=== PATIENT | male | born 1955 | race Caucasian/White ===

== ENCOUNTER 2023-04-24 09:11 | Outpatient (OUT) | payer MEDICARE, OTHER, SELFPAY ==
--- NOTE | 2023-04-24 | XR_ITS ---
[address] [address] Patient Name: HERMINIO HAMEED MRN: [id number] date: 1955 Sex: M Assigned Patient Location: [facility] Current Patient Location: [facility] Accession/Order Number: [id number] Exam Date: 04/24/2023 09:20 Report Date: 04/24/2023 10:08 At the request of: LAKISHA DURAN Procedure: XR ankle RT min 3V PROCEDURE: XR ankle RT min 3V COMPARISON: 05/02/2022 HISTORY: RIGHT ANKLE PAIN FINDINGS: BONES:Stable tibiotalar arthroplasty in anatomic alignment. No acute fracture, dislocation or mechanical failure. Anterior calcaneal osteotomy with wedged spacer placement. Moderate degenerative changes with joint space narrowing and marginal osteophyte formation. SOFT TISSUES:Negative. No visible soft tissue swelling. EFFUSION:Tibiotalar joint effusion OTHER: Vascular calcification XR/XR ankle RT min 3V IMPRESSION: Stable tibiotalar arthroplasty Electronically authenticated by: CAROL ALVAREZ Date: 04/24/2023 10:08
== END 2023-04-24 09:12 | disposition home or self-care (01) ==
LOC: RAD 09:26
PROVIDERS: Visit Provider Podiatrist Foot & Ankle Surgery
DX: M25.572 Pain in left ankle and joints of left foot (principal)
CPT/HCPCS: 73610

== ENCOUNTER 2024-04-22 08:54 | Outpatient (OUT) | payer MEDICARE, OTHER, SELFPAY ==
--- NOTE | 2024-04-22 | XR_ITS ---
[address] [address] Patient Name: HERMINIO HAMEED MRN: [id number] date: 1955 Sex: M Assigned Patient Location: Current Patient Location: Accession/Order Number: [id number] Exam Date: 04/22/2024 09:05 Report Date: 04/22/2024 19:00 At the request of: LAKISHA DURAN Procedure: XR ankle RT min 3V EXAM: XR ankle RT min 3V HISTORY: RIGHT ANKLE PAIN COMPARISON: None. FINDINGS/IMPRESSION: 1. Ankle arthroplasty hardware. No apparent hardware complication. 2. No acute fracture. 3. Calcaneal Achilles and plantar enthesophytes. 4. Moderate degeneration of the mid foot. 5. Subcutaneous soft tissue edema about the ankle. Electronically authenticated by: ZACHARIAH ZAYAS Date: 04/22/2024 19:00
== END 2024-04-22 08:55 | disposition home or self-care (01) ==
LOC: EC 08:54
PROVIDERS: Visit Provider Podiatrist Foot & Ankle Surgery
DX: M25.571 Pain in right ankle and joints of right foot (principal); Z96.661 Presence of right artificial ankle joint; R60.9 Edema, unspecified
CPT/HCPCS: 73610

== ENCOUNTER 2025-04-29 07:15 | Outpatient (OUT) | payer MEDICARE, OTHER, SELFPAY ==
--- OUTSIDE RECORDS SUMMARY | 2024-04-22 05:00 | XMS_ITS ---
Author Organization The [facility] in [place] Address [address] [place] [address] Care Team Providers Care Medical Record Coder Name Role Phone Clive Raymond MD Primary Care Provider Rohit Amin [phone] Allergies No Known Allergies REASON FOR VISIT -1 Year Follow Up- Medications Medication SIG (Take, Route, Frequency, Duration) Notes Start Date End Date Status Multivitamin - 1 tablet Orally Once a day Active Naproxen Sodium 220 MG 1 tablet with ronda d or milk as needed Orally every 12 hrs Active Pravastatin Sodium 80 MG 1 tablet Orally Once a day Active Super B Complex Acti ve Vitamin B6 100 MG 1 tablet Orally Once a day Active amLODIPine Besylate 5 MG 1 tablet Orally Once a day Active Biotin 5000 Active Lisinopril 10 MG 1 tablet Orally Once a day Active Losartan Potassium-HCTZ 100-25 MG 1 tablet Orally Once a day Active Social History Tobacco Use: Social History Observation Description Date Details (start date - stop date) Never Smoker NA - NA Tobacco Use/Smoking Question Answer Notes Patient is a nonsmoker Vital Signs Temperature 97.8 degrees Fahrenheit 04/22/20 24 Heart Rate 70 /min 04/22/2024 Height 63 in 04/22/2024 Weight 198 lbs 04/22/2024 BMI 35.07 kg/m2 04/22/2024 Oximetry 99 % 04/22/2024 Encounters Encounter Location Date Provider Diagnosis [facility] (PODIATRY) [address] [place] [address] [place] [address] 04/22/2024 Rohit Acosta Primary osteoarthritis, right ankle and foot M19.071 ; Presence of right artificial ankle joint Z96.661 and Right ankle pain M25.571 Assessments Encounter Date Diagnosis (ICD Code) Assessment Notes Treatment Notes Treatment Clinical Notes Section Notes 04/22/2024 Primary osteoarthritis, right ankle and foot (ICD-10 - M19.071) Patient is 5 years status post total ankle replacement and is doing very well. His x-rays were reviewed with him and those compared to 2021. No impact exercise and may continue activity as tolerated. Follow-up in 1 year for surveillance x-rays. 04/22/2024 Presence of right artificial ankle joint (ICD-10 - Z96.661) 04/22/2024 Right ankle pain (ICD-10 - M25.571) Plan Of Treatment Treatment Notes Assessment Notes Primary osteoarthritis, righ t ankle and foot Patient is 5 years status post total ank le replacement and is doing very well. His x-rays were reviewed with him and those compared to 2021. No impact exercise and may continue activity as tolerated. Follow-up in 1 year for surveillance x-rays. Pending Test Test Name Order Date XR Ankle RT (3 views) * (161) 04/22/2024 Progress Notes * Marck ALVAREZDOB: 5 (69 yo M)Acc No.[id number]:04/22/2024 Follow Up Patient: Marck NUNO Provider: Rosario Acosta DPM, MS :1955 A ge:69 Y S ex:Male Date:04/22/2024 Address:[address] [place], [place] [id number] Pcp:Clive Raymond MD Check In:08:50 AM ESTCheck O ut:09:28 AM EST Subjective: * Chief Complaints: * - 1 Year Follow Up- * HPI: G eneral: Patient in office today for 1 year follow up S/P right total ankle replacement, hazel calcaneal osteotomy, gastroc recession. DOS: 02.03.2019. Patient denies any complications or complaints. Denies pain at this time to his right ankle. Recently underwent left knee revision with hinged joint. Doing well. * ROS: G eneral/Constitutional: Chills d enies. F ever d enies. W eight gain?denies. W eight loss d enies. S kin: Skin Ulcers d enies. S kin lesion(s) d enies. ? C ardiovascular: Difficulty breathing on exertion d enies. L eg cramps?denies. E brian d enies. C hest pain d enies. R espiratory: Difficulty breathing d enies. D yspnea d enies.?Cough d enies. G astrointestinal: Diarrhea d enies. N ausea d enies. V omiting?denies. M usculoskeletal: Bone/Joint Symptoms d enies. C lambert Pain d enies.?Leg cramps d enies. N eurologic: Numbness d enies. T ingling d enies . G ait abnormality d enies. ? H ematology: Anemia D enies. E asy bruising d enies. ? A ll Other Systems: Review of Systems (ROS) S ee HPI for details,All others negative except those mentioned in HPI. * Active Problem List M25.572 Left ankle pain Modified On:04/24/2023W/U Status:confirmed Z96.661 Presence of right ar tificial ankle joint Modified On:04/24/2023/U Status:confirmed M19.071 Primary osteoarthrit is, right ankle and foot Modified On:04/24/2023/U Status:confirmed M25.571 Right ankle pain Modified On:04/22/2024W/U Status:confirmed * Medical History: * Surgical History: a ppendectomy 1980bicep tendon repair 1996right total knee replacement 2015multiple knee surgeries [id number] right total ankle replacement, finch calcaneal osteotomy, gastrocnemius recession 02/03/2019right hip replacement left knee revision with hinged implant * Hospitalization/Major Diagno stic Procedure: * Family History: N o Family History documented.. * Social History: T obacco Use: T obacco Use/Smoking P atient is a n onsmoker * Medications: T akingamLODIPine Besylate 5 MG Tablet 1 tablet Orally Once a day Biotin 5000 Lisinopril 10 MG Tablet 1 tablet Orally Once a day Losartan Potassium-HCTZ 100- 25 MG Tablet 1 tablet Orally Once a day Multivitamin(Multiple Vitamin) - Tablet 1 tablet Orally Once a day Naproxen Sodium 220 MG Tablet 1 tablet with food or milk as needed Orally every 12 hrs Pravastatin Sodium 80 MG Tablet 1 tablet Orally Once a day Super B Complex Vitamin B6 100 MG Tablet 1 tablet Orally Once a day Medication List reviewed and reconciled with the patientTaking amLODIPine Besylate 5 MG Tablet 1 tablet Orally Once a day Taking Biotin 5000 Taking Lisinopril 10 MG Tablet 1 tablet Orally Once a day Taking Losartan Potassium-HCTZ 100-25 MG Tablet 1 tablet Orally Once a day Taking Multivitamin(Multiple Vitamin) - Tablet 1 tablet Orally Once a day Taking Naproxen Sodium 220 MG Tablet 1 tablet with food or milk as needed Orally every 12 hrs Taking Pravastatin Sodium 80 MG Tablet 1 tablet Orally Once a day Taking Super B Complex Taking Vitamin B6 100 MG Tablet 1 tablet Orally Once a day Medication List reviewed and reconciled with the patient * Allergies: N .K.D.A.no[Allergies Verified] Objective: * Vitals: W t:198lbs, Ht: 63 in, Temp:97.8F, HR:70/min, BMI:35.07Index, Pain scale:01-10, Oxygen sat %:99%, Ht-cm: 160.02 cm, Wt-k.81 kg. * Examination: P odiatry Examination: SKIN: s kin intact, n o sign of infection. MUSCULOSKELETAL: N o pain to palpation, N o gross deformity, S trength equal & symmetric. NEUROLOGICAL: l ight touch sensation intact, n egative tinel's sign. VASCULAR: P edal pulses palpable, C apillary refill is brisk to toe, no swelling. X -rays: x-rays were obtained & reviewed in my office. X-rays were obtained today were compared to those obtained in 2021 and show no change in poly height. No evidence of tibial or talar loosening. Stable Finch wedge in the anterior calcaneus. Assessment: * Assessment: 1. P rimary osteoarthritis, right ankle and foot - M19.071 (Primary) 2 . P resence of right artificial ankle joint - Z96.661 3 . R ight ankle pain - M25.571 Plan: * Treatment: 2. R ight ankle pain I maging: XR Ankle RT (3 views) * (161) * Procedure Codes: * Preventive Medicine: Screenings/Counseling: B WA ACTION PLAN Above Normal BMI Follow-up D ietary management education, guidance, and counseling F ALL RISK SCREENING Fall Risk Assessment: N o falls in the past year * * Sign off status: Completed Visit Status: C HK (Check Out) true * Provider: Rosario Acosta DPM, MS Date: 04/22/2024 Generated for [facility] lubna/Royal/Mosheransmitting on: 04/29/2025 07:21 AM EDT History and Physical Notes * HPI (History of Present Illness) Category Sub-Category Detail Notes Category Not es General Patient in offi ce today for 1 year follow up S/P right total ankle replacement, hazel calcaneal osteotomy, gastroc recession. DOS: 02.03.2019. Patient denies any complications or complaints. Denies pain at this time to his right ankle. Recently underwent left knee revision with hinged joint. Doing well. Examination Category Sub-Category Detail Notes Category Not es Podiatry Examination SKIN: skin intact, no sign of infection X-rays: x-rays were obtained & reviewed in my office. X-rays were obtained today were compared to those obtained in 2021 and show no change in poly height. No evidence of tibial or talar loosening. Stable Finch wedge in the anterior calcaneus MUSCULOSKELETAL: No pain to palpation , No gross deformity, Strength equal & symmetric NEUROLOGICAL: light touch sensatio n intact, negative tinel's sign VASCULAR: Pedal pulses palpabl e, Capillary refill is brisk to toe, no swelling
--- OUTSIDE RECORDS SUMMARY | 2025-04-21 05:15 | XMS_ITS ---
Author Organization [facility] in [place] Address [address] [place] [address] Care Team Providers Care Transmission Repairer Name Role Phone Segundo DEWITT, Clive Primary Care Provider Rohit Amin [phone] REASON FOR VISIT -1 Year Follow Up- Encounters Encounter Location Date Provider Diagnosis [facility] (PODIATRY) [address] [place] [address] [place] [address] 04/21/2025 Rohit Acosta Plan Of Treatment No Information Progress Notes * Marck ALVAREZDOB: [birth year] (70 yo M)Acc No.[id number]:04/21/2025 UNLOCKED PROGRESS NOTE Follow Up Patient: Marck NUNO Provider: Rosario Acosta DPM, MS :1955 A ge:70 Y S ex:Male Date:04/21/2025 Address:[address] [place], [place] [id number] Pcp:Clive Raymond MD Subjective: * Chief Complaints: * 1 . -1 Year Follow Up-. * Medical History: Objective: * Vitals: Assessment: Plan: * Treatment: * * Electronic signature of Michael Acosta DPM on 04/29/2025 at 07:21 AM EDT Sign off status: Pending Visit Status: C ANC (Cancelled) * Provider: Rosairo Acosta DPM MS Date: 04/21/2025 Generated for Printi ng/Faxing/eTransmitting on: 0 04/29/2025 07:21 AM EDT
--- OUTSIDE RECORDS SUMMARY | 2025-04-29 07:21 | XMS_ITS | Clinical Summary ---
Author Organization [facility] Address [address] [place] [address] Care Team Providers Care Environmental Education Specialist Name Role Phone LewisDutch gustafson A Unavailable Clive Raymond DO Primary Care Provider [phone] Allergies No known active allergies Medications amLODIPine (NORVASC) 5 mg tablet Take 5 mg by mouth. 07/10/2021 Active hydroCHLOROthia zide 25 mg tablet Take 25 mg by mouth. Active lisinopril (ZESTRIL) 10 mg tablet Take 10 mg by mouth. 07/10/2021 Active meloxicam (MOBIC) 7.5 mg tablet Take by mouth. 03/06/2022 Active pravastatin (PRAVACHOL) 80 mg tablet Take 80 mg by mouth. 08/25/2021 Active pyridoxine, vitamin B6, (VITAMIN B6) 100 mg tablet Take 100 mg by mouth. Active cephALEXin (KEFLEX) 500 mg capsule TAKE ALL 4 CAPSULES ONE HOUR BEFORE THE PROCEDURE. 06/26/2023 Active aspirin, enteric coated (ADULT LOW DOSE ASPIRIN) 81 mg EC tablet Take 1 tablet by mouth two times a day. 60 tablet 10/16/2023 Active ergocalciferol 50,000 unit capsule (VITAMIN D2, DRISDOL) Take 1 capsule by mouth two times a week. 24 capsule 10/16/2023 Active Active Problems Problem Noted Date Diagnosed Date Failed orthopedic implant, initial encounter Suspected sleep apnea 10/10/2023 Assessment & Plan (10/10/2023 11:58 AM EST): Assessment: STOP Bang 6. BMP ordered. Pt reports loud snoring. Alcohol use 10/10/2023 Assessment & Plan (10/10/2023 12:05 PM EST): Assessment: Reports drinking 2-3 beers/day. Advised to decrease intake. Labs ordered. Denies withdrawal or DTs. Abnormal gait 09/20/2023 09/20/2023 Acquired buried penis 09/20/2023 09/20/2023 Acute serous otitis media 09/20/20232023 Anemia 09/20/2023 09/20/2023 Anemia of chronic disease 09/20/20232023 Carpal tunnel syndrome 09/20/2023 Postoperative pain 09/20/2023 09/20/2023 Disorder of male genital organ 09/20/2023 0 09/20/2023 Elevated hemoglobin A1c 09/20/2023 09/20/19 Encounter for orthopedic follow-up care 09/20/19 24 09/20/2023 Familial hypercholesteremia 09/20/2023 02/0 09/2023 H/O hydrocele 09/20/2023 09/20/2023 History of testicular disorder 09/20/2023 0 09/20/2023 History of carpal tunnel release 09/20/2023 09/20/2023 History of bilateral knee replacement 09/20/2023 09/20/2023 Hyperlipidemia 09/20/2023 09/20/2023 Assessment & Plan (10/10/2023 11:53 AM EST): Assessment: Complaint on statin therapy. Encouraged lifestyle modifications. Body mass index is 35.78 kg/m . Hypertension 09/20/2023 09/20/2023 Low vitamin D level 09/20/2023 09/20/2023 Obesity, Class II, BMI 35-39.9, isolated (see ac tual BMI) 09/20/2023 09/20/2023 Assessment & Plan (10/10/2023 11:56 AM EST): Assessment: Body mass index is 35.78 kg/m . 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 Follows with PCP. Denies lightheaded or dizziness. Last 3 Encounter BP Readings: Date: BP: 10/10/2023 90/55 Pain of right hip joint 03/06/2022 09/20/19 24 Resolved Problems Problem Noted Date Diagnosed Date Resolved Date Morbid obesity 03/09/2022 09/20/2023 10/10/2023 Overview (09/20/2023): Comment on above: added per 04/12/2023 query response. Class 2 obesity 03/06/2022 09/20/2023 10/10/2023 Social History Tobacco Use Types Packs/Day Years Used Date Smoking Tobacco: Never Smokeless Tobacco: Never Tobacco Cessation:Counseling Given: Not Answered Alcohol Use Standard Drinks/Week Comments Yes 21 (1 standard drink = 0.6 oz pu re alcohol) 2-3 beers daily. [facility] Utilities Answer Date Recorded In the past 12 months has [employer], gas, oil, or water [employer] threatened to shut off services in your home? No 10/03/2023 Social Connection and Isolation Panel Answer Date Recorded In a typical week, how many times do you talk on the phone with family, friends, or neighbors? More than three times a week 10/03/2023 How often do you get togethe r with friends or relatives? More than three times a week 10/03/2023 How often do you attend chur or pentecostal services? 1 to 4 times per year 10/03/2023 Do you belong to any clubs o r organizations such as holiness groups, unions, fraternal or athletic groups, or school groups? Yes 10/03/2023 How often do you attend meet ings of the clubs or organizations you belong to? More than 4 times per year 10/03/2023 Are you , , di vorced, , never , or living with a partner? 10/03/2023 AUDIT-C Answer Date Recorded Q1: How often do you have a drink containing alcohol? 4 or more times a week 10/03/2023 Q2: How many drinks containi ng alcohol do you have on a typical day when you are drinking? 1 or 2 Q3: How often do you have si x or more drinks on one occasion? Never 10/03/2023 Overall Financial Resource Strain (CARDIA) Answe r Date Recorded How hard is it for you to pa y for the very basics like food, housing, medical care, and heating? Not very hard 10/03/2023 PHQ-2 Answer Date Recorded PHQ-2 score 0 10/03/2023 [facility] - Occupational Stress Questionnaire Answer Date Recorded Do you feel stress - tense, restless, nervous, or anxious, or unable to sleep at night because your mind is troubled all the time - these days? Not at all 10/03/2023 Exercise Vital Sign Answer Date Recorde d On average, how many days pe r week do you engage in moderate to strenuous exercise (like a brisk walk)? 0 days 10/03/2023 On average, how many minutes do you engage in exercise at this level? 0 min 10/03/2023 Hunger Vital Sign Answer Date Recorded Within the past 12 months, y ou worried that your food would run out before you got the money to buy more. Never true 10/03/19 24 Within the past 12 months, t he food you bought just didn't last and you didn't have money to get more. Never true 10/03/2023 PRAPARE - Transportation Answer Date Re corded In the past 12 months, has l ack of transportation kept you from medical appointments or from getting medications? No 09/19 In the past 12 months, has l ack of transportation kept you from meetings, work, or from getting things needed for daily living? No 10/03/2023 Housing Stability Vital Sign Answer Chevy e Recorded In the last 12 months, was t here a time when you were not able to pay the mortgage or rent on time? No 10/03/2023 In the last 12 months, how many places have you lived? 1 10/03/2023 In the last 12 months, was t here a time when you did not have a steady place to sleep or slept in a long term (including now)? No 10/03/2023 Area Deprivation Index Answer Date Barron rded National Score (1-100), lower number is lower ri sk 65 09/20/2023 State Score (1-10), lower number is lower risk 4 09/20/2023 Data from: https://www.neighborhoodatlas.medicine.[facility].edu/. Last address used for calculation [address] 09/20/2023 Sex and Gender Information Value Date Recorded Sex Assigned at Not on file Legal Sex Male 8:16 AM EST Gender Identity Not on file Sexual Orientation Not on file Last Filed Vital Signs Vital Sign Reading Time Taken Comments Blood Pressure 112/66 10/16/2023 11:25 AM EST Pulse 80 10/16/2023 11:25 AM EST Temperature 36.7 C (98 F) 10/16/2023 11:25 AM EST Respiratory Rate 18 10/16/2023 11:25 AM EST Oxygen Saturation 98% 10/16/2023 11:25 AM EST Inhaled Oxygen Concentration - - Weight 91 kg (200 lb 9.9 oz) 10/14/2023 10:02 PM EST Height 160 cm (5' 2.99 ) 10/14/2023 10:02 PM EST Body Mass Index 35.55 10/14/2023 10:02 PM EST Plan of Treatment Health Maintenance Due Date Last Done Comments Annual PCP Team Chronic Disease Visit 1973 Anxiety Screening 1973 Depression Screening 1973 Hepatitis C Screening [address] Colonography 2000 Cologuard (FIT-DNA) 2000 Colonoscopy 2000 Colorectal Cancer Screening 2000 Fecal Occult Blood 2000 Sigmoidoscopy 2000 Pneumococcal Vaccine: 50+ (1 of 1 - PCV) 2005 Shingrix Vaccine (1 of 2) 2005 Medicare Annual Wellness Visit 02/17/2020 DTaP,Tdap,Td Vaccine (2 - Td or Tdap) 08/09/2020 Advance Directive Discussion 08/19/2024 Influenza Vaccine (#1) 2025 06/26/2022 Diabetes Screening 10/15/2026 10/15/2023, 10/10/2023 RSV Vaccine (1 - 1-dose 75+ series) 2030 Medical Devices Implanted Type Area Field Service Representative Device Identifier Shelf Expiration Date Model / Serial / Lot Cement Simplex P Speedset Bone Radiopaque Sterile - [id number] Implanted:Qty: 1 on 10/14/2023 at [facility] Cement / Putty Left: Bone - Knee [employer] 08/18/2024 [id number] / / [id number] Cement Simplex P Bone Radiopaque Full Dose Sterile - [id number] Implanted:Qty: 1 on 10/14/2023 at [facility] Cement / Putty Left: Bone - Knee [employer] 11/16/2025 [id number] / / [id number] Cement Simplex P Bone Radiopaque Full Dose Sterile - [id number] Implanted:Qty: 1 on 10/14/2023 at [facility] Cement / Putty Left: Bone - Knee [employer] 11/16/2025 [id number] / / [id number] Cement Simplex P Bone Radiopaque Full Dose Sterile - [id number] Implanted:Qty: 1 on 10/14/2023 at [facility] Cement / Putty Left: Bone - Knee [employer] 11/16/2025 [id number] / / [id number] Cement Simplex P Bone Radiopaque Full Dose Sterile - [id number] Implanted:Qty: 1 on 10/14/2023 at [facility] Cement / Putty Left: Bone - Knee [employer] [employer] [employer] 11/16/2025 [id number] / / [id number] Oss Imp Knee Rev Fem Rsf [id number] Lt Implanted:Qty: 1 on 10/14/2023 at [facility] Implant Left: Bone - Knee [employer] 08/24/2031 [id number] / / [id number] [place]oke Oss Tibial Reinforcement Knee - [id number] Implanted:Qty: 1 on 10/14/2023 at [facility] Implant Left: Bone - Knee [employer] 06/14/2033 [id number] / / [id number] Cable Dall-Miles 2mm 2 Vitallium Orthopedic Homogenous Hip - [id number] Implanted:Qty: 1 on 10/14/2023 at [facility] Joint - Hip Left: Bone - Knee [employer] [employer] 03/06/2028 [id number] / / [id number] Stem Oss 13mm 150mm Femoral Cemented Hip Intramedullary - [id number] Implanted:Qty: 1 on 10/14/2023 at [facility] Joint - Knee Left: Bone - Knee [employer] 01/02/2033 [id number] / / [id number] Augment Triathlon C Cone Tritanium Tibial Symmetric Sterile Latex Free - [id number] Implanted:Qty: 1 on 10/14/2023 at [facility] Joint - Knee Left: Bone - Knee [employer] 02/12/2028 [id number] / / [id number] Bushing Oss Polyethylene Tibial Low Friction Interface Knee - [id number] Implanted:Qty: 1 on 10/14/2023 at [facility] Joint - Knee Left: Bone - Knee [employer] 06/17/2028 [id number] / / [id number] Axle Oss Tibial Low Friction Interface Knee - [id number] Implanted:Qty: 1 on 10/14/2023 at [facility] Joint - Knee Left: Bone - Knee [employer] 06/25/2033 [id number] / / [id number] Bushing Oss Polyethylene Femoral Auxiliary Knee - [id number] Implanted:Qty: 1 on 10/14/2023 at [facility] Joint - Knee Left: Bone - Knee [employer] 08/16/2028 [id number] / / [id number] Bearing Oss Uhmwpe 12mm Tibial Insert Knee - [id number] Implanted:Qty: 1 on 10/14/2023 at [facility] Joint - Knee Left: Bone - Knee [employer] 10/26/2027 [id number] / / [id number] Baseplate Oss 67mm Tibial Modular Knee - [id number] Implanted:Qty: 1 on 10/14/2023 at [facility] Joint - Knee Left: Bone - Knee [employer] 06/03/2028 [id number] / / [id number] Block Oss 63/67mm Spring 10mm Augmentation Tibia - [id number] Implanted:Qty: 1 on 10/14/2023 at [facility] Joint - Knee Left: Bone - Knee [employer] 10/11/2032 [id number] / / [id number] Restrictor Spring Cement Disposable Housing Grant Analyst - [id number] Implanted:Qty: 1 on 10/14/2023 at [facility] Joint Left: Bone - Knee [employer] 01/17/2028 [id number] / / [id number] Restrictor Spring Cement Disposable Housing Grant Analyst - [id number] Implanted:Qty: 1 on 10/14/2023 at [facility] Joint Left: Bone - Knee [employer] 04/06/2028 [id number] / [id number] 2 / [id number] Oss Polyethylene Fixation Locking Compression Molded Knee - [id number] Implanted:Qty: 1 on 10/14/2023 at [facility] Pin Left: Bone - Knee [employer] 01/10/2028 [id number] / / [id number] Procedures Procedure Name Priority Date/Time Associated Diagnosis Comments BASIC METABOLIC PANEL Routine 10/15/2023 5:22 AM EST from Last 3 Months or Most Recently Relevant to Health Maintenance Results * (ABNORMAL) BASIC METABOLIC PNL (10/15/2023 5:22 AM EST) [facility] Glucose 121(H) 74 - 99 mg/dL 10/15/2023 7:23 AM EST [facility] Comment: The [place] Diabetes Association (ADA) provides guidance for cutoff values for fasting glucose and random glucose. The ADA defines fasting as no caloric intake for at least 8 hours. Fasting plasma glucose results between 100 to 125 mg/dL indicate increased risk for diabetes (prediabetes). Fasting plasma glucose results greater than or equal to 126 mg/dL meet the criteria for diagnosis of diabetes. In the absence of unequivocal hyperglycemia, results should be confirmed by repeat testing. In a patient with classic symptoms of hyperglycemia or hyperglycemic crisis, random plasma glucose results greater than or equal to 200 mg/dL meet the criteria for diagnosis of diabetes. Reference: Standards of Medical Care in Diabetes 2016, [place] Diabetes Association. Diabetes Care. 2016.39(Suppl 1). BUN 22 9 - 24 mg/dL 10/15/2023 7:23 AM [facility] Creatinine 0.74 0.73 - 1.22 mg/dL 10/15/2023 7:23 AM [facility] Sodium 132(L) 136 - 144 mmol/L 10/15/2023 7:23 AM [facility] Potassium 4.4 3.7 - 5.1 mmol/L 10/15/2023 7:23 AM [facility] Chloride 98 97 - 105 mmol/L 10/15/2023 7:23 AM [facility] CO2 23 22 - 30 mmol/L 10/15/2023 7:23 AM [facility] Anion Gap 11 9 - 18 mmol/L 10/15/2023 7:23 AM [facility] Calcium, Total 8.8 8.5 - 10.2 mg/dL 10/15/2023 7:23 AM [facility] Estimated Glomerular Filtration Rate 99 >=60 mL/min/1.7 3m 10/15/2023 7:23 AM [facility] Comment:Estimated Glomerular Filtration Rate (eGFR) is calculated using the 2020 CKD-EPI creatinine equation. This equation utilizes serum creatinine, sex, and age as parameters. The creatinine assay has traceable calibration to isotope dilution- mass spectrometry. Refer to KDIGO guidelines for clinical interpretation. In patients with unstable renal function, e.g. those with acute kidney injury, the eGFR may not accurately reflect actual GFR. Blood BLOOD SPECIMEN / Unknown Venipuncture / Unknown 10/15/2023 5:22 AM EST 10/15/2023 6:28 AM EST us Colin Presley MD LABORATORY Final R esult [facility] [address] [facility] [address] [place] [address], [place] from Last 3 Months or Most Recently Relevant to Health Maintenance Insurance MEDICARE Care Teams Environmental Education Specialist Relationship Specialty Start Date End Date Clive Raymond DO [address] [place] [address] PCP - General Family Medicine 10/07/23 Dutch Deluna [address] [place] [id number] Referring Orthopedics 07/18/23
--- OUTSIDE RECORDS SUMMARY | 2025-04-29 07:22 | XMS_ITS | Clinical Summary ---
Author Organization [facility] Address [address] [place] [address] Care Team Providers Care Anesthesiology Resident Name Role Phone Clive Raymond MD Primary Care Provider [phone] Allergies No known active allergies Medications pravastatin (Pravachol) 80 MG tablet Take 80 mg by mouth in the morning. Active losartan-hydroCH LOROthiazide (Hyzaar) 100-25 MG tablet Take 1 tablet by mouth in the morning. Active hydroCHLOROthiaz tesha (HYDRODiuril) 25 MG tablet Take 25 mg by mouth in the morning. Active amLODIPine (Norvasc) 5 MG tablet Take 5 mg by mouth in the morning. Active lisinopril 10 MG tablet Take 10 mg by mouth in the morning. Active pyridoxine (Vitamin B-6) 100 MG tablet Take 100 mg by mouth in the morning. Active ascorbic acid (Vitamin C) 500 MG tablet Take 500 mg by mouth in the morning. Active Multiple Vitamin (Multi Vitamin) tablet 1 (one) time each day at the same time. Active naproxen sodium (Aleve) 220 MG tablet every 12 (twelve) hours. Active biotin (Biotin 5000) 5 MG capsule Biotin 5000 Active cephalexin (Keflex) 500 MG capsuleIndicatio ns:History of left knee replacement Take all 4 capsules one hour before the procedure. 4 capsule 5 Active cephalexin (Keflex) 500 MG capsuleIndicatio ns:History of left knee replacement,Pres ence of right artificial hip joint Take all 4 capsules one hour before the procedure. 4 capsule 5 Active Active Problems No known active problems Encounters Date Type Department Care Team Description 02/25/2025 Telephone [facility] [address] [place] [address] Tamiko Maguire RN from Last 3 Months Family History Medical History Relation Name Comments Diabetes Father Heart disease Father No Known Problems Maternal Grandmother Cancer Mother Diabetes Mother Heart disease Mother Cancer Sister Relation Name Status Comments Brother Alive Father Maternal Grandmother Mother Other Spouse Sister Social History Tobacco Use Types Packs/Day Years Used Date Smoking Tobacco: Never Smokeless Tobacco: Never Tobacco Cessation:Counseling Given: Not Answered Alcohol Use Standard Drinks/Week Comments Yes 0 (1 standard drink = 0.6 oz pur e alcohol) coffee 3-4 cups daily Sex and Gender Information Value Date Recorded Sex Assigned at Not on file Legal Sex Male 6:38 PM EDT Gender Identity Not on file Sexual Orientation Not on file Last Filed Vital Signs Vital Sign Reading Time Taken Comments Blood Pressure 137/82 01/14/2019 12:00 PM EDT Pulse - - Temperature 36.1 C (97 F) 07/08/2023 8:23 AM EST Respiratory Rate - - Oxygen Saturation - - Inhaled Oxygen Concentration - - Weight 91.2 kg (201 lb) 07/08/2023 8:23 AM EST Height 157.5 cm (5' 2 ) 07/08/2023 8:23 AM EST Body Mass Index 36.76 07/08/2023 8:23 AM EST Plan of Treatment Upcoming Encounters Date Type Department Care Team (Late st Contact Info) Description 07/07/2025 9:00 AM EST Office Visit [facility] [address] [place] [address] Dutch Deluna, DO [address] [place] [address] 07/08/2025 9:10 AM EST Office Visit [facility] [address] [place] [phone] Ioana Grace APRN-INTERNATIONAL MARKETING SPECIALIST [address] [place] [address] Health Maintenance Due Date Last Done Comments CT Colonography 1955 FIT-DNA 1955 FIT 1955 FOBT 1955 Sigmoidoscopy 1955 Pneumococcal Vaccine: 65+ Years (1 of 1 - PCV) 005 Influenza Vaccine (#1) 2025 06/26/2022 Colonoscopy 01/01/2027 01/01/2017 Colorectal Cancer Screening 01/01/2027 Insurance MEDICARE [facility] [place] [address] Care Teams Anesthesiology Resident Relationship Specialty Start Date End Date Clive Raymond MD [address] [place] [address] PCP - General Family Medicine 01/06/23
--- OUTSIDE RECORDS SUMMARY | 2025-04-29 07:22 | XMS_ITS | Patient Health Record ---
Author Organization [facility] [place] Address [address] [place] [address] Care Team Providers Care Health Careers Instructor Name Role Phone Clive Raymond MD Primary Care Provider Rohit Amin [phone] Allergies No Known Allergies Reason For Referral No Information Medications Medication SIG (Take, Route, Frequency, Duration) [...] Question Answer Notes Patient is a nonsmoker Problems Problem Type SNOMED Code ICD Code Onset Dates Problem Status W/U Status Risk Notes Problem 055049689 Primary osteoarthritis , right ankle and foot (M19.071) Active confirmed Problem 5698165826629431 Presence of right artificial ankle joint (Z96.661) Active confirmed Problem Arthralgia of the ankle and/or foot (278930545) Right ankle pain (M25.571) Active confirmed Problem Arthralgia of the ankle and/or foot (971366695) Left ankle pain (M25.572) Active confirmed Plan Of Treatment Pending Test Test Name Order Date XR Ankle RT (3 views) * (161) 04/22/2024 XR ankle RT min 3V 04/22/2024 Insurance Providers Payer Name Payer Address Payer Phone Subscriber Number Group Number Insured Name Patient Relationship to Insured Coverage Start Date Coverage End Date [place] [address] [place] [address] [id number] Marck Alvarez Self - patient is the insured 0 [employer] [id number] MEDICARE SUPP [place] DEPT [place] [address] [id number] Marck Alvarez Self - patient is the insured 0 Medical (General) History Medical History History ICD Code Arthritis M19.90 Benign essential hypertension I10 High cholesterol E78.00 History of artificial joint Z96.60 Ankle instability, right M25.371 Contracture, right ankle M24.571 Posterior tibial tendon dysfunction, rig ht M76.821 Arthritis of ankle, right M19.071 Surgical History Surgery Date(Month/Year) multiple knee surgeries [id number] right total ankle replacejoan ovalle calcaneal osteotomy, gastrocnemius recession 02/03/2019 right hip replacement left knee revision with hinged implant appendectomy 1980 bicep tendon repair 1996 right total knee replacement 2015
--- OUTSIDE RECORDS SUMMARY | 2025-04-29 07:22 | XMS_ITS | Encounter Summary ---
Author Organization [facility] Address [address] [place] [address] Care Team Providers Care Landscape Architect Name Role Phone Clive Raymond MD Primary Care Provider [phone] Encounter Details Date Type Department Care Team (Late st Contact Info) Description 06/26/2023 Clinisync Result Encounter [facility] External Department Unsolicited Dutch Deluna DO [address] [place] [address] Social History Tobacco Use Types Packs/Day Years Used Date Smoking Tobacco: Never Smokeless Tobacco: Never Alcohol Use Standard Drinks/Week Comments Yes 0 (1 standard drink = 0.6 oz pur e alcohol) coffee 3-4 cups daily Sex and Gender Information Value Date Recorded Sex Assigned at Not on file Legal Sex Male 6:38 PM EDT Gender Identity Not on file Sexual Orientation Not on file documented as of this encounter Plan of Treatment Upcoming Encounters Date Type Department Care Team (Late st Contact Info) Description 07/07/2025 9:00 AM EST [facility] [address] [place] [phone] Dutch Deluna DO [address] [place] [address] 07/08/2025 9:10 AM EST Office Visit [facility] [address] [place] [phone] Ioana Grace, SMOKING PIPE DRILLER AND THREADER-CLERK [address] [place] [address] documented as of this encounter Procedures Procedure Name Priority Date/Time Associated Diagnosis Comments CT LOWER EXTREMITY W/O CONTRAST LEFT 06/26/2023 11:47 AM EST documented in this encounter Results * CT LOWER EXTREMITY W/O CONTRAST LEFT (06/26/2023 11:47 AM EST) Anatomical Region Laterality Modality Other 06/26/2023 11:4 7 AM EST Narrative 06/27/2023 12:28 PM EST Exam Date/Time: 06/26/2023 12:15 EST Reason for Exam: M25.562 , Z96.652 Report IMPRESSION: NO ACUTE FRACTURE. MODERATE SUPRAPATELLAR JOINT EFFUSION IS THICK WALLED SUGGESTING POSSIBLE NONSPECIFIC SYNOVITIS. 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 EXAMINATION: CT Lower Extremity w/o Contrast Left HISTORY: Medial knee pain TECHNIQUE: Multiple contiguous axial images were obtained of the left knee without contrast . Multiplanar reformats were obtained. COMPARISON: Radiographs 06/03/2023 FINDINGS: Postsurgical changes of left knee arthroplasty. No periprosthetic abnormality/fracture identified. There is a large thick rimmed structure in the popliteal region measuring approximately 5 cm in AP dimension by 5.5 cm in transverse dimension by 9 cm in craniocaudal dimension. There is atrophy and fatty infiltration of semimembranosus muscle. Moderate suprapatellar joint effusion is also a thick-walled. All CT scans at this facility use dose modulation, iterative reconstruction, and/or weight based dosing when appropriate to reduce radiation dose to as low as reasonably achievable. Ordering Provider: Dutch Deluna FINAL REPORT Dictated: 06/27/2023 12:25 pm Blu Jennings DO Signed (Electronic Signature): 06/27/2023 12:25 pm Signed by: Blu Jennings DO Transcribed by: RADHA Technologist: JAILENE Procedure Note Radiology, Radiologist, - 06/27/2023 Exam Date/Time: 06/26/2023 12:15 EST Reason for Exam: M25.562 , Z96.652 Report IMPRESSION: NO ACUTE FRACTURE. MODERATE SUPRAPATELLAR JOINT EFFUSION IS THICK WALLED SUGGESTING POSSIBLENONSPECIFIC SYNOVITIS. 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 EXAMINATION: CT Lower Extremity w/o Contrast Left HISTORY: Medial knee pain TECHNIQUE: Multiple contiguous axial images were obtained of the left kneewithout contrast . Multiplanar reformats were obtained. COMPARISON: Radiographs 06/03/2023 FINDINGS: Postsurgical changes of left knee arthroplasty. No periprosthetic abnormality/fracture identified. There is a large thick rimmed structurein the popliteal region measuring approximately 5 cm in AP dimension by 5.5 cm intransverse dimension by 9 cm in craniocaudal dimension. There is atrophy and fattyinfiltration of semimembranosus muscle. Moderate suprapatellar joint effusion is alsoa thick-walled. All CT scans at this facility use dose modulation, iterativereconstruction, and/or weight based dosing when appropriate to reduce radiation dose to as low asreasonably achievable. Ordering Provider: Dutch Deluna FINAL REPORT Dictated: 06/27/2023 12:25 pm Blu Jennings DO Signed (Electronic Signature): 06/27/2023 12:25 pm Signed by: Blu Jennings DO Transcribed by: RADHA Technologist: Dutch Deluna DO [facility] Final Result documented in this encounter Visit Diagnoses Not on filedocumented in this encounter Care Teams Landscape Architect Relationship Specialty Start Date End Date Clive Raymond MD [address] [facility] [address] PCP - General Family Medicine 01/06/23 documented as of this encounter
--- OUTSIDE RECORDS SUMMARY | 2025-04-29 07:22 | XMS_ITS | Encounter Summary ---
Author Organization [facility] Address [address] [place] [address] Care Team Providers Care Operation Manager Name Role Phone Lewisjanay Mark Unavailable Clive Raymond DO Primary Care Provider [phone] Source Comments In the event this information is protected by the Federal Confidentiality of Alcohol and Drug AbusePatient Records regulations: The Federal rules restrict any use of the information to criminally investigate or prosecute any alcohol or drug abuse patient.[facility] Encounter Details Date Type Department Care Team (Late st Contact Info) Description 09/30/2023 Patient Msg [facility] [address] [place], [place] [id number] Provider, [facility] Important Reminder for Preparing Your Skin for Surgery Social History Tobacco Use Types Packs/Day Years Used Date Smoking Tobacco: Never Assessed [facility] Utilities Answer Date Recorded In the past 12 months has [employer] electric, gas, oil, or water company threatened to shut off services in your [...] 10/03/2023 How often do you attend chur ch or jain services? 1 to 4 times per year 10/03/2023 Do you belong to any clubs o r organizations such as yazidi groups, unions, fraternal or athletic groups, or [...] Answer Date Recorded PHQ-2 score 0 10/03/2023 [facility] - Occupational Stress [...] place to sleep or slept in a penitentiary (including now)? No 10/03/2023 Area Deprivation Index Answer Date Barron rded National Score (1-100), lower number is lower ri sk 65 09/20/2023 State Score (1-10), lower number is lower risk 4 09/20/2023 Data from: https://www.neighborhoodatlas.medicine.[facility].edu/. Last address used for calculation [address] 09/20/2023 Sex and Gender Information Value Date Recorded Sex Assigned at Not on file Legal Sex Male 8:16 AM EST Gender Identity Not on file Sexual Orientation Not on file documented as of this encounter Functional Status * AUDIT-C Score Answer Date of Assessment Author 4 10/03/2023 10:23 AM Lamont Wasserman LSW * Question Answer Date of Assessment Author Q1: How often do you have a drink containing alcohol? 4 or more times a week 10/03/2023 10:23 AM Nhi Wasserman LSW Q2: How many drinks containing alcohol do you have on a typical day when you are drinking? 1 or 2 10/03/2023 10:23 AM Nhi Wasserman LSW Q3: How often do you have six or more drinks on one occasion? Never 10/03/2023 10:23 AM Nhi Wasserman LSW documented as of this encounter Plan of Treatment Not on file documented as of this encounter Visit Diagnoses Not on filedocumented in this encounter Care Teams Operation Manager Relationship Specialty Start Date End Date Clive Raymond DO [address] [place] [address] PCP - General Family Medicine 10/07/23 Dutch Deluna [address] [place] [place] [phone] Referring Orthopedics 07/18/23 documented as of this encounter
--- OUTSIDE RECORDS SUMMARY | 2025-04-29 07:22 | XMS_ITS | Clinical Summary ---
Author Organization [facility] Address [address] [place] [address] Phone Care Team Providers Care Wireless Architect Name Role Phone Unavailable Primary Care Provider Unavailabl e Social History Tobacco Use Types Packs/Day Years Used Date Smoking Tobacco: Never Assessed Sex and Gender Information Value Date Recorded Sex Assigned at Not on file Legal Sex Male 3:43 PM EST Gender Identity Not on file Sexual Orientation Not on file Plan of Treatment Health Maintenance Due Date Last Done Comments CT Colonography 1955 Colonoscopy 1955 Colorectal Cancer Screening 1955 FIT-DNA (Cologuard) 1955 FIT 1955 Lipid Panel 1955 Sigmoidoscopy 1955 Yearly Adult Physical 1955 MMR Vaccines (1 of 1 - Stand ananda series) 1956 Hepatitis C Screening 1973 DTaP/Tdap/Td Vaccines (1 - Tdap) 1977 Pneumococcal Vaccine (1 of 1 - PCV) 2005 Zoster Vaccines (1 of 2) 2005 COVID-19 Vaccine (1 - 2023-2 5 season) 2025 Influenza Vaccine (#1) 2025 RSV High Risk: (Elderly (60+ ) or Population) (1 - 1-dose 75+ series) 2030 HIB Vaccines Aged Out No longer eligi ble based on patient's age to complete this topic HPV Vaccines Aged Out No longer eligi ble based on patient's age to complete this topic Hepatitis A Vaccines Aged Out No long er eligible based on patient's age to complete this topic Hepatitis B Vaccines Aged Out No long er eligible based on patient's age to complete this topic IPV Vaccines Aged Out No longer eligi ble based on patient's age to complete this topic Meningococcal Vaccine Aged Out No kian carmina eligible based on patient's age to complete this topic Rotavirus Vaccines Aged Out No longer eligible based on patient's age to complete this topic
--- OUTSIDE RECORDS SUMMARY | 2025-04-29 07:22 | XMS_ITS | Encounter Summary ---
Author Organization [facility] Address [address] [place] [address] Care Team Providers Care Financial Consultant Name Role Phone Clive Raymond MD Primary Care Provider Encounter Details Date Type Department Care Team (Late st Contact Info) Description 06/26/2023 Clinisync Result Encounter [facility] External Department Unsolicited Dutch Deluna DO [address] [place] [address] Social History Tobacco Use Types Packs/Day Years [...] [facility] [address] [place] [phone] Dutch Deluna DO [address] [place] [address] 07/08/2025 9:10 AM EST Office Visit [facility] [address] [place] [phone] Ioana Grace, WELLNESS COACH-ROULETTE DEALER [address] [place] [address] documented as of this encounter Procedures Procedure Name Priority Date/Time Associated Diagnosis Comments NM 3PH 06/26/2023 7:52 AM EST documented in this encounter Results * NM bone 3 phase (06/26/2023 7:52 AM EST) Anatomical Region Laterality Modality Nuclear Medicine 06/26/2023 7:52 AM EST Narrative 06/27/2023 3:17 PM EST Exam Date/Time: 06/26/2023 12:28 EST Reason for Exam: M25.562 , Z96.652 Report IMPRESSION: BILATERAL KNEE JOINT PROSTHESES. HYPEREMIA ADJACENT TO THE FEMORAL COMPONENT OF THE LEFT KNEE JOINT PROSTHESIS. ON DELAYED PHASE IMAGES, INCREASED BONY UPTAKE OF ACTIVITY ADJACENT TO THE METALLIC LEFT KNEE JOINT PROSTHESIS, MORE PROMINENT ADJACENT TO THE FEMORAL COMPONENT THAN THE TIBIAL COMPONENT. THIS SUGGESTS LOOSENING OF THE LEFT KNEE JOINT PROSTHESIS. BONY UPTAKE OF ACTIVITY IS NONSPECIFIC, AND ALTHOUGH CONSIDERED LESS LIKELY, COULD BE RELATED TO INFECTION. CORRELATE CLINICALLY. CLINICAL HISTORY: M25.562 , Z96.652. Pain left knee. Bilateral knee replacements. Revision right knee replacement 2015. COMPARISON: Bone scan on 01/17/2016, radiographs on 06/03/2023, and CT on 06/26/2023. COMMENT: Three-phase bone scan of both knees was obtained following the intravenous injection of 29.5 mCi of 99m Technetium MDP. There are photon deficient areas of both knees, due to the metallic prostheses. On the dynamic phase and blood pool phase images, there is hyperemia adjacent to the femoral component of the left knee joint prosthesis. The delayed phase images were obtained 4 hours post radionuclide injection. There is prominent increased activity involving the distal left femur adjacent to the prosthesis, and there is also increased uptake of activity adjacent to the tibial component of the prosthesis (although not as prominent as adjacent to the femoral component, and more so laterally than medially). Bony activity adjacent to the right knee joint prosthesis is consistent with reactive change. Ordering Provider: Dutch Deluna FINAL REPORT Dictated: 06/27/2023 3:14 pm Jefe Brower M.D. Signed (Electronic Signature): 06/27/2023 3:14 pm Signed by: Jefe Brower M.D. Transcribed by: RADHA Technologist: BRUCE Technical Comments Dose: (mCi Tc99m MDP) 29.5 Imaging Post Administration (hrs): 4 Procedure Note Radiology, Radiologist, - 06/27/2023 Exam Date/Time: 06/26/2023 12:28 EST Reason for Exam: M25.562 , Z96.652 Report IMPRESSION: BILATERAL KNEE JOINT PROSTHESES. HYPEREMIA ADJACENT TO THE FEMORAL COMPONENT OF THE LEFT KNEE JOINTPROSTHESIS. ON DELAYED PHASE IMAGES, INCREASED BONY UPTAKE OF ACTIVITY ADJACENT TO THEMETALLIC LEFT KNEE JOINT PROSTHESIS, MORE PROMINENT ADJACENT TO THE FEMORAL COMPONENTTHAN THE TIBIAL COMPONENT. THIS SUGGESTS LOOSENING OF THE LEFT KNEE JOINTPROSTHESIS. BONY UPTAKE OF ACTIVITY IS NONSPECIFIC, AND ALTHOUGH CONSIDERED LESS LIKELY,COULD BE RELATED TO INFECTION. CORRELATE CLINICALLY. CLINICAL HISTORY: M25.562 , Z96.652. Pain left knee. Bilateral kneereplacements. Revision right knee replacement 2015. COMPARISON: Bone scan on 01/17/2016, radiographs on 06/03/2023, and CT on06/26/2023. COMMENT: Three-phase bone scan of both knees was obtained following theintravenous injection of 29.5 mCi of 99m Technetium MDP. There are photon deficient areas of both knees, due to the metallicprostheses. On the dynamic phase and blood pool phase images, there is hyperemia adjacentto the femoral component of the left knee joint prosthesis. The delayed phaseimages were obtained 4 hours post radionuclide injection. There is prominent increasedactivity involving the distal left femur adjacent to the prosthesis, and there isalso increased uptake of activity adjacent to the tibial component of theprosthesis (although not as prominent as adjacent to the femoral component, and moreso laterally than medially). Bony activity adjacent to the right knee jointprosthesis is consistent with reactive change. Ordering Provider: Dtuch Deluna FINAL REPORT Dictated: 06/27/2023 3:14 pm Jefe Brower M.D. Signed (Electronic Signature): 06/27/2023 3:14 pm Signed by: Jefe Brower M.D. Transcribed by: RADHA Technologist: BRUCE Technical Comments Dose: (mCi Tc99m MDP) 29.5 Imaging Post Administration (hrs): 4 us Dutch Deluna DO IMG NM PROCEDURES Final Result documented in this encounter Visit Diagnoses Not on filedocumented in this encounter Care Teams Financial Consultant Relationship Specialty Start Date End Date Clive Raymond MD [address] [place] [address] PCP - General Family Medicine 01/06/23 documented as of this encounter
--- OUTSIDE RECORDS SUMMARY | 2025-04-29 07:23 | XMS_ITS | CCD ---
Author Organization [facility] Care Team Providers Care [employer] Name Role Phone Clive RAYMOND Primary Care Physician [phone] LAKISHA DURAN Attending Unavailable MISC, DR BURGOS Primary Care Unavailable CLEBURNE, DR CAROL Valenzuela Consulting Unavailable LAKISHA DURAN Admitting Unavailable LAKISHA DURAN Consulting Unavailable Carol Deluna Unavailable Clive Raymond DO Primary Care Provider [phone] KATINA MERCHANT Referring Unavailable CLIVE RAYMOND Primary Care Unavailable Clive Raymond DO Primary Care Provider KATINA MERCHANT Attending Unavailable MERCHANTKATINA ORTIZ Admitting Unavailable MERCHANTKATINA GARCIA Attending Unavailable SELF Referring Unavailable SELF Referring Unavailable CLIVE RAYMOND Primary Care Unavailable CLIVE RAYMOND Primary Care Unavailable KATINA MERCHANT Attending Unavailable CLIVE RAYMOND Primary Care Unavailable BANDSUH, CEHLY Attending Unavailable CLIVE RAYMOND Primary Care Unavailable KATINA MERCHANT P Referring Unavailable KAPCLIVE ZAMBRANO Primary Care Unavailable KATINA MERCHANT P Referring Unavailable CLIVE RAYMOND Primary Care Unavailable POCOSCAROL Referring Unavailable POCOSCAROL Referring Unavailable POCOSCAROL Attending Unavailable LORRAINE GRACE Attending Unavailable Clive Raymond MD Primary Care Provider [phone] Clive RAYMOND Admitting Unavailable KAPClive ZAMBRANO Attending Unavailable KAPClive ZAMBRANO Admitting Unavailable KAPClive ZAMBRANO Attending Unavailable KAPKENYA, Clive Amezquita Attending Unavailable KAPClive ZAMBRANO Attending Unavailable KAPClive ZAMBRANO Attending Unavailable KAPClive ZAMBRANO Attending Unavailable KAPClive ZAMBRANO Attending Unavailable BANDSUH, CHELY HUIZAR Referring Unavaila ble BANDSUH, CHELY HUIZAR Attending Unavaila ble BANDSUH, CHELY HUIZAR Admitting Unavaila ble KAPClive ZAMBRANO Attending Unavailable Clive RAYMOND Attending Unavailable Clive RAYMOND Attending Unavailable Clive RAYMOND Admitting Unavailable Clive RAYMOND Attending Unavailable Clive RAYMOND Attending Unavailable Clive RAYMOND Attending Unavailable Medications Current Medications Medication Drug Class(es) Dates Sig (Normalized) Sig (Original) acetaminophen 500 mg oral tablet (1 source) Start: 10-16-2023 End: 10-31-2023 take 2 tablets by mouth every eight hours as needed acetaminophen (TYLENOL EXTRA STRENGTH) 500 mg tablet Take 2 tablets by mouth every 8 hours as needed for pain for up to 15 days. 45 tablet 0 10/16/2023 10/31/2023 Active Comment on above: Take 2 tablets by mo [facility] every 8 hours as needed for pain for up to 15 days. amLODIPine 5 mg oral tablet (20 sources) Dihydropyridine Calcium Channel Je Start: 03-19-2025 take 1 tablet by mouth once daily amLODIPine 5 mg Tab 5 mg = 1 tab(s), Oral, Daily, # 90 tab(s), Refills(s) 4, Pharmacy: [facility]/pharmacy #[id number], 159, cm, 03/19/25 7:40:00 EDT, Height/Length Dosing, 91.4, kg, 03/19/25 7:40:00 EDT, Weight Dosing Start Date: 03/19/25 Status: Ordered Quantity: 90.0 Unit: tab(s) Repeat number: 5 Start: 07-10-2021 take 1 tablet by kevin once daily amLODIPine 5 mg Tab 5 mg = 1 tab(s), Oral, Daily, # 90 tab(s), Refills(s) 3, Pharmacy: [facility]/pharmacy #[id number], 159, cm, 03/24/24 7:58:00 EDT, Height/Length Dosing, 98, kg, 03/24/24 7:58:00 EDT, Weight Dosing Start Date: 03/24/24 Status: Ordered Comment on above: Take 5 mg by mouth. ascorbic acid 500 mg chewable tablet (7 sources) Vitamin C take 1 tablet by mouth in the morning ascorbic acid (Vitamin C) 500 MG tablet Take 500 mg by mouth in the morning. Active aspirin 81 mg delayed release oral tablet (11 sources) Platelet Aggregation Inhibitor, Nonsteroidal Anti-inflammatory Drug Start: 10-16-2023 End: 11-15-2023 take 1 tablet by mouth twice daily aspirin, enteric coated (ADULT LOW DOSE ASPIRIN) 81 mg EC tablet Take 1 tablet by mouth two times a day. 60 tablet 0 10/16/2023 Active Start: 07-10-2022 End: 10-16-2023 aspirin, enteric coated (ASP IRIN, ENTERIC COATED) 325 mg EC tablet Take 325 mg by mouth. 07/10/2022 10/16/2023 Discontinued Comment on above: Take 325 mg by mouth . Take 1 tablet by kevin th two times a day. biotin 2.5 mg oral tablet (20 sources) Start: 06-20-2022 take 1 tablet by mouth once daily biotin 2.5 mg oral tablet 2.5 mg = 1 tab(s), Oral, Daily, Prophylaxis Start Date: 06/20/22 Status: Ordered Repeat number: 1 biotin (Biotin 5 000) 5 MG capsule Biotin 5000 Active cefadroxil 500 mg oral capsule (1 source) Cephalosporin Antibacterial Start: 07-10-2022 End: 07-12-2022 take 1 capsule by mouth every twelve hours cefadroxil 500 mg Cap 500 mg = 1 cap(s), Oral, q12hr, X 2 day(s), # 4 cap(s), Refills(s) 0, Pharmacy: [facility]/pharmacy #[id number], 159, cm, 06/26/22 9:20:00 EST, Height/Length Dosing, 93.7, kg, 06/26/22 9:20:00 EST, Weight Dosing Start Date: 07/10/22 Stop Date: 07/12/22 Status: Ordered cephalexin 500 mg oral capsule (16 sources) Cephalosporin Antibacterial Start: 09-04-2024 cephalexin (Keflex) 500 MG capsule Indications: History of left knee replacement Take all 4 capsules one hour before the procedure. 4 capsule 09/04/2024 Active Start: 07-20-2024 cephalexin (Ke flex) 500 MG capsule Indications: History of left knee replacement Take all 4 capsules one hour before the procedure. 4 capsule 07/20/2024 Active Start: 06-26-2023 cephalexin (Ke flex) 500 MG capsule Indications: History of left knee replacement Take all 4 capsules one hour before the procedure. 4 capsule 01/06/2024 Active Comment on above: TAKE ALL 4 CAPSULES ONE HOUR BEFORE THE PROCEDURE. docusate sodium 100 mg oral capsule (4 sources) Start: 10-16-2023 End: 10-31-2023 take 1 capsule by mouth twice daily docusate sodium (COLACE) 100 mg capsule Take 1 capsule by mouth two times a day for 15 days. 30 capsule 0 10/16/2023 10/31/2023 Active Start: 07-10-2022 take 1 capsule by mo [facility] twice daily as needed for constipation Colace 100 mg Cap 100 mg = 1 cap(s), Oral, BID, PRN for constipation, # 40 cap(s), Refills(s) 0, Pharmacy: [facility]/pharmacy #[id number], 159, cm, 06/26/22 9:20:00 EST, Height/Length Dosing, 93.7, kg, 06/26/22 9:20:00 EST, Weight Dosing Start Date: 07/10/22 Status: Ordered Comment on above: Take 1 capsule by [facility] two times a day for 15 days. doxycycline hyclate 100 mg oral tablet (6 sources) Tetracycline-clas s Drug Start: 2023 End: 2023 take 1 tablet by mouth twice daily doxycycline (VIBRA-TABS) 100 mg tablet Take 1 tablet by mouth two times a day. 168 tablet 0 10/16/2023 01/08/2024 Active Comment on above: Take 1 tablet by [facility] two times a day. ergocalciferol 1.25 mg oral capsule (7 sources) Provitamin D2 Compound Start: 2023 End: 2023 take 1 capsule by mouth two times weekly ergocalciferol 50,000 unit capsule (VITAMIN D2, DRISDOL) Take 1 capsule by mouth two times a week. 24 capsule 10/16/2023 Active Comment on above: Take 1 capsule by [facility] two times a week. hydroCHLOROthiazide 25 mg oral tablet (16 sources) Thiazide Diuretic take 1 tablet by mouth in the morning hydroCHLOROthiazide (HYDRODiuril) 25 MG tablet Take 25 mg by mouth in the morning. Active Comment on above: Take 25 mg by mouth. hydroCHLOROthiazide 25 mg / losartan potassium 100 mg oral tablet (20 sources) Thiazide Diuretic, Angiotensin 2 Receptor Je Start: 2024 hydrochlorothiazide-losa rtan 25 mg-100 mg Tab 1 tab(s), Oral, Daily, 90 tab(s), Refill(s) 4, [facility]/pharmacy #[id number], 159, cm, 03/19/25 7:40:00 EDT, Height/Length Dosing, 91.4, kg, 03/19/25 7:40:00 EDT, Weight Dosing Start Date: 03/19/25 Status: Ordered Quantity: 90.0 Unit: tab(s) Repeat number: 5 Start: 03-24-2024 hydrochlorothi azide-losartan 25 mg-100 mg Tab 1 tab(s), Oral, Daily, 90 tab(s), Refill(s) 3, [id number], 159, cm, 03/24/24 7:58:00 EDT, Height/Length Dosing, 98, kg, 03/24/24 7:58:00 EDT, Weight Dosing Start Date: 03/24/24 Status: Ordered Start: 07-10-2021 End: 10-10-2023 hydrochlorothiazide-losartan 25 mg-100 mg Tab 1 tab(s), Oral, Daily, 90 tab(s), Refill(s) 3, [id number], 159, cm, 04/15/23 11:35:00 EDT, Height/Length Dosing, 91.7, kg, 04/15/23 11:35:00 EDT, Weight Dosing Start Date: 04/15/23 Status: Ordered take 1 tablet by kevin th in the morning losartan-hydroCHLOROthiazide (Hyzaar) 10 0-25 MG tablet Take 1 tablet by mouth in the morning. Active Comment on above: Take 1 tablet by kevin th every morning. lisinopril 10 mg oral tablet (20 sources) Angiotensin Converting Enzyme Inhibitor Start: 03-19-2025 take 1 tablet by mouth once daily lisinopril 10 mg Tab 10 mg = 1 tab(s), Oral, Daily, # 90 tab(s), Refills(s) 4, Pharmacy: [facility]/pharmacy #[id number], 159, cm, 03/19/25 7:40:00 EDT, Height/Length Dosing, 91.4, kg, 03/19/25 7:40:00 EDT, Weight Dosing Start Date: 03/19/25 Status: Ordered Quantity: 90.0 Unit: tab(s) Repeat number: 5 Start: 07-10-2021 take 1 tablet by kevin th once daily lisinopril 10 mg Tab 10 mg = 1 tab(s), Oral, Daily, # 90 tab(s), Refills(s) 3, [id number], 03/24/24 7:58:00 EDT, Height/Length Dosing, 98, kg, 03/24/24 7:58:00 EDT, Weight Dosing Start Date: 03/24/24 Status: Ordered Comment on above: Take 10 mg by mouth. meloxicam 7.5 mg oral tablet (15 sources) Nonsteroidal Anti-inflammatory Drug Start: 03-06-2022 meloxicam (MOBIC) 7.5 mg tablet Take by mouth. 03/06/2022 Active Start: 03-06-2022 take 1 tablet by kevin th once daily meloxicam 7.5 mg oral tablet 7.5 mg = 1 tab(s), Oral, Daily, # 30 tab(s), Refills(s) 5, [id number], cm, 03/06/22 13:23:00 EDT, Height/Length Dosing, 95.6, kg, 03/06/22 13:23:00 EDT, Weight Dosing Start Date: 03/06/22 Status: Ordered Comment on above: Take by mouth. Multiple Vitamin (Multi Vitamin) tablet (7 sources) Multiple Vitamin (Multi Vitamin) tablet 1 (one) time each day at the same time. Active Multivitamin preparation (9 sources) Start: 03-09-2022 take 1 capsule by mouth once daily multivitamin 1 cap, Oral, Daily, Refill(s) 0, Prophylaxis Start Date: 03/09/22 Status: Ordered Start: 03-09-2022 multivitamin D aily, Refill(s) 0 Start Date: 03/09/22 Status: Ordered mupirocin 0.02 mg/mg topical ointment (1 source) RNA Synthetase Inhibitor Antibacterial Start: 10-10-2023 End: 10-15-2023 mupirocin (BACTROBAN) 2 % ointment two times a day for 5 days. Apply 0.5 inch with cotton swab (Q-tip) to each nostril in the morning and evening for 5 days prior to and including day of surgery. 22 g 0 10/10/2023 10/15/2023 Active Comment on above: two times a day for 5 days. Apply 0.5 inch with cotton swab (Q-tip) to each nostril in the morning and evening for 5 days prior to and including day of surgery. naproxen 250 mg oral tablet (12 sources) Nonsteroidal Anti-inflammatory Drug Start: 06-20-2022 take 1 tablet by mouth twice daily naproxen 250 mg oral tablet 250 mg = 1 tab(s), Oral, BID, Prophylaxis Start Date: 06/20/22 Status: Ordered naproxen sodium (Aleve) 220 MG tablet every 12 (twelve) hours. Active oxyCODONE hydrochloride 5 mg oral tablet (4 sources) Opioid Agonist Start: 10-16-2023 End: 10-23-2023 take 1 tablet by mouth every six hours as needed oxyCODONE IR (ROXICODONE) 5 mg immediate release tablet Indications: S/P revision of total knee, left Take 1-2 tablets by mouth every 6 hours as needed for pain for up to 7 days. for pain. 42 tablet 0 10/16/2023 10/23/2023 Active Start: 07-10-2022 oxyCODONE 5 mg Tab 5 mg = 1 tab(s), Oral, As Directed, 1-2 po q4-6 hrs prn pain Dx: M16.11, Z96.641 Duration: 7days, # 40 tab(s), Refills(s) 0, Pharmacy: [facility]/pharmacy #[id number], 159, cm, 06/26/22 9:20:00 EST, Height/Length Dosing, 93.7, kg, 06/26/22 9:20:00 EST, Weight... Start Date: 07/10/22 Status: Ordered Comment on above: Take 1-2 tablets by mouth every 6 hours as needed for pain for up to 7 days. for pain. pravastatin sodium 80 mg oral tablet (20 sources) HMG-CoA Reductase Inhibitor Start: take 1 tablet by mouth once daily Pravachol 80 mg Tab 80 mg = 1 tab(s), Oral, Daily, # 90 tab(s), Refills(s) 4, Pharmacy: [facility]/pharmacy #[id number], 159, cm, 08/01/25 7:40:00 EDT, Height/Length Dosing, 91.4, kg, 03/19/25 7:40:00 EDT, Weight Dosing Start Date: 03/19/25 Status: Ordered Quantity: 90.0 Unit: tab(s) Repeat number: 5 Indications: Atherosclerosis of aorta; Familial hypercholesterolemia; Start: 08-25-2021 take 1 tablet by kevin th once daily Pravachol 80 mg Tab 80 mg = 1 tab(s), Oral, Daily, # 90 tab(s), Refills(s) 3, Pharmacy: [facility]/pharmacy #[id number], 159, cm, 03/24/24 7:58:00 EDT, Height/Length Dosing, 98, kg, 03/24/24 7:58:00 EDT, Weight Dosing Start Date: 03/24/24 Status: Ordered Comment on above: Take 80 mg by mouth. sennosides, prison 8.6 mg oral tablet (1 source) Start: 10-16-2023 End: 10-31-2023 take 2 tablets by mouth once daily at bedtime senna (SENOKOT) 8.6 mg tab Take 2 tablets by mouth daily at bedtime for 15 days. 30 tablet 0 10/16/2023 10/31/2023 Active Comment on above: Take 2 tablets by mo ut daily at bedtime for 15 days. Super B Complex oral tablet (15 sources) Start: 06-20-2022 take 1 tablet by mouth once daily Super B Complex oral tablet 1 tab(s), Oral, Daily, Prophylaxis Start Date: 06/20/22 Status: Ordered Repeat number: 1 Start: 06-20-2022 take 1 tablet by kevin th once daily Super B Complex oral tablet 1 tab(s), Oral, Daily, Prophylaxis Start Date: 06/20/22 Status: Ordered vitamin b6 100 mg oral tablet (16 sources) take 1 tablet by mouth in the morning pyridoxine (Vitamin B-6) 100 MG tablet Take 100 mg by mouth in the morning. Active Comment on above: Take 100 mg by mouth . Vitamin B6 100 mg Tab (20 sources) Start: 03-25-2020 take 1 tablet by mouth once daily Vitamin B6 100 mg Tab 100 mg = 1 tab(s), Oral, Daily, Refills(s) 0, Pain Start Date: 03/25/20 Status: Ordered Repeat number: 1 Start: 03-25-2020 take 1 tablet by kevin th once daily Vitamin B6 100 mg Tab 100 mg = 1 tab(s), Oral, Daily, Refills(s) 0, Pain Start Date: 03/25/20 Status: Ordered Vitamin B6 50 mg Tab (2 sources) Start: 06-20-2022 End: 06-27-2022 take 1 tablet by mouth once daily Vitamin B6 50 mg Tab 50 mg = 1 tab(s), Oral, Daily, X 7 day(s), # 7 tab(s), Refills(s) 0 Start Date: 06/20/22 Stop Date: 06/27/22 Status: Ordered Completed/Discontinued Medications Medication Drug Class(es) Dates Sig (Normalized) Sig (Original) Vitamin D 50,000 intl units (1.25 mg) oral capsule (15 sources) Start: 06-15-2019 take 1 capsule by mouth once Vitamin D 50,000 intl units (1.25 mg) oral capsule 50,000 International_Unit = 1 cap(s), Oral, Saturday, Refills(s) 0, Other (see comment) Start Date: 06/15/19 Status: Ordered Problems Active Problems Problem Classification Problem Date Documented Date Episodic/Chronic Administrative/social admission (1 source) Counseling procedure with explicit context; Translations: [Other specified counseling] Onset: 03-09-2022 Episodic Complication of device; implant or graft (14 sources) Prosthetic joint mechanical failure; Translations: [Broken internal joint prosthesis, other site, initial encounter] Onset: 10-10-2023 09-20-2023 Episodic Deficiency and other anemia (20 sources) Anemia of chronic disease; Translations: [Anemia in other chronic diseases classified elsewhere] Onset: 09-20-2023 03-18-2020 Chronic Deficiency and other anemia (1 source) Anemia, unspecified; Translations: [Anemia, unspecified type] Onset: 09-20-2023 Episodic Diabetes mellitus without complication (6 sources) Type 2 diabetes mellitus without complications; Translations: [Type 2 diabetes mellitus] Onset: 03-19-2025 Chronic Diabetes mellitus without complication (20 sources) Hyperglycemia; Translations: [Prediabetes] Onset: 03-26-2022 09-16-2020 Episodic Disorders of lipid metabolism (20 sources) Hyperlipidemia; Translations: [Hyperlipidemia, unspecified] Onset: 03-06-2022 Resolved: 01-15-2019 Chronic Essential hypertension (20 sources) Essential hypertension; Translations: [Essential (primary) hypertension] Onset: 03-06-2022 Chronic Immunizations and screening for infectious disease (1 source) Viral screening status; Translations: [Encounter for screening for other viral diseases] Onset: 03-09-2022 Episodic Nutritional deficiencies (20 sources) Decreased vitamin D; Translations: [Vitamin D deficiency] Onset: 10-10-2023 05-19-2019 Chronic Osteoarthritis (20 sources) Osteoarthritis of hip; Translations: [Unilateral primary osteoarthritis, right hip] Onset: 03-26-2022 Chronic Other aftercare (1 source) Follow-up orthopedic assessment; Translations: [Aftercare following joint replacement surgery] Chronic Other aftercare (16 sources) Long-term current use of drug therapy; Translations: [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] Onset: 03-09-2022 Episodic Other and unspecified benign neoplasm (2 sources) Melanocytic nevus of trunk; Translations: [Melanocytic nevi of trunk] 01-04-2025 Episodic Other connective tissue disease (4 sources) Artificial knee joint present; Translations: [Presence of artificial knee joint, bilateral] Onset: 03-06-2022 Chronic Other connective tissue disease (14 sources) Hip joint prosthesis present; Translations: [Presence of right artificial hip joint] Onset: 09-20-2023 Chronic Other connective tissue disease (2 sources) Presence of unspecified artificial knee joint; Translations: [Failure of total knee replacement, initial encounter ([facility]) ([facility])] Onset: 10-10-2023 Chronic Other connective tissue disease (1 source) History of revision of left total knee arthroplasty; Translations: [Presence of left artificial knee joint] 11-07-2023 Chronic Other connective tissue disease (1 source) Presence of left artificial knee joint; Translations: [S/P revision of total knee, left] Onset: 10-14-2023 Chronic Other connective tissue disease (1 source) Other symptoms and signs involving the nervous system; Translations: [Suspected sleep apnea] Onset: 10-10-2023 Episodic Other male genital disorders (20 sources) Acquired buried penis; 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] Onset: 09-20-2023 06-10-2019 Chronic Other male genital disorders (20 sources) Disorder of male genital organ; Translations: [Disorder of male genital organs, unspecified] Onset: 09-20-2023 03-30-2021 Episodic Other male genital disorders (20 sources) History of testicular disorder; Translations: [Personal history of other diseases of male genital organs] Onset: 09-20-2023 03-30-2021 Episodic Other male genital disorders (20 sources) Spermatocele; Translations: [Spermatocele of epididymis, unspecified] Onset: 09-20-2023 07-01-2019 Episodic Other nervous system disorders (20 sources) Carpal tunnel syndrome; Translations: [Carpal tunnel syndrome, unspecified upper limb] Onset: 09-20-2023 03-30-2021 Chronic Other nervous system disorders (5 sources) Chronic postoperative pain; Translations: [Other chronic postprocedural pain] Onset: 09-20-2023 Chronic Other nervous system disorders (20 sources) Posttreatment pain 03-30-2021 Episodic Other non-traumatic joint disorders (4 sources) Pain in left knee; Translations: [Pain in joint, lower leg] Onset: 09-20-2023 08-28-2023 Episodic Other nutritional; endocrine; and metabolic disorders (18 sources) Obese class II; Translations: [Body mass index (BMI) 37.0-37.9, adult] Onset: 03-06-2022 Resolved: 10-10-2023 Chronic Other nutritional; endocrine; and metabolic disorders (20 sources) Body mass index 30+ - obesity; Translations: [Obesity, unspecified] Onset: 09-20-2023 03-30-2021 Chronic Other nutritional; endocrine; and metabolic disorders (20 sources) Simple obesity ; Translations: [Obesity, unspecified] Onset: 09-20-2023 01-15-2019 Chronic Other nutritional; endocrine; and metabolic disorders (4 sources) Obesity; Translations: [Other obesity due to excess calories] Onset: 03-09-2022 Chronic Other nutritional; endocrine; and metabolic disorders (20 sources) Morbid obesity; Translations: [Morbid (severe) obesity due to excess calories] Onset: 03-09-2022 Resolved: 10-10-2023 Chronic Comment on above: added per 04/12/2023 query response. Other nutritional; endocrine; and metabolic disorders (1 source) Obesity, unspecified; Translations: [Obesity, Class II, BMI 35-39.9, isolated (see actual BMI)] Onset: 10-10-2023 Chronic Other skin disorders (4 sources) Actinic keratosis; Translations: [Actinic keratosis] 07-06-2024 Episodic Other skin disorders (4 sources) Lentiginosis; Translations: [Other melanin hyperpigmentation] 07-06-2024 Episodic Other skin disorders (2 sources) Inflamed seborrheic keratosis; Translations: [Inflamed seborrheic keratosis] 07-06-2024 Episodic Other skin disorders (4 sources) Seborrheic keratosis; Translations: [Other seborrheic keratosis] 07-06-2024 Episodic Peripheral and visceral atherosclerosis (20 sources) Atherosclerosis of aorta; Translations: [Atherosclerosis of aorta] Onset: 03-09-2022 08-24-2021 Chronic Residual codes; unclassified (1 source) Past history of procedure; Translations: [Other specified postprocedural states] Onset: 03-06-2022 Episodic Residual codes; unclassified (1 source) Patient encounter status; Translations: [Other specified health status] Onset: 06-26-2022 Episodic Residual codes; unclassified (4 sources) Preoperative state 06-26-2022 Episodic Residual codes; unclassified (2 sources) Pain; Translations: [Pain, unspecified] 07-23-2023 Episodic Residual codes; unclassified (1 source) Other specified health status; Translations: [Alcohol use] Onset: 10-10-2023 Episodic Unclassified (11 sources) Otalgia of right ear 09-25-2021 Unclassified (20 sources) Patient encounter status 01-16-2019 Unclassified (13 sources) Preoperative state; Translations: [Preoperative state] Onset: 09-20-2023 09-20-2023 Viral infection (6 sources) Verruca vulgaris; Translations: [Viral wart, unspecified] Onset: 03-24-2024 Episodic Past or Other Problems Problem Classification Problem Date Documented Date Episodic/Chronic Abdominal hernia (20 sources) Inguinal hernia Resolved: 01-15-2019 01-16-2019 Episodic Deficiency and other anemia (20 sources) Anemia; Translations: [Anemia, unspecified] Onset: 09-20-2023 03-18-2020 Episodic Fracture of lower limb (20 sources) Fracture of tibia Resolved: 01-27-2016 01-16-2019 Episodic Joint disorders and dislocations; trauma-related (20 sources) Derangement of right knee Resolved: 01-15-2019 05-19-2019 Chronic Other aftercare (13 sources) Follow-up orthopedic assessment; Translations: [Encounter for other orthopedic aftercare] Onset: 09-20-2023 09-20-2023 Episodic Other connective tissue disease (10 sources) Disease suspected; Translations: [Other symptoms and signs involving the nervous system] Onset: 10-10-2023 10-10-2023 Episodic Other ear and sense organ disorders (13 sources) Otalgia, right ear; Translations: [Otalgia, unspecified] Onset: 09-20-2023 09-20-2023 Episodic Other nervous system disorders (14 sources) Abnormal gait; Translations: [Unspecified abnormalities of gait and mobility] Onset: 09-20-2023 Episodic Other nervous system disorders (9 sources) Postoperative pain ; Translations: [Other acute postprocedural pain] Onset: 09-20-2023 10-15-2023 Episodic Other non-traumatic joint disorders (15 sources) Pain in right hip joint; Translations: [Pain in right hip] Onset: 03-06-2022 Episodic Other non-traumatic joint disorders (20 sources) Hip pain; Translations: [Pain in unspecified hip] Onset: 09-20-2023 03-06-2022 Episodic Other screening for suspected conditions (not mental disorders or infectious disease) (17 sources) Diabetic monitoring status; Translations: [Encounter for screening for diabetes mellitus] Onset: 03-06-2022 Episodic Otitis media and related conditions (20 sources) Acute non-suppurative otitis media - serous; Translations: [Dysfunction of eustachian tube] Onset: 09-20-2023 08-25-2021 Episodic Residual codes; unclassified (20 sources) Swelling - edema - symptom Resolved: 01-15-2019 01-16-2019 Episodic Residual codes; unclassified (10 sources) Current drinker; Translations: [Other specified health status] Onset: 10-10-2023 10-10-2023 Episodic Residual codes; unclassified (1 source) Pain, unspecified; Translations: [Pain] Onset: 09-20-2023 Episodic Results Test Name Value Interpretation Reference Range Facility Ambulatory Visit Summaryon 0 03-19-2025 Ambulatory Visit Summary Ambulatory Visit Summary MARCK HAMEED :1955 Visit Date:03/19/2025 Ambulatory Visit Instructions Your Diagnosis Medicare annual wellness visit, subsequent Pneumococcal vaccine refused Elevated hemoglobin A1c New onset type 2 diabetes mellitus On statin therapy Hypertension Your Care Team Attending Physician - Clive RAYMOND DO, FAAFP Primary Care Physician - Clive RAYMOND DO, FAAFP This Is Your Medications List amlodipine (amLODIPine 5 mg Tab) biotin (biotin 2.5 mg oral tablet) hydrochlorothiazide-losart an (hydrochlorothiazide-losar tilley 25 mg-100 mg Tab) lisinopril (lisinopril 10 mg Tab) multivitamin (Super B Complex oral tablet) pravastatin (Pravachol 80 mg Tab) pyridoxine (Vitamin B6 100 mg Tab) Procedures Performed Arthroplasty of the hip (07/10/2022), Carpal tunnel release (03/30/2020), Spermatocelectomy (06/29/2019), Colonoscopy (01/01/2017), Right Total Knee Revision (02/07/2016), appendectomy, Arthroscopic knee procedure, Arthroscopy of shoulder, bilat TKR, right total ankle replacement. Discharge Vitals Heart Rate (Peripheral) 84 Blood Pressure 138/86 Height 159 cm Height 63 in Weight 91.4 kg Weight 201.502 lb BMI 36.15 What to do next Scheduled Follow-Up Appointments Saturday 11:20 AM EST With: Clive RAYMOND DO, FAAFP Where: [facility] [address], [place] [address]- Saturday2025 8:00 AM EDT With: Where: [facility] [address] [employer], [place] [address]- You Need to Complete the Following Urine Microalbumin/Creatinine Ratio, Urine, Routine collect, 03/19/25, Order for future visit, Nurse collect, New onset type 2 diabetes mellitus, Not Required, Print Label By Order Location Medications What How Much When Why Instructions Unchanged amlodipine (amLODIPine 5 mg Tab) 1 Tablets By Mouth Every day Unchanged biotin (biotin 2.5 mg oral tablet) 1 Tablets By Mouth Every day Unchanged hydrochlorothiazide-losart an (hydrochlorothiazide-losar tilley 25 mg-100 mg Tab) 1 Tablets By Mouth Every day Unchanged lisinopril (lisinopril 10 mg Tab) 1 Tablets By Mouth Every day Unchanged multivitamin (Super B Complex oral tablet) 1 Tablets By Mouth Every day Unchanged pravastatin (Pravachol 80 mg Tab) 1 Tablets By Mouth Every day Familial hypercholesterolemia Atherosclerosis of aorta Unchanged pyridoxine (Vitamin B6 100 mg Tab) 1 Tablets By Mouth Every day Allergies No Known Allergies Problems Ongoing - Any problem that you are currently receiving treatment for. Acquired buried penis Atherosclerosis of aorta Elevated hemoglobin A1c Familial hypercholesteremia Fasting hyperglycemia H/O hydrocele History of bilateral knee replacement History of carpal tunnel release Hypertension Low serum vitamin D Morbid obesity New onset type 2 diabetes mellitus Osteoarthritis of right hip Prediabetes Spermatocele Wart of hand Well adult health check Historical - Any problem that you are no longer receiving treatment for. Anemia in other chronic diseases classified elsewhere BMI 36.0-36.9,adult BMI 37.0-37.9, adult BMI 39.0-39.9,adult Dyslipidemia Edema Elevated hemoglobin A1c Fasting hyperglycemia Inguinal hernia Internal derangement of right knee Knee pain Left carpal tunnel syndrome Other obesity due to excess calories Right hydrocele Type 2 diabetes mellitus Patient Survey You may receive a survey via text or e-mail asking about your office visit. Please share your experience with us by completing your survey. We appreciate your feedback and thank you for choosing us for your care. Education Materials High Triglycerides Eating Plan Triglycerides are a type of fat in the blood. High levels of triglycerides can increase your risk of heart disease and stroke. If your triglyceride levels are high, choosing the right foods can help lower your triglycerides and keep your heart healthy. Work with your health care provider or a dietitian to develop an eating plan that is right for you. What are tips for following this plan? General guidelines ??? Lose weight, if you are overweight. For most people, losing 5???10 lb (2???5 kg) helps lower triglyceride levels. A weight-loss plan may include: ? 30 minutes of exercise at least 5 days a week. ? Reducing the amount of calories, sugar, and fat you eat. ??? Eat a wide variety of fresh fruits, vegetables, and whole grains. These foods are high in fiber. ??? Eat foods that contain healthy fats, such as fatty fish, nuts, seeds, and olive oil. ??? Avoid foods that are high in added sugar, added salt (sodium), and saturated fat. ??? Avoid low-fiber, refined carbohydrates such as white bread, crackers, noodles, and white rice. ??? Avoid foods with trans fats or partially hydrogenated oils, (more content not included)... Normal [facility] Ambulatory Visit Summary Ambulatory Visit Summary MARCK HAMEDE :1955 Visit Date:03/19/2025 Ambulatory Visit Instructions Your Diagnosis Hypertension Prediabetes Morbid obesity BMI 36.0-36.9,adult Familial hypercholesteremia, Familial hypercholesterolemia History of bilateral knee replacement New onset type 2 diabetes mellitus Atherosclerosis of aorta Your Care Team Attending Physician - Clive RAYMOND DO, FAAFP Primary Care Physician - Clive RAYMOND DO, FAAFP This Is Your Medications List amlodipine (amLODIPine 5 mg Tab) biotin (biotin 2.5 mg oral tablet) hydrochlorothiazide-losart an (hydrochlorothiazide-losar tilley 25 mg-100 mg Tab) lisinopril (lisinopril 10 mg Tab) multivitamin (Super B Complex oral tablet) pravastatin (Pravachol 80 mg Tab) pyridoxine (Vitamin B6 100 mg Tab) Procedures Performed Arthroplasty of the hip (07/10/2022), Carpal tunnel release (03/30/2020), Spermatocelectomy (06/29/2019), Colonoscopy (01/01/2017), Right Total Knee Revision (02/07/2016), appendectomy, Arthroscopic knee procedure, Arthroscopy of shoulder, bilat TKR, right total ankle replacement. Discharge Vitals Heart Rate (Peripheral) 84 Blood Pressure 138/86 Height 159 cm Height 63 in Weight 91.4 kg Weight 201.502 lb BMI 36.15 What to do next Scheduled Follow-Up Appointments Saturday 10:40 AM EST With: Clive RAYMOND DO, FAAFP Where: [facility] [address] [place] [address], [place] [address]- You Need to Schedule the Following Appointments Follow Up with Clive RAYMOND DO, FAAFP, BIPIN, PED When: In 3 months Where: [address], [place] [address]- Follow Up with Clive RAYMOND DO, FAAFP, FAM, PED When: In 6 months Where: [address], [place] [address]- You Need to Complete the Following HgbA1c, Blood, Routine collect, 03/19/25, Order for future visit, Lab Collect, New onset type 2 diabetes mellitus, Required & Missing, Print Label By Order Location Medications What How Much When Why Instructions Unchanged amlodipine (amLODIPine 5 mg Tab) 1 Tablets By Mouth Every day Pickup at [facility]/pharmacy #[id number] Unchanged biotin (biotin 2.5 mg oral tablet) 1 Tablets By Mouth Every day Unchanged hydrochlorothiazide-losart an (hydrochlorothiazide-losar tilley 25 mg-100 mg Tab) 1 Tablets By Mouth Every day Pickup at [facility]/pharmacy #[id number] Unchanged lisinopril (lisinopril 10 mg Tab) 1 Tablets By Mouth Every day Pickup at [facility]/pharmacy #[id number] Unchanged multivitamin (Super B Complex oral tablet) 1 Tablets By Mouth Every day Unchanged pravastatin (Pravachol 80 mg Tab) 1 Tablets By Mouth Every day Familial hypercholesterolemia Atherosclerosis of aorta Pickup at [facility]/pharmacy #[id number] Unchanged pyridoxine (Vitamin B6 100 mg Tab) 1 Tablets By Mouth Every day Pharmacy Information [facility]/pharmacy #[id number]: [address] [place], [place] [id number] [phone] Allergies No Known Allergies Problems Ongoing - Any problem that you are currently receiving treatment for. Acquired buried penis Atherosclerosis of aorta Elevated hemoglobin A1c Familial hypercholesteremia Fasting hyperglycemia H/O hydrocele History of bilateral knee replacement History of carpal tunnel release Hypertension Low serum vitamin D Morbid obesity New onset type 2 diabetes mellitus Osteoarthritis of right hip Prediabetes Spermatocele Wart of hand Well adult health check Historical - Any problem that you are no longer receiving treatment for. Anemia in other chronic diseases classified elsewhere BMI 36.0-36.9,adult BMI 37.0-37.9, adult BMI 39.0-39.9,adult Dyslipidemia Edema Elevated hemoglobin A1c Fasting hyperglycemia Inguinal hernia Internal derangement of right knee Knee pain Left carpal tunnel syndrome Other obesity due to excess calories Right hydrocele Type 2 diabetes mellitus Patient Survey You may receive a survey via text or e-mail asking about your office visit. Please share your experience with us by completing your survey. We appreciate your feedback and thank you for choosing us for your care. Education Materials Diabetes Mellitus and Exercise Regular exercise is important for your health, especially if you have diabetes mellitus. Exercise is not just about losing weight. It can also help you increase muscle strength and bone density and reduce body fat and stress. This can help your level of endurance and make you more fit and flexible. Why should I exercise if I have diabetes? Exercise has many benefits for people with diabetes. It can: ??? Help lower and control your blood sugar (glucose). ??? Help your body respond better and become more sensitive to the hormone insulin. ??? Reduce how much insulin your body needs. ??? Lower your risk for heart disease by: ? Lowering how much bad cholesterol and triglycerides you have in your b (more content not included)... Normal [facility] Family Medicine Office/Clini c Noteon 03-19-2025 Family Medicine Office/Clinic Note Family Medicine Office/Clinic Note Chief Complaint Subsequent Medicare Wellness Visit Review of Systems PHQ Score Initial Depression Screen Score: 0 SCORE Physical Exam Vitals & Measurements HR: 84(Peripheral) BP: 138/86 SpO2: 97% HT: 159 cm HT: 63 in WT: 91.4 kg WT: 201.502 lb BMI: 36.15 Assessment/Plan 1. Medicare annual wellness visit, subsequent (Z00.00: Encounter for general adult medical examination without abnormal findings) A personalized print out of all the current AHRQ USPSTF???s recommendations for preventative services and all current CDC recommended immunizations, relevant risk recommendations provided upon request. Reviewed Medicare Prevention Services . CDC-Falls Prevention and home safety screening. Patient denies any falls in last 12 months, voices no worry about falling. Exhibits no problems with sitting, standing or ambulation. Patient aware with keeping walk way area free of clutter to prevent tripping and/or falling. [place] Advance Directives reviewed. Documents remain at home, encouraged to complete and bring in for scanning to chart. Patient denies any problems with ADL???s and Instrumental ADL???s. Cognitive screening completed with memory and clock face drawing. No deficits noted. Immunization record reviewed, discussed Shingrix vaccines and availability. COVID vaccines have been received, no Boosters thus far. Allergies and medications reviewed and up to date. No concerns with taking medication as prescribed. Reviewed OTC medications, medication list up to date. Blood tests were reviewed: Labs up to date, will continue to follow up with labs per PCP. Colonoscopy last completed 01/01/2017 with a 10 year repeat, will follow up as needed. Reviewed pain symptoms : generalized arthritic pain, no routine pain medications taken. Reviewed all outside providers that patient follows. Last visit summary notes available in chart and/or have been requested. Patient denies any signs or symptoms of depression at this time. 8 minutes spent with screening and documentation. PHQ2 screening score 0. Patient drinks alcohol daily, 1-2 beers. 8 minutes spent with screening and documentation. Audit score 4. Follow up scheduled with PCP, 06/21/2025. AWV has been scheduled, 03/21/2026. 2. Pneumococcal vaccine refused (Z28.21: Immunization not carried out because of patient refusal) Pneumococcal vaccines declined with today's visit. Advised all appropriate vaccines available in office if ever he may chose. 3. Elevated hemoglobin A1c (R73.09: Other abnormal glucose) A1C-7.4 with reading today. Screened for type 2 diabetes. Risk score: 8. Family history with Diabetes noted. Patient states will be exercising and trying to get some weight off, does not want to be on medication/insulins. BS review, reminded to follow ADA dietary recommendations. Monitor portion control with carbs/fats/sat. fats and the importance of alcohol intake. Will continue to follow up with labs as directed. 4. New onset type 2 diabetes mellitus (E11.9: Type 2 diabetes mellitus without complications) see #3 5. On statin therapy (Z79.899: Other intermediate (current) drug therapy) Taking Pravastatin, encouraged to eat a diet that is low in saturated fats. Stressed importance of loosing weight as being overweight does produce more lipids. Monitor alcohol intake and avoid smoking. Risks may also increase with a family history of hyperlipidemia. Encouraged with healthy dietary choices to reduce risk factors associated with CVA. Will continue to follow up with PCP/labs as directed. 6. Hypertension (I10: Essential (primary) hypertension) Taking medications daily as directed, BP is not monitored at home. Denies any episodes of chest pain/pressure or SOB. HTN review with importance of keeping BP <140/90 to prevent increased cardiovascular risks. DASH diet review with importance to lower salt intake, eat more chicken, fish and lean white meats. Will continue to follow up with PCP as needed. Follow-up No qualifying data available Patient Education High Triglycerides Eating Plan BMI for Adults Diabetes Mellitus and Nutrition, Adult DASH Eating Plan Problem List/Past Medical History Ongoing Acquired buried penis Atherosclerosis of aorta Elevated hemoglobin A1c Familial hypercholesteremia Fasting hyperglycemia H/O hydrocele History of bilateral knee replacement History of carpal tunnel release Hypertension Low serum vitamin D Morbid obesity New onset type 2 diabetes mellitus Osteoarthritis of right hip Prediabetes Spermatocele Wart of hand Well adult health check Historical Anemia in other chronic diseases classified elsewhere BMI 36.0-36.9,adult BMI 37.0-37.9, adult BMI 39.0-39.9,adult Dyslipidemia Edema Elevated hemoglobin A1c Fasting hyperglycemia Inguinal hernia Internal derangement of right knee Knee pain Left carpal tunnel syndrome Other obesity due to excess calories Right hydrocele Type 2 diabetes m (more content not included)... Normal [facility] Comment on above: Result Comment: Elec tronically Signed By: Clive RAYMOND DO, FAAFP\.br\Date and Time Signed: 03/19/25 12:09 EDT\.br\Electronically Co-Signed By: Judith Barlow LPN\.br\Date and Time Co-Signed: 03/19/25 11:56 EDT Family Medicine Office/Clinic Note Family Medicine Office/Clinic Note Chief Complaint F/U: HTN, Chol, Atherosclerosis, Pre-DM. [facility] Staff Medicare wellness: UTD Last routine labs: Aug 2024-A1C smoker status: Non History of Present Illness Here for follow up Have you had any ER visits or any hospitalizations since last visit? no Are you compliant with your medications and no difficulty affording your medications? yes Do you have side effects from the medication? no Are you compliant with your diet? yes Do you exercise? yes Do you have any of the following symptoms? Chest pain? no Palpitations? no FUNES/SOB? no Orthopnea? no PND? no Edema? no Have you had any recent cardiopulmonary testing? no Review of Systems PHQ Score Initial Depression Screen Score: 0 SCORE ROS - Provider Constitutional: no fever, no chills, no sweats, no weakness. Skin: no Jaundice, no rash, no lesions, no petechiae. ENMT: no ear pain, no sore throat, no congestion, no hoarseness. Respiratory: no shortness of breath, no cough, no orthopnea, no wheezing. Cardiovascular: no chest pain, no palpitations, no edema. Gastrointestinal: no nausea, no vomiting, no diarrhea, no GI bleeding.no constipationnoheartburn Genitourinary: no dysuria, no hematuria, no discharge, no pain.nofreq/urgency Musculoskeletal: no back pain, no trauma.nojoint pain Neurologic: no headache, no dizziness, no numbness, no weakness. Psychiatric: no sleeping problems, no irritability, no mood swings/depression. Heme/Lymph: no bleeding tendency, no bruising tendency, no petechiae, no swollen lymph nodes no Allergy/Imunology no seasonal allergies, no food allergies, no recurrent infections, no impaired immunity. Additional ROS info: Except as noted in the above Review of Systems and in the History of Present Illness all other systems have been reviewed and are negative or noncontributory. Physical Exam Vitals & Measurements HR: 84(Peripheral) BP: 138/86 SpO2: 97% HT: 159 cm HT: 63 in WT: 91.4 kg WT: 201.502 lb BMI: 36.15 General: Well developed, well nourished, in no acute distress Mouth: Mucous membranes moist. Normal oropharynx, and posterior pharynx without lesions or exudates. Tongue normal Neck: Neck supple. No masses or palpable cervical nodes. Trachea midline. Thyroid without nodules, masses, tenderness, or enlargement Lungs: Normal respiratory effort and clear to auscultation Cardio: Regular rate and rhythm, normal S1 and S2, no murmur, no rub Abdomen: Soft, non-distended, non-tender. no G/R/S/Masses Musculoskeletal: No deformity or scoliosis noted. Normal range of motion. Joints normal. No erythema, edema, effusion, or ecchymosis Extremity: No clubbing, cyanosis, edema, or deformity, with normal ROM in both upper and lower bilateral extremities Neurologic: Grossly normal Skin: No rashes, ulcerations, or suspicious lesions Mental Status: Alert and oriented x3. Normal mood and affect Assessment/Plan 1. Hypertension (I10: Essential (primary) hypertension) Good control with diet exercise, amlodipine 5 mg a day, hydrochlorothiazide-losart an 25 mg - 100 mg p.o. daily, lisinopril 10 mg p.o. daily Ordered: 1126F Pain severity quantified; no pain present A1c POC 83090 Capillary Blood Draw 97330 Complex E&M Add on G2211 Current tobacco non-user 1036F Functional status assessed 1170F HBA1C 7.0 to <8.0 Most Recent Level 3051F Medication list documented in medical record 1159F Most recent diastolic blood pressure 80-89 mm Hg 3079F Systolic BP 130-139 mm Hg (Most Recent) 3075F 2. Prediabetes (R73.03: Prediabetes) Diet and exercise with surveillance A1c's with BMI goal of 25, today has turned into diabetes Ordered: 1126F Pain severity quantified; no pain present A1c POC 95838 Capillary Blood Draw 55853 Complex E&M Add on G2211 Current tobacco non-user 1036F Functional status assessed 1170F HBA1C 7.0 to <8.0 Most Recent Level 3051F Medication list documented in medical record 1159F Most recent diastolic blood pressure 80-89 mm Hg 3079F Systolic BP 130-139 mm Hg (Most Recent) 3075F 3. Morbid obesity (E66.01: Morbid (severe) obesity due to excess calories) Diet and exercise BMI goal of 25 Ordered: 1126F Pain severity quantified; no pain present A1c POC 57285 Capillary Blood Draw 04273 Current tobacco non-user 1036F Functional status assessed 1170F HBA1C 7.0 to <8.0 Most Recent Level 3051F Medication list documented in medical record 1159F Most recent diastolic blood pressure 80-89 mm Hg 3079F Systolic BP 130-139 mm Hg (Most Recent) 3075F 4. BMI 36.0-36.9,adult (Z68.36: Body mass index [BMI] 36.0-36.9, adult) The standard range for ages 18 and older is >=18.5 and < 25 kg/m2. Your BMI today was above this range, this falls in the overweight to obese category and there are medical benefits to weight loss. We can offer counselling, referral, and/or medical support in addressing this problem. Your BMI and weight management will be (more content not included)... Normal [facility] Comment on above: Result Comment: Elec tronically Signed By: Clive RAYMOND DO, FAAFP\.br\Date and Time Signed: 03/19/25 08:08 EDT No Panel Informationon 01-04 [facility] Ambulatory Visit Summaryon 0 09-25-2024 Ambulatory Visit Summary Ambulatory Visit Summary MARCK HAMEED :1955 Visit Date:09/25/2024 Ambulatory Visit Instructions Your Diagnosis Hypertension Familial hypercholesteremia Fasting hyperglycemia Elevated hemoglobin A1c Atherosclerosis of aorta BMI 38.0-38.9,adult Morbid obesity, Morbid obesity Prediabetes Your Care Team Attending Physician - Clive RAYMOND DO, FAAFP Primary Care Physician - Clive RAYMOND DO, FAAFP This Is Your Medications List Contact prescribing physician if questions or concerns amlodipine (amLODIPine 5 mg Tab) biotin (biotin 2.5 mg oral tablet) hydrochlorothiazide-losart an (hydrochlorothiazide-losar tilley 25 mg-100 mg Tab) lisinopril (lisinopril 10 mg Tab) multivitamin (Super B Complex oral tablet) pravastatin (Pravachol 80 mg Tab) pyridoxine (Vitamin B6 100 mg Tab) Procedures Performed Arthroplasty of the hip (07/10/2022), Carpal tunnel release (03/30/2020), Spermatocelectomy (06/29/2019), Colonoscopy (01/01/2017), Right Total Knee Revision (02/07/2016), appendectomy, Arthroscopic knee procedure, Arthroscopy of shoulder, bilat TKR, right total ankle replacement. Discharge Vitals Heart Rate (Peripheral) 76 Blood Pressure 132/80 Height 159 cm Height 63 in Weight 96.4 kg Weight 212.525 lb BMI 38.13 What to do next Scheduled Follow-Up Appointments Saturday 7:40 AM EDT With: Clive RAYMOND DO, FAAFP Where: [facility] [address], [place] [address]- Saturday 9:00 AM EDT With: Where: [facility] [address], [place] [address]- You Need to Schedule the Following Appointments Follow Up with CHEMO PERES FAAFP, Clive Amezquita, FAM, PED When: In 6 months Where: [address] [place] [address]- You Need to Complete the Following HgbA1c, Blood, Routine collect, 09/25/24, Order for future visit, Lab Collect, Prediabetes Morbid obesity Elevated hemoglobin A1c, Required & Missing, Print Label By Order Location Medications What How Much When Why Instructions Unchanged amlodipine (amLODIPine 5 mg Tab) 1 Tablets By Mouth Every day Contact prescribing physician if questions or concerns Unchanged biotin (biotin 2.5 mg oral tablet) 1 Tablets By Mouth Every day Contact prescribing physician if questions or concerns Unchanged hydrochlorothiazide-losart an (hydrochlorothiazide-losar tilley 25 mg-100 mg Tab) 1 Tablets By Mouth Every day Contact prescribing physician if questions or concerns Unchanged lisinopril (lisinopril 10 mg Tab) 1 Tablets By Mouth Every day Contact prescribing physician if questions or concerns Unchanged multivitamin (Super B Complex oral tablet) 1 Tablets By Mouth Every day Contact prescribing physician if questions or concerns Unchanged pravastatin (Pravachol 80 mg Tab) 1 Tablets By Mouth Every day Familial hypercholesterolemia Atherosclerosis of aorta Contact prescribing physician if questions or concerns Unchanged pyridoxine (Vitamin B6 100 mg Tab) 1 Tablets By Mouth Every day Contact prescribing physician if questions or concerns Allergies No Known Allergies Problems Ongoing - Any problem that you are currently receiving treatment for. Acquired buried penis Atherosclerosis of aorta Elevated hemoglobin A1c Familial hypercholesteremia Fasting hyperglycemia H/O hydrocele History of bilateral knee replacement History of carpal tunnel release Hypertension Low serum vitamin D Morbid obesity Osteoarthritis of right hip Prediabetes Spermatocele Wart of hand Well adult health check Historical - Any problem that you are no longer receiving treatment for. Anemia in other chronic diseases classified elsewhere BMI 36.0-36.9,adult BMI 37.0-37.9, adult BMI 39.0-39.9,adult Dyslipidemia Edema Inguinal hernia Internal derangement of right knee Knee pain Left carpal tunnel syndrome Other obesity due to excess calories Right hydrocele Patient Survey You may receive a survey via text or e-mail asking about your office visit. Please share your experience with us by completing your survey. We appreciate your feedback and thank you for choosing us for your care. Education Materials Atherosclerosis Atherosclerosis is when plaque builds up in the arteries. This causes narrowing and hardening of the arteries. Arteries are blood vessels that carry blood from the heart to all parts of the body. This blood contains oxygen. Plaque occurs due to inflammation or from a buildup of fat, cholesterol, calcium, waste products of cells, and a clotting material in the blood (fibrin). Plaque decreases the amount of blood that can flow through the artery. Atherosclerosis can affect any artery in your body, including: ??? Heart arteries. Damage to these arteries may lead to coronary artery disease, which can cause a heart at (more content not included)... Normal [facility] Family Medicine Office/Clini c Noteon 09-25-2024 Family Medicine Office/Clinic Note Family Medicine Office/Clinic Note Chief Complaint Last routine labs: Aug 2024 A1C 6.1 smoker status: non-smoker colonoscopy/cologuard (45-75yo): 2016 PSA (45-70yo): Aug 2024- 0.5 flu vaccine status: refused 6 month f/u on htn, chol. Concerns: review bloodwork. HPI Staff Last routine labs: Aug 2024 A1C 6.1 smoker status: non-smoker colonoscopy/cologuard (45-75yo): 2016 PSA (45-70yo): Aug 2024 0. flu vaccine status: refused 6 month f/u on htn, chol. Concerns: review bloodwork. History of Present Illness Here for follow up Have you had any ER visits or any hospitalizations since last visit? no Are you compliant with your medications and no difficulty affording your medications? yes Do you have side effects from the medication? no Are you compliant with your diet? yes Do you exercise? yes Do you have any of the following symptoms? Chest pain? no Palpitations? no FUNES/SOB? no Orthopnea? no PND? no Edema? no Have you had any recent cardiopulmonary testing? no Knee pain better patient has 2 new granddaughter since I have seen in the last time. Had his knees done 15 years ago and another 1 on the left knee last year getting around pretty good, does not exercise much in the winter but I get walking a lot with no weather turns Review of Systems PHQ Score Initial Depression Screen Score: 0 SCORE ROS - Provider Constitutional: no fever, no chills, no sweats, no weakness. Skin: no Jaundice, no rash, no lesions, no petechiae. ENMT: no ear pain, no sore throat, no congestion, no hoarseness. Respiratory: no shortness of breath, no cough, no orthopnea, no wheezing. Cardiovascular: no chest pain, no palpitations, no edema. Gastrointestinal: no nausea, no vomiting, no diarrhea, no GI bleeding.no constipationnoheartburn Genitourinary: no dysuria, no hematuria, no discharge, no pain.nofreq/urgency Musculoskeletal: no back pain, no trauma.yesjoint pain Neurologic: no headache, no dizziness, no numbness, no weakness. Psychiatric: no sleeping problems, no irritability, no mood swings/depression. Heme/Lymph: no bleeding tendency, no bruising tendency, no petechiae, no swollen lymph nodes no Allergy/Imunology no seasonal allergies, no food allergies, no recurrent infections, no impaired immunity. Additional ROS info: Except as noted in the above Review of Systems and in the History of Present Illness all other systems have been reviewed and are negative or noncontributory. Physical Exam Vitals & Measurements HR: 76(Peripheral) BP: 132/80 SpO2: 98% HT: 63 in HT: 159 cm WT: 96.4 kg WT: 212.525 lb BMI: 38.13 General: Well developed, well nourished, in no acute distress Mouth: Mucous membranes moist. Normal oropharynx, and posterior pharynx without lesions or exudates. Tongue normal Neck: Neck supple. No masses or palpable cervical nodes. Trachea midline. Thyroid without nodules, masses, tenderness, or enlargement Lungs: Normal respiratory effort and clear to auscultation Cardio: Regular rate and rhythm, normal S1 and S2, no murmur, no rub Abdomen: Soft, non-distended, non-tender. no G/R/S/Masses Musculoskeletal: No deformity or scoliosis noted. Normal range of motion. Joints normal. No erythema, edema, effusion, or ecchymosis Extremity: No clubbing, cyanosis, edema, or deformity, with normal ROM in both upper and lower bilateral extremities Neurologic: Grossly normal Skin: No rashes, ulcerations, or suspicious lesions Mental Status: Alert and oriented x3. Normal mood and affect Assessment/Plan 1. Hypertension (I10: Essential (primary) hypertension) Good control with diet exercise, amlodipine 5 mg p.o. daily, hydrochlorothiazide losartan 25-100 mg p.o. daily lisinopril 10 mg p.o. daily Ordered: Complex E&M Add on G2211 2. 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 nightly 3. Fasting hyperglycemia (R73.01: Impaired fasting glucose) Now a prediabetic, diet and exercise and weight loss 4. Elevated hemoglobin A1c (R73.09: Other abnormal glucose) Please see #3 above Ordered: HgbA1c 5. Atherosclerosis of aorta (I70.0: Atherosclerosis of aorta) Pravachol 80mg po q hs 6. BMI 38.0-38.9,adult (Z68.38: Body mass index [BMI] 38.0-38.9, adult) The standard range for ages 18 and older is >=18.5 and < 25 kg/m2. Your BMI today was above this range, this falls in the overweight to obese category and there are medical benefits to weight loss. We can offer counselling, referral, and/or medical support in addressing this problem. Your BMI and weight management will be followed at subsequent visits. 7. Morbid obesity, (E66.01: Morbid (severe) obesity due to excess calories)Morbid obesity Diet and exercise a BMI goal of 25 Ordered: HgbA1c 8. Prediabetes (R73.03: Prediabetes) Diet and exercise a BMI goal of 25 A1c in 6 months Ordered: HgbA1c Total time spent preparing the chart, conducting (more content not included)... Normal [facility] Comment on above: Result Comment: Elec tronically Signed By: Clive RAYMOND DO, FAAFP\.br\Date and Time Signed: 09/25/24 08:05 EST Pre-Visit Planningon 025 Pre-Visit Planning Pre-Visit Planning From: Estelita Salinas To: Clive RAYMOND DO, FAAFP; Sent: 09/24/2024 07:37:52 EST Subject: Pre-Visit Planning Due Date/Time: 09/24/2024 07:37:00 EST Caller Name: MARCK HAMEED; Caller Number: , Ananth Raymond. During a pre-visit planning chart review, I noted the following documentation in the medical record indicates that this patient had BMI of 38.76 on 03/24/2024 and a diagnosis of Atherosclerosis of aorta, Elevated hemoglobin A1C, Familial hypercholesterolemia, Fasting hyperglycemia, and HTN noted on Current Problem List. If BMI during this current visit is greater than 35: Based on your medical judgment, can you further clarify the following? I can update the Chronic Problem List with your response if you would like. -Morbid obesity (please also include additional diagnosis to reflect current BMI) -Severe obesity with serious comorbidity in adult (please also include additional diagnosis to reflect current BMI) -Other (please specify): In responding to this request, please exercise your independent professional judgment. The fact that a question is asked does not imply that any particular answer is desired or expected. If you have any questions, please feel free to contact me per TEAMS or . Thank you! Estelita Salinas LPN Clinical Documentation Improvement Specialist[address] [address] TEAMS or [email or web address] From: Clive RAYMOND DO, FAAFP To: Estelita Salinas; Sent: 09/24/2024 11:30:26 EST Subject: RE: Pre-Visit Planning Caller Name: MARCK HAMEED; Caller Number: , Morbid obesity Normal [facility] BMPon 09-16-2024 Anion gap [Moles/Vol] 10 mmol/L Normal 6-16 [facility] Comment on above: Performed By: #### 2 [id number] #### [facility] [address] [place] [address] Calcium [Mass/Vol] 9.6 mg/dL Normal 8.9-11.1 [facility] Comment on above: Performed By: #### 2 [id number] #### [facility] [address] [place] [address] Chloride [Moles/Vol] 101 mmol/L Normal 101-111 [facility] Comment on above: Performed By: #### 2 [id number] #### [facility] [address] [place] [address] CO2 [Moles/Vol] 28 mmol/L Normal 21-31 [facility] Comment on above: Performed By: #### 2 [id number] #### [facility] [address] [place] [address] Creatinine [Mass/Vol] 0.7 mg/dL Normal 0.5-1.3 [facility] Comment on above: Performed By: #### 2 [id number] #### [facility] [address] [place] [address] Glucose [Mass/Vol] 106 mg/dL Normal 55-199 [facility] Comment on above: Performed By: #### 2 [id number] #### [facility] [address] [place] [address] Potassium [Moles/Vol] 4.2 mmol/L Normal 3.5-5.3 [facility] Comment on above: Performed By: #### 2 [id number] #### [facility] [address] [place] [address] Sodium [Moles/Vol] 135 mmol/L Normal 135-145 [facility] Comment on above: Performed By: #### 2 [id number] #### [facility] [address] [place] [address] Urea nitrogen [Mass/Vol] 27 mg/dL High 5-21 [facility] Comment on above: Performed By: #### 2 [id number] #### [facility] [address] [place] [address] Urea nitrogen/Creatinine [Mass ratio] 39 No Units High 10-20 [facility] Comment on above: Performed By: #### 2 [id number] #### [facility] [address] [place] [address] CBC w/ Auto Diffon 5 Basophils/100 WBC (Bld) 0.8 % Normal 0.0-2.0 [facility] Comment on above: Performed By: #### 2 [id number] #### [facility] [address] [place] [address] Basophils/Leukocytes Auto (Bld) [Pure # fraction] 0.1 E9/L Normal 0.0-0.2 [facility] Comment on above: Performed By: #### 2 [id number] #### [facility] [address] [place] [address] Eosinophils (Bld) [#/Vol] 0.3 E9/L Normal 0.0-0.5 [facility] Comment on above: Performed By: #### 2 [id number] #### [facility] [address] [place] [address] Eosinophils/100 WBC (Bld) 4.5 % Normal 0.0-8.0 [facility] Comment on above: Performed By: #### 2 [id number] #### [facility] [address] [place] [address] Erythrocyte distribution width (RBC) [Ratio] 14.0 % Normal 10.9-14.2 [facility] Comment on above: Performed By: #### 2 [id number] #### [facility] [address] [place] [address] Hematocrit (Bld) [Volume fraction] 41.5 % Normal 37.7-49.0 [facility] Comment on above: Performed By: #### 2 [id number] #### [facility] [address] [place] [address] Hemoglobin (Bld) [Mass/Vol] 14.2 g/dL Normal 13.5-17.5 [facility] Comment on above: Performed By: #### 2 [id number] #### [facility] [address] [place] [address] Lymphocytes (Bld) [#/Vol] 1.8 E9/L Normal 1.0-4.0 [facility] Comment on above: Performed By: #### 2 [id number] #### [facility] [address] [place] [address] Lymphocytes/100 WBC (Bld) 27.7 % Normal 14.0-50.0 [facility] Comment on above: Performed By: #### 2 [id number] #### [facility] [address] [place] [address] MCH (RBC) [Entitic mass] 29.9 pg Normal 27.0-34.0 [facility] Comment on above: Performed By: #### 2 [id number] #### [facility] [address] [place] [address] MCHC (RBC) [Mass/Vol] 34.1 g/dL Normal 31.4-36.0 [facility] Comment on above: Performed By: #### 2 [id number] #### [facility] [address] [place] [address] MCV (RBC) [Entitic vol] 87.6 fL Normal 80.0-100.0 [facility] Comment on above: Performed By: #### 2 [id number] #### [facility] [address] [place] [address] Monocytes (Bld) [#/Vol] 0.6 E9/L Normal 0.2-1.0 [facility] Comment on above: Performed By: #### 2 [id number] #### [facility] [address] [place] [address] Neutrophils (Bld) [#/Vol] 3.8 E9/L Normal 2.0-7.5 [facility] Comment on above: Performed By: #### 2 [id number] #### [facility] [address] [place] [address] Neutrophils/100 WBC (Bld) 58.4 % Normal 36.0-75.0 [facility] Comment on above: Performed By: #### 2 [id number] #### [facility] [address] [place] [address] Platelet mean volume (Bld) [Entitic vol] 6.7 fL Normal 6.4-10.8 [facility] Comment on above: Performed By: #### 2 [id number] #### [facility] [address] [place] [address] Platelets (Bld) [#/Vol] 357.0 E9/L Normal 150.0-500.0 [facility] Comment on above: Performed By: #### 2 [id number] #### [facility] [address] [place] [address] RBC (Bld) [#/Vol] 4.7 E12/L Normal 4.3-5.9 [facility] Comment on above: Performed By: #### 2 [id number] #### [facility] [address] [place] [address] WBC corrected for nucl RBC Auto (Bld) [#/Vol] 6.6 E9/L Normal 4.0-11.0 [facility] Comment on above: Performed By: #### 2 [id number] #### [facility] [address] [place] [address] CHEMISTRYOrdered By: SYSTEM SYSTEM on 09-16-2024 Albumin [Mass/Vol] 4.3 g/dL Normal 3.3 - 5.0 gm/dL [facility] Albumin/Globulin [Mass ratio] 1.3 {ratio} Normal 1.1 - 2.2 [facility] ALP [Catalytic activity/Vol] 67 [iU]/d Normal 21 - 98 Int._Unit/L [facility] ALT No additional P-5'-P [Catalytic activity/Vol] 21 [iU]/d Normal 6 - 46 Int._Unit/L [facility] Anion gap [Moles/Vol] 10 mmol/L Normal 6 - 16 mEq/L [facility] AST [Catalytic activity/Vol] 21 [iU]/d Normal 5 - 43 Int._Unit/L [facility] Bilirubin [Mass/Vol] 0.7 mg/dL Normal 0.0 - 1 .1 mg/dL [facility] Bilirubin.direct [Mass/Vol] 0.1 mg/dL Normal 0.0 - 0.4 mg/dL [facility] Bilirubin.indirect [Mass or moles/Vol] 0.6 mg/dL Normal 0.1 - 0.9 mg/dL [facility] Calcium [Mass/Vol] 9.6 mg/dL Normal 8.9 - 11. 1 mg/dL [facility] Chloride [Moles/Vol] 101 mmol/L Normal 101 - 1 11 mmol/L [facility] Cholesterol [Mass/Vol] 149 mg/dL Normal 120 - 200 mg/dL [facility] Cholesterol in HDL [Mass/Vol] 51 mg/dL Invalid Interpretation Code [facility] Comment on above: Result Comment: '>= 60 LOW RISK' '<= 40 HIGH RISK' Cholesterol in LDL [Mass/Vol] 79 mg/dL Normal <=129mg/dL [facility] Cholesterol in VLDL [Mass/Vol] 34 mg/dL Normal 7 - 40 mg/dL [facility] CO2 [Moles/Vol] 28 mmol/L Normal 21 - 31 mmol/L [facility] Creatinine [Mass/Vol] 0.7 mg/dL Normal 0.5 - 1.3 mg/dL [facility] eGFR 99 mL/min/1.73 m2 Normal >=59mL/min / 1.73 m2 [facility] Globulin (S) [Mass/Vol] 3.2 g/dL Normal 1.4 - 4.0 gm/dL [facility] Glucose [Mass/Vol] 106 mg/dL Normal 55 - 199 mg/dL [facility] Potassium [Moles/Vol] 4.2 mmol/L Normal 3.5 - 5.3 mmol/L [facility] Prostate specific Ag [Mass/Vol] 0.5 ng/mL Normal 0.1 - 3.5 ng/mL [facility] Comment on above: Interpretive Data: T he concentration of PSA determined by different manufacturers can vary due to differences in assay methods and reagent specificity. Values obtained from different assay methods cannot be used interchangeably. The methodology used for this result was chemiluminescence using [employer]'s Access Hybritech PSA reagent. Protein [Mass/Vol] 7.5 g/dL Normal 6.0 - 7.8 gm/dL [facility] Sodium [Moles/Vol] 135 mmol/L Normal 135 - 145 mmol/L [facility] Triglyceride [Mass/Vol] 172 mg/dL High <=149mg/dL [facility] Urea nitrogen [Mass/Vol] 27 mg/dL High 5 - 21 mg/dL [facility] Urea nitrogen/Creatinine [Mass ratio] 39 mg/mg High 10 - 20 [facility] CHEMISTRYOrdered By: Louise Donald on 09-16-2024 HbA1c (Bld) [Mass fraction] 6.1 % High <=5.9% [facility] [employer] HEMATOLOGYOrdered By: SYSTEM SYSTEM on 09-16-2024 Basophils/100 WBC (Bld) 0.8 % Normal 0.0 - 2.0 % [facility] Basophils/Leukocytes Auto (Bld) [Pure # fraction] 0.1 E9/L Normal 0.0 - 0.2 E9/L [facility] Eosinophils (Bld) [#/Vol] 0.3 E9/L Normal 0.0 - 0.5 E9/L [facility] Eosinophils/100 WBC (Bld) 4.5 % Normal 0.0 - 8.0 % [facility] Erythrocyte distribution width (RBC) [Ratio] 14.0 % Normal 10.9 - 14.2 % [facility] Hematocrit (Bld) [Volume fraction] 41.5 % Normal 37.7 - 49.0 % [facility] Hemoglobin (Bld) [Mass/Vol] 14.2 g/dL Normal 13.5 - 17.5 gm/dL [facility] Lymphocytes (Bld) [#/Vol] 1.8 E9/L Normal 1.0 - 4.0 E9/L [facility] Lymphocytes/100 WBC (Bld) 27.7 % Normal 14.0 - 50.0 % [facility] MCH (RBC) [Entitic mass] 29.9 pg Normal 27.0 - 34.0 pg [facility] MCHC (RBC) [Mass/Vol] 34.1 g/dL Normal 31.4 - 36.0 gm/dL [facility] MCV (RBC) [Entitic vol] 87.6 fL Normal 80.0 - 100.0 fL [facility] Monocytes (Bld) [#/Vol] 0.6 E9/L Normal 0.2 - 1.0 E9/L [facility] Monocytes/100 WBC (Bld) 8.6 % Normal 4.0 - 14.0 % [facility] Neutrophils (Bld) [#/Vol] 3.8 E9/L Normal 2.0 - 7.5 E9/L [facility] Neutrophils/100 WBC (Bld) 58.4 % Normal 36.0 - 75.0 % [facility] Platelet mean volume (Bld) [Entitic vol] 6.7 fL Normal 6.4 - 10.8 fL [facility] Platelets (Bld) [#/Vol] 357.0 E9/L Normal 150.0 - 500.0 E9/L [facility] RBC (Bld) [#/Vol] 4.7 E12/L Normal 4.3 - 5.9 E12/L [facility] WBC corrected for nucl RBC Auto (Bld) [#/Vol] 6.6 E9/L Normal 4.0 - 11.0 E9/L [facility] Hep Func Panelon 09-16-2024 Albumin [Mass/Vol] 4.3 g/dL Normal 3.3-5.0 [facility] Comment on above: Performed By: #### 2 [id number] #### [facility] [address] [place] [address] Albumin/Globulin (S) [Mass conc ratio] 1.3 Normal 1.1-2.2 [facility] Comment on above: Performed By: #### 2 [id number] #### [facility] [address] [place] [address] ALP [Catalytic activity/Vol] 67 Int._Unit/L Normal 21-98 [facility] Comment on above: Performed By: #### 2 [id number] #### [facility] [address] [place] [address] ALT No additional P-5'-P [Catalytic activity/Vol] 21 Int._Unit/L Normal 6-46 [facility] Comment on above: Performed By: #### 2 [id number] #### [facility] [address] [place] [address] AST [Catalytic activity/Vol] 21 Int._Unit/L Normal 5-43 [facility] Comment on above: Performed By: #### 2 [id number] #### [facility] [address] [place] [address] Bilirubin [Mass/Vol] 0.7 mg/dL Normal 0.0-1.1 [facility] Comment on above: Performed By: #### 2 [id number] #### [facility] [address] [place] [address] Bilirubin.direct [Mass/Vol] 0.1 mg/dL Normal 0.0-0.4 [facility] Comment on above: Performed By: #### 2 [id number] #### [facility] [address] [place] [address] Bilirubin.indirect [Mass or moles/Vol] 0.6 mg/dL Normal 0.1-0.9 [facility] Comment on above: Performed By: #### 2 [id number] #### [facility] [address] [place] [address] Globulin (S) [Mass/Vol] 3.2 g/dL Normal 1.4-4.0 [facility] Comment on above: Performed By: #### 2 [id number] #### [facility] [address] [place] [address] Protein [Mass/Vol] 7.5 g/dL Normal 6.0-7.8 [facility] Comment on above: Performed By: #### 2 [id number] #### [facility] [address] [place] [address] [id number] 09-16-2024 HbA1c (Bld) [Mass fraction] 6.1 % High <=5.9 [facility] Comment on above: Performed By: #### 7 [id number] #### [facility] [address] [place] [address] Lipid Panelon 09-16-2024 Cholesterol [Mass/Vol] 149 mg/dL Normal 120-200 [facility] Comment on above: Performed By: #### 2 [id number] #### [facility] [address] [place] [address] Cholesterol in HDL [Mass/Vol] 51 mg/dL Invalid Interpretation Code [facility] Comment on above: Result Comment: '>= 60 LOW RISK' '<= 40 HIGH RISK' Performed By: #### 2 [id number] #### [facility] [address] [place] [address] Cholesterol in LDL [Mass/Vol] 79 mg/dL Normal <=129 [facility] Comment on above: Performed By: #### 2 [id number] #### [facility] [address] [place] [address] Cholesterol in VLDL [Mass/Vol] 34 mg/dL Normal 7-40 [facility] Comment on above: Performed By: #### 2 [id number] #### [facility] [address] [place] [address] Triglyceride [Mass/Vol] 172 mg/dL High <=149 [facility] Comment on above: Performed By: #### 2 [id number] #### [facility] [address] [place] [address] PSA Screen, Totalon 09-16-19 25 Prostate specific Ag [Mass/Vol] 0.5 ng/mL Normal 0.1-3.5 [facility] Comment on above: Result Comment: The concentration of PSA determined by different manufacturers can vary due to differences in assay methods and reagent specificity. Values obtained from different assay methods cannot be used interchangeably. The methodology used for this result was chemiluminescence using [email or web address]'s Access Hybritech PSA reagent. Performed By: #### 1 [id number] #### [facility] [address] [place] [address] eGFRon 09-16-2024 eGFR 99 mL/min/1.73 m2 Normal >=59 [facility] Comment on above: Performed By: #### 1 [id number] #### [facility] [address] [place] [address] No Panel Informationon 07-06 [facility] Healthcare [facility] Healthcare Ambulatory Visit Summaryon 0 03-24-2024 Ambulatory Visit Summary Ambulatory Visit Summary YOSEPH MARCK W :1955 Visit Date:03/24/2024 Ambulatory Visit Instructions Your Diagnosis Hypertension Familial hypercholesteremia BMI 38.0-38.9,adult Class 2 severe obesity due to excess calories with serious comorbidity and body mass index (BMI) of 38.0 to 38.9 in adult Elevated hemoglobin A1c Well adult health check Screening PSA (prostate specific antigen) Wart of hand Your Care Team Attending Physician - Clive RAYMOND DO, FAAFP Primary Care Physician - Clive RAYMOND DO, FAAFP This Is Your Medications List amlodipine (amLODIPine 5 mg Tab) hydrochlorothiazide-losart an (hydrochlorothiazide-losar tilley 25 mg-100 mg Tab) lisinopril (lisinopril 10 mg Tab) pravastatin (Pravachol 80 mg Tab) Contact prescribing physician if questions or concerns biotin (biotin 2.5 mg oral tablet) multivitamin (Super B Complex oral tablet) pyridoxine (Vitamin B6 100 mg Tab) Procedures Performed Arthroplasty of the hip (07/10/2022), Carpal tunnel release (03/30/2020), Spermatocelectomy (06/29/2019), Colonoscopy (01/01/2017), Right Total Knee Revision (02/07/2016), appendectomy, Arthroscopic knee procedure, Arthroscopy of shoulder, bilat TKR, right total ankle replacement. Discharge Vitals Temperature (Oral) 36.6 ?C Heart Rate (Peripheral) 75 Respiratory Rate 18 Blood Pressure 120/68 Height 159 cm Height 63 in Weight 98.0 kg Weight 215.6 lb BMI 38.76 What to do next Scheduled Follow-Up Appointments Saturday 7:40 AM EST With: Clive RAYMOND DO, FAAFP Where: [facility] [address], [place] [address]- Saturday 8:00 AM EDT With: Where: [facility] [address], [place] [address]- You Need to Schedule the Following Appointments Follow Up with Clive RAYMOND DO, FAAFP, FAM, PED When: In 6 months Where: [address], [place] [address]- You Need to Complete the Following Basic Metabolic Panel, Blood, Routine collect, 03/24/24, Order for future visit, Lab Collect, Well adult health check Hypertension, Not Required, Print Label By Order Location CBC w/ Auto Diff, Blood, Routine collect, 03/24/24, Order for future visit, Lab Collect, Well adult health check Hypertension, Not Required, Print Label By Order Location Hepatic Function Panel, Blood, Routine collect, 03/24/24, Order for future visit, Lab Collect, Well adult health check Familial hypercholesteremia, Not Required, Print Label By Order Location HgbA1c, Blood, Routine collect, 03/24/24, Order for future visit, Lab Collect, Well adult health check Elevated hemoglobin A1c Familial hypercholesteremia, Required & Missing, Print Label By Order Location Lipid Panel, Blood, Routine collect, 03/24/24, Order for future visit, Lab Collect, Well adult health check Familial hypercholesteremia, Not Required, Print Label By Order Location PSA Screen, Total, Blood, Routine collect, 03/24/24, Order for future visit, Lab Collect, Screening PSA (prostate specific antigen) Well adult health check, Required & Missing, Print Label By Order Location Medications What How Much When Why Instructions Unchanged amlodipine (amLODIPine 5 mg Tab) 1 Tablets By Mouth Every day Pickup at [facility]/pharmacy #[id number] Unchanged hydrochlorothiazide-losart an (hydrochlorothiazide-losar tilley 25 mg-100 mg Tab) 1 Tablets By Mouth Every day Pickup at [facility]/pharmacy #[id number] Unchanged lisinopril (lisinopril 10 mg Tab) 1 Tablets By Mouth [id number] Unchanged pravastatin (Pravachol 80 mg Tab) 1 Tablets By Mouth Every day Familial hypercholesterolemia Atherosclerosis of aorta Pickup at [facility]/pharmacy #[id number] Unchanged biotin (biotin 2.5 mg oral tablet) 1 Tablets By Mouth Every day Contact prescribing physician if questions or concerns Unchanged multivitamin (Super B Complex oral tablet) 1 Tablets By Mouth Every day Contact prescribing physician if questions or concerns Unchanged pyridoxine (Vitamin B6 100 mg Tab) 1 Tablets By Mouth Every day Contact prescribing physician if questions or concerns [id number] [address] [place], [place] [phone] Allergies No Known Allergies Problems Ongoing - Any problem that you are currently receiving treatment for. Acquired buried penis Atherosclerosis of aorta Elevated hemoglobin A1c Familial hypercholesteremia Fasting hyperglycemia H/O hydrocele History of bilateral knee replacement History of carpal tunnel release Hypertension Low serum vitamin D Osteoarthritis of right hip Spermatocele Wart of hand Well adult health check Historical - Any problem that you are no longer receiving treatment for. Anemia in other chronic diseases classified elsewhere BMI 36.0-36.9,adult BMI 37.0-37.9, adult BMI 39.0-39.9,a (more content not included)... Normal [facility] Family Medicine Office/Clini c Noteon 03-24-2024 Family Medicine Office/Clinic Note Family Medicine Office/Clinic Note Chief Complaint Patient here for 6 month f/u on htn, chol History of Present Illness Here for follow up Have you had any ER visits or any hospitalizations since last visit? no Are you compliant with your medications and no difficulty affording your medications? yes Do you have side effects from the medication? no Are you compliant with your diet? yes Do you exercise? yes Do you have any of the following symptoms? Chest pain? no Palpitations? no FUNES/SOB? no Orthopnea? no PND? no Edema? no Have you had any recent cardiopulmonary testing? no Review of Systems PHQ Score Initial Depression Screen Score: 0 SCORE ROS - Provider Constitutional: no fever, no chills, no sweats, no weakness. Skin: no Jaundice, no rash, no lesions, no petechiae. ENMT: no ear pain, no sore throat, no congestion, no hoarseness. Respiratory: no shortness of breath, no cough, no orthopnea, no wheezing. Cardiovascular: no chest pain, no palpitations, no edema. Gastrointestinal: no nausea, no vomiting, no diarrhea, no GI bleeding.no constipationnoheartburn Genitourinary: no dysuria, no hematuria, no discharge, no pain.nofreq/urgency Musculoskeletal: no back pain, no trauma.nojoint pain Neurologic: no headache, no dizziness, no numbness, no weakness. Psychiatric: no sleeping problems, no irritability, no mood swings/depression. Heme/Lymph: no bleeding tendency, no bruising tendency, no petechiae, no swollen lymph nodes no Allergy/Imunology no seasonal allergies, no food allergies, no recurrent infections, no impaired immunity. Additional ROS info: Except as noted in the above Review of Systems and in the History of Present Illness all other systems have been reviewed and are negative or noncontributory. Physical Exam Vitals & Measurements T: 36.6 ?C(Oral) HR: 75(Peripheral) RR: 18 BP: 120/68 SpO2: 99% HT: 63 in HT: 159 cm WT: 98.0 kg WT: 215.6 lb BMI: 38.76 General: Well developed, well nourished, in no acute distress Mouth: Mucous membranes moist. Normal oropharynx, and posterior pharynx without lesions or exudates. Tongue normal Neck: Neck supple. No masses or palpable cervical nodes. Trachea midline. Thyroid without nodules, masses, tenderness, or enlargement Lungs: Normal respiratory effort and clear to auscultation Cardio: Regular rate and rhythm, normal S1 and S2, no murmur, no rub Abdomen: Soft, non-distended, non-tender. no G/R/S/Masses Musculoskeletal: No deformity or scoliosis noted. Normal range of motion. Joints normal. No erythema, edema, effusion, or ecchymosis Extremity: No clubbing, cyanosis, edema, or deformity, with normal ROM in both upper and lower bilateral extremities Neurologic: Grossly normal Skin: No rashes, ulcerations, or suspicious lesions Mental Status: Alert and oriented x3. Normal mood and affect Assessment/Plan 1. Hypertension (I10: Essential (primary) hypertension) Excellent control with diet exercise, amlodipine 5 mg a day, hydrochlorothiazide- [id number] 100 mg p.o. daily along with lisinopril 10 mg p.o. daily Ordered: Basic Metabolic Panel CBC w/ Auto Diff Complex E&M Add on G2211 2. Familial hypercholesteremia (E78.01: Familial hypercholesterolemia) Good control with diet exercise and Pravachol 80 mg p.o. nightly along with multivitamin p.o. daily Ordered: pravastatin, 80 mg = 1 tab(s), Oral, Daily, # 90 tab(s), Refills(s) 3, Pharmacy: [facility]/pharmacy #[id number], 159, cm, 03/24/24 7:58:00 EDT, Height/Length Dosing, 98, kg, 03/24/24 7:58:00 EDT, Weight Dosing Hepatic Function Panel HgbA1c Lipid Panel 3. BMI 38.0-38.9,adult (Z68.38: Body mass index [BMI] 38.0-38.9, adult) The standard range for ages 18 and older is >=18.5 and < 25 kg/m2. Your BMI today was above this range, this falls in the overweight to obese category and there are medical benefits to weight loss. We can offer counselling, referral, and/or medical support in addressing this problem. Your BMI and weight management will be followed at subsequent visits. 4. Class 2 severe obesity due to excess calories with serious comorbidity and body mass index (BMI) of 38.0 to 38.9 in adult (E66.01: Morbid (severe) obesity due to excess calories) Diet and exercise at BMI goal of 25 5. Elevated hemoglobin A1c (R73.09: Other abnormal glucose) Ordered: HgbA1c 6. Well adult health check (Z00.00: Encounter for general adult medical examination without abnormal findings) cruz blood work Ordered: Basic Metabolic Panel CBC w/ Auto Diff Hepatic Function Panel HgbA1c Lipid Panel PSA Screen, Total 7. Screening PSA (prostate specific antigen) (Z12.5: Encounter for screening for malignant neoplasm of prostate) Ordered: PSA Screen, Total 8. Wart of hand (B07.9: Viral wart, unspecified) Pros and cons of procedure discussed & acceptance of risks to include <1% chance of squamous cell cancer. Sterile technique used with 3 alcohol wipes w/ currettage of wart(s) w/ 1 (more content not included)... Normal [facility] Comment on above: Result Comment: Elec tronically Signed By: Clive RAYMOND DO, FAAFP\.br\Date and Time Signed: 03/24/24 08:36 EDT Ambulatory Visit Summaryon 0 03-19-2024 Ambulatory Visit Summary Ambulatory Visit Summary YOSEPHMARCK :1955 Visit Date:03/18/2024 Ambulatory Visit Instructions Your Diagnosis Encounter for annual wellness exam in Medicare patient Atherosclerosis of aorta Hypertension Fasting hyperglycemia Familial hypercholesteremia History of bilateral knee replacement Obesity due to excess calories Your Care Team Attending Physician - Clive RAYMOND DO, FAAFP Primary Care Physician - Clive RAYMOND DO, FAAFP This Is Your Medications List amlodipine (amLODIPine 5 mg Tab) biotin (biotin 2.5 mg oral tablet) hydrochlorothiazide-losart an (hydrochlorothiazide-losar tilley 25 mg-100 mg Tab) lisinopril (lisinopril 10 mg Tab) multivitamin (Super B Complex oral tablet) pravastatin (Pravachol 80 mg Tab) pyridoxine (Vitamin B6 100 mg Tab) Procedures Performed Arthroplasty of the hip (07/10/2022), Carpal tunnel release (03/30/2020), Spermatocelectomy (06/29/2019), Colonoscopy (01/01/2017), Right Total Knee Revision (02/07/2016), appendectomy, Arthroscopic knee procedure, Arthroscopy of shoulder, bilat TKR, right total ankle replacement. Discharge Vitals Height 159.0 cm Height 63 in Weight 99.1 kg Weight 218.02 lb BMI 39.2 What to do next Scheduled Follow-Up Appointments Saturday 8:00 AM EDT With: Clive RAYMOND DO, FAAFP Where: [facility] [address] [place] [address]- Saturday 8:00 AM EDT With: Where: [facility] [address] [place] [address]- Medications What How Much When Why Instructions Unchanged amlodipine (amLODIPine 5 mg Tab) 1 Tablets By Mouth Every day Unchanged biotin (biotin 2.5 mg oral tablet) 1 Tablets By Mouth Every day Unchanged hydrochlorothiazide-losart an (hydrochlorothiazide-losar tilley 25 mg-100 mg Tab) 1 Tablets By Mouth Every day Unchanged lisinopril (lisinopril 10 mg Tab) 1 Tablets By Mouth Every day Unchanged multivitamin (Super B Complex oral tablet) 1 Tablets By Mouth Every day Unchanged pravastatin (Pravachol 80 mg Tab) 1 Tablets By Mouth Every day Familial hypercholesterolemia Atherosclerosis of aorta Unchanged pyridoxine (Vitamin B6 100 mg Tab) 1 Tablets By Mouth Every day Allergies No Known Allergies Problems Ongoing - Any problem that you are currently receiving treatment for. Acquired buried penis Atherosclerosis of aorta BMI 39.0-39.9,adult Elevated hemoglobin A1c Familial hypercholesteremia Fasting hyperglycemia H/O hydrocele History of bilateral knee replacement History of carpal tunnel release Hypertension Low serum vitamin D Osteoarthritis of right hip Spermatocele Historical - Any problem that you are no longer receiving treatment for. Anemia in other chronic diseases classified elsewhere BMI 36.0-36.9,adult BMI 37.0-37.9, adult Dyslipidemia Edema Inguinal hernia Internal derangement of right knee Knee pain Left carpal tunnel syndrome Morbid obesity Other obesity due to excess calories Right hydrocele Patient Survey You may receive a survey via text or e-mail asking about your office visit. Please share your experience with us by completing your survey. We appreciate your feedback and thank you for choosing us for your care. Education Materials Obesity, Adult Obesity is having too much body fat. Being obese means that your weight is more than what is healthy for you. BMI (body mass index) is a number that explains how much body fat you have. If you have a BMI of 30 or more, you are obese. Obesity can cause serious health problems, such as: ? Stroke. ? Coronary artery disease (CAD). ? Type 2 diabetes. ? Some types of cancer. ? High blood pressure (hypertension). ? High cholesterol. ? Gallbladder stones. Obesity can also contribute to: ? Osteoarthritis. ? Sleep apnea. ? Infertility problems. What are the causes? ? Eating meals each day that are high in calories, sugar, and fat. ? Drinking a lot of drinks that have sugar in them. ? Being born with genes that may make you more likely to become obese. ? Having a medical condition that causes obesity. ? Taking certain medicines. ? Sitting a lot (having a sedentary lifestyle). ? Not getting enough sleep. What increases the risk? ? Having a family history of obesity. ? Living in an area with limited access to: ? [place], recreation centers, or sidewalks. ? Healthy food choices, such as grocery stores and pickrset markets. What are the signs or symptoms? The main sign is having too much body fat. How is this treated? Treatment for this condition often includes changing your lifestyle. Treatment may include: ? Changing your diet. This may include making a healthy meal plan. ? Exercise. This may include activity that causes your heart to beat faster (aerobic exerc (more content not included)... Normal [facility] Family Medicine Office/Clini c Noteon 03-19-2024 Family Medicine Office/Clinic Note Family Medicine Office/Clinic Note Chief Complaint Subsequent Medicare Wellness Nurse Review of Systems PHQ Score Initial Depression Screen Score: 0 SCORE Physical Exam Vitals & Measurements HT: 159.0 cm HT: 63 in WT: 99.1 kg WT: 218.02 lb BMI: 39.2 Assessment/Plan 1. Encounter for annual wellness exam in Medicare patient (Z00.00: Encounter for general adult medical examination without abnormal findings) The patient was given a customized and personalized print out of all the current AHRQ USPSTF?s recommendations for preventative services and all current CDC recommended immunizations, relevant risk recommendations and the following patient brochures were given. Reviewed Medicare Prevention Services checklist. CDC-Falls Prevention and home safety screening reviewed. Patient admits to one fall in last 12 months, voices no worry about falling. Exhibits no problems with sitting, standing or ambulation. Patient aware with keeping walk way area free of clutter to prevent tripping and/or falling. [place] Advance Directives reviewed. Documents remain at home. Patient will fill them out and bring in to be scanned into chart. Patient denies any problems with ADL?s and Instrumental ADL?s. Cognitive screening completed with memory and clock face drawing. No deficits noted. 3/3 words recited correctly. Immunization record reviewed, discussed Shingrix vaccine with educational handout and availability. 2 COVID vaccines have been administered, with 0 Booster received. Allergies and medications reviewed and up to date. No concerns with taking medication as prescribed. Reviewed OTC medications, medication list up to date. Blood tests were reviewed and are UTD. Patient will have labs updated upon PCP recommendations. No concerns with bowel/ bladder. Colonoscopy last completed 01/01/[address] Flynn. Reviewed pain symptoms : Right shoulder pain, rates pain as a 1 out of 10, no pain medications taken. Reviewed all outside providers that patient follows. Last visit summary notes available in chart and/or have been requested. Patient declines any signs or symptoms of depression at this time. 8 minutes spent with screening and documentation. PHQ2 screening score 0. Patient drinks alcohol 1-2 times weekly 1-2 drinks, denies concerns. 8 minutes spent with screening and documentation. Audit score 3. Follow up scheduled with PCP, 03/24/2024 Patient qualifies for Chronic Care Management. Explained CCM to patient and agrees to a referral. 2. Atherosclerosis of aorta (I70.0: Atherosclerosis of aorta) Patient denies and voices no concerns with dizziness, lightheadedness, N & V, episodes of fainting, heart racing, SOB, or pain in back, stomach or extremities. Patient is compliant with taking Atorvastatin daily and prescribed and follows with PCP as directed. 3. Hypertension (I10: Essential (primary) hypertension) Patient is taking amlodipine, lisinopril, hctz/losartan daily as directed. Does monitor BP pressure at home. HTN stoplight reviewed with BP goal to be <140/90. Reviewed different factors that can alter blood pressure readings. Education handout provided with s/s to monitor for and report to provider. Patient is encouraged to increase portions of fruit, vegetables, fiber and increase exercise as much as tolerable. Reviewed importance with monitoring foods high in salt content and encouraged to limit intake, if unsure encouraged to discuss with their PCP. Encouraged to eat more chicken, fish and lean white meats and limits red meats in diet. Discussed importance with keeping BP under good control to reduce CVA risk factors. Will continue to f/u with PCP during office visits and as needed. Patient to continue to follow up with pcp as directed and prn. 4. Fasting hyperglycemia (R73.01: Impaired fasting glucose) Patient does not monitor BS at home: DM stoplight handout reviewed with s/s to monitor for and report to PCP. Discussed ADA dietary recommendations with low carbs and reduce sugar intake. Patient encouraged to increase daily physical activity, adequate water intake and maintain a healthy weight. Pt follows up with PCP for lab work as directed and prn. 5. Familial hypercholesteremia (E78.01: Familial hypercholesterolemia) Reviewed healthy lifestyle with low fat diet and exercise regimen. When you are overweight our body produces more lipids. Risk also increases with family history of hyperlipidemia and with monitoring alcohol use and avoid smoking. Pt voices understanding with importance of monitoring dietary intake to reduce risk factors associated with CVA. Taking statin medications daily as directed. Will continue to follow up with pcp office visits with updated labs as directed. 6. History of bilateral knee replacement (Z96.653: Presence of artificial knee joint, bilateral) Patient follows Dr. Deluna as directed and prn. Patient denies any pain in knees. 7. Obesity due to excess calories (E66.09: Other obesity due to excess calories) The standard rang (more content not included)... Normal [facility] Comment on above: Result Comment: Elec tronically Signed By: Nhi Ahuja\.br\Date and Time Signed: 03/19/24 06:55 EDT\.br\Electronically Co-Signed By: Elisabeth Kelly\.br\Date and Time Co-Signed: 03/18/24 09:32 EDT PT - Assessmentson 4 PT - Assessments [id number] Normal [facility] Nonvisit Note - PTon 024 Nonvisit Note - PT pt cancelled ahead o f time due to conflict. AMK Normal [facility] CNOVon 12-27-2023 CNOV Office Visit (ORTHCO ) -- MARCK HAMEED ([id number]) 1955 M Date Time Provider Department 12/27/23 2:20 PM KATINA MERCHANT ORTHTAWNY During your visit today, we recorded the following information about you: Katina Merchant DO 12/27/2023 3:51 PM Signed Ortho Knee Follow Up Note Narrative Referring Provider: No referring provider defined for this encounter. PCP: Clive Raymond DO, DO Lan is improving following his L total knee revision surgery. He has been compliant with his antibiotic therapy. Compliant with his WB restrictions - currently at 110 of flexion in his HKB and 75% WB with walker. Progress to 100% WB today. ROMAT. OK to drive today while not taking any pain medications. Continue Doxycycline until prescription is finished. Follow up as needed == IMPRESSION/PLAN: == 68 year old s/p revision Left Total Knee Replacement completed on 10/14/2023. Recent Surgeries this specialty 10/14/2023 (10w, 4d) REVISION JOINT TOTAL KNEE FEMORAL AND ENTIRE TIBIAL COMPONENT; RADICAL RESECTION DISTAL FEMUR (Left; Left) Katina Merchant DO; Sam Presley MD; Pako Gonsalez DO - Posted PAIN EVALUATION No data found in the last 1 encounters. IMPRESSION: Excellent early outcome PLAN: No new treatment indicated: Routine follow-up and Continue physical therapy. Continue current conservative treatment. Patient Reassurance: Normal post-operative course discussed with patient. Progress appears to be with the normal speed of recovery. Follow up as needed Marck Hameed presents today for a an intermediate post-op visit ACTIVE PROBLEM LIST Abnormal Gait Acquired Buried Penis Acute Serous Otitis Media Anemia Anemia of Chronic Disease Atherosclerosis of Aorta (Hcc) Carpal Tunnel Syndrome Postoperative Pain Disorder of Male Genital Organ Elevated Hemoglobin A1c Encounter for Orthopedic Follow-Up Care Familial Hypercholesteremia H/O Hydrocele History of Testicular Disorder History of Carpal Tunnel Release History of Bilateral Knee Replacement Hyperglycemia Hyperlipidemia Hypertension Essential (Primary) Hypertension Correction Current Use of Therapeutic Drug Low Vitamin D Level Obesity, Class II, Bmi 35-39.9, Isolated (See Actual Bmi) Simple Obesity Osteoarthritis of Hip Osteoarthritis of Right Hip Otalgia of Right Ear Preoperative State Presence of Hip Joint Prosthesis Hip Pain Pain of Right Hip Joint Presence of Right Artificial Ankle Joint Primary Osteoarthritis, Right Ankle and Foot Spermatocele Suspected Sleep Apnea Alcohol Use Failed Orthopedic Implant, Initial Encounter ([facility]) Status post op: BMI: There is no height or weight on file to calculate BMI. Post-operative recovery was complicated by uneventful/none. Readmission(s) since surgery (90 days post)? No ED Visits AND Hospitalizations - Last 180 days 10/14/23 Katina Merchant DO, [id number] S/P revision of total knee, left ..., Admission (Discharged) Patient rates their condition as improving. Does the patient still experience pain? No Post Op discharge patient location: in home. Functional Assessment is as follows: has already started outpatient PT as of this visit. Functional difficulties: None. Pain Medication: None Currently Ambulating with: a walker ======= EXAM: POST OP KNEE ======= Left Post-Operative Knee Ambulates with a: normal gait. In his hinged knee brace with his walker at 75% WB SKIN: Appropriate postop appearance, No evidence of erythema, warmth, discharge or drainage, and No evidence of warmth or erythema. Range of motion is 0 degrees in extension and 100 degrees of flexion. Extension La degrees Pain with ROM:No There is Mild effusion. Mal-alignment: No Tender to the palpation of None Neurovascular Status: Sensation Intact, Moves foot and ankle up AND down, and 2+ posterial tibial Stability:Anterior/Posteri or- Yes, stable and Varus/Valgus- Yes, stable Quad strength: normal Imagin. Implants are well aligned. Implants are well fixed. There is no evidence of loosening. Provider: Katina Merchant DO Completed by: Brock Guerrero DO Allergies As of Date: 12/27/2023 (No Known Allergies) Date Reviewed: 12/27/2023 Reviewed by: Je Ennis RN - Fully Assessed Reason for Visit: Post Op [174] Primary Visit Diagnosis:Chronic pain of left knee [M25.562, G89.29] [M25.562, G89.29] Prescriptions as of 12/27/2023 - aspirin, enteric coated (ADULT LOW DOSE ASPIRIN) 81 mg EC tablet Take 1 tablet by mouth two times a day. - doxycycline (VIBRA-TABS) 100 mg tablet Take 1 tablet by mouth two times a day. - ergocalciferol 50,000 unit capsule (VITAMIN D2, DRISDOL) Take 1 capsule by mouth two times a week. - amLODIPi (more content not included)... Normal [facility] XR KNEE 3V AP/LAT/MERCHANT L Ton 12-27-2023 XR KNEE 3V AP/LAT/MERCHANT LT * * *Final Report* * * DATE OF EXAM: Dec 27 2023 2:07PM CRX 5208 - XR KNEE 3V AP/LAT/MERCHANT LT / PROCEDURE REASON: multiple diagnoses * * * * Physician Interpretation * * * * HISTORY (as given from clinical provider): Failure of total knee replacement, initial encounter (HCC) ([facility]) Failure of total knee replacement, initial encounter ([facility]) ([facility]) . Additional history provided by the performing technologist (if any): LEFT KNEE SURGERY FOLLOW UP TECHNIQUE: XR KNEE 3V AP/LAT/MERCHANT LT COMPARISON: 11/07/2023 RESULT: Status post total knee arthroplasty. Expected postsurgical appearance. Constrained components. No other significant abnormality. Application Packager: [facility] Transcribe Date/Time: Dec 27 2023 2:53P Dictated by : ROSALINDA BARRY MD This examination was interpreted and the report reviewed and electronically signed by: ROSALINDA BARRY MD on Dec 27 2023 2:53PM EST [id number] [facility] XR Knee AP and Lateral and M erchantson 12-27-2023 * * *Final Report* * * DATE OF EXAM: Dec 27 2023 2:07PM CRX 5208 - XR KNEE 3V AP/LAT/MERCHANT LT / PROCEDURE REASON: multiple diagnoses * * * * Physician Interpretation * * * * HISTORY (as given from clinical provider): Failure of total knee replacement, initial encounter (HCC) (HCC) Failure of total knee replacement, initial encounter (HCC) (HCC) . Additional history provided by the performing technologist (if any): LEFT KNEE SURGERY FOLLOW UP TECHNIQUE: XR KNEE 3V AP/LAT/MERCHANT LT COMPARISON: 11/07/2023 RESULT: Status post total knee arthroplasty. Expected postsurgical appearance. Constrained components. No other significant abnormality. Application Packager: [facility] Transcribe Date/Time: Dec 27 2023 2:53P Dictated by : ROSALINDA BARRY MD This examination was interpreted and the report reviewed and electronically signed by: ROSALINDA BARRY MD on Dec 27 2023 2:53PM EST DIVISION OF RADIOLOGY Provider, [facility] - 12/27/2023 * * *Final Report* * * DATE OF EXAM: Dec 27 2023 2:07PM CRX 5208 - XR KNEE 3V AP/LAT/MERCHANT LT / PROCEDURE REASON: multiple diagnoses * * * * Physician Interpretation * * * * HISTORY (as given from clinical provider): Failure of total knee replacement, initial encounter (HCC) (HCC) Failure of total knee replacement, initial encounter (HCC) (HCC) . Additional history provided by the performing technologist (if any): LEFT KNEE SURGERY FOLLOW UP TECHNIQUE: XR KNEE 3V AP/LAT/MERCHANT LT COMPARISON: 11/07/2023 RESULT: Status post total knee arthroplasty. Expected postsurgical appearance. Constrained components. No other significant abnormality. Application Packager: [facility] Transcribe Date/Time: Dec 27 2023 2:53P Dictated by : ROSALINDA BARRY MD This examination was interpreted and the report reviewed and electronically signed by: ROSALINDA BARRY MD on Dec 27 2023 2:53PM EST [facility] Radiology Study observation (narrative) [facility] XR Knee AP and Lateral and M erchantsOrdered By: Ccf Provider on 12-27-2023 [facility] PT - Assessmentson PT - Assessments [id number]#1.00TIFF [facility] PT - Orderson 12-18-2023 PT - Orders [id number]#1.00TIFF [facility] PT - Home Exercise Programon 12-09-2023 PT - Home Exercise Program [id number]#1.00TIFF Normal [facility] Consent for Treatmenton Consent for Treatment [id number]#1.00TIFF [facility] PT - Assessmentson PT - Assessments [id number]#1.00TIFF [facility] PT - Consentson 11-19-2023 PT - Consents [id number]#1.00TIFF [facility] PT - Home Exercise Programon 11-19-2023 PT - Home Exercise Program [id number]#1.00TIFF [facility] PT - Ord[place] 11-11-2023 PT - Orders [id number]#1.00TIFF Normal [facility] CNPNon 11-08-2023 CNPN Telephone (ORTHTW) -- MARCK HAMEED ([id number]) 1955 M Date Time Provider Department 11/08/23 KATINA MERCHANT ORTHCHRISTAL During your visit today, we recorded the following information about you: Estelita Tompkins 11/08/2023 12:15 PM Signed Romana is calling Katina Merchant DO today with concern regarding Orders. Romana is calling She needs his PT orders fax to [facility]. [phone] Patient has been identified by name and birthdate. Duration of symptoms: N/A Person calling: self Call patient at: at home [phone] (home) [phone] (cell) Was an appointment scheduled: No eJ Ordaz, RN 11/08/2023 12:31 PM Signed Office will fax over PT order and notes from yesterday office visit. Allergies As of Date: 11/08/2023 (No Known Allergies) Date Reviewed: 11/07/2023 Reviewed by: Sienna Baugh MA - Fully Assessed Reason for Visit: Orders [541] Prescriptions as of 11/08/2023 - aspirin, enteric coated (ADULT LOW DOSE ASPIRIN) 81 mg EC tablet Take 1 tablet by mouth two times a day. - doxycycline (VIBRA-TABS) 100 mg tablet Take 1 tablet by mouth two times a day. - ergocalciferol 50,000 unit capsule (VITAMIN D2, DRISDOL) Take 1 capsule by mouth two times a week. - amLODIPine (NORVASC) 5 mg tablet Take 5 mg by mouth. - hydroCHLOROthiazide 25 mg tablet Take 25 mg by mouth. - lisinopril (ZESTRIL) 10 mg tablet Take 10 mg by mouth. - meloxicam (MOBIC) 7.5 mg tablet Take by mouth. - pravastatin (PRAVACHOL) 80 mg tablet Take 80 mg by mouth. - pyridoxine, vitamin B6, (VITAMIN B6) 100 mg tablet Take 100 mg by mouth. - cephALEXin (KEFLEX) 500 mg capsule TAKE ALL 4 CAPSULES ONE HOUR BEFORE THE PROCEDURE. 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] 09/20/2023 Acute serous otitis media [H65.00] 09/20/2023 Anemia [D64.9] 09/20/2023 Anemia of chronic disease [D63.8] 09/20/2023 Atherosclerosis of aorta (HCC) [I70.0] 03/09/2022 Carpal tunnel syndrome [G56.00] 09/20/2023 Postoperative pain [G89.18] 09/20/2023 Disorder of male genital organ [N50.9] 09/20/2023 Elevated hemoglobin A1c [R73.09] 09/20/2023 Encounter for orthopedic follow-up care [Z47.89]09/20/2023 Familial hypercholesteremia [E78.01] 09/20/2023 H/O hydrocele [Z87.438] 09/20/2023 History of testicular disorder [Z87.438] 09/20/2023 History of carpal tunnel release [Z98.890] 09/20/2023 History of bilateral knee replacement [Z96.653] 09/20/2023 Hyperglycemia [R73.9] 03/26/2022 Hyperlipidemia [E78.5] 09/20/2023 Hypertension [I10] 09/20/2023 Essential (primary) hypertension [I10] 03/06/2022 long-term current use of therapeutic drug [Z79.*03/09/2022 Low vitamin D level [R79.89] 09/20/2023 Obesity, Class II, BMI 35-39.9, isolated (see a*09/20/2023 Morbid obesity (HCC) [E66.01] 03/09/2022 10/10/2023 Class 2 obesity [E66.9] 03/06/2022 10/10/2023 Simple obesity [E66.9] 09/20/2023 Osteoarthritis of hip [M16.9] 03/26/2022 Osteoarthritis of right hip [M16.11] 09/20/2023 Otalgia of right ear [H92.01] 09/20/2023 Preoperative state [FRF0342] 09/20/2023 Presence of hip joint prosthesis [Z96.649] 09/20/2023 Hip pain [M25.559] 09/20/2023 Pain of right hip joint [M25.551] 03/06/2022 Presence of right artificial ankle joint [Z96.6*09/20/2023 Primary osteoarthritis, right ankle and foot [M*09/20/2023 Spermatocele [N43.40] 09/20/2023 Suspected sleep apnea [R29.818] 10/10/2023 Alcohol use [Z78.9] 10/10/2023 Failed orthopedic implant, initial encounter (H*10/14/2023 Encounter Status:Closed by JE ENNIS on 11/08/23 [facility] CNOVon 11-07-2023 CNOV Office Visit (ORTHTW ) -- MARCK HAMEED ([id number]) 1955 M Date Time Provider Department 11/07/23 2:30 PM CHELY YOUNG During your visit today, we recorded the following information about you: Chely Young PA-C 11/07/2023 3:21 PM Signed Ortho Knee Follow Up Note Narrative Referring Provider: No referring provider defined for this encounter. PCP: Clive Raymond DO, DO == IMPRESSION/PLAN: == 68 year old s/p revision Left Total Knee Replacement completed on 10/14/2023. Recent Surgeries this specialty 10/14/2023 (3w, 3d) REVISION JOINT TOTAL KNEE FEMORAL AND ENTIRE TIBIAL COMPONENT; RADICAL RESECTION DISTAL FEMUR (Left; Left) Katina Merchant DO; Sam Presley MD; Pako Gonsalez DO - Posted PAIN EVALUATION No data found in the last 1 encounters. IMPRESSION: At normal post-operative stage of recovery. PLAN: Continue current conservative treatment. Rest, Ice, Compression, Elevation PRN. Touch toe weightbearing for a total of 6 weeks, then proceed to 25% for 2 weeks, 50% for 2 weeks, 75% for 2 weeks, then full weightbearing as tolerated Will place patient in IROM brace to protect extensor mechanism. Can start actively flexing the left knee to only 40 degrees for 2 weeks. Progress flexion by 20 degrees every 2 weeks No application of creams, ointments, or lotions directly onto surgical incision first 3 months after surgery. No soaking in pools, hot tubs, or baths first 3 months after surgery. Aggressive elevation of the left lower extremity on multiple pillows Patient Reassurance: Normal post-operative course discussed with patient. Progress appears to be with the normal speed of recovery. Patient reassured and supported. All questions answered. Follow up 3 months X-Rays Needed Marck Zackery EllisonYoseph presents today for a a routine 1st post-op visit ACTIVE PROBLEM LIST Abnormal Gait Acquired Buried Penis Acute Serous Otitis Media Anemia Anemia of Chronic Disease Atherosclerosis of Aorta (Hcc) Carpal Tunnel Syndrome Postoperative Pain Disorder of Male Genital Organ Elevated Hemoglobin A1c Encounter for Orthopedic Follow-Up Care Familial Hypercholesteremia H/O Hydrocele History of Testicular Disorder History of Carpal Tunnel Release History of Bilateral Knee Replacement Hyperglycemia Hyperlipidemia Hypertension Essential (Primary) Hypertension Correction Current Use of Therapeutic Drug Low Vitamin D Level Obesity, Class II, Bmi 35-39.9, Isolated (See Actual Bmi) Simple Obesity Osteoarthritis of Hip Osteoarthritis of Right Hip Otalgia of Right Ear Preoperative State Presence of Hip Joint Prosthesis Hip Pain Pain of Right Hip Joint Presence of Right Artificial Ankle Joint Primary Osteoarthritis, Right Ankle and Foot Spermatocele Suspected Sleep Apnea Alcohol Use Failed Orthopedic Implant, Initial Encounter ([facility]) Status post op: BMI: There is no height or weight on file to calculate BMI. Post-operative recovery was complicated by uneventful/none. Readmission(s) since surgery (90 days post)? No ED Visits AND Hospitalizations - Last 180 days 10/14/23 Katina Merchant, , [id number] S/P revision of total knee, left ..., Admission (Discharged) Patient rates their condition as improving. Does the patient still experience pain? see MIDAS Form Post Op discharge patient location: in home. Functional Assessment is as follows: is ready to begin outpatient PT. Functional difficulties: Stair climbing and Walking. Pain Medication: Non-narcotic Currently Ambulating with: a walker and a wheelchair ======= EXAM: POST OP KNEE ======= Left Post-Operative Knee Ambulates with a: requiring assistive device: Wheelchair and walker. SKIN: Appropriate postop appearance, No evidence of erythema, warmth, discharge or drainage, and Incision clean/dry/intact. Range of motion is 0 degrees in extension and no flexion at this time Extension La degrees Pain with ROM:No There is Mild effusion. Mal-alignment: No Tender to the palpation of Patellar tendon Neurovascular Status: Sensation Intact, Moves foot and ankle up AND down, Moves toes up and down, 2+ dorsalis pedis, and 2+ posterial tibial Stability:Anterior/Posteri or- Yes, stable and Varus/Valgus- Yes, stable Quad strength: Extensor mechanism intact, able to perform straight leg raise Imagin. Implants are well aligned. Implants are well fixed. Patella is well positioned. Provider: Chely Young PA-C Completed by: GELY Lyons Andrew, PA-C 11/07/2023 3:01 PM Addendum Touch toe weightbearing for a total of 6 weeks, then proceed to 25% for 2 weeks, 50% for 2 weeks, 75% for 2 weeks, then full weightbearing as tolerated Will place you in an range of (more content not included)... [facility] FUNGAL CULTUREon 11-07-2023 Fungus identified Cx Nom (Unsp spec) No Fungus isolated after 28 days [facility] Fungus identified Cx Nom (Un sp spec)on 11-07-2023 [facility] XR KNEE 2V AP/LAT LTon 11-06 XR KNEE 2V AP/LAT LT * * *Final Report* * * DATE OF EXAM: Nov 07 2023 2:19PM TWX 5206 - XR KNEE 2V AP/LAT LT / PROCEDURE REASON: multiple diagnoses * * * * Physician Interpretation * * * * HISTORY: Failure of total knee replacement, initial encounter ([facility]) ([facility]) Failure of total knee replacement, initial encounter ([facility]) ([facility]) . TECHNIQUE: XR KNEE 2V AP/LAT LT Laterality: LEFT Number of different views (projections): 2 COMPARISON: Radiographs dated 10/14/2023. RESULT: Left total knee arthroplasty revision with intact hardware. There is no acute fracture or dislocation. There has been resolution of the soft tissue gas and improvement in the soft tissue swelling. No other significant abnormality. IMPRESSION: Revised left total knee arthroplasty with intact hardware. Application Packager: [facility] Transcribe Date/Time: Nov 07 2023 3:11P Dictated by : COLTON GOODRICH MD This examination was interpreted and the report reviewed and electronically signed by: COLTON GOODRICH MD on Nov 07 2023 3:12PM EST [id number] [facility] XR Knee - left AP and Latera kian 11-07-2023 [facility] Bacteria identified Anaer cx Nom (Unsp spec)Ordered By: Vivian Rodriguez on 10-24-2023 Interpretation and review of laboratory results Normal [facility] Microorganism identified Cx Nom (Unsp spec) Negative for anaerobes. No Cutibacterium acnes isolated. [facility] CNPNon 10-18-2023 ISAIN Telephone (PODCCP) -- MARCK HAMEED ([id number]) 1955 M Date Time Provider Department 10/18/23 CLIVE RAYMOND PODCCP During your visit today, we recorded the following information about you: Aria Maradiaga 10/18/2023 9:08 AM Signed PATIENT INFORMATION Record ID: [id number] Patient Name: [facility]ck [facility]: [facility] [place]: Orthopaedic AND Rheumatologic [place] Attending: Katina Merchant Center: Orthopaedic Surgery INSTRUCTIONS SN to remind patient of next upcoming appointment date, time, location All Clear All Clear All Clear All Clear SURVEY INFORMATION Medical/Nurse [employer] Operator: Aria Mena 1. Your discharge instructions are important in guiding you through the recovery process. Is there anything I could help you clarify on your discharge instructions? (Standard Question) No 2. Do you have a follow up appointment related to your hospital stay scheduled within the next 30 days? (Standard Question) Yes MA/ Notes: October F/U Appt 3. Is your pain controlled with your current medication? (Red Flag Question) I have no pain or minimal pain 3b. If patient says No to pain not being managed: Are you taking your pain medication as directed by your physician? N/A, pain is managed 4. If you are able to see your incision, is there any increased drainage, redness or swelling since discharge? (Red Flag Question) No 5. Many patients have concerns about their medications once they are home. Do you have any questions about getting or taking your medications? (Standard Question) No 6. Do you have any new or worsening symptoms? (Standard Question) No Allergies As of Date: 10/18/2023 (No Known Allergies) Date Reviewed: 10/16/2023 Reviewed by: Leonardo Freedman RN - Fully Assessed Reason for Visit: Follow Up Phone Call [[phone]] Cmt: All Clear Prescriptions as of 10/18/2023 - aspirin, enteric coated (ADULT LOW DOSE ASPIRIN) 81 mg EC tablet Take 1 tablet by mouth two times a day. - oxyCODONE IR (ROXICODONE) 5 mg immediate release tablet Take 1-2 tablets by mouth every 6 hours as needed for pain for up to 7 days. for pain. - acetaminophen (TYLENOL EXTRA STRENGTH) 500 mg tablet Take 2 tablets by mouth every 8 hours as needed for pain for up to 15 days. - doxycycline (VIBRA-TABS) 100 mg tablet Take 1 tablet by mouth two times a day. - ergocalciferol 50,000 unit capsule (VITAMIN D2, DRISDOL) Take 1 capsule by mouth two times a week. - docusate sodium (COLACE) 100 mg capsule Take 1 capsule by mouth two times a day for 15 days. - senna (SENOKOT) 8.6 mg tab Take 2 tablets by mouth daily at bedtime for 15 days. - amLODIPine (NORVASC) 5 mg tablet Take 5 mg by mouth. - hydroCHLOROthiazide 25 mg tablet Take 25 mg by mouth. - lisinopril (ZESTRIL) 10 mg tablet Take 10 mg by mouth. - meloxicam (MOBIC) 7.5 mg tablet Take by mouth. - pravastatin (PRAVACHOL) 80 mg tablet Take 80 mg by mouth. - pyridoxine, vitamin B6, (VITAMIN B6) 100 mg tablet Take 100 mg by mouth. - cephALEXin (KEFLEX) 500 mg capsule TAKE ALL 4 CAPSULES ONE HOUR BEFORE THE PROCEDURE. 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] 09/20/2023 Acute serous otitis media [H65.00] 09/20/2023 Anemia [D64.9] 09/20/2023 Anemia of chronic disease [D63.8] 09/20/2023 Atherosclerosis of aorta (HCC) [I70.0] 03/09/2022 Carpal tunnel syndrome [G56.00] 09/20/2023 Postoperative pain [G89.18] 09/20/2023 Disorder of male genital organ [N50.9] 09/20/2023 Elevated hemoglobin A1c [R73.09] 09/20/2023 Encounter for orthopedic follow-up care [Z47.89]09/20/2023 Familial hypercholesteremia [E78.01] 09/20/2023 H/O hydrocele [Z87.438] 09/20/2023 History of testicular disorder [Z87.438] 09/20/2023 History of carpal tunnel release [Z98.890] 09/20/2023 History of bilateral knee replacement [Z96.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] 09/20/2023 Hyperglycemia [R73.9] 03/26/2022 Hyperlipidemia [E78.5] 09/20/2023 Hypertension [I10] 09/20/2023 Essential (primary) hypertension [I10] 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 [Z79.*03/09/2022 Low vitamin D level [R79.89] 09/20/2023 Obesity, Class II, BMI 35-39.9, isolated (see a*09/20/2023 Morbid obesity (HCC) [E66.01] 03/09/2022 10/10/2023 Class 2 obesity [E66.9] 03/06/2022 10/10/2023 Simple obesity [E66.9] 09/20/2023 Osteoarthritis of hip [M16.9] 03/26/2022 Osteoarthritis of right hip [M16.11] 09/20/2023 Otalgia of right ear [H92.01] 09/20/2023 Preoperative state [GLT7901] 09/20/2023 Presence of hip joint prosthesis [Z96.649] 09/20/2023 Hip pain [M25.559] 09/20/2023 Pain of right hip joint [M25.551] 03/06/2022 Presence of right artificial ankle joint [Z96.6*09/20/2023 Primary osteoarthritis, right ankle and foot [M*09/20/2023 Spermatocele [N43.40] 09/20/2023 Suspected sleep apne (more content not included)... [facility] CASE MANAGEMon 10-16-2023 CASE MANAGEM HNO ID: [id number] Author: NANCI WAGGONER LSW Service: ? Author Type: University Registrar Type: Care Mgt Progress Note Filed: 10/16/2023 13:30 Note Text: CARE MANAGEMENT DISCHARGE NOTE SERVICE DATE: October 16, 2023 SERVICE TIME: 1:29 PM Admission Date: 10/14/2023 LOS: 2 days Discharge Arrangement Discharge Arrangement: Home with Home Health Services Arranged Medical Services: Skilled Home Health Care Type: Physical Therapy Provider Name: Marcos Peralta [facility] Caregiver Assessment Caregiver is ready, willing and able to meet the patient's needs as recommended by the inter-professional team: Yes Name of Caregiver: Derrick PLEITEZ Transportation Arrangements Transportation Arrangements: Car Date of Trip: 10/16/23 Destination: home Handoff Communication: Handoff to: Primary Care Physician Primary Care Physician Name/Phone: Clive Raymond DO [phone] Additional Information: N/A Discharge Information Row Name Admission (Current) from 10/14/2023 in [facility] Marcos Peralta [facility] Start of Care -- 24-48 hours post discharge Patient discharge to home with HC services ( PT). Discharge orders sent to HC. SIGNATURE: TATE Rebolledo PATIENT NAME: Marck Hameed DATE: October 16, 2023 TIME: 1:29 PM CONTACT #: [phone] [facility] THERAPY NTon 10-16-2023 THERAPY NT HNO ID: [id number] Author: CRYS PEREZ OTR/Ney Service: Occupational Therapy Author Type: Occupational Therapist Type: Therapy (PT/OT/Speech/Resp) Filed: 10/16/2023 13:30 Note Text: OCCUPATIONAL THERAPY MISSED VISIT SERVICE DATE: 10/16/2023 SERVICE TIME: 1329 ROOM: [place] [id number] Patient not seen due to Clinical Appropriateness. No skilled needs. SIGNATURE: LUCIA Grewal/Ney PATIENT NAME: Marck Hameed DATE: October 16, 2023 TIME: 1:30 PM [facility] THERAPY NT HNO ID: [id number] Author: SHANTE ESCOBAR, PT Service: ? Author Type: Physical Therapist Type: Therapy (PT/OT/Speech/Resp) Filed: 10/16/2023 10:07 Note Text: Physical Therapy Treatment Summary SERVICE DATE: 10/16/2023 SERVICE TIME: 0853 to 1002 ROOM: [place] [address] PT 6 Clicks Score: 18 DISCHARGE RECOMMENDATIONS Home PT Recommended Discharge Equipment: No equipment needs anticipated ASSESSMENT Response to Therapy Interventions: Good Participation in Activities, Improved Tolerance for Activity, On-Track to Achieve Discharge Goals Pt assisted to don KI immobilizer prior to mobility, and education provided on adjusting as needed. Patient has met PT goals for d/c home. Daughters present during session. PRECAUTIONS Weight Bearing Restrictions, Total Knee Replacement Left Lower Extremity Weight Bearing Status: (FFWB in KI) CURRENT HOSPITAL COURSE s/p L knee revision on 10/14 Relevant Past Medical History: HTN, artherosclerosis, sleep apnea, anemia, carpal tunnel, bilateral TKR, bilateral [facility] HOME LIVING Patient Lives With: Family, Other: See Comment Comments: Daughter Assistance Available: Part-Time, Other: See Comment Comments: Daughter works; reports other daughter is available to assist during day Entry To Home: Stairs, Without Rail Number Of Stairs Into Home: 1 (small threshold through door) Number Of Stairs To Bed/Bath: 2 (Can stay on 1 fl with bed/bath; has 2 stairs to other area of house (kitchen, other bedrooms)) Tub/Shower Type: WIS Equipment Owned: Cane, Walker- Wheeled, Crutch(es), Commode- Bedside, Shower Chair PRIOR FUNCTIONAL LEVEL Within Functional Limits, History of Falls Patient I [employer] WORK[employer]. Reports he has been ambulating with cane for past month d/t progressive worsening of pain. 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 SUBJECTIVE Pt agreeable to PT THERAPY DIAGNOSIS Reduced mobility-other, Abnormalities of gait and mobility-other TREATMENT INTERVENTIONS Therapeutic Activity (84855), Gait Training (83379) Timed Code Treatment (minutes): 69 Skilled Treatment Time (minutes): 69 TRAINING AND EDUCATION PROVIDED Anatomy and Impact on Deficits, Assistive Device Use, Bed Mobility, Benefits of In-Hospital Mobility, Disease Specific Education, Exercise Program, Expected Functional Level, Falls Prevention, Gait Pattern, Reduction of Deviations, Handout Issued, Home Safety, Patient Exercise/Therapy Program Support Needs, Precautions/Restrictions, Pre-gait Activities, Role of Physical Therapy, Sitting Balance, Standing Balance, Transfers THERAPEUTIC SKILLS USED Activity Dosing, Assessment of Tolerance Including Vitals Response to Activity, Cues for Sequencing/Proper Technique for Activity, Cuing Verbal, Cuing Tactile, Cuing Visual, Management of Critical Lines, Tubes and/or Drains, Movement Facilitation, Physical Assist, Teach-Back for Education FUNCTIONAL STATUS Bed Mobility Supine To Sit: Contact Guard Assistance support at LLE Scooting: Contact Guard Assistance, Additional Information support at LLE in long sit; SBA to scoot in chair Transfers Sit To Stand: Contact Guard Assistance Stand To Sit: Contact Guard Assistance Bed to Chair Contact Guard Assistance Bed To Chair Transfer Type: Stepping Bed To Chair Transfer Equipment: Wheeled Walker Gait Contact Guard Assistance, Additional Information Improved hopping Gait Device: Wheeled Walker Gait Distance (feet): 15 x2, 5x2 Stairs Curb Step: Minimal Assistance Device: Wheeled Walker GOALS Patient will demonstrate progress with functional mobility to allow safe discharge to home with available support and/or physical assistance. Rehab Potential: Excellent Progress Toward Goals: Progressing as expected PLAN PT Frequency: Once Daily Treatment Interventions: Education, Self Care / Home Management, Strengthening, Functional Mobility Training, Energy Conservation Training, Balance Training, Pain Management Plan for Next Visit: Curb Step Training, Gait Training, Car Transfer Training SIGNATURE: Shante Escobar PT PATIENT NAME: Marck Hameed DATE: October 16, 2023 TIME: 10:07 AM Normal [facility] BODY FLUID CULTURE AND GRAM STAINOrdered By: Melvin Cornejo on 10-15-2023 Bacteria identified Cx Nom (Body fld) No growth [facility] Bacteria identified Cx Nom ( Body fld)Ordered By: Melvin Cornejo on 10-15-2023 Microscopic observation Smear Nom (Unsp spec) No organisms seen [facility] Microscopic observation Smear Nom (Unsp spec) No Polymorphonuclear Leukocytes [facility] Microscopic observation Smear Nom (Unsp spec) Gram stain from primary specimen [facility] Basic metabolic 2000 panelon 10-15-2023 Anion gap [Moles/Vol] 11 mmol/L Normal 9-18 [facility] Comment on above: Order Comment: Speci men Type: BLOOD SPECIMENOrdering Facility: [facility] Address: [address] [place] [address] Performed By: #### 2 4321-2 ####[facility] LABCLIA [id number] [place] [address] [place] Calcium [Mass/Vol] 8.8 mg/dL Normal 8.5-10.2 [facility] Comment on above: Order Comment: Speci men Type: BLOOD SPECIMENOrdering Facility: [facility] Address: [address] [place] [address] Performed By: #### 2 4321-2 ####[facility] LABCLIA [id number] [address] [address] [place] Chloride [Moles/Vol] 98 mmol/L Normal 97-105 [facility] Comment on above: Order Comment: Speci men Type: BLOOD SPECIMENOrdering Facility: [facility] Address: [address] [place] [address] Performed By: #### 2 4321-2 ####[facility] LABCLIA [id number] [place] [address] [place] CO2 [Moles/Vol] 23 mmol/L Normal 22-30 [facility] Comment on above: Order Comment: Speci men Type: BLOOD SPECIMENOrdering Facility: [facility] Address: [address] [place] [address] Performed By: #### 2 4321-2 ####[facility] LABCLIA [id number] [place] [address] [place] Creatinine [Mass/Vol] 0.74 mg/dL Normal 0.73-1.22 [facility] Comment on above: Order Comment: Speci men Type: BLOOD SPECIMENOrdering Facility: [facility] Address: [address] [place] [address] Performed By: #### 2 4321-2 ####[facility] LABCLIA [id number] [place] [address] [place] Creatinine and Glomerular filtration rate.predicted panel (S/P/Bld) 99 mL/min/1.73m??? Normal >=60 [facility] Comment on above: Order Comment: Speci men Type: BLOOD SPECIMENOrdering Facility: [facility] Address: [address] [place] [address] Result Comment: Sharlene mated Glomerular Filtration Rate (eGFR) is calculated using the 2020 CKD-EPI creatinine equation. This equation utilizes serum creatinine, sex, and age as parameters. The creatinine assay has traceable calibration to isotope dilution-mass spectrometry. Refer to KDIGO guidelines for clinical interpretation. In patients with unstable renal function, e.g. those with acute kidney injury, the eGFR may not accurately reflect actual GFR. Performed By: #### 2 4321-2 ####[facility] LABCLIA [id number] [place] [address] [place] Glucose [Mass/Vol] 121 mg/dL High 74-99 [facility] Comment on above: Order Comment: Sophia leong Type: BLOOD SPECIMENOrdering Facility: [facility] Address: [address] [place] [address] Result Comment: The [place] Diabetes Association (ADA) provides guidance for cutoff [...] Standards of Medical Care in Diabetes 2016, [place] Diabetes Association. Diabetes Care. 2016.39(Suppl 1). Performed By: #### 2 4321-2 ####[facility] LABCLIA [id number] [place] [id number] [place] Potassium [Moles/Vol] 4.4 mmol/L Normal 3.7-5.1 [facility] Comment on above: Order Comment: Sophia leong Type: BLOOD SPECIMENOrdering Facility: [facility] Address: [address] [place] [address] Performed By: #### 2 4321-2 ####[facility] LABCLIA [id number] [place] [id number] [place] Sodium [Moles/Vol] 132 mmol/L Low 136-144 [facility] Comment on above: Order Comment: Speci men Type: BLOOD SPECIMENOrdering Facility: [facility] Address: [address] [place] [address] Performed By: #### 2 4321-2 ####[facility] LABCLIA [id number] [address] [place] Urea nitrogen [Mass/Vol] 22 mg/dL Normal 9-24 [facility] Comment on above: Order Comment: Speci men Type: BLOOD SPECIMENOrdering Facility: [facility] Address: [address] [place] [address] Performed By: #### 2 4321-2 ####[facility] LABCLIA [id number] [address] [place] CASE MGT INIT ASSESon 2023 CASE MGT INIT ASSES HNO ID: [id number] Author: ADRIAN ORTA RN Service: ? Author Type: Registered Nurse Type: Care Mgt Initial Assessment Filed: 10/15/2023 08:46 Note Text: CARE MANAGEMENT: ASSESSMENT AND DISCHARGE PLAN SERVICE DATE: October 15, 2023 SERVICE TIME: 8:46 AM INITIAL ASSESSMENT COMPLETE BY: ORTHOPAEDIC COORDINATION OF CARE Pre-Op Assessment Discharge Disposition (Planned): Home with Home Health Discharge Transportation: Car PRIMARY CARE PHYSICIAN: No primary care provider on file. 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 Have you had joint replacement surgery before?: Yes: Bilateral knees and Right hip Date: Patient reported knees done in August of 2004 and Right hip done in 2021 Social: Pre-Hospital Baseline Mental Status: Alert AND Oriented Informant: Self Living Arrangement: Home Who able to assist you at home once you discharge? Daughters Are they available for at least 2 weeks? Yes Stairs: One story home 1 stairs to enter home Bedroom Location: First Bathroom Location: First Do you have problems that affect your ability to perform normal activities of daily living such as bathing, dressing, or toileting yourself? No = 0 What is your current functional status?: Perform ADLs independently Are you able to afford your medications/Food? Yes Social Determinants of Health Tobacco Use: Low Risk (10/03/2023) Patient History Smoking Tobacco Use: Never Smokeless Tobacco Use: Never Passive Exposure: Not on file Alcohol Use: Not At Risk (10/03/2023) AUDIT-C Frequency of Alcohol Consumption: 4 or more times a week Average Number of Drinks: 1 or 2 Frequency of Binge Drinking: Never Financial Resource Strain: Low Risk (10/03/2023) Overall Financial Resource Strain (CARDIA) Difficulty of Paying Living Expenses: Not very hard Food Insecurity: No Food Insecurity (10/03/2023) Hunger Vital Sign Worried About Running Out of Food in the Last Year: Never true Ran Out of Food in the Last Year: Never true Transportation Needs: No Transportation Needs (10/03/2023) PRAPARE - Transportation Lack of Transportation (Medical): No Lack of Transportation (Non-Medical): No Physical Activity: Inactive (10/03/2023) Exercise Vital Sign Days of Exercise per Week: 0 days Minutes of Exercise per Session: 0 min Stress: No Stress Concern Present (10/03/2023) [place] [employer] - Occupational Stress Questionnaire Feeling of Stress : Not at all Social Connections: Moderately Integrated (10/03/2023) Social Connection and Isolation Panel [NHANES] Frequency of Communication with Friends and Family: More than three times a week Frequency of Social Gatherings with Friends and Family: More than three times a week Attends Yarsani Services: 1 to 4 times per year Active Member of Clubs or Organizations: Yes Attends Club or Organization Meetings: More than 4 times per year Marital Status: Intimate Partner Violence: Not At Risk (10/03/2023) Humiliation, Afraid, Rape, and Kick questionnaire Fear of Current or Ex-Partner: No Emotionally Abused: No Physically Abused: No Sexually Abused: No Depression: Not at risk (10/03/2023) PHQ-2 PHQ-2 Score: 0 Housing Stability: Low Risk (10/03/2023) Housing Stability Vital Sign Unable to Pay for Housing in the Last Year: No Number of Places Lived in the Last Year: 1 Unstable Housing in the Last Year: No Utilities: Not At Risk (10/03/2023) [place] Utilities Threatened with loss of utilities: No Area Deprivation Index: Medium Risk (09/20/2023) Area Deprivation Index National Score (1-100), lower number is lower risk: 65 State Score (1-10), lower number is lower risk: 4 Data from: https://www.neighborhoodat las.medicine.[facility]/. Last address used for calculation: [address] Equipment: Do you currently use any equipment at home for your medical condition or to help you get around? Cane - Straight Patient also has walkers, crutches and elevated toilet seats at home for after surgery Active Services/Needs: None Transportation: Do you have reliable transportation to and from surgery/appointments?: Yes Who will provide discharge transportation: Daughters Contact information for patient's ride: Will your ride be available for 1200 discharge time? Yes Office Visit Follow Up Did you receive the antiseptic wipes from your surgeon?s office? Yes Did you receive a prescription for an assistive device (walker or crutches) from your surgeon?s office and fill it or do you already have one at home? Yes Did you attend a joint education class/Watched video? No Did you read the education book provided to you? Yes Have you let your PCP know you are having (more content not included)... Normal [facility] CBC panel Auto (Bld)on 10-15 Erythrocyte distribution width (RBC) [Ratio] 13.5 % Normal 11.5-15.0 [facility] Comment on above: Order Comment: Speci men Type: BLOOD SPECIMENOrdering Facility: [facility] Address: [address] [place] [address] Performed By: #### 5 8410-2 ####[facility] LABCLIA [id number] [place] [address] [place] Hematocrit (Bld) [Volume fraction] 29.5 % Low 39.0-51.0 [facility] Comment on above: Order Comment: Speci men Type: BLOOD SPECIMENOrdering Facility: [facility] Address: [address] [place] [address] Performed By: #### 5 8410-2 ####[facility] LABIA [id number] [place] [address] [place] Hemoglobin (Bld) [Mass/Vol] 10.1 g/dL Low 13.0-17.0 [facility] Comment on above: Order Comment: Speci men Type: BLOOD SPECIMENOrdering Facility: [facility] Address: [address] [place] [address] Performed By: #### 5 8410-2 ####[facility] LABIA [id number] [place] [address] [place] MCH (RBC) [Entitic mass] 29.4 pg Normal 26.0-34.0 [facility] Comment on above: Order Comment: Speci men Type: BLOOD SPECIMENOrdering Facility: [facility] Address: [address] [place] [address] Performed By: #### 5 8410-2 ####[facility] LABIA [id number] [place] [address] [place] MCHC (RBC) [Mass/Vol] 34.2 g/dL Normal 30.5-36.0 [facility] Comment on above: Order Comment: Speci men Type: BLOOD SPECIMENOrdering Facility: [facility] Address: [address] [place] [address] Performed By: #### 5 8410-2 ####[facility] [id number] [place] [address] [place] MCV (RBC) [Entitic vol] 86.0 fL Normal 80.0-100.0 [facility] Comment on above: Order Comment: Speci men Type: BLOOD SPECIMENOrdering Facility: [facility] Address: [address] [place] [address] Performed By: #### 5 8410-2 ####[facility] LABCLIA [id number] [place] [address] [place] Nucleated RBC (Bld) [#/Vol] 10*3/uL Normal <0.01 [facility] Comment on above: Order Comment: Speci men Type: BLOOD SPECIMENOrdering Facility: [facility] Address: [address] [place] [address] Performed By: #### 5 8410-2 ####[facility] LABIA [id number] [place] [address] [place] Platelet mean volume (Bld) [Entitic vol] 8.9 fL Low 9.0-12.7 [facility] Comment on above: Order Comment: Speci men Type: BLOOD SPECIMENOrdering Facility: [facility] Address: [address] [place] [address] Performed By: #### 5 8410-2 ####[facility] LABIA [id number] [place] [address] [place] Platelets (Bld) [#/Vol] 273 10*3/uL Normal 150-400 [facility] Comment on above: Order Comment: Speci men Type: BLOOD SPECIMENOrdering Facility: [facility] Address: [address] [place] [address] Performed By: #### 5 8410-2 ####[facility] LABIA [id number] [place] [address] [place] RBC (Bld) [#/Vol] 3.43 10*6/uL Low 4.20-6.00 [facility] Comment on above: Order Comment: Speci men Type: BLOOD SPECIMENOrdering Facility: [facility] Address: [address] [place] [address] Performed By: #### 5 8410-2 ####[facility] LABIA [id number] [place] [address] [place] WBC (Bld) [#/Vol] 11.74 10*3/uL High 3.70-11.00 [facility] Comment on above: Order Comment: Speci men Type: BLOOD SPECIMENOrdering Facility: [facility] Address: [address] [place] [address] Performed By: #### 5 8410-2 ####[facility] LABCLIA [id number] [facility] [place] [address] [place] CONSULT PROGon 10-15-2023 CONSULT PROG HNO ID: [id number] Author: LORRAINE DUBON APRN.WATCH ENGINEER Service: Pain Management Author Type: Nurse Practitioner Type: Consult Progress Note Filed: 10/15/2023 08:19 Note Text: APS POST-OPERATIVE PROGRESS NOTE Peripheral Nerve Catheter SERVICE DATE: 10/15/2023 : 1955 SERVICE TIME: 07:09 AM SURGERY DATE: 10/14/2023 PRIMARY SERVICE: Orthopedics Subjective CHIEF COMPLAINT: Post-operative pain INTERVAL HPI: Marck Hameed is a 68 year old male who is POD #1, S/P Procedure(s) (LRB): REVISION JOINT TOTAL KNEE FEMORAL AND ENTIRE TIBIAL COMPONENT (Left) with Peripheral Nerve Catheter placed on day of surgery for post-operative pain control infusing ropivacaine 0.1% at 8/0/0/0. Past medical history includes HTN, HLD, obesity, suspected sleep apnea, and ETOH use (2-3 beers a day). Pre-Operative (Baseline) Pain Score: Not documented History of Chronic Pain: No Current Pain Level: 3/10 at rest NA with ambulation on a scale of 0-10 Physical Therapy Sessions: Pending Pain at Surgical Site: Yes, mild Character: dull Duration: consistent Radiation: No Relieved: Yes - PO Pain medications and PNC Patient Satisfied with Pain Control: Yes Overnight Events: None Overnight Pain Interventions: no POST-OPERATIVE BLOCK: Block Type: Adductor Nerve Catheter, Left Analgesic Regimen: IV dilaudid 0.4 mg q4h PRN oxyCODONE 5-10 mg q3h PRN Tylenol 1g TID ROS ORACLE APPLICATIONS DEVELOPER: Numbness within distribution of block ENT: Negative for hoarseness, negative for dysphagia, negative for tinnitus. CARDIOVASCULAR: Negative for chest pain, negative for leg swelling, negative for palpitations. RESPIRATORY: Negative for cough, negative for wheezing, negative for shortness of breath. GI: Negative for nausea, negative for vomiting, negative for constipation. ALLERGIES No Known Allergies Current Facility-Administered Medications Medication Dose Route Frequency pravastatin 80 mg tab(s) (PRAVACHOL) 80 mg ORAL DAILY lisinopril 10 mg tab(s) (ZESTRIL) 10 mg ORAL DAILY amLODIPine 5 mg tab(s) (NORVASC) 5 mg ORAL DAILY hydroCHLOROthiazide 25 mg tab(s) 25 mg ORAL DAILY pyridoxine (vitamin B6) 100 mg tab(s) (VITAMIN B6) 100 mg ORAL DAILY oxyCODONE IR 5-10 mg tab(s) (ROXICODONE) 5-10 mg ORAL q 3 H PRN acetaminophen 1,000 mg tab(s) (TYLENOL) 1,000 mg ORAL q 8 H ondansetron 4 mg tab(s) (ZOFRAN) 4 mg ORAL q 6 H PRN Or ondansetron (PF) 4 mg injection (ZOFRAN) 4 mg INTRAVENOUS q 6 H PRN magnesium hydroxide 400 mg/5 mL 30 mL (MOM) 30 mL ORAL DAILY PRN [START ON 10/16/2023] bisacodyl EC 10 mg tab(s) (DULCOLAX) 10 mg ORAL DAILY aluminum-magnesium hydroxide-simethicone 200-200-20 mg/5 mL 30 mL 30 mL ORAL q 2 H PRN ascorbic acid (vitamin C) 500 mg tab(s) (VITAMIN C) 500 mg ORAL BID w MEALS docusate sodium 100 mg cap(s) (COLACE) 100 mg ORAL BID senna 17.2 mg tab(s) (SENOKOT) 17.2 mg ORAL AT BEDTIME aspirin, enteric coated 81 mg tab(s) 81 mg ORAL BID NaCl 0.9% iv flush bag 20 mL INTRAVENOUS PRN ceFAZolin iv piggyback 1 g in D5W (iso-osmotic) 50 mL (ANCEF) 1 g INTRAVENOUS q 8 HR HYDROmorphone 0.4 mg injection (DILAUDID) 0.4 mg INTRAVENOUS q 4 H PRN ergocalciferol (vitamin D2) 50,000 Units cap(s) (DRISDOL) 50,000 Units ORAL 2/WK ropivacaine nerve block 0.1% (1 mg/mL) in NaCl 0.9% 300 mL PERIPHERAL NERVE CATHETER CONTINUOUS doxycycline hyclate 100 mg cap(s) (VIBRAMYCIN) 100 mg ORAL q 12 H 6a/6p ceFAZolin iv piggyback 2 g in D5W (iso-osmotic) 100 mL (ANCEF) 2 g INTRAVENOUS q 8 HR Objective PHYSICAL EXAM: Patient Vitals for the past 4 hrs: BP Temp Temp src Pulse Resp SpO2 10/15/23 0725 122/72 37 ?C (98.6 ?F) Oral 83 20 94 % 10/15/23 0630 -- -- -- -- 16 -- 10/15/23 0445 130/60 36.8 ?C (98.2 ?F) Oral 84 17 95 % AFFECT: Alert, Awake, and Oriented GENERAL APPEARANCE: Appears comfortable and Appears in good spirits IV/CATHETER SITE: Catheter site with no signs of local infection, no erythema, and no discharge noted no swelling NEURO: Diminished sensation with distribution MOTOR: Left Lower Extremity: Diminished at distribution of block RESPIRATORY: Breathing appears normal DATA: Diagnostic tests reviewed for today's visit: Most recent labs LAB RESULTS: Hemoglobin 10.1 10/15/2023 Hematocrit 29.5 10/15/2023 Platelet Count 273 10/15/2023 Medication and Non-Pharmacologic VTE Prophylaxis/Anticoagulants Anticoagulant AND Antiplatelet Medications (From admission, onward) Start Dose Route Frequency Last Action Ordered Stop 10/15/23 0900 aspirin, enteric coated 81 mg tab(s) (Surgical Risk Categories) 81 mg ORAL 2 TIMES DAILY Ordered 10/14/231918 -- 10/14/23 193 graduated compression stockings ([place], [place]) Assessment/Plan Marck Hameed is a 68 year old male who is POD #1, S/P Procedure(s) (LRB): REVISION JOINT TOTAL KNEE FEMORAL AND ENTIRE TIBIAL COMPONENT (Left) with Peripheral Nerve Catheter placed on day of surgery for post-operative pain control infusing ropivacaine 0.1% at 8/0/0/0. (more content not included)... Normal [facility] THERAPY NTon 10-15-2023 THERAPY NT HNO ID: [id number] Author: SHANTE ESCOBAR, PT Service: ? Author Type: Physical Therapist Type: Therapy (PT/OT/Speech/Resp) Filed: 10/15/2023 10:36 Note Text: Physical Therapy Evaluation Summary SERVICE DATE: 10/15/2023 SERVICE TIME: 856 to 951 ROOM: [place] [address] PT 6 Clicks Score: 17 DISCHARGE RECOMMENDATIONS Home PT Recommended Discharge Equipment: No equipment needs anticipated ASSESSMENT Response to Therapy Interventions: Good Participation in Activities, Low Activity Tolerance, On-Track to Achieve Discharge Goals Patient performs multiple transfers bed <> tom <> BSC. Maintains primarily NWB on LLE during mobility. Difficulty hopping fwds/retro, but demonstrates good balance with side shuffling. Fatigues in BUE. PRECAUTIONS Weight Bearing Restrictions, Total Knee Replacement Left Lower Extremity Weight Bearing Status: (FFWB) CURRENT HOSPITAL COURSE s/p L knee revision on 10/14 Relevant Past Medical History: HTN, artherosclerosis, sleep apnea, anemia, carpal tunnel, bilateral TKR, bilateral [facility] Patient Lives With: Family, Other: See Comment Comments: Daughter Assistance Available: Part-Time, Other: See Comment Comments: Daughter works; reports other daughter is available to assist during day Entry To Home: Stairs, Without Rail Number Of Stairs Into Home: 1 (small threshold through door) Number Of Stairs To Bed/Bath: 2 (Can stay on 1 fl with bed/bath; has 2 stairs to other area of house (kitchen, other bedrooms)) Tub/Shower Type: WIS Equipment Owned: Cane, Walker- Wheeled, Crutch(es), Commode- Bedside, Shower Chair PRIOR FUNCTIONAL LEVEL Within Functional Limits, History of Falls Patient I [employer]AG [employer] WORK[employer]. Reports he has been ambulating with cane for past month d/t progressive worsening of pain. 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 SUBJECTIVE I'm not sure how it will go with this weight bearing. Hopping is hard and I have arthritis in both my shoulders too THERAPY DIAGNOSIS Reduced mobility-other, Abnormalities of gait and mobility-other TREATMENT INTERVENTIONS Evaluation, Therapeutic Activity (87070), Gait Training (73233), Therapeutic Exercise (45955) Timed Code Treatment (minutes): 40 Skilled Treatment Time (minutes): 55 TRAINING AND EDUCATION PROVIDED Anatomy and Impact on Deficits, Assistive Device Use, Bed Mobility, Benefits of In-Hospital Mobility, Disease Specific Education, Exercise Program, Expected Functional Level, Falls Prevention, Gait Pattern, Reduction of Deviations, Handout Issued, Home Safety, Patient Exercise/Therapy Program Support Needs, Precautions/Restrictions, Pre-gait Activities, Role of Physical Therapy, Sitting Balance, Standing Balance, Transfers THERAPEUTIC SKILLS USED Activity Dosing, Assessment of Tolerance Including Vitals Response to Activity, Cues for Sequencing/Proper Technique for Activity, Cuing Verbal, Cuing Tactile, Cuing Visual, Management of Critical Lines, Tubes and/or Drains, Movement Facilitation, Physical Assist, Teach-Back for Education FUNCTIONAL STATUS Bed Mobility Supine To Sit: Minimal Assistance, Additional Information support at LLE Scooting: Contact Guard Assistance Transfers Sit To Stand: Contact Guard Assistance Stand To Sit: Contact Guard Assistance Bed to Chair Minimal Assistance, Additional Information Bed To Chair Transfer Type: Stepping Bed To Chair Transfer Equipment: Wheeled Walker [place] initially, progressing to CGA with practice Gait Contact Guard Assistance, Additional Information Side shuffling 4 ft bed <> chair x4 trials; Able to perform 5 ft fwds/retro but with difficulty hopping d/t BUE fatigue (pt reports hx of bilateral shoulder arthritis) Gait Device: Wheeled Walker General Deviations/Observations: Shuffling Gait, Step length decreased, UE weight bearing on assistive device excessive Gait Deviations Left Lower Extremity: Weight bearing decreased Stairs GOALS Patient will demonstrate progress with functional mobility to allow safe discharge to home with available support and/or physical assistance. Rehab Potential: Excellent PLAN PT Frequency: Once Daily Treatment Interventions: Education, Self Care / Home Management, Strengthening, Functional Mobility Training, Energy Conservation Training, Balance Training, Pain Management Plan for Next Visit: Curb Step Training, Gait Training, Car Transfer Training SIGNATURE: Shante Escobar PT PATIENT NAME: Marck Hameed DATE: October 15, 2023 TIME: 10:36 AM [facility] ANES POSTPROC EVALon 024 ANES POSTPROC EVAL HNO ID: [id number] Author: Catherine BLUNT MD Service: ? Author Type: Anesthesiologist Type: Anesthesia Postprocedure Evaluation Filed: 10/14/2023 16:54 Note Text: POST ANESTHESIA EVALUATION NOTE : 1955 Procedure Summary Date: 10/14/23 Room / Location: [address] [facility] Anesthesia Start: 1120 Anesthesia Stop: Procedure: REVISION JOINT TOTAL KNEE FEMORAL AND ENTIRE TIBIAL COMPONENT (Left: Knee) Diagnosis: Failure of total knee replacement, initial encounter ([facility]) ([facility]) (Failure of total knee replacement, initial encounter ([facility]) ([facility]) [T84.018A, Z96.659]) Surgeons: Katina Merchant DO Responsible Provider: Catherine Blunt MD Anesthesia Type: general ASA Status: 3 Anesthesia Type: general Airway Type: ETT Last Vitals Vitals Value Taken Time BP 120/77 10/14/23 1649 Temp 10/14/23 1653 Pulse 92 10/14/23 1651 Resp 22 10/14/23 1651 SpO2 96 % 10/14/23 1651 Vitals shown include unfiled device data. Post Anesthesia Patient Status Patient Evaluation: PACU. PACU/ICU Patient Condition: stable. Anticipated Disposition: inpatient floor planned admission. Neurological Status: aware and responsive. Pulmonary Status: breathing comfortably on supplemental oxygen Airway Control: returned to baseline unsupported. Cardiovascular Status: stable (receiving dilaudid iv.). Pain Management: clinically adequate Postoperative Hydration: acceptable. Intraoperative Events: no significant anesthesia events Post Operative Nausea/Vomiting Status: no significant post operative nausea or vomiting Recommendation: continue current plan of care. Anesthesia Observations No Documentation SIGNATURE: Bhupendra Blunt MD PATIENT NAME: Marck Hameed DATE: October 14, 2023 TIME: 4:53 PM CSN: [id number] [facility] ANES PRE-OPon 10-14-2023 ANES PRE-OP HNO ID: [id number] Author: Catherine BLUNT MD Service: ? Author Type: Anesthesiologist Type: Anesthesia Preprocedure Evaluation Filed: 10/14/2023 11:20 Note Text: ANESTHESIOLOGY DAY OF SURGERY NOTE : 1955 Procedure Information Date/Time: 10/14/23 1036 Procedure: REVISION JOINT TOTAL KNEE FEMORAL AND ENTIRE TIBIAL COMPONENT (Left: Knee) Location: [facility]IN [facility] Surgeons: Katina Merchant DO Estimated body mass index is 35.78 kg/m? as calculated from the following: Height as of 10/10/23: 160 cm (5' 3 ). Weight as of 10/10/23: 91.6 kg (202 lb). Most recent hematocrit and potassium results: Hematocrit 42.0 10/10/2023 Potassium 5.1 10/10/2023 Relevant Problems CARDIO (+) Atherosclerosis of aorta (HCC) (+) Essential (primary) hypertension (+) Hypertension NEURO-PSYCH (+) H/O hydrocele (+) History of testicular disorder I - PHYSICAL EVALUATION AIRWAY Patient intubated: No. Tracheostomy tube not present Mallampati: II. TM distance: >3 FB. Neck ROM: full ROM without neurological symptoms. Mouth opening: adequate. Short neck: no. Thick neck: no Padilla present: yes Microretrognathia/Micronag thia/Recessed Chin: No DENTAL Dental findings: teeth intact. Additional exam findings: yes. CARDIOVASCULAR Rhythm: regular Rate: normal Murmur not present. Peripheral edema not present. PULMONARY Breath sounds clear to auscultation. II - ANESTHESIA PLAN ASA Score: 3 Anesthetic Plan: general Airway type: ETT The patient is not a current smoker. NPO Status: adequate Anesthetic plan additional comments: Daughters present. Took amlodipine, HCTZ today. Lisinopril last dose 10/07.. Beta Je Monitoring Plan Monitoring plan: standard ASA. Post Procedure Analgesic Plan Postoperative analgesic plan: parenteral or oral opioids, per surgical service and peripheral nerve block. Informed Consent Anesthetic risks, benefits, alternatives, personnel and consent discussed: yes. Patient / Responsible Green Party agrees to proceed: yes Patient / Surrogate agrees to blood products: Yes Significant changes in the patient condition since the History and Physical, not otherwise documented in primary service progress note: no. Potential Anesthesia issues that may suggest increased risk of complications or contraindication to planned procedure: none. Vitals Value Taken Time BP 142/86 10/14/23911 Pulse Resp 18 10/14/23911 Temp 36.6 ?C (97.9 ?F) 10/14/23 09 SpO2 98 % 10/14/23 09 No current facility-administered medications on file as of 10/14/2023. Outpatient Medications as of 10/14/2023 Medication Sig - amLODIPine (NORVASC) 5 mg tablet Take 5 mg by mouth. - aspirin, enteric coated (ASPIRIN, ENTERIC COATED) 325 mg EC tablet Take 325 mg by mouth. - lisinopril (ZESTRIL) 10 mg tablet Take 10 mg by mouth. - meloxicam (MOBIC) 7.5 mg tablet Take by mouth. - pravastatin (PRAVACHOL) 80 mg tablet Take 80 mg by mouth. - cephALEXin (KEFLEX) 500 mg capsule TAKE ALL 4 CAPSULES ONE HOUR BEFORE THE PROCEDURE. (Patient not taking: Reported on 10/10/2023) I have interviewed and examined the patient. I have reviewed the medical record and/or the pre-anesthesia evaluation, pertinent labs, and test results. This contains updated information obtained within 48 hours of Surgery/Procedure. SIGNATURE: Bhupendra Blunt MD PATIENT NAME: Marck Hameed DATE: October 14, 2023 TIME: 10:12 AM CSN: [id number] [facility] BRIEF OP NOTon 10-14-2023 BRIEF OP NOT HNO ID: [id number] Author: SAM PRESLEY MD Service: Orthopaedic Surgery Author Type: Physician Type: Brief Op Note Filed: 10/14/2023 16:07 Note Text: BRIEF OPERATIVE / PROCEDURE NOTE LOG ID: [id number] SURGERY/PROCEDURE DATE: 10/14/2023 INCISION/PROCEDURE START TIME: 12:02 PM INCISION CLOSE/PROCEDURE END TIME: SURGEON(S)/PROCEDURALIST(S ) AND CHOCOLATE REFINING ROLLER(S): Surgeon(s) and Role: * Katina Merchant DO - Primary * Pako Gonsalez DO - Resident - Assisting * Sam Presley MD - Fellow Physician Alum Plant Operator: Chely Young PA-C Developmental Writing Instructor: Adrián See SA SURGERY/PROCEDURE(S): left revision knee arthroplasty ANESTHESIA: General FINDINGS: consistent with above diagnosis ESTIMATED BLOOD LOSS: 500 mls SPECIMENS: None COMPLICATIONS: None Prevena CLOSURE TECHNIQUE: Primary PRE-OP/PRE-PROCEDURE DIAGNOSIS: left failed total knee arthroplasty POST-OP/POST-PROCEDURE DIAGNOSIS: Same as Preop SIGNATURE: Sam Presley MD PATIENT NAME: Marck Hameed DATE: October 14, 2023 TIME: 4:06 PM [facility] Bacteria Fld Culton 10-14-19 24 Bacteria identified Cx Nom (Body fld) CULTURE, BODY FLD: No growth GRAM STAIN: No organisms seen Rare Polymorphonuclear leukocytes Gram stain from primary specimen [facility] Comment on above: Performed By: #### 6 11-4, 635-3 ####[facility] LABCLIA [id number] [address] [address] [place] Bacteria Spec Anaerobe Culto n 10-14-2023 Bacteria identified Anaer cx Nom (Unsp spec) CULTURE, ANAEROBE: Negative for anaerobes. No Cutibacterium acnes isolated. [facility] Comment on above: Performed By: #### 6 35-3, 17561-3 ####[facility]CLIA [id number] [address] [address] [place] Bacteria identified Anaer cx Nom (Unsp spec) CULTURE, ANAEROBE: Negative for anaerobes. No Cutibacterium acnes isolated. [facility] Comment on above: Performed By: #### 6 35-3, 07231-7 ####[facility] LABCLIA [id number] [address] [address] [place] Bacteria identified Anaer cx Nom (Unsp spec) CULTURE, ANAEROBE: Negative for anaerobes. No Cutibacterium acnes isolated. [facility] Comment on above: Performed By: #### 4 3408-4, 635-3 ####[facility] LABCLIA [id number] [address] [address] [facility] [place] Bacteria identified Anaer cx Nom (Unsp spec) CULTURE, ANAEROBE: Negative for anaerobes. No Cutibacterium acnes isolated. [facility] Comment on above: Performed By: #### 4 3408-4, 635-3 ####[facility] LABCLIA [id number] [address] [address] [place] Bacteria identified Anaer cx Nom (Unsp spec) CULTURE, ANAEROBE: Negative for anaerobes. No Cutibacterium acnes isolated. [facility] Comment on above: Performed By: #### 4 3408-4, 635-3 ####[facility]CLIA [id number] [facility] [address] [address] [place] Bacteria identified Anaer cx Nom (Unsp spec) CULTURE, ANAEROBE: Negative for anaerobes. No Cutibacterium acnes isolated. [facility] Comment on above: Performed By: #### 6 11-4, 635-3 ####[facility] LABCLIA [id number] [address] [address] [place] Bacteria Tiss Culton 024 Bacteria identified Cx Nom (Tiss) CULTURE, TISSUE: No growth GRAM STAIN: No organisms seen No Polymorphonuclear Leukocytes [facility] Comment on above: Performed By: #### 6 35-3, 62359-1 ####[facility]CLIA [id number] [address] [address] [place] Bacteria identified Cx Nom (Tiss) CULTURE, TISSUE: No growth GRAM STAIN: No organisms seen No Polymorphonuclear Leukocytes [facility] Comment on above: Performed By: #### 6 35-3, 01872-2 ####[facility] LABCLIA [id number] [address] [address] [place] Bacteria identified Cx Nom (Tiss) CULTURE, TISSUE: No growth GRAM STAIN: No organisms seen No Polymorphonuclear Leukocytes [facility] Comment on above: Performed By: #### 4 3408-4, 635-3 ####[facility] LABCLIA [id number] [address] [address] [place] Bacteria identified Cx Nom (Tiss) CULTURE, TISSUE: No growth GRAM STAIN: No organisms seen No Polymorphonuclear Leukocytes [facility] Comment on above: Performed By: #### 4 3408-4, 635-3 ####[facility]CLIA [id number] [address] [address] [place] Bacteria identified Cx Nom (Tiss) CULTURE, TISSUE: No growth GRAM STAIN: No organisms seen No Polymorphonuclear Leukocytes [facility] Comment on above: Performed By: #### 4 3408-4, 635-3 ####[facility] LABCLIA [id number] [place] [id number] [place] CNDSon 10-14-2023 CNDS HNO ID: [id number] Author: SAM PRESLEY MD Service: Orthopaedic Surgery Author Type: Physician Type: Discharge Summary Filed: 10/17/2023 13:08 Note Text: DISCHARGE SUMMARY PATIENT NAME: Marck Hameed ADMISSION DATE: 10/14/2023 DISCHARGE DATE: 10/16/2023 Attending Physician: Katina Merchant DO Code Status: Not on file Highest Readmission Risk Score: 7 The 30 day readmissions risk score is derived from an internally validated risk model which evaluates patient level characteristics, utilization history, medication orders and lab results up until the day of discharge. Patients with a score of 40 or above are considered highest risk for readmission. Specific patient level drivers will be listed at the bottom of the summary. Reason for Hospitalization: Principal Problem: Failed orthopedic implant, initial encounter (HCC) (POA: Yes) Active Problems: Postoperative pain (POA: Yes) Resolved Problems: * No resolved hospital problems. * Admitting Diagnosis: Knee Failed Arthroplasty Discharge Diagnosis: Same as admitting Operations During Hospitalization: None Procedures During Hospitalization: Knee Revisional Arthroplasty Consultations: Physical Therapy Case Management Treatment Team: Attending Provider: Katina Merchant DO Hospital Course: The patient is a 68 year old male who has been followed by Dr. Katina Merchant DO in clinic for left failed total knee. It was determined he would benefit from surgery. The procedure, its risks, benefits, and potential complications were discussed in detail with the patient prior to surgery. Understanding of all topics was conveyed by the patient, and consent was given for surgery. The patient was electively admitted on 10/14/2023. Surgery was scheduled and on 10/14/2023 he underwent a Procedure(s) (LRB): REVISION JOINT TOTAL KNEE FEMORAL AND ENTIRE TIBIAL COMPONENT (Left) with General. The procedure was tolerated well and he was sent to the post operative recovery room in stable condition, where he also did well. Post operative x-rays in the recovery room showed good position of implants with no obvious complication. He was subsequently sent to his hospital room for postoperative management. Once on the floor his postoperative course was unremarkable and he did well. His diet was advanced which he tolerated. His pain was well controlled on oral medications; this was eventually transitioned to oral medication alone prior to discharge. He worked with Physical and Occupational Therapy starting on POD#1 who recommended he be discharged home. He remained afebrile with stable vital signs throughout his stay. He was stable for discharge to Home with Home Health on POD#2. Complete and comprehensive discharge instructions were provided to the patient as well as necessary prescriptions. The patient had no further questions and was advised to call with any questions, concerns, or problems. Transitions of Care Critical Issues: Patient was hemodynamically stable postoperatively. Discharge Antibiotics: Prior to surgery the patient was treated with antibiotics and continued with antibiotics 24 hours postoperatively, oral doxycycline was then initiated Transfers: PACU and then to the hospital surgical floor when PACU criteria was met. DVT Prophylaxis: Aspirin 81mg BID x 28 days total Pain Control: Oral narcotics Complications: Continued throughout the hospital course without complications. LABS AND PROCEDURES PENDING AT DISCHARGE: No pending results. Relevant labs included: CBC, Coags, BMP, Mg, Phos Recent Labs 10/15/ 0522 WBC 11.74* HB 10.1* HCT 29.5* PLT 273 NA 132* K 4.4 CHLOR 98 CO2 23 BUN 22 CREAT 0.74 GLUC 121* CA 8.8 Patient Condition @ Discharge: Stable Discharge Disposition: Home with Home Health PHYSICAL EXAM (CHOOSE FIRST BLANK IF NOT LAST DAY PROGRESS NOTE): Discharge Physical Exam: VITAL SIGNS: BP 112/66 Pulse 80 Temp 36.7 ?C (98 ?F) (Oral) Resp 18 Ht 160 cm (5' 2.99 ) Wt 91 kg (200 lb 9.9 oz) SpO2 98% BMI 35.55 kg/m? GENERAL: Alert, no distress, cooperative Information Provided to Patient: Activity: Toe Touch Diet: Resume pre-hospital diet Wound/Surgical Site Care: None Prevena to remain in place until follow-up ALLERGIES No Known Allergies Discharge Medications: Medication List START taking these medications acetaminophen 500 mg tablet Commonly known as: TYLENOL EXTRA STRENGTH Take 2 tablets by mouth every 8 hours as needed for pain for up to 15 days. docusate sodium 100 mg capsule Commonly known as: COLACE Take 1 capsule by mouth two times a day for 15 days. doxycycline 100 mg tablet Commonly known as: vibra-tabs Take 1 tablet by mouth two times a day. ergocalciferol (vitamin D2) 50,000 unit capsule Commonly known as: VITAMIN D2 Take 1 capsule by mouth two times a week. oxyCODONE IR 5 mg immediate release tablet (more content not included)... [facility] OPERATIVE NOon 10-14-2023 OPERATIVE NO HNO ID: [id number] Author: KATINA MERCHANT DO Service: Orthopaedic Surgery Author Type: Physician Type: Operative Report Filed: 10/16/2023 09:58 Note Text: OPERATIVE NOTE PATIENT NAME: Marck Hameed LOG ID: [id number] Surgery Date: 10/14/2023 Surgeon(s) and Alum Plant Operator(s): Surgeon(s) and Role: * Katina Merchant DO - Primary * Pako Gonsalez DO - Resident - Assisting * Sam Presley MD - Fellow Chely Young PA- Assist Procedure(s): Procedure(s) (LRB): REVISION JOINT TOTAL KNEE FEMORAL AND ENTIRE TIBIAL COMPONENT (Left) The radical resection portion of this operation was performed in a similar manner to that which would be performed for section of bone cancer, radically removing the entire compartment of the femur,5 cm. with an unsalvageable distal femoral bone secondary to bone loss and comminuted fractures in the setting of a loose femoral component. The only option is to remove a large segment of bone and a radical and aggressive fashion. There is no CPT code that adequately describes the type/technique of surgery that is performed other than CPT 40485 BMI: Estimated body mass index is 35.55 kg/m? as calculated from the following: Height as of this encounter: 160 cm (5' 2.99 ). Weight as of this encounter: 91 kg (200 lb 9.9 oz). Anesthesia: General Operative Time: Total operative time from wheels in to wheels out, including anesthesia time was 5 Hr 21 Min 56 Sec Incision Start: 12:02 PM Incision Stop: 4:19 PM Attestation: I was present for all of the critical portions of the operation and performed all critical portions. The resident performed the closure under supervision, and assisted during the operation. I was immediately available for the duration of the entire case. 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 Significant compromise of the distal femoral bone of greater than 3 cm. Patient demonstrated complete loss of the distal femoral condyle medially both posterior and distal. Significant compromise was also seen on the lateral femoral condyle but not to the level of the medial femoral condyle. Bone loss was such that augmentation would not restore the appropriate positioning. Patient also demonstrated attachment of the medial collateral ligament to devitalized and freely floating medial femoral bone. Complete compromise of the medial collateral ligament for integrity was identified. Patient also demonstrated severe attenuation of the lateral collateral ligament. Secondary to the loss of the medial collateral ligament and severe attenuation of the lateral collateral ligament removal of the tibial component was necessitated. Patient demonstrated expected significant central metaphyseal bone loss. Patient also demonstrated approximate centimeter loss of bone on the medial side compared to the lateral side which was previously seen with operations. Polyethylene demonstrated slight asymmetric wear on the medial side but otherwise no other compromise. Patellar component was found to be well-fixed and no significant asymmetric wear. Extensor mechanism demonstrated to be intact. EBL: 200 cc Implants: Implant Name Type Inv. Item Serial No. Servicenow Administrator Lot No. LRB No. Used Action OSS IMP KNEE REV FEM RSF 5 LT Implant [employer] [id number] Left 1 Implanted CABLE DALL-MILES 2MM 2 [employer] - [id number] Joint - Hip CABLE DALL-MILES 2MM 2 [employer] [facility] [id number] Left 1 Implanted RESTRICTOR UNIVERSAL CEMENT DISPOSABLE STAPLE LASTER - [id number] Joint RESTRICTOR UNIVERSAL CEMENT DISPOSABLE STAPLE LASTER [facility] [id number] Left 1 Implanted RESTRICTOR UNIVERSAL CEMENT DISPOSABLE STAPLE LASTER - [id number] Joint RESTRICTOR UNIVERSAL CEMENT DISPOSABLE STAPLE LASTER [id number] [facility] [id number] Left 1 Implanted CEMENT SIMPLEX P BONE RADIOPAQUE FULL DOSE STERILE - [id number] Cement / Putty CEMENT SIMPLEX P BONE RADIOPAQUE FULL DOSE STERILE [employer] [id number] Left 1 Implanted CEMENT SIMPLEX P BONE RADIOPAQUE FULL DOSE STERILE - [id number] Cement / Putty CEMENT SIMPLEX P BONE RADIOPAQUE FULL DOSE STERILE [employer] [id number] Left 1 Implanted CEMENT SIMPLEX P BONE RADIOPAQUE FULL DOSE STERILE - [id number] Cement / Putty CEMENT SIMPLEX P BONE RADIOPAQUE FULL DOSE STERILE [employer] R (more content not included)... [facility] SURGICAL PATHOLOGYon 024 CASE REPORT [facility] Comment on above: Order Comment: Speci men Type: TISSUE SPECIMENOrdering Facility: [facility] Address: [address] [place] [address] Result Comment: Surg ica Pathology Report Case: [id number] Authorizing Provider: Katina Merchant DO Collected: 10/14/2023 12:14 PM Ordering Location: Admitting Received: 10/14/2023 12:24 PM Pathologist: Clive Mooney MD Intraop: Tj Griffin MD, PhD Specimens: A) - SOFT TISSUE, synovium 1 left knee B) - SOFT TISSUE, synovium 2 left knee C) - SOFT TISSUE, synovium 3 left knee D) - SOFT TISSUE, femur left knee E) - SOFT TISSUE, tibia left knee F) - HARDWARE, LEFT knee explant Performed By: #### S ####[facility] [id number] [place] [address] [place] CLINICAL HISTORY [facility] Comment on above: Order Comment: Arianai men Type: TISSUE SPECIMENOrdering Facility: [facility] Address: [address] [place] [address] Result Comment: Pre- op diagnosis: Failure of total knee replacement, initial encounter (HCC) ([facility]) [T84.018A, Z96.558] Performed By: #### S ####[facility] [id number] [place] FINAL DIAGNOSIS [facility] Comment on above: Order Comment: Speci men Type: TISSUE SPECIMENOrdering Facility: [facility] Address: [address] [place] [address] Result Comment: A. S oft tissue, synovium #1 left knee, revision arthroplasty: - Negative for significant acute inflammation. B. Soft tissue, synovium #2 left knee, revision arthroplasty: - Negative for significant acute inflammation. - Focal calcium pyrophosphate dihydrate deposits (pseudogout). C. Soft tissue, synovium #3 left knee, revision arthroplasty: - Negative for significant acute inflammation. D. Soft tissue, femur left knee, revision arthroplasty: - Negative for significant acute inflammation. E. Soft tissue, tibial left knee, revision arthroplasty: - Negative for significant acute inflammation. F. Orthopedic hardware, left knee, removal: - Orthopedic hardware components of a knee arthroplasty (gross diagnosis only). APS/ARH/rw 10/15/2023 Performed By: #### S ####[facility] [id number] [address] [place] FINAL PERFORMING LAB [facility] Comment on above: Order Comment: Speci men Type: TISSUE SPECIMENOrdering Facility: [facility] Address: [address] [place] [address] Result Comment: Diag nostic interpretation performed at [facility], [address] [place] [address] CLIA# [id number] Marine Insulator: Fuentes Bradley M.D. Performed By: #### S ####[facility] [id number] [address] [place] GROSS DESCRIPTION A. SOFT TISSUE [facility] Comment on above: Order Comment: Arianai dang Type: TISSUE SPECIMENOrdering Facility: [facility] Address: [address] [place] [address] Result Comment: Rece ived fresh for frozen section designated synovium 1 left knee is a pink-tilley to tilley-rodarte exophytic and rubbery fragment of tissue that measures 9.2 x 2.6 x 0.5 cm. Customer Trainer sections are submitted in 2 cassette with cassette A1 corresponding with the frozen section. WE October 14, 2023 12:41 PM Gross examination performed at [facility], [facility] [place] [id number] B. SOFT TISSUE Received fresh for frozen section designated synovium 2 left knee is a tilley-rodarte rubbery and exophytic fragment of tissue that measures 3.9 x 2.9 x 0.7 cm. Customer Trainer sections are submitted in 2 cassettes with cassette B1 corresponding with the frozen section. WE October 14, 2023 12:41 PM Gross examination performed at [facility], [facility] [id number] C. SOFT TISSUE Received fresh for frozen section designated synovium 3 left knee is a [place] rubbery and exophytic fragment of tissue that measures 6.4 x 4.7 x 0.7 cm. Customer Trainer sections are submitted in 2 cassette with cassette C1 corresponding with the frozen section. WE October 14, 2023 12:41 PM Gross examination performed at [facility], [facility] [place] [id number] D. SOFT TISSUE Received fresh for frozen section designated femur left knee are multiple [place] rubbery and exophytic fragments of tissue that aggregate to 3 x 2.4 x 1.3 cm. Customer Trainer sections are submitted in 2 cassettes with cassette B1 corresponding with the frozen section. WE October 14, 2023 12:40 PM Gross examination performed at [facility], [facility] [place] [id number] E. SOFT TISSUE Received fresh for frozen section designated tibial left knee is a tilley-rodarte rubbery fragment of tissue that measures 1.9 x 1.6 x 0.4 cm. The specimen is entirely submitted for intraoperative consultation. WE October 14, 2023 2:18 PM Gross examination performed at [facility], [facility] [id number] F. HARDWARE Received fresh labeled left knee explant are components to a knee arthroplasty consisting of the metal femoral condyles which measures 9 x 7 x 6 cm. The presence of bone obstructs the inscription. Next, the articular surface of the polyethylene insert shows diffuse pitting of unknown significance. No inscription is present. The tibial plateau and stem measures 14 x 6.5 x 4.5 cm. Minimal adherent bone cement is identified. No inscription is present. A portion of the tibial plateau appears bears the following inscription: 10MM SZ4 . Finally, there is one metal screw measuring 0.7 x 0.5 x 0.5 cm. No gross abnormalities are identified. No soft tissue is attached. The specimen is submitted for gross examination only and reviewed with Dr. Mckeon. SANTI/rw 10/15/2023 Gross examination performed at [facility], [address] [place] [address] CLIA# [id number] Performed By: #### S ####[facility] LABCLIA [id number] [place] [address] [place] INTRAOPERATIVE DIAGNOSIS A. SOFT TISSUE Normal [facility] Comment on above: Order Comment: Speci men Type: TISSUE SPECIMENOrdering Facility: [facility] Address: [address] [place] [address] Result Comment: FSA 1: Negative for significant acute inflammation () October 14, 2023 2:08 PM Intraoperative diagnosis performed at [facility], [address] [place] [address] B. SOFT TISSUE FS B1: Negative for significant acute inflammation () October 14, 2023 2:15 PM Intraoperative diagnosis performed at [facility], [address] [place] [address] C. SOFT TISSUE FS C1: Negative for significant acute inflammation (Dr. Griffin) October 14, 2023 2:15 PM Intraoperative diagnosis performed at [facility], [address] [place] [address] D. SOFT TISSUE FS D1: Negative for significant acute inflammation. Predominantly fibrin (Dr. Griffin) October 14, 2023 2:14 PM Intraoperative diagnosis performed at [facility], [address] [place] [address] E. SOFT TISSUE FS E1: Negative for significant acute inflammation () October 14, 2023 2:17 PM Intraoperative diagnosis performed at [facility], [address] [place] [address] Performed By: #### S ####[facility] LABCLIA [id number] [address] [address] [place] XR KNEE 2V AP/LAT LTon 10-14 XR KNEE 2V AP/LAT LT * * *Final Report* * * DATE OF EXAM: Oct 14 2023 5:12PM ESX 5206 - XR KNEE 2V AP/LAT LT / PROCEDURE REASON: Post Operative Assessment * * * * Physician Interpretation * * * * EXAMINATION: XR KNEE 2V AP/LAT LT HISTORY: Post Operative Assessment. TECHNIQUE: XR KNEE 2V AP/LAT LT Laterality: Number of different views (projections): 09/20/2023 M: XB_1 COMPARISON: RESULT: Constrained left total knee arthroplasty in place appears intact. There is postoperative soft tissue gas and swelling. Distal femoral cerclage wires present. No acute fracture or dislocation. There are no bony erosions. IMPRESSION: Intact postoperative changes. Application Packager: [facility] Transcribe Date/Time: Oct 14 2023 5:13P Dictated by : BHUPENDRA SALES MD This examination was interpreted and the report reviewed and electronically signed by: BHUPENDRA SALES MD on Oct 14 2023 5:14PM EST [id number] Normal [facility] SYNOVIAL FL,CRYSTAL ID/STAFF REVon 10-11-2023 Crystal Prelim, SF PRELIMINARY REPORT N o diagnostic crystals seen. SEE FINAL SF PATH REVIEW [facility] Crystal Review Reviewed by Leonora recinos M.D. [facility] Crystals LM Nom (Syn fld) None seen None seen [facility] Specimen source Nom (Unsp spec) KNEE LEFT, SYNOVIAL FLUID [facility] Rare atypical, sugge stive of reactive [facility] SYNOVIAL FLUID MANUAL DIFFOr dered By: Shante Rosenthal on 10-11-2023 Diff Total Synovial Fluid 100 cells counted [facility] Lymph%, SF 30 [facility] Macro%, SF 65 [facility] Neut%, SF 4 0 - <25 [facility] Synovial Cell% 1 [facility] 25(OH)D3 SerPl-mCncon 2023 25-hydroxyvitamin D3 [Mass/Vol] 20.3 ng/mL Low 31.0-80.0 [facility] Comment on above: Order Comment: Speci men Type: BLOOD SPECIMEN Ordering Facility: [facility] Address: [address] [place] [address] Result Comment: Clas sification of 25 OH Vitamin D status: Deficiency/Insufficiency: < or = 30 ng/ml. Sufficiency/Optimal Levels: 31-80 ng/mL Toxicity: > 100 ng/mL. Test performed by chemiluminescent immunoassay. Performed By: #### 1 989-3 #### [facility] CLIA [id number] [address] [place] [address] [place] Albumin SerPl-mCncon 024 Albumin [Mass/Vol] 4.3 g/dL Normal 3.9-4.9 [facility] Comment on above: Order Comment: Speci men Type: BLOOD SPECIMEN Ordering Facility: [facility] Address: [address] [place] [address] Performed By: #### 1 751-7, 1987-5, 58525-6, 70894-2 #### [facility] CLIA [id number] [address] [place] [address] [place] Bacteria Fld Culton 10-10-19 24 Bacteria identified Cx Nom (Body fld) CULTURE, BODY FLD: No growth GRAM STAIN: No organisms seen No Polymorphonuclear Leukocytes Gram stain from primary specimen Normal [facility] Comment on above: Performed By: #### 6 11-4, 007-5, 580-1 ####[facility] LABCLIA [id number] [place] [address] [place] Bacteria Spec Anaerobe Culto n 10-10-2023 Bacteria identified Anaer cx Nom (Unsp spec) CULTURE, ANAEROBE: Negative for anaerobes. No Cutibacterium acnes isolated. Normal [facility] Comment on above: Performed By: #### 6 11-4, 634-9, 580-1 ####[facility] LABCLIA [id number] [place] [address] [place] Basic metabolic 2000 panelon 10-10-2023 Anion gap [Moles/Vol] 11 mmol/L Normal 9-18 [facility] Comment on above: Order Comment: Speci men Type: BLOOD SPECIMEN Ordering Facility: [facility] Address: [facility] [place] [address] Performed By: #### 1 751-7, 1987-12, , #### [facility] CLIA [id number] [place] [address] [place] Calcium [Mass/Vol] 10.0 mg/dL Normal 8.5-10.2 [facility] Comment on above: Order Comment: Speci men Type: BLOOD SPECIMEN Ordering Facility: [facility] Address: [address] [place] [address] Performed By: #### 1 751-7, 1987-12, , #### [facility] CLIA [id number] [place] [address] [place] Chloride [Moles/Vol] 98 mmol/L Normal 97-105 [facility] Comment on above: Order Comment: Speci men Type: BLOOD SPECIMEN Ordering Facility: [facility] Address: [address] [place] [address] [place] [address] Performed By: #### 1 757, 1987-12, , #### [facility] CLIA [id number] [place] [address] [place] CO2 [Moles/Vol] 25 mmol/L Normal 22-30 [facility] Comment on above: Order Comment: Speci men Type: BLOOD SPECIMEN Ordering Facility: [facility] Address: [address] [place] [address] Performed By: #### 1 751-7, 1987-12, , #### [facility] CLIA [id number] [place], [place] [address] [place] Creatinine [Mass/Vol] 0.78 mg/dL Normal 0.73-1.22 [facility] Comment on above: Order Comment: Speci men Type: BLOOD SPECIMEN Ordering Facility: [facility] Address: [address] [place] [address] Performed By: #### 1 751-7, 1987-12, 16335-3, 95328-9 #### [facility] CLIA [id number] [address] [place] [address] [place] Creatinine and Glomerular filtration rate.predicted panel (S/P/Bld) 97 mL/min/1.73m??? Normal >=60 [facility] Comment on above: Order Comment: Sophia leong Type: BLOOD SPECIMEN Ordering Facility: [facility] Address: [address] [place] [address] Result Comment: Sharlene mated Glomerular Filtration Rate (eGFR) is calculated using the 2020 CKD-EPI creatinine equation. This equation utilizes serum creatinine, sex, and age as parameters. The creatinine assay has traceable calibration to isotope dilution-mass spectrometry. Refer to KDIGO guidelines for clinical interpretation. In patients with unstable renal function, e.g. those with acute kidney injury, the eGFR may not accurately reflect actual GFR. Performed By: #### 1 751-7, 1987-12, 92590-7, 97617-2 #### [facility] [id number] [address] [place] [address] [place] Glucose [Mass/Vol] 78 mg/dL Normal 74-99 [facility] Comment on above: Order Comment: Sophia leong Type: BLOOD SPECIMEN Ordering Facility: [facility] Address: [address] [place] [address] Result Comment: The [place] Diabetes Association (ADA) provides guidance for cutoff [...] Standards of Medical Care in Diabetes 2016, [place] [employer]. Diabetes Care. 2016.39(Suppl 1). Performed By: #### 1 751-7, 1987-12, , 69548-0 #### [facility] CLIA [id number] [address] [place] [address] [place] Potassium [Moles/Vol] 5.1 mmol/L Normal 3.7-5.1 [facility] Comment on above: Order Comment: Speci men Type: BLOOD SPECIMEN Ordering Facility: [facility] Address: [address] [place] [address] Performed By: #### 1 751-7, 1987-12, , #### [facility] CLIA [id number] [address] [place] [address] [place] Sodium [Moles/Vol] 134 mmol/L Low 136-144 [facility] Comment on above: Order Comment: Arianai dang Type: BLOOD SPECIMEN Ordering Facility: [facility] Address: [address] [place] [address] Performed By: #### 1 751-7, 1987-12, , #### [facility] CLIA [id number] [address] [place] [address] [place] Urea nitrogen [Mass/Vol] 35 mg/dL High 9-24 [facility] Comment on above: Order Comment: Sophia leong Type: BLOOD SPECIMEN Ordering Facility: [facility] Address: [address] [place] [address] Performed By: #### 1 751-7, 1987-12, , #### [facility] CLIA [id number] [address] [place] [address] [place] CBC W Auto Differential pane l (Bld)on 10-10-2023 Basophils (Bld) [#/Vol] 0.06 10*3/uL Normal <0.11 [facility] Comment on above: Order Comment: Arianai men Type: BLOOD SPECIMEN Ordering Facility: [facility] Address: [address] [place] [address] Performed By: #### 5 7021-8 #### [facility] CLIA [id number] [address] [place] [address] [place] Basophils/100 WBC (Bld) 0.8 % Normal [facility] Comment on above: Order Comment: Speci men Type: BLOOD SPECIMEN Ordering Facility: [facility] Address: [address] [place] [address] Performed By: #### 5 7021-8 #### [facility] CLIA [id number] [address] [place] [address] [place] Differential cell count method Nom (Bld) Auto Normal [facility] Comment on above: Order Comment: Speci men Type: BLOOD SPECIMEN Ordering Facility: [facility] Address: [address] [place] [address] Performed By: #### 5 7021-8 #### [facility] CLIA [id number] [address] [place] [address] [place] Eosinophils (Bld) [#/Vol] 0.27 10*3/uL Normal <0.46 [facility] Comment on above: Order Comment: Speci men Type: BLOOD SPECIMEN Ordering Facility: [facility] Address: [address] [place] [address] Performed By: #### 5 7021-8 #### [facility] CLIA [id number] [address] [place] [address] [place] Eosinophils/100 WBC (Bld) 3.5 % [facility] Comment on above: Order Comment: Speci men Type: BLOOD SPECIMEN Ordering Facility: [facility] Address: [address] [place] [address] Performed By: #### 5 7021-8 #### [facility] CLIA [id number] [address] [place] [address] [place] Erythrocyte distribution width (RBC) [Ratio] 13.8 % Normal 11.5-15.0 [facility] Comment on above: Order Comment: Speci men Type: BLOOD SPECIMEN Ordering Facility: [facility] Address: [address] [place] [address] Performed By: #### 5 7021-8 #### [facility] CLIA [id number] [address] [place] [address] [place] Hematocrit (Bld) [Volume fraction] 42.0 % Normal 39.0-51.0 [facility] Comment on above: Order Comment: Speci men Type: BLOOD SPECIMEN Ordering Facility: [facility] Address: [address] [place] [address] Performed By: #### 5 7021-8 #### [facility] CLIA [id number] [address] [place] [address] [place] Hemoglobin (Bld) [Mass/Vol] 13.9 g/dL Normal 13.0-17.0 [facility] Comment on above: Order Comment: Speci men Type: BLOOD SPECIMEN Ordering Facility: [facility] Address: [address] [place] [address] Performed By: #### 5 7021-8 #### [facility] CLIA [id number] [address] [place] [address] [place] Immature granulocytes (Bld) [#/Vol] 10*3/uL Normal <0.10 [facility] Comment on above: Order Comment: Speci men Type: BLOOD SPECIMEN Ordering Facility: [facility] Address: [address] [place] [address] Performed By: #### 5 7021-8 #### [facility] CLIA [id number] [address] [place] [address] [place] Immature granulocytes/100 WBC (Bld) 0.1 % Normal [facility] Comment on above: Order Comment: Speci men Type: BLOOD SPECIMEN Ordering Facility: [facility] Address: [address] [place] [address] Performed By: #### 5 7021-8 #### [facility] CLIA [id number] [address] [place] [address] [place] Lymphocytes (Bld) [#/Vol] 1.71 10*3/uL Normal 1.00-4.00 [facility] Comment on above: Order Comment: Speci men Type: BLOOD SPECIMEN Ordering Facility: [facility] Address: [address] [place] [address] Performed By: #### 5 7021-8 #### [facility] CLIA [id number] [place] [address] [place] Lymphocytes/100 WBC (Bld) 22.4 % Normal [facility] Comment on above: Order Comment: Speci men Type: BLOOD SPECIMEN Ordering Facility: [facility] Address: [address] [place] [address] Performed By: #### 5 7021-8 #### [facility] CLIA [id number] [address] [place] [address] [place] MCH (RBC) [Entitic mass] 29.8 pg Normal 26.0-34.0 [facility] Comment on above: Order Comment: Speci men Type: BLOOD SPECIMEN Ordering Facility: [facility] Address: [address] [place] [address] Performed By: #### 5 7021-8 #### [facility] CLIA [id number] [address] [place] [address] [place] MCHC (RBC) [Mass/Vol] 33.1 g/dL Normal 30.5-36.0 [facility] Comment on above: Order Comment: Speci men Type: BLOOD SPECIMEN Ordering Facility: [facility] Address: [address] [place] [address] Performed By: #### 5 7021-8 #### [facility] CLIA [id number] [address] [place] [address] [place] MCV (RBC) [Entitic vol] 89.9 fL Normal 80.0-100.0 [facility] Comment on above: Order Comment: Speci men Type: BLOOD SPECIMEN Ordering Facility: [facility] Address: [address] [place] [address] Performed By: #### 5 7021-8 #### [facility] CLIA [id number] [place] [address] [place] Monocytes (Bld) [#/Vol] 0.87 10*3/uL High <0.87 [facility] Comment on above: Order Comment: Speci men Type: BLOOD SPECIMEN Ordering Facility: [facility] Address: [address] [place] [address] Performed By: #### 5 7021-8 #### [facility] CLIA [id number] [place] [address] [place] Monocytes/100 WBC (Bld) 11.4 % Normal [facility] Comment on above: Order Comment: Speci men Type: BLOOD SPECIMEN Ordering Facility: [facility] Address: [address] [place] [address] Performed By: #### 5 7021-8 #### [facility] CLIA [id number] [address] [place] [address] [place] Neutrophils (Bld) [#/Vol] 4.71 10*3/uL Normal 1.45-7.50 [facility] Comment on above: Order Comment: Speci men Type: BLOOD SPECIMEN Ordering Facility: [facility] Address: [address] [place] [address] Performed By: #### 5 7021-8 #### [facility] CLIA [id number] [address] [place] [address] [place] Neutrophils/100 WBC (Bld) 61.8 % Normal [facility] Comment on above: Order Comment: Speci men Type: BLOOD SPECIMEN Ordering Facility: [facility] Address: [address] [place] [address] Performed By: #### 5 7021-8 #### [facility] CLIA [id number] [address] [place] [address] [place] Nucleated RBC (Bld) [#/Vol] 10*3/uL Normal <0.01 [facility] Comment on above: Order Comment: Speci men Type: BLOOD SPECIMEN Ordering Facility: [facility] Address: [address] [place] [address] Performed By: #### 5 7021-8 #### [facility] CLIA [id number] [address] [place] [address] [place] Nucleated RBC/100 WBC (Bld) [Ratio] 0.0 /100 WBC Normal [facility] Comment on above: Order Comment: Speci men Type: BLOOD SPECIMEN Ordering Facility: [facility] Address: [address] [place] [address] Performed By: #### 5 7021-8 #### [facility] CLIA [id number] [address] [place] [address] [place] Platelet mean volume (Bld) [Entitic vol] 8.6 fL Low 9.0-12.7 [facility] Comment on above: Order Comment: Speci men Type: BLOOD SPECIMEN Ordering Facility: [facility] Address: [address] [place] [address] Performed By: #### 5 7021-8 #### [facility] CLIA [id number] [address] [place] [address] [place] Platelets (Bld) [#/Vol] 401 10*3/uL High 150-400 [facility] Comment on above: Order Comment: Speci men Type: BLOOD SPECIMEN Ordering Facility: [facility] Address: [address] [place] [address] Performed By: #### 5 7021-8 #### [facility] CLIA [id number] [address] [place] [address] [place] RBC (Bld) [#/Vol] 4.67 10*6/uL Normal 4.20-6.00 [facility] Comment on above: Order Comment: Speci men Type: BLOOD SPECIMEN Ordering Facility: [facility] Address: [address] [place] [address] Performed By: #### 5 7021-8 #### [facility] CLIA [id number] [place] [address] [place] WBC (Bld) [#/Vol] 7.63 10*3/uL Normal 3.70-11.00 [facility] Comment on above: Order Comment: Speci men Type: BLOOD SPECIMEN Ordering Facility: [facility] Address: [address] [place] [address] Performed By: #### 5 7021-8 #### [facility] CLIA [id number] [address] [place] [address] [place] CONFIRM BLOOD TYPEon 024 ABO A [facility] Comment on above: Order Comment: Speci men Type: BLOOD SPECIMEN Ordering Facility: [facility] Address: [address] [place] [address] Performed By: #### C ONABO #### [facility] CLIA [id number] [address] [place] [address] [place] Rh Nom (Bld) Positive [facility] Comment on above: Order Comment: Speci men Type: BLOOD SPECIMEN Ordering Facility: [facility] Address: [address] [place] [address] Performed By: #### C ONABO #### [facility] CLIA [id number] [address] [place] [address] [place] CRP SerPl-mCncon 10-10-2023 CRP [Mass/Vol] 1.0 mg/dL High <0.9 [facility] Comment on above: Order Comment: Speci men Type: BLOOD SPECIMEN Ordering Facility: [facility] Address: [address] [place] [address] Performed By: #### 1 751-7, 1988-5, 12584-3, 69720-8 #### [facility] CLIA [id number] [address] [place] [address] [place] [id number] 10-10-2023 ECG01 Ventricular Rate : 6 7 BPM Atrial Rate : 67 BPM P-R Interval : 170 ms QRS Duration : 132 ms Q-T Interval : 396 ms QTC Calculation(Bazett) : 418 ms Calculated P [place] : 15 degrees Calculated R [place] : -17 degrees Calculated T [place] : 12 degrees NORMAL SINUS RHYTHM COMPLETE RIGHT BUNDLE BRANCH BLOCK MINIMAL VOLTAGE CRITERIA FOR LVH, MAY BE NORMAL VARIANT Confirmed by ABBY LAMB MD, KARIM ([id number]) on 10/12/2023 12:03:42 PM NAME : MARCK HAMEED PID : [id number] : 1955 Gender : Male Race : ORD : Procedure Date : Oct 10 2023 11:45:23 Edit Date : Oct 12 2023 12:03:46 Diagnosis: NORMAL SINUS RHYTHM COMPLETE RIGHT BUNDLE BRANCH BLOCK MINIMAL VOLTAGE CRITERIA FOR LVH, MAY BE NORMAL VARIANT Confirmed by ABBY LAMB MD, KARIM ([id number]) on 10/12/2023 12:03:42 PM Test Reason : PREOP Location : [facility] : [place] [address] Overread By : ABBY LAMB MD, KARIM Edited By : ABBY LAMB MD, KARIM Referred By : KATINA MERCHANT Acquired by : [id number], Normal [facility] ESR Westergren method (Bld) [Velocity]on 10-10-2023 ESR (Bld) [Velocity] 5 mm/h Normal 0-15 [facility] Comment on above: Order Comment: Speci men Type: BLOOD SPECIMEN Ordering Facility: [facility] Address: [address] [place] [address] Performed By: #### 4 537-7 #### [facility] CLIA [id number] [address] [place] [address] [place] Ferritin SerPl-mCncon 2023 Ferritin [Mass/Vol] 108.3 ng/mL Normal 30.3-565.7 [facility] Comment on above: Order Comment: Speci men Type: BLOOD SPECIMEN Ordering Facility: [facility] Address: [address] [place] [address] Performed By: #### 2 276-4 #### [facility] CLIA [id number] [place] [address] [place] Fungus Spec Culton Fungus identified Cx Nom (Unsp spec) CULTURE, FUNGAL: No Fungus isolated after 28 days Normal [facility] Comment on above: Performed By: #### 6 11-4, 635-3, 580-1 ####[facility] [id number] [place] [address] [place] Guidance for injection of Kn eeon 10-10-2023 IMPRESSION: SUCCESSF UL FLUOROSCOPICALLY GUIDED ASPIRATION OF THE LEFT KNEE DESCRIBED ABOVE. Attending Radiologist: Dr. Jorge L Hall MD Alum Plant Operator: Dr. Amy Cormier MD (fellow) The procedure was performed by the the scheduling assistant, and the attending radiologist was not present but immediately available to furnish services during the entire procedure. Application Packager: PSCB Transcribe Date/Time: Oct 10 2023 12:25P Dictated by : AMY CORMIER MD This examination was interpreted and the report reviewed and electronically signed by: JORGE L HALL MD on Oct 10 2023 3:26PM [facility] DIVISION OF RADIOLOGY * * *Final Report* * * DATE OF EXAM: Oct 10 2023 11:37AM SHX [id number] - XR ASP/INJ KNEE JT/BURSA LT / PROCEDURE REASON: multiple diagnoses * * * * Physician Interpretation * * * * FLUOROSCOPICALLY GUIDED LEFT KNEE ASPIRATION INDICATION: The patient is a 68 years year old Male who presented with Failure of total knee replacement, initial encounter ([facility]) ([facility]) Failure of total knee replacement, initial encounter ([facility]) ([facility]) . CONSENT: The risks, benefits, treatment options, potential complications and personnel to be involved were discussed (including the instruments to be used, contrast and anesthesia administration) with the patient. All questions were answered and consent was obtained. The patient indicated willingness to proceed. GENERAL: a) Medication Reconciliation: The patient's medications and allergies were reviewed in the electronic medical record and reconciled to the proposed procedure/treatment. Pre-procedure Sign-in: Safety Checklist Performed Yes b) Positioning: The patient was placed Supine on the fluoroscopy table. c) The area was then sterilely prepped and draped. d) Time Out: A time out was performed immediately prior to procedure start with the nursing, anesthesia and interventional team, correctly identifying the patient name, date of , procedure, anatomy (including marking of site and side), patient position, procedure consent form, relevant diagnostic and radiology test results, antibiotic administration, safety precautions, and procedure-specific equipment needs. Procedure Start Time / Timeout Time: 1047 e) Anesthesia Type: Local anesthesia: 2 mL 1% Lidocaine PROCEDURE: a) Procedure Details:A 20g spinal needle was inserted into the knee joint. 35ml of viscous serous fluid was aspirated. 2 ml Omnipaque 300 was injected to confirm intra-articular placement of needle. Contrast was observed to flow into the joint without significant resistance. The needle was removed. Images were stored to the permanent digital archive documenting needle position. b) Injectate Contents: 2 mL Omnipaque 300 c) Estimated Blood Loss: 0 mls d) Number and Type of Removed Specimens: N/A RADIATION DOSE Fluoroscopic Radiation Summary: Air Kerma: 1.0 mGy Fluoro time: 0:08 min:sec POST PROCEDURE: a) Hemostasis: Hemostasis was achieved using light manual compression. b) Sign-out: Communication Performed N/A c) Procedure End Time: 1051 d) Conclusion: The patient was discharged from the radiology department in stable condition. COMPLICATIONS: a) Significant Patient Complication: None b) Complications during the procedure: None RESULTS: Aspirate was obtained from the joint. DIVISION OF RADIOLOGY Provider, [facility] - 10/10/2023 * * *Final Report* * * DATE OF EXAM: Oct 10 2023 11:37AM SHX 5747 - XR ASP/INJ KNEE JT/BURSA LT / PROCEDURE REASON: multiple diagnoses * * * * Physician Interpretation * * * * FLUOROSCOPICALLY GUIDED LEFT KNEE ASPIRATION INDICATION: The patient is a 68 years year old Male who presented with Failure of total knee replacement, initial encounter ([facility]) ([facility]) Failure of total knee replacement, initial encounter ([facility]) ([facility]) . CONSENT: The risks, benefits, treatment options, potential complications and personnel to be involved were discussed (including the instruments to be used, contrast and anesthesia administration) with the patient. All questions were answered and consent was obtained. The patient indicated willingness to proceed. GENERAL: a) Medication Reconciliation: The patient's medications and allergies were reviewed in the electronic medical record and reconciled to the proposed procedure/treatment. Pre-procedure Sign-in: Safety Checklist Performed Yes b) Positioning: The patient was placed Supine on the fluoroscopy table. c) The area was then sterilely prepped and draped. d) Time Out: A time out was performed immediately prior to procedure start with the nursing, anesthesia and interventional team, correctly identifying the patient name, date of , procedure, anatomy (including marking of site and side), patient position, procedure consent form, relevant diagnostic and radiology test results, antibiotic administration, safety precautions, and procedure-specific equipment needs. Procedure Start Time / Timeout Time: 1047 e) Anesthesia Type: Local anesthesia: 2 mL 1% Lidocaine PROCEDURE: a) Procedure Details:A 20g spinal needle was inserted into the knee joint. 35ml of viscous serous fluid was aspirated. 2 ml Omnipaque 300 was injected to confirm intra-articular placement of needle. Contrast was observed to flow into the joint without significant resistance. The needle was removed. Images were stored to the permanent digital archive documenting needle position. b) Injectate Contents: 2 mL Omnipaque 300 c) Estimated Blood Loss: 0 mls d) Number and Type of Removed Specimens: N/A RADIATION DOSE Fluoroscopic Radiation Summary: Air Kerma: 1.0 mGy Fluoro time: 0:08 min:sec POST PROCEDURE: a) Hemostasis: Hemostasis was achieved using light manual compression. b) Sign-out: Communication Performed N/A c) Procedure End Time: 1051 d) Conclusion: The patient was discharged from the radiology department in stable condition. COMPLICATIONS: a) Significant Patient Complication: None b) Complications during the procedure: None RESULTS: Aspirate was obtained from the joint. IMPRESSION IMPRESSION: SUCCESSFUL FLUOROSCOPICALLY GUIDED ASPIRATION OF THE LEFT KNEE DESCRIBED ABOVE. Attending Radiologist: Dr. Jorge L Hall MD Alum Plant Operator: Dr. Amy Cormier MD (fellow) The procedure was performed by the the scheduling assistant, and the attending radiologist was not present but immediately available to furnish services during the entire procedure. Application Packager: PSCB Transcribe Date/Time: Oct 10 2023 12:25P Dictated by : AMY CORMIER MD This examination was interpreted and the report reviewed and electronically signed by: JORGE L HALL MD on Oct 10 2023 3:26PM EST [facility] Radiology Study observation (narrative) [facility] Guidance for injection of Kn eeOrdered By: [facility] Provider on 10-10-2023 [facility] HISTORY PHYSICALon 4 HISTORY PHYSICAL HNO ID: [id number] Author: TRICIA PHAN [email or web address] Service: ? Author Type: Nurse Practitioner Type: H&P Filed: 10/10/2023 14:03 Note Text: HISTORY AND PHYSICAL EXAMINATION SERVICE DATE: 10/10/2023 SERVICE TIME: 11:52 AM PRIMARY CARE PHYSICIAN: Clive Raymond, DO, DO Assessment Patient has the following medical conditions which may affect leslie-operative course: Essential (primary) hypertension Assessment: Stable, complaint on medication. Follows with PCP. Denies lightheaded or dizziness. Last 3 Encounter BP Readings: Date: BP: 10/10/2023 90/55 Hyperlipidemia Assessment: Complaint on statin therapy. Encouraged lifestyle modifications. Body mass index is 35.78 kg/m?. Obesity, Class II, BMI 35-39.9, isolated (see actual BMI) Assessment: Body mass index is 35.78 kg/m?. Suspected sleep apnea Assessment: STOP Bang 6. BMP ordered. Pt reports loud snoring. Alcohol use Assessment: Reports drinking 2-3 beers/day. Advised to decrease intake. Labs ordered. Denies withdrawal or DTs. Cote Activity Status Index: METS: Climb a flight of stairs or walk up a hill (5.50 METs) DASI Score: 5.5 (+ ambulates with walker or cane) Patient denies any chest pain or undue shortness of breath with the above physical activity. Clinical Frailty Scale: 3. Well, with treated comorbid disease STOP-Bang Score: Snores loudly Has or is being treated for high blood pressure BMI greater than 35 kg/m2 Patient over 50 years old Has a large neck Male patient Denies feeling tired, fatigued, or sleepy during the daytime Has not been observed to stop breathing or choking/gasping during sleep STOP-Bang Score: 6 [id number] Score: Age: 65-74 Sex: male CHF history: No Hypertension history: Yes Stroke/TIA/thromboembolism history: No Vascular disease history: No Diabetes history: No [id number] Score: 2 ARISCAT Score: Age: 51-80 Preoperative SpO2: 91-95% Respiratory infection in the last month: No Preoperative anemia: Yes Surgical incision: peripheral Duration of surgery: >3 hrs Emergency procedure: No ARISCAT Score: 45 ANESTHESIA FINDINGS: Intubation History: No history of difficult intubation. No abnormal airway history Significant Anesthesia Considerations: none Airway History: No history of difficult airway No abnormal airway history I - PHYSICAL EVALUATION AIRWAY Patient intubated: No. Tracheostomy tube not present Mallampati: II. TM distance: >3 FB. Neck ROM: full ROM without neurological symptoms. Mouth opening: adequate. Short neck: yes. Thick neck: yes Padilla present: yes Microretrognathia/Micronag thia/Recessed Chin: No DENTAL Dental findings: teeth intact. Additional comments: + permanent crowns. II - ANESTHESIA PLAN Anesthetic plan additional comments: *PACC/TCI - anesthesia choice. Beta Je Monitoring Plan Post Procedure Analgesic Plan Prepared for Surgery: optimally prepared for surgery, pending [see comment]. EKG and Labs Mupirocin ordered and instruction CONSULTS: Patient does not require consults for optimization at this time Planned Anesthetic: anesthesia choice The Following Tests/Procedures Have Been Initiated: Orders Placed This Encounter amLODIPine (NORVASC) 5 mg tablet Sig: Take 5 mg by mouth. aspirin, enteric coated (ASPIRIN, ENTERIC COATED) 325 mg EC tablet Sig: Take 325 mg by mouth. hydroCHLOROthiazide 25 mg tablet Sig: Take 25 mg by mouth. lisinopril (ZESTRIL) 10 mg tablet Sig: Take 10 mg by mouth. DISCONTD: losartan-hydroCHLOROthiazi de (HYZAAR) 100-25 mg per tablet Sig: Take 1 tablet by mouth every morning. meloxicam (MOBIC) 7.5 mg tablet Sig: Take by mouth. pravastatin (PRAVACHOL) 80 mg tablet Sig: Take 80 mg by mouth. pyridoxine, vitamin B6, (VITAMIN B6) 100 mg tablet Sig: Take 100 mg by mouth. cephALEXin (KEFLEX) 500 mg capsule Sig: TAKE ALL 4 CAPSULES ONE HOUR BEFORE THE PROCEDURE. mupirocin (BACTROBAN) 2 % ointment Sig: two times a day for 5 days. Apply 0.5 inch with cotton swab (Q-tip) to each nostril in the morning and evening for 5 days prior to and including day of surgery. Dispense: 22 g Refill: 0 REASON FOR VISIT: Marck Hameed is a 68 year old male who is scheduled for Procedure(s): REVISION JOINT TOTAL KNEE FEMORAL AND ENTIRE TIBIAL COMPONENT (Left) at the request of Dr. Katina Mercahnt for consultation. My final recommendation will be communicated back to the requesting physician by way of shared medical record or letter. 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 Normal [facility] Iron and Iron binding capaci ty panelon 10-10-2023 Iron [Mass/Vol] 74 ug/dL Normal 41-186 [facility] Comment on above: Order Comment: Speci men Type: BLOOD SPECIMEN Ordering Facility: [facility] Address: [address] [place] [address] Performed By: #### 1 7517, 1987-12, , #### [facility] CLIA [id number] [address] [place] [address] [place] Iron binding capacity [Mass/Vol] 411 ug/dL High 232-386 [facility] Comment on above: Order Comment: Speci men Type: BLOOD SPECIMEN Ordering Facility: [facility] Address: [address] [place] [address] Performed By: #### 1 7517, 1987-12, , #### [facility] CLIA [id number] [address] [place] [address] [place] Iron/TIBC [Molar ratio] 18.0 % Normal 15.0-57.0 [facility] Comment on above: Order Comment: Speci men Type: BLOOD SPECIMEN Ordering Facility: [facility] Address: [address] [place] [address] Performed By: #### 1 757, 1987-12, , #### [facility] CLIA [id number] [place] [address] [place] SYNOVIAL FL,CRYSTAL ID/STAFF REVon 10-10-2023 CRYSTAL PRELIM, SF PRELIMINARY REPORT N o diagnostic crystals seen. SEE FINAL SF PATH REVIEW Normal [facility] Comment on above: Order Comment: Speci men Type: BODY FLUID SPECIMENOrdering Facility: [facility] Address: [address] [place] [address] Performed By: #### S FCRID, [id number], RTSYNF ####[facility] [id number] [place] [address] [place] CRYSTAL REVIEW Reviewed by Leonora recinos M.D. Normal [facility] Comment on above: Order Comment: Speci men Type: BODY FLUID SPECIMENOrdering Facility: [facility] Address: [address] [place] [address] Performed By: #### S FCRID, [id number], RTSYNF ####[facility] [id number] [place] [address] [place] Crystals LM Nom (Syn fld) None seen Normal None seen [facility] Comment on above: Order Comment: Speci men Type: BODY FLUID SPECIMENOrdering Facility: [facility] Address: [address] [place] [address] Performed By: #### S FCRID, [id number], RTSYNF ####[facility] [id number] [place] [address] [place] SYNOVIAL FLUID MANUAL DIFFon 10-10-2023 DIF TTL, SYNOVIAL FLUID 100 cells counted Normal [facility] Comment on above: Order Comment: Speci men Type: BODY FLUID SPECIMENOrdering Facility: [facility] Address: [address] [place] [address] Performed By: #### S FCRID, [id number], RTSYNF ####[facility]IA [id number] [place] [address] [place] LYMPH%, SF 30 Normal [facility] Comment on above: Order Comment: Speci men Type: BODY FLUID SPECIMENOrdering Facility: [facility] Address: [address] [place] [address] Performed By: #### S FCRID, [id number], RTSYNF ####[facility] [id number] [place] [address] [place] MACRO%, SF 65 Normal [facility] Comment on above: Order Comment: Speci men Type: BODY FLUID SPECIMENOrdering Facility: [facility] Address: [address] [place] [address] Performed By: #### S ANGELITOID, [id number], RTSYNF ####[facility]IA [id number] [place] [address] [place] NEUT% 4 Normal 0-<25 [facility] Comment on above: Order Comment: Speci men Type: BODY FLUID SPECIMENOrdering Facility: [facility] Address: [address] [place] [address] Performed By: #### S ANGELITOID, [id number], RTSYNF ####[facility]IA [id number] [place] [address] [place] SYNOVIAL C1% 1 Normal [facility] Comment on above: Order Comment: Speci men Type: BODY FLUID SPECIMENOrdering Facility: [facility] Address: [address] [place] [address] Performed By: #### S ANGELITOID, [id number], RTSYNF ####[facility]CLIA [id number] [place] [address] [place] SYNOVIAL FLUID, ROUTINEOrder ed By: Loreta Harrison on 10-10-2023 Clarity (Unsp spec) Slightly Cloudy Abnormal Clear [facility] Clarity (Unsp spec) Clear Clear [facility] Color (Syn fld) Samantha Abnormal Yellow [facility] Color (Syn fld) Yellow Yellow [facility] Interpretation and review of laboratory results Abnormal [facility] RBC Manual cnt (Syn fld) [#/Vol] 55610 /uL High NINF - 2000 /uL [facility] Specimen source Nom (Unsp spec) KNEE LEFT, SYNOVIAL FLUID [facility] WBC Manual cnt (Syn fld) [#/Vol] 1185 /uL High 0 - 200 /uL [facility] SYNOVIAL FLUID, ROUTINEon Clarity (Unsp spec) Clear Normal Clear [facility] Comment on above: Order Comment: Speci men Type: BODY FLUID SPECIMENOrdering Facility: [facility] Address: [address] [place] [address] Performed By: #### S ANGELITOID, [id number], RTSYNF ####[facility]CLIA [id number] [place] [address] [place] Color (Syn fld) Yellow Normal Yellow [facility] Comment on above: Order Comment: Speci men Type: BODY FLUID SPECIMENOrdering Facility: [facility] Address: [address] [place] [address] Performed By: #### S ANGELITOID, [id number], RTSYNF ####[facility] [id number] [place] [address] [place] RBC Manual cnt (Syn fld) [#/Vol] 49220 /uL High <2000 [facility] Comment on above: Order Comment: Speci men Type: BODY FLUID SPECIMENOrdering Facility: [facility] Address: [address] [place] [address] Performed By: #### S ANGELITOID, [id number], RTSYNF ####[facility]CLIA [id number] [place] [address] [place] Specimen source Nom (Unsp spec) KNEE LEFT, SYNOVIAL FLUID Normal [facility] Comment on above: Order Comment: Speci men Type: BODY FLUID SPECIMENOrdering Facility: [facility] Address: [address] [place] [address] Performed By: #### S FCRID, [id number], RTSYNF ####[facility]CLIA [id number] [place] [address] [place] WBC Manual cnt (Syn fld) [#/Vol] 1185 /uL High 0-200 [facility] Comment on above: Order Comment: Speci men Type: BODY FLUID SPECIMENOrdering Facility: [facility] Address: [address] [place] [address] Performed By: #### S FCRID, [id number], RTSYNF ####[facility]CLIA [id number] [facility] [id number] [place] [address] [place] TYPE AND SCREEN,30 DAYon ABO A [facility] Comment on above: Order Comment: Speci men Type: BLOOD SPECIMEN Ordering Facility: [facility] Address: [address] [place] [address] Performed By: #### T SCR30 #### [facility] CLIA [id number] [address] [place] [address] [place] HISTORICAL AB SCR STATUS Negative [facility] Comment on above: Order Comment: Speci men Type: BLOOD SPECIMEN Ordering Facility: [facility] Address: [address] [place] [address] Performed By: #### T SCR30 #### [facility] CLIA [id number] [address] [place] [address] [place] Rh Nom (Bld) Positive [facility] Comment on above: Order Comment: Speci men Type: BLOOD SPECIMEN Ordering Facility: [facility] Address: [address] [place] [address] Performed By: #### T SCR30 #### [facility] CLIA [id number] [address] [place] [address] [place] XR ASP/INJ KNEE JT/BURSA LTo n 10-10-2023 XR ASP/INJ KNEE JT/BURSA LT * * *Final Report* * * DATE OF EXAM: Oct 10 2023 11:37AM SHX 5747 - XR ASP/INJ KNEE JT/BURSA LT / PROCEDURE REASON: multiple diagnoses * * * * Physician Interpretation * * * * FLUOROSCOPICALLY GUIDED LEFT KNEE ASPIRATION INDICATION: The patient is a 68 years year old Male who presented with Failure of total knee replacement, initial encounter ([facility]) ([facility]) Failure of total knee replacement, initial encounter ([facility]) ([facility]) . CONSENT: The risks, benefits, treatment options, potential complications and personnel to be involved were discussed (including the instruments to be used, contrast and anesthesia administration) with the patient. All questions were answered and consent was obtained. The patient indicated willingness to proceed. GENERAL: a) Medication Reconciliation: The patient's medications and allergies were reviewed in the electronic medical record and reconciled to the proposed procedure/treatment. Pre-procedure Sign-in: Safety Checklist Performed Yes b) Positioning: The patient was placed Supine on the fluoroscopy table. c) The area was then sterilely prepped and draped. d) Time Out: A time out was performed immediately prior to procedure start with the nursing, anesthesia and interventional team, correctly identifying the patient name, date of , procedure, anatomy (including marking of site and side), patient position, procedure consent form, relevant diagnostic and radiology test results, antibiotic administration, safety precautions, and procedure-specific equipment needs. Procedure Start Time / Timeout Time: 1047 e) Anesthesia Type: Local anesthesia: 2 mL 1% Lidocaine PROCEDURE: a) Procedure Details:A 20g spinal needle was inserted into the knee joint. 35ml of viscous serous fluid was aspirated. 2 ml Omnipaque 300 was injected to confirm intra-articular placement of needle. Contrast was observed to flow into the joint without significant resistance. The needle was removed. Images were stored to the permanent digital archive documenting needle position. b) Injectate Contents: 2 mL Omnipaque 300 c) Estimated Blood Loss: 0 mls d) Number and Type of Removed Specimens: N/A RADIATION DOSE Fluoroscopic Radiation Summary: Air Kerma: 1.0 mGy Fluoro time: 0:08 min:sec POST PROCEDURE: a) Hemostasis: Hemostasis was achieved using light manual compression. b) Sign-out: Communication Performed N/A c) Procedure End Time: 1051 d) Conclusion: The patient was discharged from the radiology department in stable condition. COMPLICATIONS: a) Significant Patient Complication: None b) Complications during the procedure: None RESULTS: Aspirate was obtained from the joint. IMPRESSION: SUCCESSFUL FLUOROSCOPICALLY GUIDED ASPIRATION OF THE LEFT KNEE DESCRIBED ABOVE. Attending Radiologist: Dr. Jorge L Hall MD Alum Plant Operator: Dr. Amy Cormier MD (fellow) The procedure was performed by the the scheduling assistant, and the attending radiologist was not present but immediately available to furnish services during the entire procedure. Application Packager: MARIUSZ Transcribe Date/Time: Oct 10 2023 12:25P Dictated by : AMY CORMIER MD This examination was interpreted and the report reviewed and electronically signed by: JORGE L HALL MD on Oct 10 2023 3:26PM EST [id number] Normal [facility] CNPNon 10-03-2023 CNPN Telephone (ORTHMN) -- MARCK HAMEED ([id number]) 1955 M Date Time Provider Department 10/03/23 [facility] SP[facility] During your visit today, we recorded the following information about you: Nhi Spence LSW 10/03/2023 10:31 AM Signed ORTHOPAEDIC COORDINATION OF CARE Pre-Op Assessment Discharge Disposition (Planned): Home with Home Health Discharge Transportation: Car PRIMARY CARE PHYSICIAN: No primary care provider on file. 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 Have you had joint replacement surgery before?: Yes: Bilateral knees and Right hip Date: Patient reported knees done in August of 2004 and Right hip done in 2021 Social: Pre-Hospital Baseline Mental Status: Alert AND Oriented Informant: Self Living Arrangement: Home Who able to assist you at home once you discharge? Daughters Are they available for at least 2 weeks? Yes Stairs: One story home 1 stairs to enter home Bedroom Location: First Bathroom Location: First Do you have problems that affect your ability to perform normal activities of daily living such as bathing, dressing, or toileting yourself? No = 0 What is your current functional status?: Perform ADLs independently Are you able to afford your medications/Food? Yes Social Determinants of Health Tobacco Use: Low Risk (10/03/2023) Patient History Smoking Tobacco Use: Never Smokeless Tobacco Use: Never Passive Exposure: Not on file Alcohol Use: Not At Risk (10/03/2023) AUDIT-C Frequency of Alcohol Consumption: 4 or more times a week Average Number of Drinks: 1 or 2 Frequency of Binge Drinking: Never Financial Resource Strain: Low Risk (10/03/2023) Overall Financial Resource Strain (CARDIA) Difficulty of Paying Living Expenses: Not very hard Food Insecurity: No Food Insecurity (10/03/2023) Hunger Vital Sign Worried About Running Out of Food in the Last Year: Never true Ran Out of Food in the Last Year: Never true Transportation Needs: No Transportation Needs (10/03/2023) PRAPARE - Transportation Lack of Transportation (Medical): No Lack of Transportation (Non-Medical): No Physical Activity: Inactive (10/03/2023) Exercise Vital Sign Days of Exercise per Week: 0 days Minutes of Exercise per Session: 0 min Stress: No Stress Concern Present (10/03/2023) [place] - Occupational Stress Questionnaire Feeling of Stress : Not at all Social Connections: Moderately Integrated (10/03/2023) Social Connection and Isolation Panel [NHANES] Frequency of Communication with Friends and Family: More than three times a week Frequency of Social Gatherings with Friends and Family: More than three times a week Attends Yarsani Services: 1 to 4 times per year Active Member of Clubs or Organizations: Yes Attends Club or Organization Meetings: More than 4 times per year Marital Status: Intimate Partner Violence: Not At Risk (10/03/2023) Humiliation, Afraid, Rape, and Kick questionnaire Fear of Current or Ex-Partner: No Emotionally Abused: No Physically Abused: No Sexually Abused: No Depression: Not at risk (10/03/2023) PHQ-2 PHQ-2 Score: 0 Housing Stability: Low Risk (10/03/2023) Housing Stability Vital Sign Unable to Pay for Housing in the Last Year: No Number of Places Lived in the Last Year: 1 Unstable Housing in the Last Year: No Utilities: Not At Risk (10/03/2023) [place] Utilities Threatened with loss of utilities: No Area Deprivation Index: Medium Risk (09/20/2023) Area Deprivation Index National Score (1-100), lower number is lower risk: 65 State Score (1-10), lower number is lower risk: 4 Data from: https://www.neighborhoodat las.medicine.[facility]/. Last address used for calculation: [address] Equipment: Do you currently use any equipment at home for your medical condition or to help you get around? Cane - Straight Patient also has walkers, crutches and elevated toilet seats at home for after surgery Active Services/Needs: None Transportation: Do you have reliable transportation to and from surgery/appointments?: Yes Who will provide discharge transportation: Daughters Contact information for patient's ride: Will your ride be available for 1200 discharge time? Yes Office Visit Follow Up Did you receive the antiseptic wipes from your surgeon?s office? Yes Did you receive a prescription for an assistive device (walker or crutches) from your surgeon?s office and fill it or do you already have one at home? Yes Did you attend a joint education class/Watched video? No Did you read the education book provided to you? Yes Have you let your (more content not included)... Normal [facility] BMPon 09-30-2023 Anion gap [Moles/Vol] 12 mmol/L Normal 6-16 [facility] Comment on above: Performed By: #### 1 [id number], 4287798, 845854682, 4816192, 33928065, 2619524, 8189878 ####[facility] [address] [place] [address] BUN/Creat Ratio 19 No Units Normal 10-20 [facility] Comment on above: Performed By: #### 1 8362704, 9020612, 285878398, 3305182, 81187445, 5041159, 7498535 ####[facility] [address] [place] [address] Calcium [Mass/Vol] 9.9 mg/dL Normal 8.9-11.1 [facility] Comment on above: Performed By: #### 1 1156925, 7278017, 149911280, 1639101, 06942266, 5661292, 4025234 ####[facility] [address] [place] [address] Chloride [Moles/Vol] 98 mmol/L Low 101-111 [facility] Comment on above: Performed By: #### 1 0141833, 6738794, 324784558, 7756565, 42815176, 1437226, 8435216 ####[facility] [address] [place] [address] CO2 [Moles/Vol] 28 mmol/L Normal 21-31 [facility] Comment on above: Performed By: #### 1 0437947, 1819338, 029924190, 6308784, 48410180, 5281479, 9631127 ####[facility] [address] [place] [address] Creatinine [Mass/Vol] 0.7 mg/dL Normal 0.5-1.3 [facility] Comment on above: Performed By: #### 1 0238866, 6385535, 663503836, 4423246, 11426425, 6374223, 7076784 ####[facility] [address] [place] [address] Glucose [Mass/Vol] 120 mg/dL Normal 55-199 [facility] Comment on above: Performed By: #### 1 3194627, 2311289, 346716667, 6370594, 95653081, 3563750, 4629195 ####[facility] [address] [place] [address] Potassium [Moles/Vol] 4.1 mmol/L Normal 3.5-5.3 [facility] Comment on above: Performed By: #### 1 5177254, 9025722, 865104520, 0656483, 69425508, 0566993, 2525434 ####[facility] [address] [place] [address] Sodium [Moles/Vol] 134 mmol/L Low 135-145 [facility] Comment on above: Performed By: #### 1 1976562, 3301346, 374369621, 2049785, 94284209, 7128121, 7505704 ####[facility] [address] [place] [address] Urea nitrogen [Mass/Vol] 13 mg/dL Normal 5-21 [facility] Comment on above: Performed By: #### 1 5015105, 6957585, 646129909, 1141259, 63137113, 9537895, 4864682 ####[facility] [address] [place] [address] CBC w/ Auto Diffon 4 Basophil Absolute 0.0 E9/L Normal 0.0-0.2 [facility] Comment on above: Performed By: #### 1 7693419, 8031375, 474592694, 3455162, 75707917, 4712665, 6648257 ####[facility] [address] [place] [address] Basophils/100 WBC (Bld) 0.6 % Normal 0.0-2.0 [facility] Comment on above: Performed By: #### 1 7739573, 7460725, 272007802, 0647239, 80051372, 9462243, 1734150 ####[address] [address] Eos Absolute 0.3 E9/L Normal 0.0-0.5 [facility] Comment on above: Performed By: #### 1 3646770, 7493892, 755338101, 3300881, 62431243, 3480145, 2365214 ####[address] [address] Eosinophils/100 WBC (Bld) 4.3 % Normal 0.0-8.0 [facility] Comment on above: Performed By: #### 1 4924026, 6812140, 976967304, 5069743, 61771838, 6113797, 2542634 ####[facility] [address] [place] [address] Erythrocyte distribution width (RBC) [Ratio] 14.6 % High 10.9-14.2 [facility] Comment on above: Performed By: #### 1 7513597, 4646116, 842047031, 9212361, 43238048, 6353231, 0655226 ####[address] [place] [address] Hematocrit (Bld) [Volume fraction] 40.0 % Normal 37.7-49.0 [facility] Comment on above: Performed By: #### 1 7265060, 0661554, 537916838, 7152983, 63473742, 1483138, 7936426 ####[address] [address] Hemoglobin (Bld) [Mass/Vol] 13.4 g/dL Low 13.5-17.5 [facility] Comment on above: Performed By: #### 1 0237116, 1223592, 132941059, 8398391, 06953292, 4019753, 3751113 ####[address] [address] Lymph Absolute 1.8 E9/L Normal 1.0-4.0 [facility] Comment on above: Performed By: #### 1 9854073, 1520964, 898930372, 3132175, 66663469, 8599433, 7863357 ####[address] [address] Lymphocytes/100 WBC (Bld) 25.8 % Normal 14.0-50.0 [facility] Comment on above: Performed By: #### 1 3875321, 9526469, 187717610, 4818620, 72545862, 6959700, 1208940 ####[address] [address] MCH (RBC) [Entitic mass] 29.3 pg Normal 27.0-34.0 [facility] Comment on above: Performed By: #### 1 1545476, 6303234, 413808107, 3222998, 81786915, 7141068, 5052770 ####[facility] [address] [place] [address] MCHC (RBC) [Mass/Vol] 33.5 g/dL Normal 31.4-36.0 [facility] Comment on above: Performed By: #### 1 1057779, 3242642, 451935340, 7452038, 61125688, 0925028, 6034087 ####[address] [place] [address] MCV (RBC) [Entitic vol] 87.3 fL Normal 80.0-100.0 [facility] Comment on above: Performed By: #### 1 4658465, 9241754, 089173872, 8881632, 98595640, 9504593, 8170002 ####[address] [place] [address] [place] Absolute 0.6 E9/L Normal 0.2-1.0 [facility] Comment on above: Performed By: #### 1 2610763, 7895765, 099782422, 1559705, 29734037, 2296137, 0418465 ####[address] [address] Monocytes/100 WBC (Bld) 9.2 % Normal 4.0-14.0 [facility] Comment on above: Performed By: #### 1 3793718, 6375591, 133831483, 5171197, 04703860, 7764373, 2287419 ####[address] [place] [address] Neutro Absolute 4.2 E9/L Normal 2.0-7.5 [facility] Comment on above: Performed By: #### 1 5301379, 0255427, 477238069, 6843677, 46564131, 3002985, 2732908 ####[facility] [address] [place] [address] Neutro Auto 60.1 % Normal 36.0-75.0 [facility] Comment on above: Performed By: #### 1 1120685, 8936197, 314850819, 8816675, 76372786, 2962293, 1379018 ####[address] [place] [address] Platelet 366.0 E9/L Normal 150.0-500.0 [facility] Comment on above: Performed By: #### 1 2436783, 8832265, 011613475, 6989609, 70643983, 9085146, 0879859 ####[address] [place] [address] Platelet mean volume (Bld) [Entitic vol] 6.3 fL Low 6.4-10.8 [facility] Comment on above: Performed By: #### 1 3077535, 9146911, 084759791, 1452706, 08403803, 8227903, 7013057 ####[address] [place] [address] RBC 4.6 E12/L Normal 4.3-5.9 [facility] Comment on above: Performed By: #### 1 3444490, 9046128, 349829633, 8599470, 60306148, 3810337, 1476590 ####[address] [place] [address] WBC 7.0 E9/L Normal 4.0-11.0 [facility] Comment on above: Performed By: #### 1 6206790, 2533833, 975999859, 1211888, 60461476, 2024710, 3401482 ####[address] [place] [address] CHEMISTRYOrdered By: SYSTEM SYSTEM on 09-30-2023 Albumin [Mass/Vol] 4.1 g/dL Normal 3.3 - 5.0 gm/dL [facility] Albumin/Globulin [Mass ratio] 1.2 {ratio} Normal 1.1 - 2.2 [facility] Alk Phos 77 [iU]/d Normal 21 - 98 Int._Unit/L [facility] ALT 20 [iU]/d Normal 6 - 46 Int._Unit/L [facility] Anion gap [Moles/Vol] 12 mmol/L Normal 6 - 16 mEq/L [facility] AST 23 [iU]/d Normal 5 - 43 Int._Unit/L [facility] Bili Direct 0.1 mg/dL Normal 0.0 - 0.4 mg/dL [facility] Bili Indirect 0.4 mg/dL Normal 0.1 - 0.9 mg/dL [facility] Bili Total 0.5 mg/dL Normal 0.0 - 1.1 mg/dL [facility] Calcium [Mass/Vol] 9.9 mg/dL Normal 8.9 - 11. 1 mg/dL [facility] Chloride [Moles/Vol] 98 mmol/L Low 101 - 1 11 mmol/L [facility] Cholesterol [Mass/Vol] 144 mg/dL Normal 120 - 200 mg/dL [facility] Cholesterol in HDL [Mass/Vol] 58 mg/dL Invalid Interpretation Code [facility] Comment on above: Result Comment: '>= 60 LOW RISK' '<= 40 HIGH RISK' Cholesterol in LDL [Mass/Vol] 65 mg/dL Normal <=129mg/dL [facility] Cholesterol in VLDL [Mass/Vol] 29 mg/dL Normal 7 - 40 mg/dL [facility] CO2 [Moles/Vol] 28 mmol/L Normal 21 - 31 mmol/L [facility] Creatinine [Mass/Vol] 0.7 mg/dL Normal 0.5 - 1.3 mg/dL [facility] eGFR 100 mL/min/1.73 m2 Normal >=59mL/mi n/ 1.73 m2 [facility] Globulin (S) [Mass/Vol] 3.4 g/dL Normal 1.4 - 4.0 gm/dL [facility] Glucose [Mass/Vol] 120 mg/dL Normal 55 - 199 mg/dL [facility] Potassium [Moles/Vol] 4.1 mmol/L Normal 3.5 - 5.3 mmol/L [facility] Protein [Mass/Vol] 7.5 g/dL Normal 6.0 - 7.8 gm/dL [facility] PSA Scrn Tot. 0.7 ng/mL Normal 0.1 - 3.5 ng/mL [facility] Comment on above: Interpretive Data: T he concentration of PSA determined by different manufacturers can vary due to differences in assay methods and reagent specificity. Values obtained from different assay methods cannot be used interchangeably. The methodology used for this result was chemiluminescence using [employer]'s Access Hybritech PSA reagent. Sodium [Moles/Vol] 134 mmol/L Low 135 - 145 mmol/L [facility] Triglyceride [Mass/Vol] 144 mg/dL Normal <=149mg/dL [facility] Urea nitrogen [Mass/Vol] 13 mg/dL Normal 5 - 21 mg/dL [facility] Urea nitrogen/Creatinine [Mass ratio] 19 mg/mg Normal 10 - 20 [facility] CHEMISTRYOrdered By: Louise Donald on 09-30-2023 HbA1c (Bld) [Mass fraction] 6.0 % High <=5.9% [facility] ChemAutoSS Consent for Treatmenton 09-19 Consent for Treatment [id number] Normal [facility] HEMATOLOGYOrdered By: SYSTEM SYSTEM on 09-30-2023 Basophil Absolute 0.0 E9/L Normal 0.0 - 0.2 E9/L [facility] Basophils/100 WBC (Bld) 0.6 % Normal 0.0 - 2.0 % [facility] Eos Absolute 0.3 E9/L Normal 0.0 - 0.5 E9/L [facility] Eosinophils/100 WBC (Bld) 4.3 % Normal 0.0 - 8.0 % [facility] Erythrocyte distribution width (RBC) [Ratio] 14.6 % High 10.9 - 14.2 % [facility] Hematocrit (Bld) [Volume fraction] 40.0 % Normal 37.7 - 49.0 % [facility] Hemoglobin (Bld) [Mass/Vol] 13.4 g/dL Low 13.5 - 17.5 gm/dL [facility] Lymph Absolute 1.8 E9/L Normal 1.0 - 4.0 E9/L [facility] Lymphocytes/100 WBC (Bld) 25.8 % Normal 14.0 - 50.0 % [facility] MCH (RBC) [Entitic mass] 29.3 pg Normal 27.0 - 34.0 pg [facility] MCHC (RBC) [Mass/Vol] 33.5 g/dL Normal 31.4 - 36.0 gm/dL [facility] MCV (RBC) [Entitic vol] 87.3 fL Normal 80.0 - 100.0 fL [facility] [place] Absolute 0.6 E9/L Normal 0.2 - 1.0 E9/L [facility] Monocytes/100 WBC (Bld) 9.2 % Normal 4.0 - 14.0 % [facility] Neutro Absolute 4.2 E9/L Normal 2.0 - 7.5 E9/L [facility] Neutro Auto 60.1 % Normal 36.0 - 75.0 % [facility] Platelet 366.0 E9/L Normal 150.0 - 500.0 E9/L [facility] Platelet mean volume (Bld) [Entitic vol] 6.3 fL Low 6.4 - 10.8 fL [facility] RBC 4.6 E12/L Normal 4.3 - 5.9 E12/L [facility] WBC 7.0 E9/L Normal 4.0 - 11.0 E9/L [facility] Hep Func Panelon 09-30-2023 Albumin [Mass/Vol] 4.1 g/dL Normal 3.3-5.0 [facility] Comment on above: Performed By: #### 1 9327153, 9371261, 986845466, 9963259, 85454873, 4867615, 3076637 ####[facility] [address] [place] [address] Albumin/Globulin [Mass ratio] 1.2 {ratio} Normal 1.1-2.2 [facility] Comment on above: Performed By: #### 1 6586003, 2755027, 882523227, 5560901, 05445416, 3953228, 3139927 ####[facility] [address] [place] [address] Alk Phos 77 Int._Unit/L Normal 21-98 [facility] Comment on above: Performed By: #### 1 8053129, 9826746, 326110846, 6328865, 78568770, 5256216, 1299880 ####[facility] [address] [place] [address] ALT 20 Int._Unit/L Normal 6-46 [facility] Comment on above: Performed By: #### 1 7688294, 0068741, 845798048, 8875168, 94225792, 1891115, 5373688 ####[facility] [address] [place] [address] AST 23 Int._Unit/L Normal 5-43 [facility] Comment on above: Performed By: #### 1 4068735, 5696597, 127981833, 4522034, 45508337, 1508724, 5304705 ####[facility] [address] [place] [address] Bili Direct 0.1 mg/dL Normal 0.0-0.4 [facility] Comment on above: Performed By: #### 1 9435863, 3872472, 838283898, 0379661, 71354252, 6921755, 9785084 ####[facility] [address] [place] [address] Bili Indirect 0.4 mg/dL Normal 0.1-0.9 [facility] Comment on above: Performed By: #### 1 5418247, 6612319, 778029813, 5692591, 92578905, 2742051, 0816376 ####[facility] [address] [place] [address] Bili Total 0.5 mg/dL Normal 0.0-1.1 [facility] Comment on above: Performed By: #### 1 5783498, 1002901, 525722724, 2346285, 91087041, 1129339, 1057415 ####[facility] [address] [place] [address] Globulin (S) [Mass/Vol] 3.4 g/dL Normal 1.4-4.0 [facility] Comment on above: Performed By: #### 1 6299668, 2551712, 631640472, 2899600, 93169017, 6189269, 3161096 ####[facility] [address] [place] [address] Protein [Mass/Vol] 7.5 g/dL Normal 6.0-7.8 [facility] Comment on above: Performed By: #### 1 4871903, 3264888, 646762762, 0780661, 64053332, 2317619, 1511302 ####[facility] [address] [place] [address] AylB3liw 09-30-2023 HbA1c (Bld) [Mass fraction] 6.0 % High <=5.9 [facility] Comment on above: Performed By: #### 1 0695095, 1439882, 072301052, 3422659, 70205922, 6276366, 3797113 ####[facility] [address] [place] [address] Lipid Panelon 09-30-2023 Cholesterol [Mass/Vol] 144 mg/dL Normal 120-200 [facility] Comment on above: Performed By: #### 1 5799578, 9442867, 278736196, 3750114, 86979726, 7559500, 2802273 ####[facility] [address] [place] [address] Cholesterol in HDL [Mass/Vol] 58 mg/dL Invalid Interpretation Code [facility] Comment on above: Result Comment: '>= 60 LOW RISK' '<= 40 HIGH RISK' Performed By: #### 1 8342392, 2755802, 071642774, 7636978, 03635446, 4486606, 3648523 ####[facility] [address] [place] [address] Cholesterol in LDL [Mass/Vol] 65 mg/dL Normal <=129 [facility] Comment on above: Performed By: #### 1 1369140, 4429225, 962135475, 1020095, 35087145, 1822002, 7386333 ####[facility] [address] [place] [address] Cholesterol in VLDL [Mass/Vol] 29 mg/dL Normal 7-40 [facility] Comment on above: Performed By: #### 1 2990283, 3738429, 670941784, 6062873, 98824708, 5949522, 6370803 ####[facility] [address] [place] [address] Triglyceride [Mass/Vol] 144 mg/dL Normal <=149 [facility] Comment on above: Performed By: #### 1 6522671, 5905127, 843447717, 5428793, 92908311, 6759072, 7294647 ####[facility] [address] [place] [address] PSA Screen, Totalon 09-30-19 24 PSA Scrn Tot. 0.7 ng/mL Normal 0.1-3.5 [facility] Comment on above: Result Comment: The concentration of PSA determined by different manufacturers can vary due to differences in assay methods and reagent specificity. Values obtained from different assay methods cannot be used interchangeably. The methodology used for this result was chemiluminescence using [employer]'s Access Hybritech PSA reagent. Performed By: #### 1 7619331, 3170883, 059972383, 8384404, 37452579, 5887292, 7554786 ####[address] [place] [address] eGFRon 09-30-2023 eGFR 100 mL/min/1.73 m2 Normal >=59 [facility] Comment on above: Order Comment: Order added by Discern Expert. Performed By: #### 1 9504533, 3233954, 423841964, 6438612, 70464601, 7745122, 1054398 ####[facility] [address] [place] [address] CNOVon 09-20-2023 CNOV Office Visit (ORTHCO ) -- MARCK HAMEED ([id number]) 1955 M Date Time Provider Department 09/20/23 9:00 AM KATINA MERCHANT During your visit today, we recorded the following information about you: Katina Merchant, 09/20/2023 10:48 AM Signed CONSULT ORTHOPAEDIC: KNEE PRIMARY CARE PHYSICIAN: No primary care provider on file. REFERRING PROVIDER: SELF ASSESSMENT AND PLAN Subjective: Marck Hameed is a 68 year old patient . Significant past surgical history of right EVIN, right TKA, right total ankle arthroplasty, left TKA. He is presenting for second evaluation of left knee pain. Has been followed by Dr. Deluna who recommended our office for evaluation. Patient had primary left total knee [place] [address] Call with uneventful recovery and course up until this past May. Patient reports progressive symptoms including pain with prolonged use and range of motion limitations. Denies any recent known injury or illness. No history of prosthetic joint infection. Exam: NVI, 5-90 ROM actively with 5 degree extensor lag. Stable AP stress with laxity medial lateral with firm endpoints. Tenderness to palpation about medial femoral condyle. Imaging: Left knee X-Ray: Prior total knee arthroplasty with stemmed tibial component and medial wedge augment. Compared to prior imaging femoral component appears to be loose with medial femoral condyle loose and medialized. There is joint line elevation there is a CT in pain from June or anything anything in particular concern for tibial loosening with lytic areas around the lateral baseplate. Implants: Persona revision with CCK vs RHK vs OSS distal femur(3cm), Reena tibial and femoral cones, femoral revision with cemented stem, assessment of the tibial component with possible revision for both loosening and stability, ESR CRP, aspiration, aspirin, Doxy 3 months Impression: Left failed total knee arthroplasty Diagnoses: (M25.562) Left knee pain, unspecified chronicity (primary encounter diagnosis) Based upon the evaluation today and after discussions with Marck Hameed, Marck Hameed has significant, worsening pain at the knee. This pain is increased with activity and weight bearing, and interferes with activities of daily living. These symptoms have continued despite a number of non-surgical measures, including a trial of oral pain medication and attempted physical therapy/ structured exercise program and/or use of an assistive device/ bracing (for at least 12 weeks unless the patient was unable to tolerate these measures as discussed above). At this point, the patient will not benefit from further PT due to the severity of their condition. The patient's physical examination is consistent with limitations in range of motion, pain with passive range of motion, crepitus, and effusion/ synovitis. These examination findings are corroborated by imaging findings of joint space narrowing, periarticular osteophyte formation, and subchondral sclerosis. The patient has been treated by the practice and all reasonable treatments have failed to control the disease, which causes significant pain and limits activities of daily living. The patient has failed conservative treatment and joint replacement surgery was discussed and agreed upon by both provider and patient. We will proceed with surgical management to improve function and relieve pain refractory to non-surgical measures. Left revision total Knee Arthroplasty as evidenced by progressive symptoms. Progressive Symptoms Include: Pain impacting sleep or causing fatigue Pain impacting work Pain worsened by weight bearing Pain effecting living situation Further details and HPI . Surgery Details Date and Location: [place] [facility]. Implants: Edd Robotic: No Predicted LOS: 2 days (Inpatient candidate) Informed consent obtained in the office today. The risks and benefits of surgery were discussed at length including but not limited to the risks of infection, bleeding, nerve or blood vessel injury, deep venous thrombosis, pulmonary embolism, arthrofibrosis, reflex sympathetic dystrophy, , paralysis, knee or patellar dislocation, extensor mechanism injury, bone fracture, component loosening or failure requiring re-operation or amputation. Informed consent was obtained and the patient was scheduled for surgery. We also discussed fixation strategies including cement and cementless fixation and advantages and disadvantages of each. We discussed the details of the surgery as well as rehabilitation. All questions were answered, and the patient wishes to proceed with surgery.. The patient has been ordered: Appointment on 09/20/23 XR LEG FRONTAL HIP TO ANKLE MECHANICAL AXIS ESR CRP Aspiration CONSULTS: Internal Medicine Consult for preoperative clearance. To (more content not included)... Normal [facility] No Panel Informationon 09-20 Radiology Study observation (narrative) [facility] XR KNEE 4V AP/PA BOTH+LAT/ME R LTon 09-20-2023 XR KNEE 4V AP/PA BOTH+LAT/JENNIFER LT * * *Final Report* * * DATE OF EXAM: Sep 20 2023 8:58AM CRX [id number] - XR KNEE 4V AP/PA BOTH+LAT/JENNIFER LT / PROCEDURE REASON: Pain * * * * Physician Interpretation * * * * HISTORY (as given from clinical provider): Pain . Additional history provided by the performing technologist (if any): PT STS PIN LOOSE IN LEFT KNEE TECHNIQUE: XR KNEE 4V AP/PA BOTH+LAT/JENNIFER LT COMPARISON: Imported radiographs 06/03/2023 RESULT: Total knee arthroplasty with subsidence of the femoral component, similar to the comparison. Joint effusion. No other significant abnormality. Application Packager: [facility] Transcribe Date/Time: Sep 20 2023 9:43A Dictated by : ROSALINDA BARRY MD This examination was interpreted and the report reviewed and electronically signed by: ROSALINDA BARRY MD on Sep 20 2023 9:46AM EST [id number] Normal [facility] XR Knee - left 4 Viewson * * *Final Report* * * DATE OF EXAM: Sep 20 2023 8:58AM CRX [id number] - XR KNEE 4V AP/PA BOTH+LAT/JENNIFER LT / PROCEDURE REASON: Pain * * * * Physician Interpretation * * * * HISTORY (as given from clinical provider): Pain . Additional history provided by the performing technologist (if any): PT STS PIN LOOSE IN LEFT KNEE TECHNIQUE: XR KNEE 4V AP/PA BOTH+LAT/JENNIFER LT COMPARISON: Imported radiographs 06/03/2023 RESULT: Total knee arthroplasty with subsidence of the femoral component, similar to the comparison. Joint effusion. No other significant abnormality. Application Packager: [facility] Transcribe Date/Time: Sep 20 2023 9:43A Dictated by : ROSALINDA BARRY MD This examination was interpreted and the report reviewed and electronically signed by: ROSALINDA BARRY MD on Sep 20 2023 9:46AM EST DIVISION OF RADIOLOGY Provider, [facility] - 09/20/2023 * * *Final Report* * * DATE OF EXAM: Sep 20 2023 8:58AM CRX [id number] - XR KNEE 4V AP/PA BOTH+LAT/JENNIFER LT / PROCEDURE REASON: Pain * * * * Physician Interpretation * * * * HISTORY (as given from clinical provider): Pain . Additional history provided by the performing technologist (if any): PT STS PIN LOOSE IN LEFT KNEE TECHNIQUE: XR KNEE 4V AP/PA BOTH+LAT/JENNIFER LT COMPARISON: Imported radiographs 06/03/2023 RESULT: Total knee arthroplasty with subsidence of the femoral component, similar to the comparison. Joint effusion. No other significant abnormality. Application Packager: [employer] Transcribe Date/Time: Sep 20 2023 9:43A Dictated by : ROSALINDA BARRY MD This examination was interpreted and the report reviewed and electronically signed by: ROSALINDA BARRY MD on Sep 20 2023 9:46AM EST [facility] XR Knee - left 4 ViewsOrdere d By: [facility] Provider on 09-20-2023 [facility] XR LEG FRONTAL HIP TO ANKLE MECHANICAL AXISon 09-20-2023 [facility] XR LEG FRONTL HIP-ANKL MECH AXISon 09-20-2023 XR LEG FRONTL HIP-ANKL MECH AXIS * * *Final Report* * * DATE OF EXAM: Sep 20 2023 8:58AM CRX [id number] - XR LEG FRONTL HIP-ANKL MECH AXIS / PROCEDURE REASON: Left knee pain, unspecified chronicity * * * * Physician Interpretation * * * * EXAMINATION: XR LEG FRONTL HIP-ANKL MECH AXIS HISTORY: PT STS PIN LOOSE IN LEFT KNEE Left knee pain, unspecified chronicity . TECHNIQUE: XR LEG FRONTL HIP-ANKL MECH AXIS Laterality: BILATERAL Number of different views (projections): 1 EACH M: XB_1 COMPARISON: RESULT: Bilateral knee arthroplasties. The left biomechanical axis is 13 5.5 degrees varus and the right biomechanical axis is 8 degrees varus. There is a right total hip arthroplasty in place. No acute fracture or dislocation. There are no bony erosions. IMPRESSION: Biomechanical axis as described. Application Packager: [employer] Transcribe Date/Time: Sep 20 2023 9:43A Dictated by : BHUPENDRA SALES MD This examination was interpreted and the report reviewed and electronically signed by: BHUPENDRA SALES MD on Sep 20 2023 9:44AM EST [id number] Normal [facility] XR Lower extremity - bilater al AP W standingon 09-20-2023 IMPRESSION: Biomechanical axis as described. Application Packager: [facility] Transcribe Date/Time: Sep 20 2023 9:43A Dictated by : BHUPENDRA SALES MD This examination was interpreted and the report reviewed and electronically signed by: BHUPENDRA SALES MD on Sep 20 2023 9:44AM EST DIVISION OF RADIOLOGY * * *Final Report* * * DATE OF EXAM: Sep 20 2023 8:58AM CRX [id number] - XR LEG FRONTL HIP-ANKL MECH AXIS / PROCEDURE REASON: Left knee pain, unspecified chronicity * * * * Physician Interpretation * * * * EXAMINATION: XR LEG FRONTL HIP-ANKL MECH AXIS HISTORY: PT STS PIN LOOSE IN LEFT KNEE Left knee pain, unspecified chronicity . TECHNIQUE: XR LEG FRONTL HIP-ANKL MECH AXIS Laterality: BILATERAL Number of different views (projections): 1 EACH M: XB_1 COMPARISON: RESULT: Bilateral knee arthroplasties. The left biomechanical axis is 13 5.5 degrees varus and the right biomechanical axis is 8 degrees varus. There is a right total hip arthroplasty in place. No acute fracture or dislocation. There are no bony erosions. DIVISION OF RADIOLOGY Provider, [facility] - 09/20/2023 * * *Final Report* * * DATE OF EXAM: Sep 20 2023 8:58AM CRX [id number] - XR LEG FRONTL HIP-ANKL MECH AXIS / PROCEDURE REASON: Left knee pain, unspecified chronicity * * * * Physician Interpretation * * * * EXAMINATION: XR LEG FRONTL HIP-ANKL MECH AXIS HISTORY: PT STS PIN LOOSE IN LEFT KNEE Left knee pain, unspecified chronicity . TECHNIQUE: XR LEG FRONTL HIP-ANKL MECH AXIS Laterality: BILATERAL Number of different views (projections): 1 EACH M: XB_1 COMPARISON: RESULT: Bilateral knee arthroplasties. The left biomechanical axis is 13 5.5 degrees varus and the right biomechanical axis is 8 degrees varus. There is a right total hip arthroplasty in place. No acute fracture or dislocation. There are no bony erosions. IMPRESSION IMPRESSION: Biomechanical axis as described. Application Packager: [employer] Transcribe Date/Time: Sep 20 2023 9:43A Dictated by : BHUPENDRA SALES MD This examination was interpreted and the report reviewed and electronically signed by: BHUPENDRA SALES MD on Sep 20 2023 9:44AM [facility] BLOOD BANKOrdered By: Tenisha Gilbert on 07-10-2022 ABO/Rh Interp Positive Invalid Interpretation Code [facility] BB Subsection ABSC Gel Interp Negative (07/10/22 6:37 AM) Normal [facility] BB Subsection CHEMISTRYOrdered By: Lab ROP User on 07-10-2022 Glucose [Mass/Vol] 115 mg/dL High 55 - 99 mg/dL [facility] POC Subsection Comment on above: Result Comment: Jayna jony Meter POC Device SN [id number] Invalid Interpretation Code [facility] POC Subsection POC User ID [id number] Invalid Interpretation Code [facility] POC Subsection POC Username MARIA EUGENIA WILL Invalid Interpretation Code [facility] POC Subsection CHEMISTRYOrdered By: SYSTEM SYSTEM on 06-20-2022 Anion gap [Moles/Vol] 16 mmol/L Normal 6 - 16 mEq/L [facility] Chloride [Moles/Vol] 97 mmol/L Low 101 - 1 11 mmol/L [facility] CO2 [Moles/Vol] 25 mmol/L Normal 21 - 31 mmol/L [facility] Creatinine [Mass/Vol] 0.8 mg/dL Normal 0.5 - 1.3 mg/dL [facility] GFR/1.73 sq M.predicted among blacks MDRD (S/P/Bld) [Vol rate/Area] mL/min/1.73 m2 Normal >=59mL/min/ 1.73 m2 [facility] Chem S GFR/1.73 sq M.predicted among non-blacks MDRD (S/P/Bld) [Vol rate/Area] mL/min/1.73 m2 Normal >=59mL/min/ 1.73 m2 [facility] Chem S Glucose [Mass/Vol] 132 mg/dL Normal 55 - 199 mg/dL [facility] Potassium [Moles/Vol] 4.1 mmol/L Normal 3.5 - 5.3 mmol/L [facility] Sodium [Moles/Vol] 134 mmol/L Low 135 - 145 mmol/L [facility] Urea nitrogen [Mass/Vol] 20 mg/dL Normal 5 - 21 mg/dL [facility] HEMATOLOGYOrdered By: Ada Dong on 06-20-2022 Erythrocyte distribution width (RBC) [Ratio] 13.8 % Normal 10.9 - 14.2 % [facility] HemeAutoSS Hematocrit (Bld) [Volume fraction] 40.2 % Normal 37.7 - 49.0 % [facility] HemeAutoSS Hemoglobin (Bld) [Mass/Vol] 13.7 g/dL Normal 13.5 - 17.5 gm/dL [facility]eAutoSS MCH (RBC) [Entitic mass] 30.1 pg Normal 27.0 - 34.0 pg [facility]eAutoSS MCHC (RBC) [Mass/Vol] 34.1 g/dL Normal 31.4 - 36.0 gm/dL [facility]eAutoSS MCV (RBC) [Entitic vol] 88.3 fL Normal 80.0 - 100.0 fL [facility] Platelet mean volume (Bld) [Entitic vol] 7.2 fL Normal 6.4 - 10.8 fL [facility] HemeAutoSS Platelets (Bld) [#/Vol] 330.0 E9/L Normal 150.0 - 500.0 E9/L [facility] HemeAutoSS RBC (Bld) [#/Vol] 4.6 E12/L Normal 4.3 - 5.9 E12/L [facility]eAutoSS WBC corrected for nucl RBC Auto (Bld) [#/Vol] 7.2 E9/L Normal 4.0 - 11.0 E9/L [facility] URINALYSISOrdered By: Tadeo Donald on 06-20-2022 Bilirubin Ql (U) Negative (06/20/22 1:10 PM) Normal Negative [facility] UA Auto SS Clarity (U) Clear (06/20/22 1:10 PM) Normal Clear [facility] UA Auto SS Color (U) Yellow (06/20/22 1:10 PM) Normal Yellow [facility] UA Auto SS Epithelial cells.squamous LM.HPF (Urine sed) [#/Area] 0-2 /HPF Normal 0-2/HPF [facility] UA Auto SS Glucose Test strip (U) [Mass/Vol] Negative (06/20/22 1:10 PM) Normal Negative [facility] UA Auto SS Hemoglobin Ql (U) Negative (06/20/22 1:10 PM) Normal Negative [facility] UA Auto SS Ketones (U) [Mass/Vol] Negative (06/20/22 1:10 PM) Normal Negative [facility] UA Auto SS [place].plasma/Lith[place] um.RBC (Bld) [Mass ratio] 0-3 /HPF Normal 0-3/HPF [facility] UA Auto SS Nitrite Ql (U) Negative (06/20/22 1:10 PM) Normal Negative [facility] UA Auto SS pH (U) 6.5 *NA* (06/20/22 1:10 PM) Invalid Interpretation Code 5.0 - 9.0 [facility] UA Auto SS Protein (U) [Mass/Vol] Negative (06/20/22 1:10 PM) Normal Negative [facility] UA Auto SS Specific gravity (U) [Rel density] 1.020 *NA* (06/20/22 1:10 PM) Invalid Interpretation Code 1.005 - 1.030 [facility] UA Auto SS UA Spec Desc Clean Catch (06/20/22 1:10 PM) Normal [facility] UA Auto SS Urobilinogen Qn (U) [id number] {Oskar'U}/dL Normal 0.0 - 1.0 EU/dL [facility] UA Auto SS WBC Auto Ql (U) Negative (06/20/22 1:10 PM) Normal Negative [facility]A Auto SS WBC LM.HPF (Urine sed) [#/Area] 0-5 /HPF Normal 0-5/HPF [facility] UA Auto SS CHEMISTRYOrdered By: SYSTEM SYSTEM on 03-19-2022 Albumin [Mass/Vol] 4.0 g/dL Normal 3.3 - 5.0 gm/dL [facility] Albumin/Globulin [Mass ratio] 1.2 {ratio} Normal 1.1 - 2.2 [facility] ALP [Catalytic activity/Vol] 71 [iU]/d Normal 21 - 98 Int._Unit/L [facility] ALT No additional P-5'-P [Catalytic activity/Vol] 25 [iU]/d Normal 6 - 46 Int._Unit/L [facility] Anion gap [Moles/Vol] 11 mmol/L Normal 6 - 16 mEq/L [facility] AST [Catalytic activity/Vol] 25 [iU]/d Normal 5 - 43 Int._Unit/L [facility] Bilirubin [Mass/Vol] 0.6 mg/dL Normal 0.0 - 1 .1 mg/dL [facility] Calcium [Mass/Vol] 9.4 mg/dL Normal 8.9 - 11. 1 mg/dL [facility] Chloride [Moles/Vol] 98 mmol/L Low 101 - 1 11 mmol/L [facility] Cholesterol [Mass/Vol] 151 mg/dL Normal 120 - 200 mg/dL [facility] Cholesterol in HDL [Mass/Vol] 55 mg/dL Invalid Interpretation Code [facility] Cholesterol in LDL [Mass/Vol] 79 mg/dL Normal <=129mg/dL [facility] Cholesterol in VLDL [Mass/Vol] 28 mg/dL Normal 7 - 40 mg/dL [facility] CO2 [Moles/Vol] 28 mmol/L Normal 21 - 31 mmol/L [facility] Creatinine [Mass/Vol] 0.8 mg/dL Normal 0.5 - 1.3 mg/dL [facility] GFR/1.73 sq M.predicted among blacks MDRD (S/P/Bld) [Vol rate/Area] mL/min/1.73 m2 Normal >=59mL/min/ 1.73 m2 [facility] Chem S GFR/1.73 sq M.predicted among non-blacks MDRD (S/P/Bld) [Vol rate/Area] mL/min/1.73 m2 Normal >=59mL/min/ 1.73 m2 [facility] Chem S Globulin (S) [Mass/Vol] 3.2 g/dL Normal 1.4 - 4.0 gm/dL [facility] Glucose [Mass/Vol] 112 mg/dL Normal 55 - 199 mg/dL [facility] Potassium [Moles/Vol] 4.4 mmol/L Normal 3.5 - 5.3 mmol/L [facility] Prostate specific Ag [Mass/Vol] 0.3 ng/mL Normal 0.1 - 3.5 ng/mL [facility] Protein [Mass/Vol] 7.2 g/dL Normal 6.0 - 7.8 gm/dL [facility] Sodium [Moles/Vol] 133 mmol/L Low 135 - 145 mmol/L [facility] Triglyceride [Mass/Vol] 141 mg/dL Normal <=149mg/dL [facility] TSH Qn 3.14 m[IU]/L Normal 0.34 - 5.60 mcIU/mL [facility] Urea nitrogen [Mass/Vol] 21 mg/dL Normal 5 - 21 mg/dL [facility] Urea nitrogen/Creatinine [Mass ratio] 26 mg/mg High 10 - 20 [facility] Remisol CHEMISTRYOrdered By: Nancy ortiz on 03-19-2022 HbA1c (Bld) [Mass fraction] 6.0 % High <=5.9% [facility] ChemAutoSS Vital Signs Date Time Vital Sign Value Performing Clinician Facility 09-25-2024 07:47-0500 Blood Pressure Location [facility] 09-25-2024 07:47-0500 Diastolic blood pressure 80 mm[Hg] [facility] 09-25-2024 07:47-0500 Heart rate 76 /min Clive KAPLE [facility] 09-25-2024 07:47-0500 SaO2% (BldA) [Mass fraction] 98 % Clive K[facility]LE [facility] 09-25-2024 07:47-0500 Systolic blood pressure 132 mm[Hg] Clive KAPLE [facility] 03-24-2024 07:52-0400 Blood Pressure Location [facility] 03-24-2024 07:52-0400 Body temperature 97.88 [degF] Clive K[facility]LE [facility] 03-24-2024 07:52-0400 Diastolic blood pressure 68 mm[Hg] Clive KAPLE [facility] 03-24-2024 07:52-0400 Heart rate 75 /min Clive [facility] 03-24-2024 07:52-0400 Respiratory rate 18 /min Clive [facility]LE [facility] 03-24-2024 07:52-0400 SaO2% (BldA) [Mass fraction] 99 % Clive K[facility]LE [facility] 03-24-2024 07:52-0400 Systolic blood pressure 120 mm[Hg] Clive KAPLE [facility] 10-10-2023 11:35-0500 Body height 160 cm Pacc 1 Work Phone: [facility] 10-10-2023 11:35-0500 Body temperature 98.29 [degF] Pacc 1 Work Phone: [facility] 10-10-2023 11:35-0500 Body weight 91.63 kg Pacc 1 Work Phone: [facility] 10-10-2023 11:35-0500 Diastolic blood pressure 55 mm[Hg] Pacc 1 Work Phone: [facility] 10-10-2023 11:35-0500 Heart rate 69 /min Pacc 1 Work Phone: [facility] 10-10-2023 11:35-0500 SaO2% (BldA) [Mass fraction] 95 % Pacc 1 Work Phone: [facility] 10-10-2023 11:35-0500 Systolic blood pressure 90 mm[Hg] Pacc 1 Work Phone: [facility] 09-26-2023 08:32-0500 Blood Pressure Location Clive RUVALCAB[facility] 09-26-2023 08:32-0500 Body temperature 97.88 [degF] Clive [facility]LE [facility] 09-26-2023 08:32-0500 Diastolic blood pressure 66 mm[Hg] Clive [facility]LE [facility] 09-26-2023 08:32-0500 Heart rate 63 /min Clive [facility]LE [facility] 09-26-2023 08:32-0500 Respiratory rate 18 /min Clive [facility]LE [facility] 09-26-2023 08:32-0500 SaO2% (BldA) [Mass fraction] 100 % Clive [facility] 09-26-2023 08:32-0500 Systolic blood pressure 122 mm[Hg] Clive [facility]LE [facility] 04-15-2023 11:26-0400 Blood Pressure Location Clive [facility]LE [facility] 04-15-2023 11:26-0400 Body temperature 97.88 [degF] Clive [facility]LE [facility] 04-15-2023 11:26-0400 Diastolic blood pressure 60 mm[Hg] Clive KAPLE [facility] 04-15-2023 11:26-0400 Heart rate 77 /min Clive KAPLE [facility] 04-15-2023 11:26-0400 Respiratory rate 18 /min Clive K[facility]LE [facility] 04-15-2023 11:26-0400 SaO2% (BldA) [Mass fraction] 98 % Clive KAPLE [facility] 04-15-2023 11:26-0400 Systolic blood pressure 112 mm[Hg] Clive K[facility]LE [facility] 02-28-2023 09:33-0400 Blood Pressure Location Clive [facility]LE [facility] 02-28-2023 09:33-0400 Body temperature 96.98 [degF] Clive [facility] 02-28-2023 09:33-0400 Diastolic blood pressure 60 mm[Hg] Clive [facility] 02-28-2023 09:33-0400 Heart rate 68 /min Clive [facility]LE [facility] 02-28-2023 09:33-0400 SaO2% (BldA) [Mass fraction] 97 % Clive [facility]LE [facility] 02-28-2023 09:33-0400 Systolic blood pressure 104 mm[Hg] Clive RUVALCABALE [facility] 07-10-2022 13:29-0500 Blood Pressure Location Carol Poc[facility] 07-10-2022 13:29-0500 Diastolic blood pressure 87 mm[Hg] [facility] 07-10-2022 13:29-0500 Heart rate 72 /min [facility] 07-10-2022 13:29-0500 Mean blood pressure 102 mm[Hg] [facility] 07-10-2022 13:29-0500 Respiratory rate 18 /min [facility]oc[facility] 07-10-2022 13:29-0500 SaO2% (BldA) [Mass fraction] 94 % Carol [facility]oc[facility] 07-10-2022 13:29-0500 Systolic blood pressure 133 mm[Hg] [facility]oc[facility] 07-10-2022 11:24-0500 Blood Pressure Location Carol Pocos [facility] 07-10-2022 11:24-0500 Diastolic blood pressure 79 mm[Hg] [facility]oc[facility] 07-10-2022 11:24-0500 Heart rate 77 /min [facility] 07-10-2022 11:24-0500 Mean blood pressure 94 mm[Hg] [facility] 07-10-2022 11:24-0500 Respiratory rate 16 /min Carol Poc[facility] 07-10-2022 11:24-0500 SaO2% (BldA) [Mass fraction] 95 % [facility] Poc[facility] 07-10-2022 11:24-0500 Systolic blood pressure 125 mm[Hg] [facility] 07-10-2022 10:03-0500 Blood Pressure Location Carol Poc[facility] 07-10-2022 10:03-0500 Diastolic blood pressure 79 mm[Hg] [facility] 07-10-2022 10:03-0500 Heart rate 72 /min [facility] 07-10-2022 10:03-0500 Mean blood pressure 91 mm[Hg] [facility] 07-10-2022 10:03-0500 Respiratory rate 18 /min [facility]oc[facility] 07-10-2022 10:03-0500 SaO2% (BldA) [Mass fraction] 95 % [facility]oc[facility] 07-10-2022 10:03-0500 Systolic blood pressure 114 mm[Hg] [facility] 07-10-2022 09:55-0500 Body temperature 97.7 [degF] [facility] 07-10-2022 09:55-0500 Respiratory rate 18 /min [facility] 07-10-2022 09:40-0500 Respiratory rate 16 /min [facility] 07-10-2022 09:35-0500 Respiratory rate 12 /min [facility]oc[facility] 07-10-2022 09:16-0500 Body temperature 97.52 [degF] [facility] 07-10-2022 06:19-0500 Body temperature 98.06 [degF] [facility] 07-10-2022 06:19-0500 BP/Pulse Patient Position Carol Pocos [facility] 07-10-2022 06:19-0500 Heart rate 80 /min [facility]oc[facility] 06-26-2022 09:16-0500 Blood Pressure Location Clive PEGKENYA [facility] 06-26-2022 09:16-0500 Diastolic blood pressure 70 mm[Hg] Clive RAYMOND [facility] 06-26-2022 09:16-0500 Heart rate 74 /min Clive RAYMOND [facility] 06-26-2022 09:16-0500 SaO2% (BldA) [Mass fraction] 98 % Clive CHEMO [facility] 06-26-2022 09:16-0500 Systolic blood pressure 110 mm[Hg] Clive PEGLE [facility] 06-20-2022 12:44-0400 Blood Pressure Location Carol Pocos [facility] 06-20-2022 12:44-0400 Body temperature 98.42 [degF] [facility] Poc[facility] 06-20-2022 12:44-0400 BP/Pulse Patient Position [facility] Poc[facility] 06-20-2022 12:44-0400 Diastolic blood pressure 87 mm[Hg] [facility] Poc[facility] 06-20-2022 12:44-0400 Heart rate 82 /min Carol Poc[facility] 06-20-2022 12:44-0400 Mean blood pressure 108 mm[Hg] [facility]oc[facility] 06-20-2022 12:44-0400 Respiratory rate 20 /min [facility] Poc[facility] 06-20-2022 12:44-0400 SaO2% (BldA) [Mass fraction] 97 % [facility] Poc[facility] 06-20-2022 12:44-0400 Systolic blood pressure 151 mm[Hg] [facility] Poc[facility] 03-26-2022 07:38-0400 Blood Pressure Location Clive RAYMOND [facility] 03-26-2022 07:38-0400 Body temperature 97.88 [degF] Clive RAYMOND [facility] 03-26-2022 07:38-0400 Diastolic blood pressure 78 mm[Hg] Clive KAPLE [facility] 03-26-2022 07:38-0400 Heart rate 70 /min Clive KAPLE [facility] 03-26-2022 07:38-0400 Respiratory rate 16 /min Clive KAPLE [facility] 03-26-2022 07:38-0400 SaO2% (BldA) [Mass fraction] 98 % Clive KAPLE [facility] 03-26-2022 07:38-0400 Systolic blood pressure 124 mm[Hg] Clive KAPLE [facility] 03-09-2022 09:23-0400 Blood Pressure Location Clive KAPLE [facility] 03-09-2022 09:23-0400 Body temperature 97.88 [degF] Clive KAPLE [facility] 03-09-2022 09:23-0400 Diastolic blood pressure 72 mm[Hg] Clive KAPLE [facility] 03-09-2022 09:23-0400 Heart rate 70 /min Clive KAPLE [facility] 03-09-2022 09:23-0400 SaO2% (BldA) [Mass fraction] 96 % Clive KAPLE [facility] 03-09-2022 09:23-0400 Systolic blood pressure 128 mm[Hg] Clive KAPLE [facility] 03-06-2022 13:14-0400 Blood Pressure Location [facility] 03-06-2022 13:14-0400 Body temperature 98.42 [degF] [facility] 03-06-2022 13:14-0400 Diastolic blood pressure 70 mm[Hg] [facility] 03-06-2022 13:14-0400 Heart rate 78 /min [facility] 03-06-2022 13:14-0400 SaO2% (BldA) [Mass fraction] 98 % [facility] 03-06-2022 13:14-0400 Systolic blood pressure 110 mm[Hg] [facility] Encounters Encounter Date Encounter Type Care Provider Facility Start: 03-21-2026 ambulatory Clive A KAPLE Facility: [facility] Start: 06-22-2025 ambulatory Clive A KAPLE Facility: [facility] Start: 06-21-2025 ambulatory Clive A KAPLE Facility: [facility] Start: 03-23-2025 ambulatory Clive A KAPLE Facility: [facility] Start: 03-19-2025 End: 03-19-2025 Well adult monitoring check done Clive A KAPLE [facility] Start: 03-19-2025 End: 03-19-2025 ambulatory Clive RAYMOND Facility:[facility] Start: 03-19-2025 End: 03-19-2025 Patient encounter procedure Clive RAYMOND [facility] Start: 01-04-2025 End: 01-04-2025 Bamboo flowsheet Lorraine A Felter DEMENTIA PROGRAM DIRECTOR-WATCH ENGINEER Work Phone: [facility] Start: 01-04-2025 End: 01-04-2025 Bamboo flowsheet Lorraine A Felter DEMENTIA PROGRAM DIRECTOR-WATCH ENGINEER Work Phone: [facility] Start: 01-04-2025 End: 01-04-2025 Office outpatient visit 15 minutes Lorraine A Felter DEMENTIA PROGRAM DIRECTOR-WATCH ENGINEER Work Phone: [facility] Comment on above: Seborrheic keratosis ; Lentigines; Melanocytic nevus of trunk; Actinic keratosis Start: 09-25-2024 End: 09-25-2024 ambulatory Clive RAYMOND Facility:[facility] Start: 09-25-2024 End: 09-25-2024 Patient encounter procedure Clive RAYMOND [facility] Start: 09-16-2024 End: 09-16-2024 ambulatory Clive RAYMOND [facility] Start: 09-16-2024 End: 09-16-2024 Patient encounter procedure Clive RAYMOND [facility] Start: 07-27-2024 End: 07-27-2024 Telephone encounter Carol Deluna DO Work Phone: [facility] Start: 07-06-2024 End: 07-06-2024 Bamboo flowsheet Lorraine A Felter DEMENTIA PROGRAM DIRECTOR-WATCH ENGINEER Work Phone: [facility] Start: 07-06-2024 End: 07-06-2024 Bamboo flowsheet Lorraine A Felter DEMENTIA PROGRAM DIRECTOR-WATCH ENGINEER Work Phone: [facility] Start: 07-06-2024 End: 07-06-2024 ambulatory LORRAINE GRACE Not Available Start: 07-06-2024 End: 07-06-2024 Office outpatient visit 15 minutes Lorraine Grace DEMENTIA PROGRAM DIRECTOR-WATCH ENGINEER Work Phone: [facility] Comment on above: Actinic keratosis; Lentigines; Inflamed seborrheic keratosis; Seborrheic keratosis Start: 03-24-2024 End: 03-24-2024 ambulatory Clive RAYMOND Facility:[facility] Start: 03-24-2024 End: 03-24-2024 Patient encounter procedure Clive RAYMOND [facility] Start: 03-24-2024 End: 03-24-2024 Well adult monitoring check done Clive RAYMOND [facility] Start: 03-18-2024 End: 03-18-2024 ambulatory Clive RAYMOND Facility:[facility] Start: 03-18-2024 End: 03-18-2024 Patient encounter procedure Clive RAYMOND [facility] Start: 03-18-2024 End: 03-18-2024 Well adult monitoring check done Clive RAYMOND [facility] Start: 02-27-2024 ambulatory Clive RAYMOND Facility: [facility] Start: 12-27-2023 End: 12-27-2023 ambulatory Shante Bernardo RT(R) Radiology Comment on above: Radiology XR Start: 12-27-2023 End: 12-27-2023 Patient encounter procedure Shante Bernardo RT(R) Radiology Comment on above: Chronic pain of left knee [M25.562, G89.29] (Primary Dx) Start: 12-27-2023 End: 12-27-2023 Subsequent hospital visit by physician Xr [address] [facility] Work Phone: Radiology Comment on above: Failure of total kne e replacement, initial encounter ([facility]) ([facility]) [T84.018A, Z96.659] Start: 11-12-2023 End: 04-26-2024 ambulatory CHELY YOUNG Facility:[facility] Start: 11-08-2023 Telephone encounter Katina garcia DO Work Phone: Orthopaedics Comment on above: Orders Start: 11-07-2023 End: 11-07-2023 ambulatory CLIVE RAYMOND Facility:[facility] Start: 11-07-2023 End: 11-07-2023 Patient encounter procedure Chely Young PA-C Work Phone: Orthopaedics Comment on above: S/P revision of tota l knee, left (Primary Dx) Start: 11-07-2023 End: 11-07-2023 Subsequent hospital visit by physician Xr [facility] Start: 10-18-2023 Telephone encounter Clive hammonds DO Work Phone: NOC Comment on above: Follow Up Phone Call (All Clear) Start: 10-17-2023 End: 10-17-2023 ambulatory Clive RAYMOND Facility:[id number] Start: 10-14-2023 End: 10-16-2023 [facility] Start: 10-10-2023 End: 10-11-2023 ambulatory [facility] Facility:[facility] Start: 10-10-2023 Encounter for other preprocedural examination [facility] Start: 10-10-2023 End: 10-10-2023 Admission to [facility] 1 Work Phone: [facility] Start: 10-10-2023 End: 10-10-2023 [place] [id number] Work Phone: Pre Anesthesia Comment on above: Pre-op evaluation (P rimary Dx); Essential (primary) hypertension; Obesity, Class II, BMI 35-39.9, isolated (see actual BMI); Suspected sleep apnea; Alcohol use Start: 10-10-2023 End: 10-10-2023 Preprocedural examination done [facility] Deepak Norton Work Phone: [facility] Work Phone: Start: 10-10-2023 End: 10-10-2023 Subsequent hospital visit by [facility] Comment on above: Failure of total kne e replacement, initial encounter (HCC) (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) ([facility]) Anemia, unspecified type (Primary Dx); Failure of total knee replacement, initial encounter ([facility]) ([facility]); Vitamin D deficiency, unspecified Start: 09-20-2023 End: 09-20-2023 ambulatory [facility] Facility:[facility] Start: 09-20-2023 End: 09-20-2023 Subsequent hospital visit by physician [address] [facility] Work Phone: Radiology Comment on above: Pain [R52] Start: 07-23-2023 Orders Only Katina stone DO Work Phone: Referring Physician Comment on above: Pain (Primary Dx) Start: 07-08-2023 End: 07-08-2023 ambulatory CAROL Amezquita POCOS Not Available Start: 06-26-2023 End: 06-26-2023 Patient encounter procedure Carol Deluna [facility] Start: 04-15-2023 End: 04-15-2023 Patient encounter procedure Clive RAYMOND [facility] Start: 02-28-2023 End: 02-28-2023 Patient encounter procedure Clive RAYMOND [facility] Start: 02-28-2023 End: 02-28-2023 Well adult monitoring check done Clive RAYMOND [facility] Start: 07-23-2022 End: 11-20-2022 Admission to same day surgery center Carol Deluna [facility] Start: 07-10-2022 End: 07-10-2022 Admission to same day surgery center Carol Deluna [facility] Start: 06-26-2022 End: 06-26-2022 Patient encounter procedure Clive RAYMOND [facility] Start: 06-26-2022 End: 06-26-2022 Preprocedural examination done Clive RAYMOND [facility] Start: 06-20-2022 End: 06-20-2022 Patient encounter procedure Carol Deluna [facility] Start: 05-02-2022 End: 05-03-2022 ambulatory [facility] Facility:H1 Start: 04-26-2022 ambulatory Facility:[id number] Start: 04-26-2022 End: 04-26-2022 Patient encounter procedure Clive RAYMOND [facility] Start: 03-26-2022 End: 03-26-2022 Patient encounter procedure Clive RAYMOND [facility] Start: 03-26-2022 End: 03-26-2022 Preprocedural examination done Clive RAYMOND [facility] Start: 03-19-2022 End: 03-19-2022 Patient encounter procedure Blu Espinal [facility] Start: 03-09-2022 End: 03-09-2022 Patient encounter procedure Clive RAYMOND [facility] Start: 03-09-2022 End: 03-09-2022 Well adult monitoring check done Clive RAYMOND [facility] Start: 03-06-2022 End: 03-06-2022 Patient encounter procedure Blu Espinal [facility] Start: 03-06-2022 End: 03-06-2022 Patient encounter procedure Blu Espinal [facility] Procedures Date Procedure Procedure Detail Performing Clinician Start: 03-19-2025 Vaccine refused by patient Clive RAYMOND Start: 01-04-2025 CRYOTHERAPY SKIN LESION Lorraine Grace DEMENTIA PROGRAM DIRECTOR-WATCH ENGINEER Work Phone: Start: 07-06-2024 End: 07-06-2024 CRYOTHERAPY SKIN LESION Lorraine Grace DEMENTIA PROGRAM DIRECTOR-WATCH ENGINEER Work Phone: Start: 12-27-2023 Radiologic examinati on knee 3 views Katina Merchant DO Work Phone: Start: 11-07-2023 Radiologic examinati on knee 1/2 views Katina Merchant DO Work Phone: Start: 10-10-2023 Antibody screen KATINA GREENE Comment on above: Order Comment: Speci men Type: BLOOD SPECIMEN Ordering Facility: [facility] Address: [address] [place] [address] Performed By: #### T [id number] #### [facility] [id number] [address] [place] [address] [place] Start: 10-10-2023 Arthrocentesis aspir &/inj major jt/bursa w/us Katina Merchant DO Work Phone: Start: 10-10-2023 Cell count misc body fluids w/differential count Katina Merchant DO Work Phone: Start: 10-10-2023 Culture fngi mold/ye ast prsmptv oth xcpt blood Katina Merchant DO Work Phone: Start: 10-10-2023 SYNOVIAL FLUID MANUA L DIFF Katina Merchant DO Work Phone: Start: 09-20-2023 H/O: artificial joint Presence of right artificial ankle joint Katina Merchant DO Work Phone: Start: 09-20-2023 History of decompres thea of median nerve History of carpal tunnel release Katina Merchant DO Work Phone: Start: 09-20-2023 History of operative procedure on knee History of bilateral knee replacement Katina Merchant DO Work Phone: Start: 09-20-2023 Radiologic exam knee complete 4/more views Katina Merchant DO Work Phone: Start: 02-28-2023 Vaccine refused by patient Clive RAYMOND Start: 07-10-2022 Repair of hip Carol Poc os Start: 03-09-2022 Vaccine refused by patient Clive RAYMOND Start: 03-30-2020 Decompression of med erin nerve Blu Espinal Start: 06-29-2019 Excision of spermatocele Blu Espinal Start: 01-01-2017 Colonoscopy Lorraine bang DEMENTIA PROGRAM DIRECTOR-WATCH ENGINEER Work Phone: Start: 01-01-2017 Colonoscopy Blu infante Start: 02-07-2016 Right Total Knee Revision Blu Espinal Appendectomy Blu Espinal Arthroscopic knee operation Blu Espinal Comment on above: 1977 left 2 on the right, then 2 more on the left Arthroscopy of shoulder Scar d Pocos bilat TKR 2 Blu Espinal Comment on above: 2004 History of decompres thea of median nerve History of carpal tunnel release( Confirmed ) Blu Espinal History of operative procedure on knee History of bilateral knee replacement( Confirmed ) Blu Espinal right total ankle replacement Blu Espinal right total ankle replacement 3 Carol Pocos Comment on above: 2018 Plan of Treatment Date Care Activity Detail Author Start: 01-01-2027 Screening for malign ant neoplasm of colon [facility] Start: 10-15-2026 Diabetes Screening Diabetes Screenin [facility] Start: 10-10-2026 Diabetes Screening Diabetes Screenin g [facility] Start: 07-08-2025 End: 07-08-2025 Patient encounter procedure 07/08/2025 9:10 AM EST [facility] [address] [place] [id number] Lorraine Grace, DEMENTIA PROGRAM DIRECTOR-WATCH ENGINEER [address] [place] [address] [facility] Start: 07-07-2025 End: 07-07-2025 Patient encounter procedure 07/07/2025 9:00 AM EST Office Visit [facility] [address] [place] [address] Carol Deluna DO [address] [place] [address] [facility] Start: 04-19-2025 Influenza vaccination Influenz a Vaccine (Season Ended) [facility] Start: 01-04-2025 End: 01-04-2025 Patient encounter procedure [facility] Comment on above: Arrived Start: 10-10-2024 BP Controlled (<130/80) BP Controlle d (<130/80) [facility] Start: 04-19-2024 Covid-19 Vaccine ( season) Covid-19 Vaccine () [facility] Start: 04-19-2024 Influenza vaccination [facility] Start: 10-07-2023 End: 01-06-2024 25-hydroxyvitamin D3 [Mass/volume] in Serum or Plasma VITAMIN D 25 HYDROXY Lab Routine Failure of total knee replacement, initial encounter (HCC) ([facility]) Vitamin D deficiency, unspecified Expected: 10/07/2023 (Approximate), Expires: 01/06/2024 [facility] Work Phone: Comment on above: Expected: 10/07/2023 (Approximate), Expires: 01/06/2024 Start: 10-07-2023 End: 01-06-2024 Albumin [Mass/volume] in Serum or Plasma ALBUMIN BLD Lab Routine Failure of total knee replacement, initial encounter (HCC) (HCC) Expected: 10/07/2023 (Approximate), Expires: 01/06/2024 [facility] Work Phone: Comment on above: Expected: 10/07/2023 (Approximate), Expires: 01/06/2024 Start: 10-07-2023 End: 01-06-2024 Bacteria identified in Wound by Culture ABSCESS AND WOUND CULTURE WITH GRAM STAIN Microbiology Routine Failure of total knee replacement, initial encounter (HCC) ([facility]) Expected: 10/07/2023 (Approximate), Expires: 01/06/2024 [facility] Work Phone: Comment on above: Expected: 10/07/2023 (Approximate), Expires: 01/06/2024 Start: 10-07-2023 End: 01-06-2024 Basic metabolic 2000 panel - Serum or Plasma BASIC METABOLIC PNL Lab Routine Failure of total knee replacement, initial encounter ([facility]) ([facility]) Expected: 10/07/2023 (Approximate), Expires: 01/06/2024 [facility] Work Phone: Comment on above: Expected: 10/07/2023 (Approximate), Expires: 01/06/2024 Start: 10-07-2023 End: 01-06-2024 BODY FLUID CELL COUNT BODY FLUID CELL COUNT Lab Routine Failure of total knee replacement, initial encounter ([facility]) ([facility]) Expected: 10/07/2023 (Approximate), Expires: 01/06/2024 [facility] Work Phone: Comment on above: Expected: 10/07/2023 (Approximate), Expires: 01/06/2024 Start: 10-07-2023 End: 01-06-2024 C reactive protein [Mass/volume] in Serum or Plasma C-REACTIVE PROTEIN (CRP) Lab Routine Failure of total knee replacement, initial encounter ([facility]) ([facility]) Expected: 10/07/2023 (Approximate), Expires: 01/06/2024 [facility] Work Phone: Comment on above: Expected: 10/07/2023 (Approximate), Expires: 01/06/2024 Start: 10-07-2023 End: 01-06-2024 CBC panel - Blood by Automated count CBC Lab Routine Failure of total knee replacement, initial encounter ([facility]) ([facility]) Expected: 10/07/2023 (Approximate), Expires: 01/06/2024 [facility] Work Phone: Comment on above: Expected: 10/07/2023 (Approximate), Expires: 01/06/2024 Start: 10-07-2023 End: 01-06-2024 CBC W Auto Differential panel - Blood CBC + DIFF Lab Routine Anemia, unspecified type Expected: 10/07/2023 (Approximate), Expires: 01/06/2024 [facility] Work Phone: Comment on above: Expected: 10/07/2023 (Approximate), Expires: 01/06/2024 Start: 10-07-2023 End: 01-06-2024 CONFIRM BLOOD TYPE CONFIRM BLOOD TYPE Blood Bank Routine Failure of total knee replacement, initial encounter ([facility]) ([facility]) Expected: 10/07/2023 (Approximate), Expires: 01/06/2024 [facility] Work Phone: Comment on above: Expected: 10/07/2023 (Approximate), Expires: 01/06/2024 Start: 10-07-2023 End: 01-06-2024 Erythrocyte sedimentation rate SED RATE WESTERGREN Lab Routine Failure of total knee replacement, initial encounter ([facility]) ([facility]) Expected: 10/07/2023 (Approximate), Expires: 01/06/2024 [facility] Work Phone: Comment on above: Expected: 10/07/2023 (Approximate), Expires: 01/06/2024 Start: 10-07-2023 End: 01-06-2024 Ferritin [Mass/volume] in Serum or Plasma FERRITIN BLD Lab Routine Anemia, unspecified type Expected: 10/07/2023 (Approximate), Expires: 01/06/2024 [facility] Work Phone: Comment on above: Expected: 10/07/2023 (Approximate), Expires: 01/06/2024 Start: 10-07-2023 End: 01-06-2024 Fungus identified in Unspecified specimen by Culture FUNGAL CULTURE Microbiology Routine Failure of total knee replacement, initial encounter ([facility]) ([facility]) Expected: 10/07/2023 (Approximate), Expires: 01/06/2024 [facility] Work Phone: Comment on above: Expected: 10/07/2023 (Approximate), Expires: 01/06/2024 Start: 10-07-2023 End: 01-06-2024 Iron and Iron binding capacity panel - Serum or Plasma IRON + TIBC Lab Routine Anemia, unspecified type Expected: 10/07/2023 (Approximate), Expires: 01/06/2024 [facility] Work Phone: Comment on above: Expected: 10/07/2023 (Approximate), Expires: 01/06/2024 Start: 10-07-2023 End: 01-06-2024 ROUTINE GRAM STAIN ROUTINE GRAM STAIN Microbiology Routine Failure of total knee replacement, initial encounter ([facility]) ([facility]) Expected: 10/07/2023 (Approximate), Expires: 01/06/2024 [facility] Work Phone: Comment on above: Expected: 10/07/2023 (Approximate), Expires: 01/06/2024 Start: 10-07-2023 End: 01-06-2024 SYNOVIAL FLUID, ROUTINE SYNOVIAL FLUID, ROUTINE Lab Routine Failure of total knee replacement, initial encounter ([facility]) ([facility]) Expected: 10/07/2023 (Approximate), Expires: 01/06/2024 [facility] Work Phone: Comment on above: Expected: 10/07/2023 (Approximate), Expires: 01/06/2024 Start: 10-07-2023 End: 01-06-2024 TYPE AND SCREEN,30 DAY TYPE AND SCREEN,30 DAY Blood Bank Routine Failure of total knee replacement, initial encounter ([facility]) ([facility]) Expected: 10/07/2023 (Approximate), Expires: 01/06/2024 [facility] Work Phone: Comment on above: Expected: 10/07/2023 (Approximate), Expires: 01/06/2024 Start: 09-30-2023 End: 12-30-2023 Bacteria identified in Unspecified specimen by Anaerobe culture ANAEROBE CULTURE Microbiology Routine Failure of total knee replacement, initial encounter ([facility]) ([facility]) Expected: 09/30/2023 (Approximate), Expires: 12/30/2023 [facility] Work Phone: Comment on above: Expected: 09/30/2023 (Approximate), Expires: 12/30/2023 Start: 08-19-2023 Advance Directive Discussion Advance Directive Discussion [facility] Start: 08-19-2023 Behavioral Health Screening Behavioral Health Screening [facility] Start: 08-19-2023 Depression Assessment Depression Ass essment [facility] Start: 04-19-2023 Covid-19 Vaccine ( season) Covid-19 Vaccine ( season) [facility] Start: 04-19-2023 Influenza vaccination Influenza Vacc ine (#1) [facility] Start: 08-19-2022 Advance Directive Discussion Advance Directive Discussion [facility] Start: 08-19-2022 Depression Assessment Depression Ass essment [facility] Start: 08-09-2020 Urine microalbumin profile DTaP,Tdap,Td Vaccine (2 - Td or Tdap) [facility] Start: 2020 Pneumococcal Vaccine : 65+ (1 - PCV) Pneumococcal Vaccine: 65+ (1 - PCV) [facility] Start: 2020 Pneumococcal Vaccine : 65+ (1 of 1 - PCV) Pneumococcal Vaccine: 65+ (1 of 1 - PCV) [facility] Start: 2020 Pneumococcal Vaccine : 65+ Years (1 of 1 - PCV) Pneumococcal Vaccine: 65+ Years (1 of 1 - PCV) [facility] Start: 2015 RSV Vaccine (1 - 1-d ose 60+ series) RSV Vaccine (1 - 1-dose 60+ series) [facility] Start: 2010 Prostate Cancer Screening Discussion Prostate Cancer Screening Discussion [facility] Start: 2010 Prostate specific antigen measurement Prostate Cancer Screening Discussion [facility] Start: 2005 Pneumococcal Vaccine : 65+ Years (1 of 1 - PCV) Pneumococcal Vaccine: 65+ Years (1 of 1 - PCV) [facility] Start: 2005 Shingrix Vaccine (1 of 2) Shingrix Vaccine (1 of 2) [facility] Start: 2000 Cologuard (FIT-DNA) Cologuard (FIT-D NA) [facility] Start: 2000 Colonoscopy Colonoscopy [facility] Start: 2000 Colorectal Cancer Screening Colorectal Cancer Screening [facility] Start: [address] Colonography [facility] Start: 2000 Diabetes Screening Diabetes Screenin g [facility] Start: 2000 Fecal Occult Blood Fecal Occult Bloo d [facility] Start: 2000 Screening for malign ant neoplasm of colon [facility] Start: 2000 Sigmoidoscopy Sigmoidoscopy [facility] Start: 1990 Lipid 1996 panel - S janet or Plasma Lipid Screening [facility] Start: 1990 Lipid panel Lipid Screening [facility] Start: 1974 Urine microalbumin profile DTaP,Tdap,Td Vaccine (1 - Tdap) [facility] Start: 1973 Annual PCP Team Route Sales Associate amber Disease Visit Annual PCP Team Chronic Disease Visit [facility] Start: 1973 Anxiety Screening Anxiety Screening [facility] Start: 1973 BP Controlled (<130/80) BP Controlle d (<130/80) [facility] Start: 1973 Depression Screening Depression Scre ening [facility] Start: 1973 Hepatitis C Screening Hepatitis C [facility] Start: 1973 Hepatitis C screening Hepatitis C [facility] Start: 1955 Covid-19 Vaccine (#1) Covid-19 Vacci ne (#1) [facility] Start: 1955 Screening for malign ant neoplasm of colon [facility] End: 09-20-2024 ECG COMPLETE ECG COMPLETE ECG Routine Failure of total knee replacement, initial encounter (HCC) (HCC) 1 Occurrences starting 09/20/2023 until 09/20/2024 [facility] Work Phone: Comment on above: 1 Occurrences starti ng 09/20/2023 until 09/20/2024 End: 10-19-2024 IMAGING GUIDED ASP/INJ KNEE JT/BURSA LEFT IMAGING GUIDED ASP/INJ KNEE JT/BURSA LEFT Radiology Routine Failure of total knee replacement, initial encounter (HCC) (HCC) 1 Occurrences starting 09/20/2023 until 10/19/2024 [facility] Work Phone: Comment on above: 1 Occurrences starti ng 09/20/2023 until 10/19/2024 REFER FOR ADMIT INTERVIEW REFER FOR ADMIT INTERVIEW Procedures Routine Failure of total knee replacement, initial encounter (HCC) (HCC) Ordered: 09/20/2023 [facility] Work Phone: Comment on above: Ordered: 09/20/2023 End: 08-21-2024 XR KNEE GENERAL 4V AP BOTH/PA BOTH/LAT/MERC LEFT XR KNEE GENERAL 4V AP BOTH/PA BOTH/LAT/MERC LEFT Radiology Routine Pain 1 Occurrences starting 07/23/2023 until 08/21/2024 [facility] Work Phone: Comment on above: 1 Occurrences starti ng 07/23/2023 until 08/21/2024 End: 10-19-2024 XR KNEE POST OP 3V AP/LAT/MERCHANT LEFT XR KNEE POST OP 3V AP/LAT/MERCHANT LEFT Radiology Routine Failure of total knee replacement, initial encounter ([facility]) ([facility]) 1 Occurrences starting 09/20/2023 until 10/19/2024 [facility] Work Phone: Comment on above: 1 Occurrences starti ng 09/20/2023 until 10/19/2024 End: 10-18-2024 XR KNEE POST OP 3V AP/LAT/MERCHANT LEFT XR KNEE POST OP 3V AP/LAT/MERCHANT LEFT Radiology Routine Failure of total knee replacement, initial encounter ([facility]) ([facility]) 1 Occurrences starting 09/20/2023 until 10/18/2024 [facility] Work Phone: Comment on above: 1 Occurrences starti ng 09/20/2023 until 10/18/2024 [facility] Immunizations Immunization Date Immunization Notes Care Provider Austin britt 06-26-2022 influenza, high dose seasonal, preservative-free Clive RAYMOND [facility] 06-26-2022 influenza virus vaccine, unspecified formulation Katina Merchant DO Work Phone: [facility] 12-13-2020 SARS-CoV-2 (COVID-19 ) mRNA-1273 vaccine Blu Espinal [facility] Comment on above: Result Comment: [facility] 11-15-2020 SARS-CoV-2 (COVID-19 ) mRNA-1273 vaccine Blu Medinakenya [facility] Comment on above: Result Comment: [facility] 08-09-2010 tetanus toxoid, redu alonzo diphtheria toxoid, and acellular pertussis vaccine, adsorbed Blu [facility] Comment on above: Result Comment: Give n in the left deltoid NEGATED: Highlighted row has not occurred!09-26-2023 influenza virus vaccine, unspecified formulation Clive RAYMOND [facility] NEGATED: Highlighted row has not occurred!02-28-2023 pneumococcal polysaccharide vaccine, 23 valent Clive RAYMOND [facility] NEGATED: Highlighted row has not occurred!02-28-2023 pneumococcal conjugate vaccine, 13 valent Clive RAYMOND [facility] NEGATED: Highlighted row has not occurred!02-28-2023 SARS-CoV-2 mRNA (tozinameran 5y-11y) vaccine Clive RAYMOND [facility] Comment on above: Result Comment: p NEGATED: Highlighted row has not occurred!03-09-2022 pneumococcal polysaccharide vaccine, 23 valent Clive RAYMOND [facility] Comment on above: Result Comment: decl ined at this time NEGATED: Highlighted row has not occurred!03-09-2022 SARS-CoV-2 mRNA (tozinameran 5y-11y) vaccine Clive RAYMOND [facility] Comment on above: Result Comment: Roderick ter declined at this time Result Comment: Roderick ter declined at this time p Payers Date Payer Category Payer Private Health Insurance [id number] 2020 Medicare [id number] 2020 Unknown 1959 Medicare [id number] 1959 Unknown [id number] 1955 Unknown [id number] 2.16.84 [id number] 1955 Unknown [id number] 2.16. [id number] 1955 Unknown [id number] 2.16.84 [id number] 1955 Unknown [id number] 2.16.840 .[id number] 1955 Unknown [id number] 2.16.840 .[id number] 1955 Unknown [id number] 2.16.840 .1.715461.3.579.2.1259 1955 Unknown [id number] 2.16.8 40.1.022743.3.579.2.727 1955 Unknown [id number] 2.16.8 40.1.996098.3.579.2.727 1955 Unknown [id number] 2.16.8 40.1.957102.3.579.2.727 1955 Unknown [id number] 2.16.8 40.1.172106.3.579.2.727 1955 Unknown [id number] 2.16.8 40.1.599937.3.579.2.727 1955 Unknown [id number] 2.16.8 40.1.748726.3.579.2.727 1955 Unknown [id number] 2.16.8 40.1.111170.3.579.2.727 1955 Unknown [id number] 2.16.8 40.1.577759.3.579.2.727 1955 Unknown [id number] 2.16.8 40.1.315263.3.579.2.727 1955 Unknown [id number] 2.16.8 40.1.331892.3.579.2.727 1955 Unknown [id number] 2.16.8 40.1.220081.3.579.2.727 1955 Unknown [id number] 2.16.8 [id number] 1955 Unknown [id number] 2.16.8 [id number] Social History Date Type Detail Facility Start: 03-06-2022 Tobacco smoking status Never [facility] Comment on above: denies use denies use. Start: 09-20-2023 End: 01-04-2025 Sex Assigned At Male [facility] Start: 03-09-2022 End: 03-19-2025 Tobacco smoking status Never smoked tobacco (finding) [facility] Comment on above: denies use denies use. [facility] consumption unknown [facility] Start: 1955 Sex Assigned At Not on file [facility] Start: 09-20-2023 End: 01-04-2025 History of Social function [facility] Start: 12-25-2022 End: 10-03-2023 Tobacco use and exposure Smokeless tobacco non-user [facility] Start: 10-03-2023 End: 01-04-2025 Alcohol intake Current drinker of alcohol (finding) [facility] Has the [employer], or [employer] threatened to shut off services in your home in past 12Mo No [facility] Do you belong to any clubs or organizations such as roman catholic groups, unions, fraternal or athletic groups, or school groups? Yes [facility] Are you now , , , , never or living with a partner? [facility] How often to you hav e a drink containing alcohol? 4 or more times a week [facility] How many standard dr inks containing alcohol do you have on a typical day? 1 or 2 [facility] How often do you hav e 6 or more drinks on 1 occasion? Never [facility] How hard is it for y ou to pay for the very basics like food, housing, medical care, and heating Not very hard [facility] Do you feel stress - tense, restless, nervous, or anxious, or unable to sleep at night because your mind is troubled all the time - these days [OSQ] Not at all [facility] (I/We) worried diallo er (my/our) food would run out before (I/we) got money to buy more. Never true [facility] Start: 10-10-2023 Alcohol Comment 2-[address] daily[address] [facility] Start: 12-25-2022 Alcohol Comment coffee 3-4 cups sue y [facility] Sexual Orientation [facility] Start: 11-30-2009 Sex Male (finding) [facility] Medical Equipment Procedure Code Equipment Code Equipment Original Text Equipment Identifier Dates HIP TOTAL ROBOT ARTHROPLASTY Pocos DO Carol Amezquita 07/10/22 Unknown Hip R FDA Start: 07-10-2022 HIP TOTAL ROBOT ARTHROPLASTY Pocos DO, Carol Amezquita 07/10/22 Unknown Hip R FDA Start: 07-10-2022 HIP TOTAL ROBOT ARTHROPLASTY Pocos DO, Carol Amezquita 07/10/22 Unknown Hip R FDA Start: 07-10-2022 HIP TOTAL ROBOT ARTHROPLASTY Pocos DO, Carol Amezquita 07/10/22 Unknown Hip R FDA Start: 07-10-2022 HIP TOTAL ROBOT ARTHROPLASTY Pocos DO, Carol Amezquita 07/10/22 Unknown Hip R FDA Start: 07-10-2022 HIP TOTAL ROBOT ARTHROPLASTY Pocos DO, Carol Amezquita 07/10/22 Unknown Hip R FDA Start: 07-10-2022 HIP TOTAL ROBOT ARTHROPLASTY Pocos DO, Carol Amezquita 07/10/22 Unknown Hip R FDA Start: 07-10-2022 HIP TOTAL ROBOT ARTHROPLASTY Pocos DO, Carol Amezquita 07/10/22 Unknown Hip R FDA Start: 07-10-2022 HIP TOTAL ROBOT ARTHROPLASTY Pocos DO, Carol Amezquita 07/10/22 Unknown Hip R FDA Start: 07-10-2022 HIP TOTAL ROBOT ARTHROPLASTY Pocos DO, Carol Amezquita 07/10/22 Unknown Hip R FDA Start: 07-10-2022 HIP TOTAL ROBOT ARTHROPLASTY Pocos DO, Carol Amezquita 07/10/22 Unknown Hip R FDA Start: 07-10-2022 HIP TOTAL ROBOT ARTHROPLASTY Pocos DO, Carol Amezquita 07/10/22 Unknown Hip R FDA Start: 07-10-2022 HIP TOTAL ROBOT ARTHROPLASTY Pocos DO, Carol Amezquita 07/10/22 Unknown Hip R FDA Start: 07-10-2022 HIP TOTAL ROBOT ARTHROPLASTY Pocos DO, Carol Amezquita 07/10/22 Unknown Hip R FDA Start: 07-10-2022 HIP TOTAL ROBOT ARTHROPLASTY Pocos DO, Carol Amezquita 07/10/22 Unknown Hip R FDA Start: 07-10-2022 HIP TOTAL ROBOT ARTHROPLASTY Pocos DO, Carol Amezquita 07/10/22 Unknown Hip R FDA Start: 07-10-2022 HIP TOTAL ROBOT ARTHROPLASTY Pocos DO, Carol Amezquita 07/10/22 Unknown Hip R FDA Start: 07-10-2022 HIP TOTAL ROBOT ARTHROPLASTY Pocos DO, Carol Amezquita 07/10/22 Unknown Hip R FDA Start: 07-10-2022 HIP TOTAL ROBOT ARTHROPLASTY Pocos DO, Carol Amezquita 07/10/22 Unknown Hip R FDA Start: 07-10-2022 HIP TOTAL ROBOT ARTHROPLASTY Pocos DO, Carol Amezquita 07/10/22 Unknown Hip R FDA Start: 07-10-2022 HIP TOTAL ROBOT ARTHROPLASTY Pocos DO, Carol Amezquita 07/10/22 Unknown Hip R FDA Start: 07-10-2022 HIP TOTAL ROBOT ARTHROPLASTY Pocos DO, Carol Amezquita 07/10/22 Unknown Hip R FDA Start: 07-10-2022 HIP TOTAL ROBOT ARTHROPLASTY Pocos DO, Carol Amezquita 07/10/22 Unknown Hip R FDA Start: 07-10-2022 HIP TOTAL ROBOT ARTHROPLASTY Pocos DO, Carol Amezquita 07/10/22 Unknown Hip R FDA Start: 07-10-2022 HIP TOTAL ROBOT ARTHROPLASTY Pocos DO, Carol Amezquita 07/10/22 Unknown Hip R FDA Start: 07-10-2022 HIP TOTAL ROBOT ARTHROPLASTY Pocos DO, Carol Amezquita 07/10/22 Unknown Hip R FDA Start: 07-10-2022 HIP TOTAL ROBOT ARTHROPLASTY Pocos DO, Carol Amezquita 07/10/22 Unknown Hip R FDA Start: 07-10-2022 HIP TOTAL ROBOT ARTHROPLASTY Pocos DO, Carol Amezquita 07/10/22 Unknown Hip R FDA Start: 07-10-2022 HIP TOTAL ROBOT ARTHROPLASTY Pocos DO, Carol Amezquita 07/10/22 Unknown Hip R FDA Start: 07-10-2022 HIP TOTAL ROBOT ARTHROPLASTY Pocos DO, Carol Amezquita 07/10/22 Unknown Hip R FDA Start: 07-10-2022 HIP TOTAL ROBOT ARTHROPLASTY Pocos DO, Carol Amezquita 07/10/22 Unknown Hip R FDA Start: 07-10-2022 HIP TOTAL ROBOT ARTHROPLASTY Pocos DO, Carol Amezquita 07/10/22 Unknown Hip R FDA Start: 07-10-2022 HIP TOTAL ROBOT ARTHROPLASTY Pocos DO, Carol Amezquita 07/10/22 Unknown Hip R FDA Start: 07-10-2022 HIP TOTAL ROBOT ARTHROPLASTY Pocos DO, Carol Amezquita 07/10/22 Unknown Hip R FDA Start: 07-10-2022 HIP TOTAL ROBOT ARTHROPLASTY Pocos DO, Carol Amezquita 07/10/22 Unknown Hip R FDA Start: 07-10-2022 HIP TOTAL ROBOT ARTHROPLASTY Pocos DO, Carol Amezquita 07/10/22 Unknown Hip R FDA Start: 07-10-2022 HIP TOTAL ROBOT ARTHROPLASTY Pocos DO, Carol Amezquita 07/10/22 Unknown Hip R FDA Start: 07-10-2022 HIP TOTAL ROBOT ARTHROPLASTY Pocos DO, Carol Amezquita 07/10/22 Unknown Hip R FDA Start: 07-10-2022 HIP TOTAL ROBOT ARTHROPLASTY Pocos DO, Carol Amezquita 07/10/22 Unknown Hip R FDA Start: 07-10-2022 HIP TOTAL ROBOT ARTHROPLASTY Pocos DO, Carol Amezquita 07/10/22 Unknown Hip R FDA Start: 07-10-2022 HIP TOTAL ROBOT ARTHROPLASTY Pocos DO, Carol Amezquita 07/10/22 Unknown Hip R FDA Start: 07-10-2022 HIP TOTAL ROBOT ARTHROPLASTY Pocos DO, Carol Amezquita 07/10/22 Unknown Hip R FDA Start: 07-10-2022 Cement Simplex P Speedset Bone Radiopaque Sterile - [id number] Start: 10-14-2023 Cement Simplex P Bone Radiopaque Full Dose Sterile - [id number] Start: 10-14-2023 Cement Simplex P Bone Radiopaque Full Dose Sterile - [id number] Start: 10-14-2023 Cement Simplex P Bone Radiopaque Full Dose Sterile - [id number] Start: 10-14-2023 Cement Simplex P Bone Radiopaque Full Dose Sterile - [id number] Start: 10-14-2023 Oss Imp Knee Rev Fem Rsf 5 Lt [id number] Start: 10-14-2023 Yoke Oss Tibial Reinforcement Knee - [id number] Start: 10-14-2023 Cable Dall-Miles 2mm 2 Vitallium Orthopedic Homogenous Hip - [id number] Start: 10-14-2023 Stem Oss 13mm 15 0mm Femoral Cemented Hip Intramedullary - [id number] Start: 10-14-2023 Augment Triathlo n C Cone Tritanium Tibial Symmetric Sterile Latex Free - [id number] Start: 10-14-2023 Bushing Oss Polyethylene Tibial Low Friction Interface Knee - [id number] Start: 10-14-2023 Axle Oss Tibial Low Friction Interface Knee - [id number] Start: 10-14-2023 Bushing Oss Polyethylene Femoral Auxiliary Knee - [id number] Start: 10-14-2023 Bearing Oss Uhmw pe 12mm Tibial Insert Knee - [id number] Start: 10-14-2023 Baseplate Oss 67 mm Tibial Modular Knee - [id number] Start: 10-14-2023 Block Oss 63/67m m Thicket 10mm Augmentation Tibia - [id number] Start: 10-14-2023 Restrictor Unive rsal Cement Disposable Informatics Manager - [id number] Start: 10-14-2023 Restrictor Unive rsal Cement Disposable Informatics Manager - [id number] Start: 10-14-2023 Pin Oss Polyethy tobias Fixation Locking Compression Molded Knee - [id number] Start: 10-14-2023 HIP TOTAL ROBOT ARTHROPLASTY Carol Deluna DO 07/10/22 Unknown Hip R FDA Start: 07-10-2022 HIP TOTAL ROBOT ARTHROPLASTY Pocos DO, Carol Amezquita 07/10/22 Unknown Hip R FDA Start: 07-10-2022 HIP TOTAL ROBOT ARTHROPLASTY Pocos DO, Carol Amezquita 07/10/22 Unknown Hip R FDA Start: 07-10-2022 HIP TOTAL ROBOT ARTHROPLASTY Pocos DO, Carol Amezquita 07/10/22 Unknown Hip R FDA Start: 07-10-2022 HIP TOTAL ROBOT ARTHROPLASTY Pocos DO, Carol Amezquita 07/10/22 Unknown Hip R FDA Start: 07-10-2022 HIP TOTAL ROBOT ARTHROPLASTY Pocos DO, Carol Amezquita 07/10/22 Unknown Hip R FDA Start: 07-10-2022 HIP TOTAL ROBOT ARTHROPLASTY Pocos DO, Carol Amezquita 07/10/22 Unknown Hip R FDA Start: 07-10-2022 HIP TOTAL ROBOT ARTHROPLASTY Pocos DO, Carol Amezquita 07/10/22 Unknown Hip R FDA Start: 07-10-2022 HIP TOTAL ROBOT ARTHROPLASTY Pocos DO, Carol Amezquita 07/10/22 Unknown Hip R FDA Start: 07-10-2022 HIP TOTAL ROBOT ARTHROPLASTY Pocos DO, Carol Amezquita 07/10/22 Unknown Hip R FDA Start: 07-10-2022 HIP TOTAL ROBOT ARTHROPLASTY Pocos DO, Carol Amezquita 07/10/22 Unknown Hip R FDA Start: 07-10-2022 HIP TOTAL ROBOT ARTHROPLASTY Pocos DO, Carol Amezquita 07/10/22 Unknown Hip R FDA Start: 07-10-2022 HIP TOTAL ROBOT ARTHROPLASTY Pocos DO, Carol Amezquita 07/10/22 Unknown Hip R FDA Start: 07-10-2022 HIP TOTAL ROBOT ARTHROPLASTY Pocos DO, Carol Amezquita 07/10/22 Unknown Hip R FDA Start: 07-10-2022 HIP TOTAL ROBOT ARTHROPLASTY Pocos DO, Carol Amezquita 07/10/22 Unknown Hip R FDA Start: 07-10-2022 HIP TOTAL ROBOT ARTHROPLASTY Pocos DO, Carol Amezquita 07/10/22 Unknown Hip R FDA Start: 07-10-2022 HIP TOTAL ROBOT ARTHROPLASTY Pocos DO, Carol Amezquita 07/10/22 Unknown Hip R FDA Start: 07-10-2022 HIP TOTAL ROBOT ARTHROPLASTY Pocos DO, Carol Amezquita 07/10/22 Unknown Hip R FDA Start: 07-10-2022 HIP TOTAL ROBOT ARTHROPLASTY Pocos DO, Carol Amezquita 07/10/22 Unknown Hip R FDA Start: 07-10-2022 HIP TOTAL ROBOT ARTHROPLASTY Pocos DO, Carol Amezquita 07/10/22 Unknown Hip R FDA Start: 07-10-2022 HIP TOTAL ROBOT ARTHROPLASTY Pocos DO, Carol Amezquita 07/10/22 Unknown Hip R FDA Start: 07-10-2022 HIP TOTAL ROBOT ARTHROPLASTY Pocos DO, Carol Amezquita 07/10/22 Unknown Hip R FDA Start: 07-10-2022 HIP TOTAL ROBOT ARTHROPLASTY Pocos DO, Carol Amezquita 07/10/22 Unknown Hip R FDA Start: 07-10-2022 HIP TOTAL ROBOT ARTHROPLASTY Pocos DO, Carol Amezquita 07/10/22 Unknown Hip R FDA Start: 07-10-2022 HIP TOTAL ROBOT ARTHROPLASTY Pocos DO, Carol Amezquita 07/10/22 Unknown Hip R FDA Start: 07-10-2022 HIP TOTAL ROBOT ARTHROPLASTY Pocos DO, Carol Amezquita 07/10/22 Unknown Hip R FDA Start: 07-10-2022 HIP TOTAL ROBOT ARTHROPLASTY Pocos DO, Carol Amezquita 07/10/22 Unknown Hip R FDA Start: 07-10-2022 HIP TOTAL ROBOT ARTHROPLASTY Pocos DO, Carol Amezquita 07/10/22 Unknown Hip R FDA Start: 07-10-2022 HIP TOTAL ROBOT ARTHROPLASTY Pocos DO, Carol Amezquita 07/10/22 Unknown Hip R FDA Start: 07-10-2022 HIP TOTAL ROBOT ARTHROPLASTY Pocos DO, Carol Amezquita 07/10/22 Unknown Hip R FDA Start: 07-10-2022 HIP TOTAL ROBOT ARTHROPLASTY Pocos DO, Carol Amezquita 07/10/22 Unknown Hip R FDA Start: 07-10-2022 HIP TOTAL ROBOT ARTHROPLASTY Pocos DO, Carol Amezquita 07/10/22 Unknown Hip R FDA Start: 07-10-2022 HIP TOTAL ROBOT ARTHROPLASTY Pocos DO, Carol Amezquita 07/10/22 Unknown Hip R FDA Start: 07-10-2022 HIP TOTAL ROBOT ARTHROPLASTY Pocos DO, Carol Amezquita 07/10/22 Unknown Hip R FDA Start: 07-10-2022 HIP TOTAL ROBOT ARTHROPLASTY Pocos DO, Carol Amezquita 07/10/22 Unknown Hip R FDA Start: 07-10-2022 HIP TOTAL ROBOT ARTHROPLASTY Pocos DO, Carol Amezquita 07/10/22 Unknown Hip R FDA Start: 07-10-2022 Functional Status Date Assessment Result Facility 09-25-2024 Functional Status N/A [facility] 03-24-2024 Functional Status N/A [facility] 03-18-2024 Functional Status N/A [facility] 09-26-2023 Functional Status N/A [facility] 04-15-2023 Functional Status N/A [facility] 02-28-2023 Functional Status N/A [facility] 06-20-2022 Functional Status No [facility] 03-26-2022 Functional Status N/A [facility] 03-09-2022 Functional Status N/A [facility] 03-06-2022 Functional Status N/A [facility] Clinical Notes 03-09-2022 to 03-19-2025 Lorraine Grace, DEMENTIA PROGRAM DIRECTOR-[facility] - 01/04/2025 9:10 AM EDTTelephone Encounter - [facility] 07/27/2024 12:44 PM ESTTelephone Encounter - [facility] 07/27/2024 12:44 PM ESTPatient Instructions Note Date & Type Note Facility 03-19-2025 Hospital Discharge instructions Patient Education 03/19/2025 11:47:17 High Triglycerides Eating Plan High Triglycerides Eating Plan Triglycerides are a type of fat in the blood. High levels of triglycerides can increase your risk of heart disease and stroke. If your triglyceride levels are high, choosing the right foods can help lower your triglycerides and keep your heart healthy. Work with your health care provider or a dietitian to develop an eating plan that is right for you. What are tips for following this plan? General guidelines Lose weight, if you are overweight. For most people, losing 5 10 lb (2 5 kg) helps lower triglyceride levels. A weight-loss plan may include: ?30 minutes of exercise at least 5 days a week. ?Reducing the amount of calories, sugar, and fat you eat. Eat a wide variety of fresh fruits, vegetables, and whole grains. These foods are high in fiber. Eat foods that contain healthy fats, such as fatty fish, nuts, seeds, and olive oil. Avoid foods that are high in added sugar, added salt (sodium), and saturated fat. Avoid low-fiber, refined carbohydrates such as white bread, crackers, noodles, and white rice. Avoid foods with trans fats or partially hydrogenated oils, such as fried foods or stick margarine. If you drink alcohol: ?Limit how much you have to: ?0 1 drink a day for women who are not . ? 0 2 drinks a day for men. ?Your health care provider may recommend that you drink less than these amounts depending on your overall health. ?Know how much alcohol is in a drink. In the [place] one drink equals one 12 oz bottle of beer (355 mL), one 5 oz glass of wine (148 mL), or one 1 oz glass of hard liquor (44 mL). Reading food labels Check food labels for: The amount of saturated fat. Choose foods with no or very little saturated fat (less than 2 g). The amount of trans fat. Choose foods with no transfat. The amount of cholesterol. Choose foods that are low in cholesterol. The amount of sodium. Choose foods with less than 140 milligrams (mg) per serving. Shopping Buy dairy products labeled as nonfat (skim) or low-fat (1%). Avoid buying processed or prepackaged foods. These are often high in added sugar, sodium, and fat. Cooking Choose healthy fats when cooking, such as olive oil, avocado oil, or canola oil. Cook foods using lower fat methods, such as baking, broiling, boiling, or grilling. Make your own sauces, dressings, and marinades when possible, instead of buying them. Store-bought sauces, dressings, and marinades are often high in sodium and sugar. Meal planning Eat more home-cooked food and less restaurant, buffet, and fast food. Eat fatty fish at least 2 times each week. Examples of fatty fish include salmon, trout, sardines, mackerel, tuna, and dawson. If you eat whole eggs, do not eat more than 4 egg yolks per week. What foods should I eat? Fruits All fresh, canned (in natural juice), or frozen fruits. Vegetables Fresh or frozen vegetables. Low-sodium canned vegetables. Grains Whole wheat or whole grain breads, crackers, cereals, and pasta. Unsweetened oatmeal. Bulgur. Barley. Quinoa. Brown rice. Whole wheat flour tortillas. Meats and other proteins Skinless chicken or turkey. Ground chicken or turkey. Lean cuts of pork, trimmed of fat. Fish and seafood, especially salmon, trout, and dawson. Egg whites. Dried beans, peas, or lentils. Unsalted nuts or seeds. Unsalted canned beans. Natural peanut or almond butter or other nut butters. Dairy Low-fat dairy products. Skim or low-fat (1%) milk. Reduced fat (2%) and low-sodium cheese. Low-fat ricotta cheese. Low-fat cottage cheese. Plain, low-fat yogurt. Fats and oils Tub margarine without trans fats. Light or reduced-fat mayonnaise. Light or reduced-fat salad dressings. Avocado. Safflower, olive, sunflower, soybean, and canola oils. The items listed above may not be a complete list of recommended foods and beverages. Talk with your dietitian about what dietary choices are best for you. What foods should I avoid? Fruits Sweetened dried fruit. Canned fruit in syrup. Fruit juice. Vegetables Creamed or fried vegetables. Vegetables in a cheese sauce. Grains White bread. White (regular) pasta. White rice. Cornbread. Bagels. Pastries. Crackers that contain trans fat. Meats and other proteins Fatty cuts of meat. Ribs. Chicken wings. [place]ccartney. Sausage. Bologna. Salami. Chitterlings. Fatback. Hot dogs. Bratwurst. Packaged lunch meats. Dairy Whole or reduced-fat (2%) milk. [id number]. Cream cheese. Full-fat or sweetened yogurt. Full-fat cheese. Nondairy creamers. Whipped toppings. Processed cheese or cheese spreads. Cheese curds. Fats and oils Butter. Stick margarine. Lard. Shortening. Ghee. [place] fat. Tropical oils, such as coconut, palm kernel, or palm oils. Beverages Alcohol. Sweetened drinks, such as soda, lemonade, fruit drinks, or punches. Sweets and desserts [place] syrup. Sugars. Honey. Molasses. Candy. Jam and jelly. Syrup. Sweetened cereals. Cookies. Pies. Cakes. Donuts. Muffins. Ice cream. Condiments Store-bought sauces, dressings, and marinades that are high in sugar, such as ketchup and barbecue sauce. The items listed above may not be a complete list of foods and beverages you should avoid. Talk with your dietitian about what dietary choices are best for you. Summary High levels of triglycerides can increase the risk of heart disease and stroke. Choosing the right foods can help lower your triglycerides. Eat plenty of fresh fruits, vegetables, and whole grains. Choose low-fat dairy and lean meats. Eat fatty fish at least twice a week. Avoid processed and prepackaged foods with added sugar, sodium, saturated fat, and trans fat. If you need suggestions or have questions about what types of food are good for you, talk with your health care provider or a dietitian. This information is not intended to replace advice given to you by your health care provider. Make sure you discuss any questions you have with your health care provider. Document Revised: 12/15/2021 Document Reviewed: 12/15/2021 [employer] Patient Education 2023 Pramana. 03/19/2025 11:47:01 BMI for Adults BMI for Adults Body mass index (BMI) is a number found using a person's weight and height. BMI can help tell how much of a person's weight is made up of fat. BMI does not measure body fat directly. It is used instead of tests that directly measure body fat, which can be difficult and expensive. What are BMI measurements used for? BMI is useful to: Find out if your weight puts you at higher risk for medical problems. Help recommend changes, such as in diet and exercise. This can help you reach a healthy weight. BMI screening can be done again to see if these changes are working. How is BMI calculated? Your height and weight are measured. The BMI is found from those numbers. This can be done with [place] or metric measurements. Note that charts and online BMI calculators are available to help you find your BMI quickly and easily without doing these calculations. To calculate your BMI in [place] measurements: 1.Measure your weight in pounds (lb). 2.Multiply the number of pounds by 703. So, for an adult who weighs 150 lb, multiply that number by 703: 150 x 703, which equals 105,450. 3.Measure your height in inches. Then multiply that number by itself to get a measurement called inches squared. So, for an adult who is 70 inches tall, the inches squared measurement is 70 inches x 70 inches, which equals 4,900 inches squared. 4.Divide the total from step 2 (number of lb x 703) by the total from step 3 (inches squared): 105,450 4,900 = 21.5. This is your BMI. To calculate your BMI in metric measurements: 1.Measure your weight in kilograms (kg). For this example, the weight is 70 kg. 2.Measure your height in meters (m). Then multiply that number by itself to get a measurement called meters squared. So, for an adult who is 1.75 m tall, the meters squared measurement is 1.75 m x 1.75 m, which equals 3.1 meters squared. 3.Divide the number of kilograms (your weight) by the meters squared number. In this example: 70 3.1 = 22.6. This is your BMI. What do the results mean? BMI charts are used to see if you are underweight, normal weight, overweight, or obese. The following guidelines will be used: Underweight: BMI less than 18.5. Normal weight: BMI between 18.5 and 24.9. Overweight: BMI between 25 and 29.9. Obese: BMI of 30 or above. BMI is a tool and cannot diagnose a condition. Talk with your health care provider about what your BMI means for you. Keep these notes in mind: Weight includes fat and muscle. Someone with a muscular build, such as an athlete, may have a BMI that is higher than 24.9. In cases like these, BMI is not a correct measure of body fat. If you have a BMI of 25 or higher, your provider may need to do more testing to find out if excess body fat is the cause. BMI is measured the same way for males and females. Females usually have more body fat than males of the same height and weight. Where to find more information For more information about BMI, including tools to quickly find your BMI, go to: Centers for Disease Control and Prevention: cdc.gov [place] Heart Association: heart.org National Heart, Lung, and Blood [place]: nhlbi.nih.gov This information is not intended to replace advice given to you by your health care provider. Make sure you discuss any questions you have with your health care provider. Document Revised: 04/25/2023 Document Reviewed: 04/18/2023 [employer] Patient Education 2023 Pramana. 03/19/2025 11:46:24 Diabetes Mellitus and Nutrition, Adult Diabetes Mellitus and Nutrition, Adult When you have diabetes, or diabetes mellitus, it is very important to have healthy eating habits because your blood sugar (glucose) levels are greatly affected by what you eat and drink. Eating healthy foods in the right amounts, at about the same times every day, can help you: Manage your blood glucose. Lower your risk of heart disease. Improve your blood pressure. Reach or maintain a healthy weight. What can affect my meal plan? Every person with diabetes is different, and each person has different needs for a meal plan. Your health care provider may recommend that you work with a dietitian to make a meal plan that is best for you. Your meal plan may vary depending on factors such as: The calories you need. The medicines you take. Your weight. Your blood glucose, blood pressure, and cholesterol levels. Your activity level. Other health conditions you have, such as heart or kidney disease. How do carbohydrates affect me? Carbohydrates, also called carbs, affect your blood glucose level more than any other type of food. Eating carbs raises the amount of glucose in your blood. It is important to know how many carbs you can safely have in each meal. This is different for every person. Your dietitian can help you calculate how many carbs you should have at each meal and for each snack. How does alcohol affect me? Alcohol can cause a decrease in blood glucose (hypoglycemia), especially if you use insulin or take certain diabetes medicines by mouth. Hypoglycemia can be a life-threatening condition. Symptoms of hypoglycemia, such as sleepiness, dizziness, and confusion, are similar to symptoms of having too much alcohol. Do not drink alcohol if: ?Your health care provider tells you not to drink. ?You are , may be , or are planning to become . If you drink alcohol: ?Limit how much you have to: ?0 1 drink a day for women. ?0 2 drinks a day for men. ?Know how much alcohol is in your drink. In the [place] one drink equals one 12 oz bottle of beer (355 mL), one 5 oz glass of wine (148 mL), or one 1 oz glass of hard liquor (44 mL). ?Keep yourself hydrated with water, diet soda, or unsweetened iced tea. Keep in mind that regular soda, juice, and other mixers may contain a lot of sugar and must be counted as carbs. What are tips for following this plan? Reading food labels Start by checking the serving size on the Nutrition Facts label of packaged foods and drinks. The number of calories and the amount of carbs, fats, and other nutrients listed on the label are based on one serving of the item. Many items contain more than one serving per package. Check the total grams (g) of carbs in one serving. Check the number of grams of saturated fats and trans fats in one serving. Choose foods that have a low amount or none of these fats. Check the number of milligrams (mg) of salt (sodium) in one serving. Most people should limit total sodium intake to less than 2,300 mg per day. Always check the nutrition information of foods labeled as low-fat or nonfat. These foods may be higher in added sugar or refined carbs and should be avoided. Talk to your dietitian to identify your daily goals for nutrients listed on the label. Shopping Avoid buying canned, pre-made, or processed foods. These foods tend to be high in fat, sodium, and added sugar. Shop around the outside edge of the grocery store. This is where you will most often find fresh fruits and vegetables, bulk grains, fresh meats, and fresh dairy products. Cooking Use low-heat cooking methods, such as baking, instead of high-heat cooking methods, such as deep frying. Cook using healthy oils, such as olive, canola, or sunflower oil. Avoid cooking with butter, cream, or high-fat meats. Meal planning Eat meals and snacks regularly, preferably at the same times every day. Avoid going long periods of time without eating. Eat foods that are high in fiber, such as fresh fruits, vegetables, beans, and whole grains. Eat 4 6 oz (112 168 g) of lean protein each day, such as lean meat, chicken, fish, eggs, or tofu. One ounce (oz) (28 g) of lean protein is equal to: ?1 oz (28 g) of meat, chicken, or fish. ?1 egg. ? cup (62 g) of tofu. Eat some foods each day that contain healthy fats, such as avocado, nuts, seeds, and fish. What foods should I eat? Fruits Berries. Apples. Oranges. Peaches. Apricots. Plums. Grapes. Mangoes. Papayas. Pomegranates. Kiwi. Cherries. Vegetables Leafy greens, including lettuce, spinach, kale, chard, kiah greens, mustard greens, and cabbage. Beets. Cauliflower. Broccoli. Carrots. Green beans. Tomatoes. Peppers. Onions. Cucumbers. [place] sprouts. Grains Whole grains, such as whole-wheat or whole-grain bread, crackers, tortillas, cereal, and pasta. Unsweetened oatmeal. Quinoa. Brown or wild rice. Meats and other proteins Seafood. Poultry without skin. Lean cuts of poultry and beef. Tofu. Nuts. Seeds. Dairy Low-fat or fat-free dairy products such as milk, yogurt, and cheese. The items listed above may not be a complete list of foods and beverages you can eat and drink. Contact a dietitian for more information. What foods should I avoid? Fruits Fruits canned with syrup. Vegetables Canned vegetables. Frozen vegetables with butter or cream sauce. Grains Refined white flour and flour products such as bread, pasta, snack foods, and cereals. Avoid all processed foods. Meats and other proteins Fatty cuts of meat. Poultry with skin. Breaded or fried meats. Processed meat. Avoid saturated fats. Dairy Full-fat yogurt, cheese, or milk. Beverages Sweetened drinks, such as soda or iced tea. The items listed above may not be a complete list of foods and beverages you should avoid. Contact a dietitian for more information. Questions to ask a health care provider Do I need to meet with a certified diabetes care and board of education secretary? Do I need to meet with a dietitian? What number can I call if I have questions? When are the best times to check my blood glucose? Where to find more information: [place] Diabetes Association: diabetes.org Academy of Nutrition and Dietetics: eatright.org National [place] of Diabetes and Digestive and Kidney Diseases: niddk.nih.gov Association of Diabetes Care & Education Specialists: diabeteseducator.org Summary It is important to have healthy eating habits because your blood sugar (glucose) levels are greatly affected by what you eat and drink. It is important to use alcohol carefully. A healthy meal plan will help you manage your blood glucose and lower your risk of heart disease. Your health care provider may recommend that you work with a dietitian to make a meal plan that is best for you. This information is not intended to replace advice given to you by your health care provider. Make sure you discuss any questions you have with your health care provider. Document Revised: 03/08/2021 Document Reviewed: 03/08/2021 [employer] Patient Education 2023 Pramana. 03/19/2025 11:46:20 DASH Eating Plan DASH Eating Plan DASH stands for Dietary Approaches to Stop Hypertension. The DASH eating plan is a healthy eating plan that has been shown to: Lower high blood pressure (hypertension). Reduce your risk for type 2 diabetes, heart disease, and stroke. Help with weight loss. What are tips for following this plan? Reading food labels Check food labels for the amount of salt (sodium) per serving. Choose foods with less than 5 percent of the Daily Value (DV) of sodium. In general, foods with less than 300 milligrams (mg) of sodium per serving fit into this eating plan. To find whole grains, look for the word whole as the first word in the ingredient list. Shopping Buy products labeled as low-sodium or no salt added. Buy fresh foods. Avoid canned foods and pre-made or frozen meals. Cooking Try not to add salt when you cook. Use salt-free seasonings or herbs instead of table salt or sea salt. Check with your health care provider or pharmacist before using salt substitutes. Do not reddy foods. Cook foods in healthy ways, such as baking, boiling, grilling, roasting, or broiling. Cook using oils that are good for your heart. These include olive, canola, avocado, soybean, and sunflower oil. Meal planning Eat a balanced diet. This should include: ?4 or more servings of fruits and 4 or more servings of vegetables each day. Try to fill half of your plate with fruits and vegetables. ?6 8 servings of whole grains each day. ?6 or less servings of lean meat, poultry, or fish each day. 1 oz is 1 serving. A 3 oz (85 g) serving of meat is about the same size as the palm of your hand. One egg is 1 oz (28 g). ?2 3 servings of low-fat dairy each day. One serving is 1 cup (237 mL). ?1 serving of nuts, seeds, or beans 5 times each week. ?2 3 servings of heart-healthy fats. Healthy fats called omega-3 fatty acids are found in foods such as walnuts, flaxseeds, fortified milks, and eggs. These fats are also found in cold-water fish, such as sardines, salmon, and mackerel. Limit how much you eat of: ?Canned or prepackaged foods. ?Food that is high in trans fat, such as fried foods. ?Food that is high in saturated fat, such as fatty meat. ?Desserts and other sweets, sugary drinks, and other foods with added sugar. ?Full-fat dairy products. Do not salt foods before eating. Do not eat more than 4 egg yolks a week. Try to eat at least 2 vegetarian meals a week. Eat more home-cooked food and less restaurant, buffet, and fast food. Lifestyle When eating at a restaurant, ask if your food can be made with less salt or no salt. If you drink alcohol: ?Limit how much you have to: ?0 1 drink a day if you are female. ?0 2 drinks a day if you are male. ?Know how much alcohol is in your drink. In the [place] one drink is one 12 oz bottle of beer (355 mL), one 5 oz glass of wine (148 mL), or one 1 oz glass of hard liquor (44 mL). General information Avoid eating more than 2,300 mg of salt a day. If you have hypertension, you may need to reduce your sodium intake to 1,500 mg a day. Work with your provider to stay at a healthy body weight or lose weight. Ask what the best weight range is for you. On most days of the week, get at least 30 minutes of exercise that causes your heart to beat faster. This may include walking, swimming, or biking. Work with your provider or dietitian to adjust your eating plan to meet your specific calorie needs. What foods should I eat? Fruits All fresh, dried, or frozen fruit. Canned fruits that are in their natural juice and do not have sugar added to them. Vegetables Fresh or frozen vegetables that are raw, steamed, roasted, or grilled. Low-sodium or reduced-sodium tomato and vegetable juice. Low-sodium or reduced-sodium tomato sauce and tomato paste. Low-sodium or reduced-sodium canned vegetables. Grains Whole-grain or whole-wheat bread. Whole-grain or whole-wheat pasta. Brown rice. Oatmeal. Quinoa. Bulgur. Whole-grain and low-sodium cereals. [place] bread. Low-fat, low-sodium crackers. Whole-wheat flour tortillas. Meats and other proteins Skinless chicken or turkey. Ground chicken or turkey. Pork with fat trimmed off. Fish and seafood. Egg whites. Dried beans, peas, or lentils. Unsalted nuts, nut butters, and seeds. Unsalted canned beans. Lean cuts of beef with fat trimmed off. Low-sodium, lean precooked or cured meat, such as sausages or meat loaves. Dairy Low-fat (1%) or fat-free (skim) milk. Reduced-fat, low-fat, or fat-free cheeses. Nonfat, low-sodium ricotta or cottage cheese. Low-fat or nonfat yogurt. Low-fat, low-sodium cheese. Fats and oils Soft margarine without trans fats. Vegetable oil. Reduced-fat, low-fat, or light mayonnaise and salad dressings (reduced-sodium). Canola, safflower, olive, avocado, soybean, and sunflower oils. Avocado. Seasonings and condiments Herbs. Spices. Seasoning mixes without salt. Other foods Unsalted popcorn and pretzels. Fat-free sweets. The items listed above may not be all the foods and drinks you can have. Talk to a dietitian to learn more. What foods should I avoid? Fruits Canned fruit in a light or heavy syrup. Fried fruit. Fruit in cream or butter sauce. Vegetables Creamed or fried vegetables. Vegetables in a cheese sauce. Regular canned vegetables that are not marked as low-sodium or reduced-sodium. Regular canned tomato sauce and paste that are not marked as low-sodium or reduced-sodium. Regular tomato and vegetable juices that are not marked as low-sodium or reduced-sodium. Pickles. Olives. Grains Baked goods made with fat, such as croissants, muffins, or some breads. Dry pasta or rice meal packs. Meats and other proteins Fatty cuts of meat. Ribs. Fried meat. [place]artney. Bologna, salami, and other precooked or cured meats, such as sausages or meat loaves, that are not lean and low in sodium. Fat from the back of a pig (fatback). Bratwurst. Salted nuts and seeds. Canned beans with added salt. Canned or smoked fish. Whole eggs or egg yolks. Chicken or turkey with skin. Dairy Whole or 2% milk, cream, and [id number]. Whole or full-fat cream cheese. Whole-fat or sweetened yogurt. Full-fat cheese. Nondairy creamers. Whipped toppings. Processed cheese and cheese spreads. Fats and oils Butter. Stick margarine. Lard. Shortening. Ghee. [place] fat. Tropical oils, such as coconut, palm kernel, or palm oil. Seasonings and condiments Onion salt, garlic salt, seasoned salt, table salt, and sea salt. [facility] sauce. [place] sauce. Barbecue sauce. Teriyaki sauce. Soy sauce, including reduced-sodium soy sauce. Steak sauce. Canned and packaged gravies. Fish sauce. Oyster sauce. Cocktail sauce. Store-bought horseradish. Ketchup. Mustard. Meat flavorings and tenderizers. Bouillon cubes. Hot sauces. Pre-made or packaged marinades. Pre-made or packaged taco seasonings. Relishes. Regular salad dressings. Other foods Salted popcorn and pretzels. The items listed above may not be all the foods and drinks you should avoid. Talk to a dietitian to learn more. Where to find more information National Heart, Lung, and Blood [place] (NHLBI): nhlbi.nih.gov [place] Heart Association (AHA): heart.org Academy of Nutrition and Dietetics: eatright.org National Kidney Foundation (NKF): kidney.org This information is not intended to replace advice given to you by your health care provider. Make sure you discuss any questions you have with your health care provider. Document Revised: 08/22/2023 Document Reviewed: 08/22/2023 [employer] Patient Education 2023 Pramana. [facility] 03-19-2025 Note Patient Education Endocrinology Diabetes Mellitus and Nutrition, Adult When you have diabetes, or diabetes mellitus, it is very important to have healthy eating habits because your blood sugar (glucose) levels are greatly affected by what you eat and drink. Eating healthy foods in the right amounts, at about the same times every day, can help you: ??? Manage your blood glucose. ??? Lower your risk of heart disease. ??? Improve your blood pressure. ??? Reach or maintain a healthy weight. What can affect my meal plan? Every person with diabetes is different, and each person has different needs for a meal plan. Your health care provider may recommend that you work with a dietitian to make a meal plan that is best for you. Your meal plan may vary depending on factors such as: ??? The calories you need. ??? The medicines you take. ??? Your weight. ??? Your blood glucose, blood pressure, and cholesterol levels. ??? Your activity level. ??? Other health conditions you have, such as heart or kidney disease. How do carbohydrates affect me? Carbohydrates, also called carbs, affect your blood glucose level more than any other type of food. Eating carbs raises the amount of glucose in your blood. It is important to know how many carbs you can safely have in each meal. This is different for every person. Your dietitian can help you calculate how many carbs you should have at each meal and for each snack. How does alcohol affect me? Alcohol can cause a decrease in blood glucose (hypoglycemia), especially if you use insulin or take certain diabetes medicines by mouth. Hypoglycemia can be a life-threatening condition. Symptoms of hypoglycemia, such as sleepiness, dizziness, and confusion, are similar to symptoms of having too much alcohol. ??? Do not drink alcohol if: ? Your health care provider tells you not to drink. ? You are , may be , or are planning to become . ??? If you drink alcohol: ? Limit how much you have to: ? 0?1 drink a day for women. ? 0?2 drinks a day for men. ? Know how much alcohol is in your drink. In the [place] one drink equals one 12 oz bottle of beer (355 mL), one 5 oz glass of wine (148 mL), or one 1? oz glass of hard liquor (44 mL). ? Keep yourself hydrated with water, diet soda, or unsweetened iced tea. Keep in mind that regular soda, juice, and other mixers may contain a lot of sugar and must be counted as carbs. What are tips for following this plan? Reading food labels ??? Start by checking the serving size on the Nutrition Facts label of packaged foods and drinks. The number of calories and the amount of carbs, fats, and other nutrients listed on the label are based on one serving of the item. Many items contain more than one serving per package. ??? Check the total grams (g) of carbs in one serving. ??? Check the number of grams of saturated fats and trans fats in one serving. Choose foods that have a low amount or none of these fats. ??? Check the number of milligrams (mg) of salt (sodium) in one serving. Most people should limit total sodium intake to less than 2,300 mg per day. ??? Always check the nutrition information of foods labeled as low-fat or nonfat. These foods may be higher in added sugar or refined carbs and should be avoided. ??? Talk to your dietitian to identify your daily goals for nutrients listed on the label. Shopping ??? Avoid buying canned, pre-made, or processed foods. These foods tend to be high in fat, sodium, and added sugar. ??? Shop around the outside edge of the grocery store. This is where you will most often find fresh fruits and vegetables, bulk grains, fresh meats, and fresh dairy products. Cooking ??? Use low-heat cooking methods, such as baking, instead of high-heat cooking methods, such as deep frying. ??? Cook using healthy oils, such as olive, canola, or sunflower oil. ??? Avoid cooking with butter, cream, or high-fat meats. Meal planning ??? Eat meals and snacks regularly, preferably at the same times every day. Avoid going long periods of time without eating. ??? Eat foods that are high in fiber, such as fresh fruits, vegetables, beans, and whole grains. ??? Eat 4?6 oz (112?168 g) of lean protein each day, such as lean meat, chicken, fish, eggs, or tofu. One ounce (oz) (28 g) of lean protein is equal to: ? 1 oz (28 g) of meat, chicken, or fish. ? 1 egg. ? ? cup (62 g) of tofu. ??? Eat some foods each day that contain healthy fats, such as avocado, nuts, seeds, and fish. What foods should I eat? Fruits Berries. Apples. Oranges. Peaches. Apricots. Plums. Grapes. Mangoes. Papayas. Pomegranates. Kiwi. Cherries. Vegetables Leafy greens, including lettuce, spinach, kale, chard, kiah greens, mustard greens, and cabbage. Beets. Cauliflower. Broccoli. Carrots. Green beans. Tomatoes. Peppers. Onions. Cucumbers. [place] sprouts. Grains Whole grains, such as whole-wheat or whole- (more content not included)... [facility] 03-19-2025 Hospital Discharge instructions Patient Education 03/19/2025 07:47:16 Diabetes Mellitus and Exercise Diabetes Mellitus and Exercise Regular exercise is important for your health, especially if you have diabetes mellitus. Exercise is not just about losing weight. It can also help you increase muscle strength and bone density and reduce body fat and stress. This can help your level of endurance and make you more fit and flexible. Why should I exercise if I have diabetes? Exercise has many benefits for people with diabetes. It can: Help lower and control your blood sugar (glucose). Help your body respond better and become more sensitive to the hormone insulin. Reduce how much insulin your body needs. Lower your risk for heart disease by: ?Lowering how much bad cholesterol and triglycerides you have in your body. ?Increasing how much good cholesterol you have in your body. ?Lowering your blood pressure. ?Lowering your blood glucose levels. What is my activity plan? Your health care provider or an expert trained in diabetes care (certified control systems technician) can help you make an activity plan. This plan can help you find the type of exercise that works for you. It may also tell you how often to exercise and for how long. Be sure to: Get at least 150 minutes of medium-intensity or high-intensity exercise each week. This may involve brisk walking, biking, or water aerobics. Do stretching and strengthening exercises at least 2 times a week. This may involve yoga or weight lifting. Spread out your activity over at least 3 days of the week. Get some form of physical activity each day. ?Do not go more than 2 days in a row without some kind of activity. ?Avoid being inactive for more than 30 minutes at a time. Take frequent breaks to walk or stretch. Choose activities that you enjoy. Set goals that you know you can accomplish. Start slowly and increase the intensity of your exercise over time. How do I manage my diabetes during exercise? Monitor your blood glucose Check your blood glucose before and after you exercise. ?If your blood glucose is 240 mg/dL (13.3 mmol/L) or higher before you exercise, check your urine for ketones. These are chemicals created by the liver. If you have ketones in your urine, do not exercise until your blood glucose returns to normal. ?If your blood glucose is 100 mg/dL (5.6 mmol/L) or lower, eat a snack that has 15 20 grams of carbohydrate in it. Check your blood glucose 15 minutes after the snack to make sure that your level is above 100 mg/dL (5.6 mmol/L) before you start to exercise. Your risk for low blood glucose (hypoglycemia) goes up during and after exercise. Know the symptoms of this condition and how to treat it. Follow these instructions at home: Keep a carbohydrate snack on hand for use before, during, and after exercise. This can help prevent or treat hypoglycemia. Avoid injecting insulin into parts of your body that are going to be used during exercise. This may include: ?Your arms, when you are going to play tennis. ?Your legs, when you are about to go jogging. Keep track of your exercise habits. This can help you and your health care provider watch and adjust your activity plan. Write down: ?What you eat before and after you exercise. ?Blood glucose levels before and after you exercise. ?The type and amount of exercise you do. Talk to your health care provider before you start a new activity. They may need to: ?Make sure that the activity is safe for you. ?Adjust your insulin, other medicines, and food that you eat. Drink water while you exercise. This can stop you from losing too much water (dehydration). It can also prevent problems caused by having a lot of heat in your body (heat stroke). Where to find more information [place] [employer]: diabetes.org Association of Diabetes Care & Education Specialists: diabeteseducator.org This information is not intended to replace advice given to you by your health care provider. Make sure you discuss any questions you have with your health care provider. Document Revised: 01/23/2023 Document Reviewed: 01/23/2023 [employer] Patient Education 2023 Pramana. Follow Up Care 09/25/2024 08:02:37 With:Clive RAYMOND DO, FAAFP, FAM, PED Address: [address] [place] [address]- When:Within 3 Month(s) With:Clive RAYMOND DO, FAAFP, FAM, PED Address: [address] [place] [address]- When:Within 6 Month(s) [facility] 03-19-2025 Note Patient Education Endocrinology Diabetes Mellitus and Exercise Regular exercise is important for your health, especially if you have diabetes mellitus. Exercise is not just about losing weight. It can also help you increase muscle strength and bone density and reduce body fat and stress. This can help your level of endurance and make you more fit and flexible. Why should I exercise if I have diabetes? Exercise has many benefits for people with diabetes. It can: ??? Help lower and control your blood sugar (glucose). ??? Help your body respond better and become more sensitive to the hormone insulin. ??? Reduce how much insulin your body needs. ??? Lower your risk for heart disease by: ? Lowering how much bad cholesterol and triglycerides you have in your body. ? Increasing how much good cholesterol you have in your body. ? Lowering your blood pressure. ? Lowering your blood glucose levels. What is my activity plan? Your health care provider or an expert trained in diabetes care (certified control systems technician) can help you make an activity plan. This plan can help you find the type of exercise that works for you. It may also tell you how often to exercise and for how long. Be sure to: ??? Get at least 150 minutes of medium-intensity or high-intensity exercise each week. This may involve brisk walking, biking, or water aerobics. ??? Do stretching and strengthening exercises at least 2 times a week. This may involve yoga or weight lifting. ??? Spread out your activity over at least 3 days of the week. ??? Get some form of physical activity each day. ? Do not go more than 2 days in a row without some kind of activity. ? Avoid being inactive for more than 30 minutes at a time. Take frequent breaks to walk or stretch. ??? Choose activities that you enjoy. Set goals that you know you can accomplish. ??? Start slowly and increase the intensity of your exercise over time. How do I manage my diabetes during exercise? Monitor your blood glucose ??? Check your blood glucose before and after you exercise. ? If your blood glucose is 240 mg/dL (13.3 mmol/L) or higher before you exercise, check your urine for ketones. These are chemicals created by the liver. If you have ketones in your urine, do not exercise until your blood glucose returns to normal. ? If your blood glucose is 100 mg/dL (5.6 mmol/L) or lower, eat a snack that has 15?20 grams of carbohydrate in it. Check your blood glucose 15 minutes after the snack to make sure that your level is above 100 mg/dL (5.6 mmol/L) before you start to exercise. ??? Your risk for low blood glucose (hypoglycemia) goes up during and after exercise. Know the symptoms of this condition and how to treat it. Follow these instructions at home: ??? Keep a carbohydrate snack on hand for use before, during, and after exercise. This can help prevent or treat hypoglycemia. ??? Avoid injecting insulin into parts of your body that are going to be used during exercise. This may include: ? Your arms, when you are going to play tennis. ? Your legs, when you are about to go jogging. ??? Keep track of your exercise habits. This can help you and your health care provider watch and adjust your activity plan. Write down: ? What you eat before and after you exercise. ? Blood glucose levels before and after you exercise. ? The type and amount of exercise you do. ??? Talk to your health care provider before you start a new activity. They may need to: ? Make sure that the activity is safe for you. ? Adjust your insulin, other medicines, and food that you eat. ??? Drink water while you exercise. This can stop you from losing too much water (dehydration). It can also prevent problems caused by having a lot of heat in your body (heat stroke). Where to find more information ??? [place] [employer]: diabetes.org ??? Association of Diabetes Care & Education Specialists: diabeteseducator.org This information is not intended to replace advice given to you by your health care provider. Make sure you discuss any questions you have with your health care provider. Document Revised: 01/23/2023 Document Reviewed: 01/23/2023 [employer] Patient Education ? 2023 Pramana. [facility] 01-04-2025 History of Present illness Narrative Skin Check Location: Patient requests a skin examination from the waist up Dermatologic history: history of Actinic Keratosis - 24 treated at the last follow up Last visit: 06/2024 Established patient All pertinent medical history, medications, and allergies were reviewed. General Exam: alert, oriented to person, place, and time, normal affect, well appearing A complete skin exam was offered, pt declined. Areas not examined despite medical recommendation: From the waist down Scalp, Examined Head, Face Examined Neck Examined Chest Examined Back Examined Abdomen Examined Right arm Examined Left arm Examined Hands Examined Digits,nails: Examined Skin Exam 1. SEBORRHEIC KERATOSIS Generalized Stuck on verrucous, variably pigmented papules and plaques. Patient was counseled regarding these benign growths. Removal is normally not necessary, but they may be removed if they are symptomatic or for cosmetic reasons. 2. LENTIGINES Generalized Scattered tilley macules in sun-exposed areas. The patient was informed that lentigines are benign pigmented lesions that occur on sun-exposed and sun-damaged skin. No treatment is necessary. Recommended regular use of broad spectrum sunscreen SPF 30 or higher 3. MELANOCYTIC NEVUS OF TRUNK Generalized Scattered benign appearing, regular brown to light brown melanocytic papules and macules with similar morphology Counseled regarding these benign growths. Rarely, a nevus can develop into malignant melanoma, so any changing nevi should be promptly re-evaluated. 4. ACTINIC KERATOSIS (13) Left Dorsal Hand, Left Forehead, Left Occipital Scalp, Left Parietal Scalp, Left Posterior Neck, Left Temporal Scalp, Left Wrist - Posterior, Mid Frontal Scalp, Posterior Mid Neck, Right Forehead, Right Mid Oto, Right Superior Oto, Right Zygomatic Area Erythematous scaly papules Patient was counseled regarding these sun-induced growths that can develop into squamous cell carcinoma if left untreated. Discussed treatment with cryotherapy. It was emphasized that any treated lesions that fail to resolve should be re-evaluated. Cryotherapy performed today; see procedure note Diagnosis: Actinic keratosis Indication: Precancerous Location: see skin exam Consent: Verbal consent was obtained and risks were discussed, including, but not limited to risks of scarring, darker or cycle analyst pigmentary changes, recurrence, incomplete removal and infection. Method: Liquid nitrogen was used to treat the lesion(s) with two 5-10 second freeze-thaw cycles. Number of lesions treated: 13 Post-procedure instructions: Instructions were given orally and in writing. The office will be contacted if the lesion fails to resolve despite treatment, or if a side effect develops such as abnormal crusting, scabbing, redness or tenderness Cryotherapy, skin lesion - Left Dorsal Hand, Left Forehead, Left Occipital Scalp, Left Parietal Scalp, Left Posterior Neck, Left Temporal Scalp, Left Wrist - Posterior, Mid Frontal Scalp, Posterior Mid Neck, Right Forehead, Right Mid Oto, Right Superior Oto, Right Zygomatic Area Next Visit: 6 months- skin check documented in this encounter [facility] 09-25-2024 Hospital Discharge instructions Patient Education 09/25/2024 08:05:19 Diabetes Mellitus and Exercise Diabetes Mellitus and Exercise Regular exercise is important for your health, especially if you have diabetes mellitus. Exercise is not just about losing weight. It can also help you increase muscle strength and bone density and reduce body fat and stress. This can help your level of endurance and make you more fit and flexible. Why should I exercise if I have diabetes? Exercise has many benefits for people with diabetes. It can: Help lower and control your blood sugar (glucose). Help your body respond better and become more sensitive to the hormone insulin. Reduce how much insulin your body needs. Lower your risk for heart disease by: ?Lowering how much bad cholesterol and triglycerides you have in your body. ?Increasing how much good cholesterol you have in your body. ?Lowering your blood pressure. ?Lowering your blood glucose levels. What is my activity plan? Your health care provider or an expert trained in diabetes care (certified control systems technician) can help you make an activity plan. This plan can help you find the type of exercise that works for you. It may also tell you how often to exercise and for how long. Be sure to: Get at least 150 minutes of medium-intensity or high-intensity exercise each week. This may involve brisk walking, biking, or water aerobics. Do stretching and strengthening exercises at least 2 times a week. This may involve yoga or weight lifting. Spread out your activity over at least 3 days of the week. Get some form of physical activity each day. ?Do not go more than 2 days in a row without some kind of activity. ?Avoid being inactive for more than 30 minutes at a time. Take frequent breaks to walk or stretch. Choose activities that you enjoy. Set goals that you know you can accomplish. Start slowly and increase the intensity of your exercise over time. How do I manage my diabetes during exercise? Monitor your blood glucose Check your blood glucose before and after you exercise. ?If your blood glucose is 240 mg/dL (13.3 mmol/L) or higher before you exercise, check your urine for ketones. These are chemicals created by the liver. If you have ketones in your urine, do not exercise until your blood glucose returns to normal. ?If your blood glucose is 100 mg/dL (5.6 mmol/L) or lower, eat a snack that has 15 20 grams of carbohydrate in it. Check your blood glucose 15 minutes after the snack to make sure that your level is above 100 mg/dL (5.6 mmol/L) before you start to exercise. Your risk for low blood glucose (hypoglycemia) goes up during and after exercise. Know the symptoms of this condition and how to treat it. Follow these instructions at home: Keep a carbohydrate snack on hand for use before, during, and after exercise. This can help prevent or treat hypoglycemia. Avoid injecting insulin into parts of your body that are going to be used during exercise. This may include: ?Your arms, when you are going to play tennis. ?Your legs, when you are about to go jogging. Keep track of your exercise habits. This can help you and your health care provider watch and adjust your activity plan. Write down: ?What you eat before and after you exercise. ?Blood glucose levels before and after you exercise. ?The type and amount of exercise you do. Talk to your health care provider before you start a new activity. They may need to: ?Make sure that the activity is safe for you. ?Adjust your insulin, other medicines, and food that you eat. Drink water while you exercise. This can stop you from losing too much water (dehydration). It can also prevent problems caused by having a lot of heat in your body (heat stroke). Where to find more information [place] [employer] Association: diabetes.org Association of Diabetes Care & Education Specialists: diabeteseducator.org This information is not intended to replace advice given to you by your health care provider. Make sure you discuss any questions you have with your health care provider. Document Revised: 01/23/2023 Document Reviewed: 01/23/2023 [employer] Patient Education 2023 Pramana. 09/25/2024 07:38:58 Atherosclerosis Atherosclerosis Atherosclerosis is when plaque builds up in the arteries. This causes narrowing and hardening of the arteries. Arteries are blood vessels that carry blood from the heart to all parts of the body. This blood contains oxygen. Plaque occurs due to inflammation or from a buildup of fat, cholesterol, calcium, waste products of cells, and a clotting material in the blood (fibrin). Plaque decreases the amount of blood that can flow through the artery. Atherosclerosis can affect any artery in your body, including: Heart arteries. Damage to these arteries may lead to coronary artery disease, which can cause a heart attack. Brain arteries. Damage to these arteries may cause a stroke. Leg, arm, and pelvis arteries. Peripheral artery disease (PAD) may result from damage to these arteries. Kidney arteries. Kidney (renal) failure may result from damage to kidney arteries. Treatment may slow the disease and prevent further damage to your heart, brain, peripheral arteries, and kidneys. What are the causes? This condition develops slowly over many years. The inner layers of your arteries become damaged and allow the gradual buildup of plaque. The exact cause of atherosclerosis is not fully understood. Symptoms of atherosclerosis do not occur until an artery becomes narrow or blocked. What increases the risk? The following factors may make you more likely to develop this condition: Being middle-aged or older. Certain medical conditions, including: ?High blood pressure. ?High cholesterol. ?High blood fats (triglycerides). ?Diabetes. ?Sleep apnea. ?Obesity. Certain lab levels, including: ?Elevated C-reactive protein (CRP). This is a sign of increased inflammation in your body. ?Elevated homocysteine levels. This is an amino acid that is associated with heart and blood vessel disease. Using tobacco or nicotine products. A family history of atherosclerosis. Not exercising enough (sedentary lifestyle). Being stressed. Drinking too much alcohol or using drugs, such as cocaine or methamphetamine. What are the signs or symptoms? Symptoms of atherosclerosis do not occur until the plaque severely narrows or blocks the artery, which decreases blood flow. Sometimes, atherosclerosis does not cause symptoms. Symptoms of this condition include: Coronary artery disease. This may cause chest pain and shortness of breath. Decreased blood supply to your brain, which may cause a stroke. Signs of a stroke may include sudden: ?Weakness or numbness in your face, arm, or leg, especially on one side of your body. ?Trouble walking or difficulty moving your arms or legs. ?Loss of balance or coordination. ?Confusion. ?Slurred speech. ?Trouble speaking, or trouble understanding speech, or both (aphasia). ?Vision changes in one or both eyes. This may be double vision, blurred vision, or loss of vision. ?Severe headache with no known cause. The headache is often described as the worst headache ever experienced. PAD, which may cause pain, numbness, or nonhealing wounds, often in your legs and hips. Renal failure. This may cause tiredness, problems with urination, swelling, and itchy skin. How is this diagnosed? This condition is diagnosed based on your medical history and a physical exam. During the exam, your health care provider will: Check your pulse in different places. Listen for a whooshing sound over your arteries (bruit). You may also have tests, such as: Blood tests to check your levels of cholesterol, triglycerides, blood sugar, and CRP. Ankle-brachial index to compare blood pressure in your arms to blood pressure in your ankles to see how your blood is flowing. Heart (cardiac) tests. ?Electrocardiogram (ECG) to check for heart damage. ?Stress test to see how your heart reacts to exercise. Ultrasound tests. ?Ultrasound of your peripheral arteries to check blood flow. ?Echocardiogram to get images of your heart's chambers and valves. X-ray tests. ?Chest X-ray to see if you have an enlarged heart, which is a sign of heart failure. ?CT scan to check for damage to your heart, brain, or arteries. ?Angiogram. This is a test where dye is injected and X-rays are used to see the blood flow in the arteries. How is this treated? This condition is treated with lifestyle changes as the first step. These may include: Changing your diet. Losing weight. Reducing stress. Exercising and being physically active more regularly. Quitting smoking. You may also need medicine to: Lower triglycerides and cholesterol. Control blood pressure. Prevent blood clots. Lower inflammation in your body. Control your blood sugar. Sometimes, surgery is needed to: Remove plaque from an artery (endarterectomy). Open or widen a narrowed heart artery or peripheral artery (angioplasty). Create a new path for your blood with one of these procedures: ?Heart (coronary) artery bypass graft surgery. ?Peripheral artery bypass graft surgery. Place a small mesh tube (stent) in an artery to open or widen a narrowed artery. Follow these instructions at home: Eating and drinking Eat a heart-healthy diet. Talk with your health care provider or a dietitian if you need help. A heart-healthy diet involves: ?Limiting unhealthy fats and increasing healthy fats. Some examples of healthy fats are avocados and olive oil. ?Eating plant-based foods, such as fruits, vegetables, nuts, whole grains, and legumes (such as peas and lentils). If you drink alcohol: ?Limit how much you have to: ?0 1 drink a day for women who are not . ?0 2 drinks a day for men. ?Know how much alcohol is in a drink. In the [place] one drink equals one 12 oz bottle of beer (355 mL), one 5 oz glass of wine (148 mL), or one 1 oz glass of hard liquor (44 mL). Lifestyle Maintain a healthy weight. Lose weight if your health care provider says that you need to do that. Follow an exercise program as told by your health care provider. Do not use any products that contain nicotine or tobacco. These products include cigarettes, chewing tobacco, and vaping devices, such as e-cigarettes. If you need help quitting, ask your health care provider. Do not use drugs. General instructions Take esfr-dzf-[id number] and prescription medicines only as told by your health care provider. Manage other health conditions as told. Keep all follow-up visits. This is important. Contact a health care provider if you have: An irregular heartbeat. Unexplained tiredness (fatigue). Trouble urinating, or you are producing less urine or foamy urine. Swelling of your hands or feet, or itchy skin. Unexplained pain or numbness in your legs or hips. A wound that is slow to heal or is not healing. Get help right away if: You have any symptoms of a heart attack. These may be: ?Chest pain. This includes squeezing chest pain that may feel like indigestion (angina). ?Shortness of breath. ?Pain in your neck, jaw, arms, back, or stomach. ?Cold sweat. ?Nausea. ?Light-headedness. ?Sudden pain, numbness, or coldness in a limb. You have any symptoms of a stroke. BE FAST is an easy way to remember the main warning signs of a stroke: ?B - Balance. Signs are dizziness, sudden trouble walking, or loss of balance. ?E - Eyes. Signs are trouble seeing or a sudden change in vision. ?F - Face. Signs are sudden weakness or numbness of the face, or the face or eyelid drooping on one side. ?A - Arms. Signs are weakness or numbness in an arm. This happens suddenly and usually on one side of the body. ?S - Speech. Signs are sudden trouble speaking, slurred speech, or trouble understanding what people say. ?T - Time. Time to call emergency services. Write down what time symptoms started. You have other signs of a stroke, such as: ?A sudden, severe headache with no known cause. ?Nausea or vomiting. ?Seizure. These symptoms may represent a serious problem that is an emergency. Do not wait to see if the symptoms will go away. Get medical help right away. Call your local emergency services (911 in the [place] Do not drive yourself to the hospital. Summary Atherosclerosis is when plaque builds up in the arteries and causes narrowing and hardening of the arteries. Plaque occurs due to inflammation or from a buildup of fat, cholesterol, calcium, cellular waste products, and fibrin. This condition may not cause any symptoms. Symptoms of atherosclerosis do not occur until the plaque severely narrows or blocks the artery. Treatment starts with lifestyle changes and may include medicines. In some cases, surgery is needed. Get help right away if you have any symptoms of a heart attack or stroke. This information is not intended to replace advice given to you by your health care provider. Make sure you discuss any questions you have with your health care provider. Document Revised: 11/08/2021 Document Reviewed: 11/08/2021 [employer] Patient Education 2023 Pramana. Follow Up Care 03/24/2024 08:36:44 With:CHEMO PERES FAAFP, BIPIN Aguilar, PED Address: [address], [place] [address]- When:Within 6 Month(s) [facility] 09-25-2024 Note Patient Education Cardiovascular Atherosclerosis Atherosclerosis is when plaque builds up in the arteries. This causes narrowing and hardening of the arteries. Arteries are blood vessels that carry blood from the heart to all parts of the body. This blood contains oxygen. Plaque occurs due to inflammation or from a buildup of fat, cholesterol, calcium, waste products of cells, and a clotting material in the blood (fibrin). Plaque decreases the amount of blood that can flow through the artery. Atherosclerosis can affect any artery in your body, including: ??? Heart arteries. Damage to these arteries may lead to coronary artery disease, which can cause a heart attack. ??? Brain arteries. Damage to these arteries may cause a stroke. ??? Leg, arm, and pelvis arteries. Peripheral artery disease (PAD) may result from damage to these arteries. ??? Kidney arteries. Kidney (renal) failure may result from damage to kidney arteries. Treatment may slow the disease and prevent further damage to your heart, brain, peripheral arteries, and kidneys. What are the causes? This condition develops slowly over many years. The inner layers of your arteries become damaged and allow the gradual buildup of plaque. The exact cause of atherosclerosis is not fully understood. Symptoms of atherosclerosis do not occur until an artery becomes narrow or blocked. What increases the risk? The following factors may make you more likely to develop this condition: ??? Being middle-aged or older. ??? Certain medical conditions, including: ? High blood pressure. ? High cholesterol. ? High blood fats (triglycerides). ? Diabetes. ? Sleep apnea. ? Obesity. ??? Certain lab levels, including: ? Elevated C-reactive protein (CRP). This is a sign of increased inflammation in your body. ? Elevated homocysteine levels. This is an amino acid that is associated with heart and blood vessel disease. ??? Using tobacco or nicotine products. ??? A family history of atherosclerosis. ??? Not exercising enough (sedentary lifestyle). ??? Being stressed. ??? Drinking too much alcohol or using drugs, such as cocaine or methamphetamine. What are the signs or symptoms? Symptoms of atherosclerosis do not occur until the plaque severely narrows or blocks the artery, which decreases blood flow. Sometimes, atherosclerosis does not cause symptoms. Symptoms of this condition include: ??? Coronary artery disease. This may cause chest pain and shortness of breath. ??? Decreased blood supply to your brain, which may cause a stroke. Signs of a stroke may include sudden: ? Weakness or numbness in your face, arm, or leg, especially on one side of your body. ? Trouble walking or difficulty moving your arms or legs. ? Loss of balance or coordination. ? Confusion. ? Slurred speech. ? Trouble speaking, or trouble understanding speech, or both (aphasia). ? Vision changes in one or both eyes. This may be double vision, blurred vision, or loss of vision. ? Severe headache with no known cause. The headache is often described as the worst headache ever experienced. ??? PAD, which may cause pain, numbness, or nonhealing wounds, often in your legs and hips. ??? Renal failure. This may cause tiredness, problems with urination, swelling, and itchy skin. How is this diagnosed? This condition is diagnosed based on your medical history and a physical exam. During the exam, your health care provider will: ??? Check your pulse in different places. ??? Listen for a whooshing sound over your arteries (bruit). You may also have tests, such as: ??? Blood tests to check your levels of cholesterol, triglycerides, blood sugar, and CRP. ??? Ankle-brachial index to compare blood pressure in your arms to blood pressure in your ankles to see how your blood is flowing. ??? Heart (cardiac) tests. ? Electrocardiogram (ECG) to check for heart damage. ? Stress test to see how your heart reacts to exercise. ??? Ultrasound tests. ? Ultrasound of your peripheral arteries to check blood flow. ? Echocardiogram to get images of your heart's chambers and valves. ??? X-ray tests. ? Chest X-ray to see if you have an enlarged heart, which is a sign of heart failure. ? CT scan to check for damage to your heart, brain, or arteries. ? Angiogram. This is a test where dye is injected and X-rays are used to see the blood flow in the arteries. How is this treated? This condition is treated with lifestyle changes as the first step. These may include: ??? Changing your diet. ??? Losing weight. ??? Reducing stress. ??? Exercising and being physically active more regularly. ??? Quitting smoking. You may also need medicine to: ??? Lower triglycerides and cholesterol. ??? Control blood pressure. ??? Prevent blood clots. ??? Lower inflammation in your body. ??? Control your blood sugar. Sometimes, surgery is needed to: ??? Remove plaque from an arter (more content not included)... [facility] 07-27-2024 Telephone encounter Note R EVIN 07/10/22 [facility] [place]04[place]04 & 2005 ([place]) & DAP Patient called and asked if he needed an appt to follow up on R Hip & Knees this year or next? I can call patient and make appt. [facility] 07-27-2024 Miscellaneous Notes R EVIN 07/10/22 [facility] [place]/04[place]04 & 2006 ([place]) & DAP Patient called and asked if he needed an appt to follow up on R Hip & Knees this year or next? I can call patient and make appt. documented in this encounter [facility] 07-06-2024 History of Present illness Narrative Skin Check Location: Patient requests a skin examination from the waist up Dermatologic history: history of Actinic Keratosis, no history of atypical moles Last visit: 1 year ago Established patient Lesions: Location: scalp/ears/neck/left arm Duration: months Quality: itchy Modifying factors: aggravated by picking Associated symptoms: red, rough, scaly Treatments: none Lesion # 2: Location: left elbow Duration: months Quality: itchy Modifying factors: aggravated by picking Associated symptoms: rough, scaly Treatments: none All pertinent medical history, medications, and allergies were reviewed. General Exam: alert, oriented to person, place, and time, normal affect, well appearing Unaccompanied A complete skin exam was offered, pt declined. Areas not examined despite medical recommendation: From the waist down Scalp, Examined Head, Face Examined , Exam limited by padilla and mustache Neck Examined Chest Examined Back Examined Abdomen Examined Right arm Examined Left arm Examined Hands Examined Digits,nails: Examined Lymphatics: Not examined 1. Actinic keratosis (24) Left Elbow - Posterior, Left Forearm - Posterior (7), Left Superior Oto, Mid Forehead, Mid Frontal Scalp, Mid Parietal Scalp (4), Right Postauricular Area (3), Right Posterior Neck, Right Scaphoid Fossa (2), Right Superior South of Antihelix, Right Temporal Scalp, Right Zygomatic Area Erythematous scaly papules Patient was counseled regarding these sun-induced growths that can develop into squamous cell carcinoma if left untreated. Discussed treatment with cryotherapy. It was emphasized that any treated lesions that fail to resolve should be re-evaluated. Cryotherapy performed today; see procedure note Diagnosis: Actinic keratosis Indication: Precancerous Location: see skin exam Consent: Verbal consent was obtained and risks were discussed, including, but not limited to risks of scarring, darker or cycle analyst pigmentary changes, recurrence, incomplete removal and infection. Method: Liquid nitrogen was used to treat the lesion(s) with two 5-10 second freeze-thaw cycles. Number of lesions treated: 24 Post-procedure instructions: Instructions were given orally and in writing. The office will be contacted if the lesion fails to resolve despite treatment, or if a side effect develops such as abnormal crusting, scabbing, redness or tenderness Cryotherapy, skin lesion - Left Elbow - Posterior, Left Forearm - Posterior (7), Left Superior Oto, Mid Forehead, Mid Frontal Scalp, Mid Parietal Scalp (4), Right Postauricular Area (3), Right Posterior Neck, Right Scaphoid Fossa (2), Right Superior South of Antihelix, Right Temporal Scalp, Right Zygomatic Area 2. Lentigines (6) Chest (Upper Torso, Anterior), Head - Anterior (Face), Left Arm, Neck, Right Arm, Torso - Posterior (Back) Scattered tilley macules in sun-exposed areas. The patient was informed that lentigines are benign pigmented lesions that occur on sun-exposed and sun-damaged skin. No treatment is necessary. Recommended regular use of broad spectrum sunscreen SPF 30 or higher 3. Inflamed seborrheic keratosis Left Elbow - Posterior Inflamed seborrheic keratoses: pink and brown stuck on verrucous scaly papule with surrounding erythema and bloody crust. The patient was informed that symptomatic seborrheic keratoses are benign growths that become inflamed, itchy, tender, traumatized, caught on clothing, or bleed. Symptomatic lesions can be treated with cryotherapy or curretage. Thicker lesions treated with cryotherapy may require more than one treatment. The patient was instructed to notify the office if abnormal redness or tenderness develops at the treatment site. Cryotherapy today, see procedure note. Diagnosis: Inflamed seborrheic keratosis Indication: Inflamed Consent: Verbal consent was obtained and risks were discussed, including, but not limited to risks of scarring, darker or cycle analyst pigmentary changes, recurrence, incomplete removal and infection. Method: Liquid nitrogen was used to treat the lesion(s) with two 5-10 second freeze-thaw cycles Number of lesions treated: 1 Post-procedure instructions: Instructions were given orally and in writing. The office will be contacted if the lesion fails to resolve despite treatment, or if a side effect develops such as abnormal crusting, scabbing, redness or tenderness Cryotherapy, skin lesion - Left Elbow - Posterior 4. Seborrheic keratosis (5) Abdomen (Lower Torso, Anterior), Chest (Upper Torso, Anterior), Left Arm, Right Arm, Torso - Posterior (Back) Stuck on verrucous, variably pigmented papules and plaques. Patient was counseled regarding these benign growths. Removal is normally not necessary, but they may be removed if they are symptomatic or for cosmetic reasons. Next Visit: 6 months skin check documented in this encounter [facility] 03-24-2024 Hospital Discharge instructions Patient Education 03/24/2024 08:15:58 DASH Eating Plan DASH Eating Plan DASH stands for Dietary Approaches to Stop Hypertension. The DASH eating plan is a healthy eating plan that has been shown to: Reduce high blood pressure (hypertension). Reduce your risk for type 2 diabetes, heart disease, and stroke. Help with weight loss. What are tips for following this plan? Reading food labels Check food labels for the amount of salt (sodium) per serving. Choose foods with less than 5 percent of the Daily Value of sodium. Generally, foods with less than 300 milligrams (mg) of sodium per serving fit into this eating plan. To find whole grains, look for the word whole as the first word in the ingredient list. Shopping Buy products labeled as low-sodium or no salt added. Buy fresh foods. Avoid canned foods and pre-made or frozen meals. Cooking Avoid adding salt when cooking. Use salt-free seasonings or herbs instead of table salt or sea salt. Check with your health care provider or pharmacist before using salt substitutes. Do not reddy foods. Cook foods using healthy methods such as baking, boiling, grilling, roasting, and broiling instead. Cook with heart-healthy oils, such as olive, canola, avocado, soybean, or sunflower oil. Meal planning Eat a balanced diet that includes: ?4 or more servings of fruits and 4 or more servings of vegetables each day. Try to fill one-half of your plate with fruits and vegetables. ?6 8 servings of whole grains each day. ?Less than 6 oz (170 g) of lean meat, poultry, or fish each day. A 3-oz (85-g) serving of meat is about the same size as a deck of cards. One egg equals 1 oz (28 g). ?2 3 servings of low-fat dairy each day. One serving is 1 cup (237 mL). ?1 serving of nuts, seeds, or beans 5 times each week. ?2 3 servings of heart-healthy fats. Healthy fats called omega-3 fatty acids are found in foods such as walnuts, flaxseeds, fortified milks, and eggs. These fats are also found in cold-water fish, such as sardines, salmon, and mackerel. Limit how much you eat of: ?Canned or prepackaged foods. ?Food that is high in trans fat, such as some fried foods. ?Food that is high in saturated fat, such as fatty meat. ?Desserts and other sweets, sugary drinks, and other foods with added sugar. ?Full-fat dairy products. Do not salt foods before eating. Do not eat more than 4 egg yolks a week. Try to eat at least 2 vegetarian meals a week. Eat more home-cooked food and less restaurant, buffet, and fast food. Lifestyle When eating at a restaurant, ask that your food be prepared with less salt or no salt, if possible. If you drink alcohol: ?Limit how much you use to: ?0 1 drink a day for women who are not . ?0 2 drinks a day for men. ?Be aware of how much alcohol is in your drink. In the [place] one drink equals one 12 oz bottle of beer (355 mL), one 5 oz glass of wine (148 mL), or one 1 oz glass of hard liquor (44 mL). General information Avoid eating more than 2,300 mg of salt a day. If you have hypertension, you may need to reduce your sodium intake to 1,500 mg a day. Work with your health care provider to maintain a healthy body weight or to lose weight. Ask what an ideal weight is for you. Get at least 30 minutes of exercise that causes your heart to beat faster (aerobic exercise) most days of the week. Activities may include walking, swimming, or biking. Work with your health care provider or dietitian to adjust your eating plan to your individual calorie needs. What foods should I eat? Fruits All fresh, dried, or frozen fruit. Canned fruit in natural juice (without added sugar). Vegetables Fresh or frozen vegetables (raw, steamed, roasted, or grilled). Low-sodium or reduced-sodium tomato and vegetable juice. Low-sodium or reduced-sodium tomato sauce and tomato paste. Low-sodium or reduced-sodium canned vegetables. Grains Whole-grain or whole-wheat bread. Whole-grain or whole-wheat pasta. Brown rice. Oatmeal. Quinoa. Bulgur. Whole-grain and low-sodium cereals. Xuan bread. Low-fat, low-sodium crackers. Whole-wheat flour tortillas. Meats and other proteins Skinless chicken or turkey. Ground chicken or turkey. Pork with fat trimmed off. Fish and seafood. Egg whites. Dried beans, peas, or lentils. Unsalted nuts, nut butters, and seeds. Unsalted canned beans. Lean cuts of beef with fat trimmed off. Low-sodium, lean precooked or cured meat, such as sausages or meat loaves. Dairy Low-fat (1%) or fat-free (skim) milk. Reduced-fat, low-fat, or fat-free cheeses. Nonfat, low-sodium ricotta or cottage cheese. Low-fat or nonfat yogurt. Low-fat, low-sodium cheese. Fats and oils Soft margarine without trans fats. Vegetable oil. Reduced-fat, low-fat, or light mayonnaise and salad dressings (reduced-sodium). Canola, safflower, olive, avocado, soybean, and sunflower oils. Avocado. Seasonings and condiments Herbs. Spices. Seasoning mixes without salt. Other foods Unsalted popcorn and pretzels. Fat-free sweets. The items listed above may not be a complete list of foods and beverages you can eat. Contact a dietitian for more information. What foods should I avoid? Fruits Canned fruit in a light or heavy syrup. Fried fruit. Fruit in cream or butter sauce. Vegetables Creamed or fried vegetables. Vegetables in a cheese sauce. Regular canned vegetables (not low-sodium or reduced-sodium). Regular canned tomato sauce and paste (not low-sodium or reduced-sodium). Regular tomato and vegetable juice (not low-sodium or reduced-sodium). Pickles. Olives. Grains Baked goods made with fat, such as croissants, muffins, or some breads. Dry pasta or rice meal packs. Meats and other proteins Fatty cuts of meat. Ribs. Fried meat. Mccartney. Bologna, salami, and other precooked or cured meats, such as sausages or meat loaves. Fat from the back of a pig (fatback). Bratwurst. Salted nuts and seeds. Canned beans with added salt. Canned or smoked fish. Whole eggs or egg yolks. Chicken or turkey with skin. Dairy Whole or 2% milk, cream, and [id number]. Whole or full-fat cream cheese. Whole-fat or sweetened yogurt. Full-fat cheese. Nondairy creamers. Whipped toppings. Processed cheese and cheese spreads. Fats and oils Butter. Stick margarine. Lard. Shortening. Ghee. Mccartney fat. Tropical oils, such as coconut, palm kernel, or palm oil. Seasonings and condiments Onion salt, garlic salt, seasoned salt, table salt, and sea salt. Worcestershire sauce. Tartar sauce. Barbecue sauce. Teriyaki sauce. Soy sauce, including reduced-sodium. Steak sauce. Canned and packaged gravies. Fish sauce. Oyster sauce. Cocktail sauce. Store-bought horseradish. Ketchup. Mustard. Meat flavorings and tenderizers. Bouillon cubes. Hot sauces. Pre-made or packaged marinades. Pre-made or packaged taco seasonings. Relishes. Regular salad dressings. Other foods Salted popcorn and pretzels. The items listed above may not be a complete list of foods and beverages you should avoid. Contact a dietitian for more information. Where to find more information National Heart, Lung, and Blood [place]: www.nhlbi.nih.gov [place] [employer]: www.heart.org Academy of Nutrition and Dietetics: www.eatright.org National Kidney Foundation: www.kidney.org Summary The DASH eating plan is a healthy eating plan that has been shown to reduce high blood pressure (hypertension). It may also reduce your risk for type 2 diabetes, heart disease, and stroke. When on the DASH eating plan, aim to eat more fresh fruits and vegetables, whole grains, lean proteins, low-fat dairy, and heart-healthy fats. With the DASH eating plan, you should limit salt (sodium) intake to 2,300 mg a day. If you have hypertension, you may need to reduce your sodium intake to 1,500 mg a day. Work with your health care provider or dietitian to adjust your eating plan to your individual calorie needs. This information is not intended to replace advice given to you by your health care provider. Make sure you discuss any questions you have with your health care provider. Document Revised: 07/08/2020 Document Reviewed: 07/08/2020 [employer] Patient Education 2022 Pramana. Follow Up Care 09/26/2023 09:04:36 With:CHEMO PERES FAAFP, BIPIN Aguilar, PED Address: [address] [place] [phone]- When:Within 6 Month(s) [facility] 03-24-2024 Note Patient Education Nutrition DASH Eating Plan DASH stands for Dietary Approaches to Stop Hypertension. The DASH eating plan is a healthy eating plan that has been shown to: ? Reduce high blood pressure (hypertension). ? Reduce your risk for type 2 diabetes, heart disease, and stroke. ? Help with weight loss. What are tips for following this plan? Reading food labels ? Check food labels for the amount of salt (sodium) per serving. Choose foods with less than 5 percent of the Daily Value of sodium. Generally, foods with less than 300 milligrams (mg) of sodium per serving fit into this eating plan. ? To find whole grains, look for the word whole as the first word in the ingredient list. Shopping ? Buy products labeled as low-sodium or no salt added. ? Buy fresh foods. Avoid canned foods and pre-made or frozen meals. Cooking ? Avoid adding salt when cooking. Use salt-free seasonings or herbs instead of table salt or sea salt. Check with your health care provider or pharmacist before using salt substitutes. ? Do not reddy foods. Cook foods using healthy methods such as baking, boiling, grilling, roasting, and broiling instead. ? Cook with heart-healthy oils, such as olive, canola, avocado, soybean, or sunflower oil. Meal planning ? Eat a balanced diet that includes: ? 4 or more servings of fruits and 4 or more servings of vegetables each day. Try to fill one-half of your plate with fruits and vegetables. ? 6?8 servings of whole grains each day. ? Less than 6 oz (170 g) of lean meat, poultry, or fish each day. A 3-oz (85-g) serving of meat is about the same size as a deck of cards. One egg equals 1 oz (28 g). ? 2?3 servings of low-fat dairy each day. One serving is 1 cup (237 mL). ? 1 serving of nuts, seeds, or beans 5 times each week. ? 2?3 servings of heart-healthy fats. Healthy fats called omega-3 fatty acids are found in foods such as walnuts, flaxseeds, fortified milks, and eggs. These fats are also found in cold-water fish, such as sardines, salmon, and mackerel. ? Limit how much you eat of: ? Canned or prepackaged foods. ? Food that is high in trans fat, such as some fried foods. ? Food that is high in saturated fat, such as fatty meat. ? Desserts and other sweets, sugary drinks, and other foods with added sugar. ? Full-fat dairy products. ? Do not salt foods before eating. ? Do not eat more than 4 egg yolks a week. ? Try to eat at least 2 vegetarian meals a week. ? Eat more home-cooked food and less restaurant, buffet, and fast food. Lifestyle ? When eating at a restaurant, ask that your food be prepared with less salt or no salt, if possible. ? If you drink alcohol: ? Limit how much you use to: ? 0?1 drink a day for women who are not . ? 0?2 drinks a day for men. ? Be aware of how much alcohol is in your drink. In the [place] one drink equals one 12 oz bottle of beer (355 mL), one 5 oz glass of wine (148 mL), or one 1? oz glass of hard liquor (44 mL). General information ? Avoid eating more than 2,300 mg of salt a day. If you have hypertension, you may need to reduce your sodium intake to 1,500 mg a day. ? Work with your health care provider to maintain a healthy body weight or to lose weight. Ask what an ideal weight is for you. ? Get at least 30 minutes of exercise that causes your heart to beat faster (aerobic exercise) most days of the week. Activities may include walking, swimming, or biking. ? Work with your health care provider or dietitian to adjust your eating plan to your individual calorie needs. What foods should I eat? Fruits All fresh, dried, or frozen fruit. Canned fruit in natural juice (without added sugar). Vegetables Fresh or frozen vegetables (raw, steamed, roasted, or grilled). Low-sodium or reduced-sodium tomato and vegetable juice. Low-sodium or reduced-sodium tomato sauce and tomato paste. Low-sodium or reduced-sodium canned vegetables. Grains Whole-grain or whole-wheat bread. Whole-grain or whole-wheat pasta. Brown rice. Oatmeal. Quinoa. Bulgur. Whole-grain and low-sodium cereals. Xuan bread. Low-fat, low-sodium crackers. Whole-wheat flour tortillas. Meats and other proteins Skinless chicken or turkey. Ground chicken or turkey. Pork with fat trimmed off. Fish and seafood. Egg whites. Dried beans, peas, or lentils. Unsalted nuts, nut butters, and seeds. Unsalted canned beans. Lean cuts of beef with fat trimmed off. Low-sodium, lean precooked or cured meat, such as sausages or meat loaves. Dairy Low-fat (1%) or fat-free (skim) milk. Reduced-fat, low-fat, or fat-free cheeses. Nonfat, low-sodium ricotta or cottage cheese. Low-fat or nonfat yogurt. Low-fat, low-sodium cheese. Fats and oils Soft margarine without trans fats. Vegetable oil. Reduced-fat, low-fat, or light mayonnaise and salad dressings (reduced-sodium). Canola, safflower, olive, avocado, soybean, and sunflower oils. Avocado. Seasonings and condiments He (more content not included)... [facility] 03-18-2024 Hospital Discharge instructions Patient Education 03/18/2024 09:22:31 Obesity, Adult, Nwug-es-Hmhm Obesity, Adult Obesity is having too much body fat. Being obese means that your weight is more than what is healthy for you. BMI (body mass index) is a number that explains how much body fat you have. If you have a BMI of 30 or more, you are obese. Obesity can cause serious health problems, such as: Stroke. Coronary artery disease (CAD). Type 2 diabetes. Some types of cancer. High blood pressure (hypertension). High cholesterol. Gallbladder stones. Obesity can also contribute to: Osteoarthritis. Sleep apnea. Infertility problems. What are the causes? Eating meals each day that are high in calories, sugar, and fat. Drinking a lot of drinks that have sugar in them. Being born with genes that may make you more likely to become obese. Having a medical condition that causes obesity. Taking certain medicines. Sitting a lot (having a sedentary lifestyle). Not getting enough sleep. What increases the risk? Having a family history of obesity. Living in an area with limited access to: ?[place], recreation centers, or sidewalks. ?Healthy food choices, such as grocery stores and [employer]. What are the signs or symptoms? The main sign is having too much body fat. How is this treated? Treatment for this condition often includes changing your lifestyle. Treatment may include: Changing your diet. This may include making a healthy meal plan. Exercise. This may include activity that causes your heart to beat faster (aerobic exercise) and strength training. Work with your doctor to design a program that works for you. Medicine to help you lose weight. This may be used if you are not able to lose one pound a week after 6 weeks of healthy eating and more exercise. Treating conditions that cause the obesity. Surgery. Options may include gastric banding and gastric bypass. This may be done if: ?Other treatments have not helped to improve your condition. ?You have a BMI of 40 or higher. ?You have life-threatening health problems related to obesity. Follow these instructions at home: Eating and drinking Follow advice from your doctor about what to eat and drink. Your doctor may tell you to: ?Limit fast food, sweets, and processed snack foods. ?Choose low-fat options. For example, choose low-fat milk instead of whole milk. ?Eat five or more servings of fruits or vegetables each day. ?Eat at home more often. This gives you more control over what you eat. ?Choose healthy foods when you eat out. ?Learn to read food labels. This will help you learn how much food is in one serving. ?Keep low-fat snacks available. ?Avoid drinks that have a lot of sugar in them. These include soda, fruit juice, iced tea with sugar, and flavored milk. Drink enough water to keep your pee (urine) pale yellow. Do not go on fad diets. Physical activity Exercise often, as told by your doctor. Most adults should get up to 150 minutes of moderate-intensity exercise every week.Ask your doctor: ?What types of exercise are safe for you. ?How often you should exercise. Warm up and stretch before being active. Do slow stretching after being active (cool down). Rest between times of being active. Lifestyle Work with your doctor and a food expert (dietitian) to set a weight-loss goal that is best for you. Limit your screen time. Find ways to reward yourself that do not involve food. Do not drink alcohol if: ?Your doctor tells you not to drink. ?You are , may be , or are planning to become . If you drink alcohol: ?Limit how much you have to: ?0 1 drink a day for women. ?0 2 drinks a day for men. ?Know how much alcohol is in your drink. In the [place] one drink equals one 12 oz bottle of beer (355 mL), one 5 oz glass of wine (148 mL), or one 1 oz glass of hard liquor (44 mL). General instructions Keep a weight-loss journal. This can help you keep track of: ?The food that you eat. ?How much exercise you get. Take cngi-oiq-zdaaqpf and prescription medicines only as told by your doctor. Take vitamins and supplements only as told by your doctor. Think about joining a support group. Pay attention to your mental health as obesity can lead to depression or self esteem issues. Keep all follow-up visits. Contact a doctor if: You cannot meet your weight-loss goal after you have changed your diet and lifestyle for 6 weeks. You are having trouble breathing. Summary Obesity is having too much body fat. Being obese means that your weight is more than what is healthy for you. Work with your doctor to set a weight-loss goal. Get regular exercise as told by your doctor. This information is not intended to replace advice given to you by your health care provider. Make sure you discuss any questions you have with your health care provider. Document Revised: 03/13/2022 Document Reviewed: 03/13/2022 [employer] Patient Education 2022 [employer]. 03/18/2024 09:22:21 Heart Attack, Vcjf-nd-Mcul Heart Attack A heart attack occurs when blood and oxygen supply to the heart is cut off. A heart attack can cause damage to the heart that cannot be fixed. A heart attack is also called a myocardial infarction, or SD. If you think you are having a heart attack, do not wait to see if the symptoms will go away. Get medical help right away. What are the causes? This condition may be caused by: A fatty substance (plaque) in the blood vessels (arteries). This can block the flow of blood to the heart. A blood clot in the blood vessels that go to the heart. The blood clot blocks blood flow. An abnormal heartbeat. Some diseases, such as problems in red blood cells (anemia)orproblems in breathing (respiratory failure). Tightening (spasm) of a blood vessel that cuts off blood to the heart. A tear in a blood vessel of the heart. Other causes may include: Using drugs such as cocaine or methamphetamine. Low blood pressure. What increases the risk? Aging. The risk gets higher as you get older. Having a personal or family history of chest pain, heart attack, stroke, or narrowing of the arteries in the legs, arms, head, or stomach (peripheral vascular disease). Having taken chemotherapy or immune-suppressing medicines. Being male. Being overweight or obese. Having any of these conditions: ?High blood pressure. ?High cholesterol. ?Diabetes. Making lifestyle choices such as: ?Drinking too much alcohol. ?Not getting regular exercise. ?Smoking. What are the signs or symptoms? Chest pain. It may feel like: ?Crushing or squeezing. ?Tightness, pressure, fullness, or heaviness. Pain in the arm, neck, jaw, back, or upper body. Heartburn. Upset stomach (indigestion). Shortness of breath. Feeling like you may vomit (nauseous). Cold sweats. Sudden light-headedness, dizziness, or passing out. Feeling tired. How is this treated? A heart attack must be treated as soon as possible. Treatment may include: Medicines to: ?Break up or dissolve blood clots. ?Thin your blood and help prevent blood clots. ?Treat blood pressure. ?Improve blood flow to the heart. ?Reduce pain. ?Reduce cholesterol. Procedures to widen a blocked artery and keep it open. Open heart surgery. Making your heart strong again (cardiac rehabilitation) through exercise, education, and counseling. Follow these instructions at home: Medicines Take ozmn-brq-rmcscpz and prescription medicines only as told by your doctor. Do not take these medicines unless your doctor says it is okay: ?NSAIDs, such as ibuprofen, naproxen, or celecoxib. ?Any vitamins or supplements. ?Hormone replacement therapy that has estrogen with or without progestin. If you are taking blood thinners: ?Talk with your doctor before taking any medicines that have aspirin or NSAIDs, such as ibuprofen. ? Take medicines exactly as told. Take them at the same time each day. ?Avoid doing things that could hurt or bruise you. Take action to prevent falls. ?Wear an alert bracelet or carry a card that shows you are taking blood thinners. Lifestyle Do not smoke or use any products that contain nicotine or tobacco. If you need help quitting, ask your doctor. Avoid secondhand smoke. Exercise regularly. Ask your doctor about a cardiac rehab program. Eat heart-healthy foods. Your doctor will tell you what foods to eat. Stay at a healthy weight. Learn ways to lower your stress level. Do not use illegal drugs. Alcohol use Do not drink alcohol if: ?Your doctor tells you not to drink. ?You are , may be , or are planning to become . If you drink alcohol: ?Limit how much you have to: ?0 1 drink a day for women. ?0 2 drinks a day for men. ?Know how much alcohol is in your drink. In the [place] one drink equals one 12 oz bottle of beer (355 mL), one 5 oz glass of wine (148 mL), or one 1 oz glass of hard liquor (44 mL). General instructions Work with your doctor to treat other problems you may have, such as diabetes or high blood pressure. Get screened for depression. Get treatment if needed. Keep your vaccines up to date. Get the flu shot (influenza vaccine) every year. Keep all follow-up visits. Contact a doctor if: You feel very sad. You have trouble doing your daily activities. You get light-headed or dizzy. Get help right away if: You have sudden, unexplained discomfort in your chest, arms, back, neck, jaw, or upper body. You have shortness of breath. You have sudden sweating or clammy skin. You feel like you may vomit or you vomit. You feel tired or weak. You feel your heart beating fast. You feel your heart skipping beats. You have blood pressure that is higher than 180/120. These symptoms may be an emergency. Get help right away. Call your local emergency services (911 in the [place] Do not wait to see if the symptoms will go away. Do not drive yourself to the hospital. Summary A heart attack occurs when blood and oxygen supply to the heart is cut off. Do not take NSAIDs unless your doctor says it is okay. Do not smoke. Avoid secondhand smoke. Exercise regularly. Ask your doctor about a cardiac rehab program. This information is not intended to replace advice given to you by your health care provider. Make sure you discuss any questions you have with your health care provider. Document Revised: 01/25/2022 Document Reviewed: 01/25/2022 [employer] Patient Education 2022 [employer]. 03/18/2024 09:22:17 Hyperglycemia Hyperglycemia Hyperglycemia occurs when the level of sugar (glucose) in the blood is too high. Glucose is a type of sugar that provides the body's main source of energy. Certain hormones (insulin and glucagon) control the level of glucose in the blood. Insulin lowers blood glucose, and glucagon increases blood glucose. Hyperglycemia can result from not having enough insulin in the bloodstream, or from the body not responding normally to insulin. Hyperglycemia occurs most often in people who have diabetes (diabetes mellitus), but it can happen in people who do not have diabetes. It can develop quickly, and it can be life-threatening if it causes you to become severely dehydrated (diabetic ketoacidosis or hyperglycemic hyperosmolar state). Severe hyperglycemia is a medical emergency. For most people with diabetes, a blood glucose level above 240 mg/dL is considered hyperglycemia. What are the causes? If you have diabetes, hyperglycemia may be caused by: Medicines that increase blood glucose or affect your diabetes control. Getting less physical activity. Eating more than planned. Being sick or injured, having an infection, or having surgery. Stress. Not giving yourself enough insulin (if you are taking insulin). If you have undiagnosed diabetes, this may be the reason you have hyperglycemia. If you do not have diabetes, hyperglycemia may be caused by: Certain medicines, including: ?Steroid medicines. ?Beta-blockers. ?Epinephrine. ?Thiazide diuretics. Stress. Having a serious illness, an infection, or surgery. Diseases of the pancreas. What increases the risk? Hyperglycemia is more likely to develop in people who have risk factors for diabetes, such as: Having a family member with diabetes. Certain conditions in which the body's disease-fighting system (immune system) attacks itself (autoimmune disorders). Being overweight or obese. Having an inactive (sedentary) lifestyle. Having been diagnosed with insulin resistance. Having a history of prediabetes, gestational diabetes, or polycystic ovarian syndrome (PCOS). What are the signs or symptoms? Hyperglycemia may not cause any symptoms. If you do have symptoms, they may include: Increased thirst. Needing to urinate more often than usual. Hunger. Feeling very tired. Blurry vision. Other symptoms may develop if hyperglycemia gets worse, such as: Dry mouth. Abdominal pain. Loss of appetite. Fruity-smelling breath. Weakness. Unexpected weight loss. Tingling or numbness in the hands or feet. Headache. Cuts or bruises that are slow to heal. How is this diagnosed? Hyperglycemia is diagnosed with a blood test to measure your blood glucose level. This blood test is usually done while you are having symptoms. Your health care provider may also do a physical exam and review your medical history. You may have more tests to determine the cause of your hyperglycemia, such as: A fasting blood glucose (FBG) test. You will not be allowed to eat (you will fast) for at least 8 hours before a blood sample is taken. An A1C blood test. This provides information about blood glucose control over the previous 2 3 months. An oral glucose tolerance test (OGTT). This measures your blood glucose at two times: ?After fasting. This is your baseline blood glucose level. ?2 hours after drinking a beverage that contains glucose. How is this treated? Treatment depends on the cause of your hyperglycemia. Treatment may include: Taking medicine to regulate your blood glucose levels. If you take insulin or other diabetes medicines, your medicine or dosage may be adjusted. Lifestyle changes, such as exercising more, eating healthier foods, or losing weight. Treating an illness or infection. Checking your blood glucose more often. Stopping or reducing steroid medicines. If your hyperglycemia becomes severe and it results in diabetic ketoacidosis or hyperglycemic hyperosmolar state, you must be hospitalized and given IV fluids and IV insulin. Follow these instructions at home: General instructions Take brsd-ivt-fyxhxar and prescription medicines only as told by your health care provider. Do not use any products that contain nicotine or tobacco. These products include cigarettes, chewing tobacco, and vaping devices, such as e-cigarettes. If you need help quitting, ask your health care provider. If you drink alcohol: ?Limit how much you have to: ?0 1 drink a day for women who are not . ?0 2 drinks a day for men. ?Know how much alcohol is in a drink. In the [place] one drink equals one 12 oz bottle of beer (355 mL), one 5 oz glass of wine (148 mL), or one 1 oz glass of hard liquor (44 mL). Learn to manage stress. If you need help with this, ask your health care provider. Do exercises as told by your health care provider. Keep all follow-up visits. This is important. Eating and drinking Maintain a healthy weight. Stay hydrated, especially when you exercise, get sick, or spend time in hot temperatures. Drink enough fluid to keep your urine pale yellow. If you have diabetes: Know the symptoms of hyperglycemia. Follow your diabetes management plan as told by your health care provider. Make sure you: ?Take your insulin and medicines as told. ?Follow your exercise plan. ?Follow your meal plan. Eat on time, and do not skip meals. ?Check your blood glucose as often as told. Make sure to check your blood glucose before and after exercise. If you exercise longer or in a different way, check your blood glucose more often. ?Follow your sick day plan whenever you cannot eat or drink normally. Make this plan in advance with your health care provider. Share your diabetes management plan with people in your workplace, school, and household. Check your urine for ketones when you are ill and as told by your health care provider. Carry a medical alert card or wear medical alert jewelry. Where to find more information [place] [employer]: www.diabetes.org Contact a health care provider if: Your blood glucose is at or above 240 mg/dL (13.3 mmol/L) for 2 days in a row. You have problems keeping your blood glucose in your target range. You have frequent episodes of hyperglycemia. You have signs of illness, such as nausea, vomiting, or fever. Get help right away if: Your blood glucose monitor reads high even when you are taking insulin. You have trouble breathing. You have a change in how you think, feel, or act (mental status). You have nausea or vomiting that does not go away. These symptoms may represent a serious problem that is an emergency. Do not wait to see if the symptoms will go away. Get medical help right away. Call your local emergency services (911 in the [place] Do not drive yourself to the hospital. Summary Hyperglycemia occurs when the level of sugar (glucose) in the blood is too high. Hyperglycemia can happen with or without diabetes, and severe hyperglycemia can be life-threatening. Hyperglycemia is diagnosed with a blood test to measure your blood glucose level. This blood test is usually done while you are having symptoms. Your health care provider may also do a physical exam and review your medical history. If you have diabetes, follow your diabetes management plan as told by your health care provider. Contact your health care provider if you have problems keeping your blood glucose in your target range. This information is not intended to replace advice given to you by your health care provider. Make sure you discuss any questions you have with your health care provider. Document Revised: 05/19/2021 Document Reviewed: 05/19/2021 [employer] Patient Education 2022 [employer]. 03/18/2024 09:22:12 Atherosclerosis Atherosclerosis Atherosclerosis is when plaque builds up in the arteries. This causes narrowing and hardening of the arteries. Arteries are blood vessels that carry blood from the heart to all parts of the body. This blood contains oxygen. Plaque occurs due to inflammation or from a buildup of fat, cholesterol, calcium, waste products of cells, and a clotting material in the blood (fibrin). Plaque decreases the amount of blood that can flow through the artery. Atherosclerosis can affect any artery in your body, including: Heart arteries. Damage to these arteries may lead to coronary artery disease, which can cause a heart attack. Brain arteries. Damage to these arteries may cause a stroke. Leg, arm, and pelvis arteries. Peripheral artery disease (PAD) may result from damage to these arteries. Kidney arteries. Kidney (renal) failure may result from damage to kidney arteries. Treatment may slow the disease and prevent further damage to your heart, brain, peripheral arteries, and kidneys. What are the causes? This condition develops slowly over many years. The inner layers of your arteries become damaged and allow the gradual buildup of plaque. The exact cause of atherosclerosis is not fully understood. Symptoms of atherosclerosis do not occur until an artery becomes narrow or blocked. What increases the risk? The following factors may make you more likely to develop this condition: Being middle-aged or older. Certain medical conditions, including: ?High blood pressure. ?High cholesterol. ?High blood fats (triglycerides). ?Diabetes. ?Sleep apnea. ?Obesity. Certain lab levels, including: ?Elevated C-reactive protein (CRP). This is a sign of increased inflammation in your body. ?Elevated homocysteine levels. This is an amino acid that is associated with heart and blood vessel disease. Using tobacco or nicotine products. A family history of atherosclerosis. Not exercising enough (sedentary lifestyle). Being stressed. Drinking too much alcohol or using drugs, such as cocaine or methamphetamine. What are the signs or symptoms? Symptoms of atherosclerosis do not occur until the plaque severely narrows or blocks the artery, which decreases blood flow. Sometimes, atherosclerosis does not cause symptoms. Symptoms of this condition include: Coronary artery disease. This may cause chest pain and shortness of breath. Decreased blood supply to your brain, which may cause a stroke. Signs of a stroke may include sudden: ?Weakness or numbness in your face, arm, or leg, especially on one side of your body. ?Trouble walking or difficulty moving your arms or legs. ?Loss of balance or coordination. ?Confusion. ?Slurred speech. ?Trouble speaking, or trouble understanding speech, or both (aphasia). ?Vision changes in one or both eyes. This may be double vision, blurred vision, or loss of vision. ?Severe headache with no known cause. The headache is often described as the worst headache ever experienced. PAD, which may cause pain, numbness, or nonhealing wounds, often in your legs and hips. Renal failure. This may cause tiredness, problems with urination, swelling, and itchy skin. How is this diagnosed? This condition is diagnosed based on your medical history and a physical exam. During the exam, your health care provider will: Check your pulse in different places. Listen for a whooshing sound over your arteries (bruit). You may also have tests, such as: Blood tests to check your levels of cholesterol, triglycerides, blood sugar, and CRP. Ankle-brachial index to compare blood pressure in your arms to blood pressure in your ankles to see how your blood is flowing. Heart (cardiac) tests. ?Electrocardiogram (ECG) to check for heart damage. ?Stress test to see how your heart reacts to exercise. Ultrasound tests. ?Ultrasound of your peripheral arteries to check blood flow. ?Echocardiogram to get images of your heart's chambers and valves. X-ray tests. ?Chest X-ray to see if you have an enlarged heart, which is a sign of heart failure. ?CT scan to check for damage to your heart, brain, or arteries. ?Angiogram. This is a test where dye is injected and X-rays are used to see the blood flow in the arteries. How is this treated? This condition is treated with lifestyle changes as the first step. These may include: Changing your diet. Losing weight. Reducing stress. Exercising and being physically active more regularly. Quitting smoking. You may also need medicine to: Lower triglycerides and cholesterol. Control blood pressure. Prevent blood clots. Lower inflammation in your body. Control your blood sugar. Sometimes, surgery is needed to: Remove plaque from an artery (endarterectomy). Open or widen a narrowed heart artery or peripheral artery (angioplasty). Create a new path for your blood with one of these procedures: ?Heart (coronary) artery bypass graft surgery. ?Peripheral artery bypass graft surgery. Place a small mesh tube (stent) in an artery to open or widen a narrowed artery. Follow these instructions at home: Eating and drinking Eat a heart-healthy diet. Talk with your health care provider or a dietitian if you need help. A heart-healthy diet involves: ?Limiting unhealthy fats and increasing healthy fats. Some examples of healthy fats are avocados and olive oil. ?Eating plant-based foods, such as fruits, vegetables, nuts, whole grains, and legumes (such as peas and lentils). If you drink alcohol: ?Limit how much you have to: ?0 1 drink a day for women who are not . ?0 2 drinks a day for men. ?Know how much alcohol is in a drink. In the [place] one drink equals one 12 oz bottle of beer (355 mL), one 5 oz glass of wine (148 mL), or one 1 oz glass of hard liquor (44 mL). Lifestyle Maintain a healthy weight. Lose weight if your health care provider says that you need to do that. Follow an exercise program as told by your health care provider. Do not use any products that contain nicotine or tobacco. These products include cigarettes, chewing tobacco, and vaping devices, such as e-cigarettes. If you need help quitting, ask your health care provider. Do not use drugs. General instructions Take [id number]-[id number] and prescription medicines only as told by your health care provider. Manage other health conditions as told. Keep all follow-up visits. This is important. Contact a health care provider if you have: An irregular heartbeat. Unexplained tiredness (fatigue). Trouble urinating, or you are producing less urine or foamy urine. Swelling of your hands or feet, or itchy skin. Unexplained pain or numbness in your legs or hips. A wound that is slow to heal or is not healing. Get help right away if: You have any symptoms of a heart attack. These may be: ?Chest pain. This includes squeezing chest pain that may feel like indigestion (angina). ?Shortness of breath. ?Pain in your neck, jaw, arms, back, or stomach. ?Cold sweat. ?Nausea. ?Light-headedness. ?Sudden pain, numbness, or coldness in a limb. You have any symptoms of a stroke. BE FAST is an easy way to remember the main warning signs of a stroke: ?B - Balance. Signs are dizziness, sudden trouble walking, or loss of balance. ?E - Eyes. Signs are trouble seeing or a sudden change in vision. ?F - Face. Signs are sudden weakness or numbness of the face, or the face or eyelid drooping on one side. ?A - Arms. Signs are weakness or numbness in an arm. This happens suddenly and usually on one side of the body. ?S - Speech. Signs are sudden trouble speaking, slurred speech, or trouble understanding what people say. ?T - Time. Time to call emergency services. Write down what time symptoms started. You have other signs of a stroke, such as: ?A sudden, severe headache with no known cause. ?Nausea or vomiting. ?Seizure. These symptoms may represent a serious problem that is an emergency. Do not wait to see if the symptoms will go away. Get medical help right away. Call your local emergency services (911 in the [place] Do not drive yourself to the hospital. Summary Atherosclerosis is when plaque builds up in the arteries and causes narrowing and hardening of the arteries. Plaque occurs due to inflammation or from a buildup of fat, cholesterol, calcium, cellular waste products, and fibrin. This condition may not cause any symptoms. Symptoms of atherosclerosis do not occur until the plaque severely narrows or blocks the artery. Treatment starts with lifestyle changes and may include medicines. In some cases, surgery is needed. Get help right away if you have any symptoms of a heart attack or stroke. This information is not intended to replace advice given to you by your health care provider. Make sure you discuss any questions you have with your health care provider. Document Revised: 11/08/2021 Document Reviewed: 11/08/2021 [employer] Patient Education 2022 [employer]. [facility] 03-18-2024 Note Patient Education Cardiovascular Atherosclerosis Atherosclerosis is when plaque builds up in the arteries. This causes narrowing and hardening of the arteries. Arteries are blood vessels that carry blood from the heart to all parts of the body. This blood contains oxygen. Plaque occurs due to inflammation or from a buildup of fat, cholesterol, calcium, waste products of cells, and a clotting material in the blood (fibrin). Plaque decreases the amount of blood that can flow through the artery. Atherosclerosis can affect any artery in your body, including: ? Heart arteries. Damage to these arteries may lead to coronary artery disease, which can cause a heart attack. ? Brain arteries. Damage to these arteries may cause a stroke. ? Leg, arm, and pelvis arteries. Peripheral artery disease (PAD) may result from damage to these arteries. ? Kidney arteries. Kidney (renal) failure may result from damage to kidney arteries. Treatment may slow the disease and prevent further damage to your heart, brain, peripheral arteries, and kidneys. What are the causes? This condition develops slowly over many years. The inner layers of your arteries become damaged and allow the gradual buildup of plaque. The exact cause of atherosclerosis is not fully understood. Symptoms of atherosclerosis do not occur until an artery becomes narrow or blocked. What increases the risk? The following factors may make you more likely to develop this condition: ? Being middle-aged or older. ? Certain medical conditions, including: ? High blood pressure. ? High cholesterol. ? High blood fats (triglycerides). ? Diabetes. ? Sleep apnea. ? Obesity. ? Certain lab levels, including: ? Elevated C-reactive protein (CRP). This is a sign of increased inflammation in your body. ? Elevated homocysteine levels. This is an amino acid that is associated with heart and blood vessel disease. ? Using tobacco or nicotine products. ? A family history of atherosclerosis. ? Not exercising enough (sedentary lifestyle). ? Being stressed. ? Drinking too much alcohol or using drugs, such as cocaine or methamphetamine. What are the signs or symptoms? Symptoms of atherosclerosis do not occur until the plaque severely narrows or blocks the artery, which decreases blood flow. Sometimes, atherosclerosis does not cause symptoms. Symptoms of this condition include: ? Coronary artery disease. This may cause chest pain and shortness of breath. ? Decreased blood supply to your brain, which may cause a stroke. Signs of a stroke may include sudden: ? Weakness or numbness in your face, arm, or leg, especially on one side of your body. ? Trouble walking or difficulty moving your arms or legs. ? Loss of balance or coordination. ? Confusion. ? Slurred speech. ? Trouble speaking, or trouble understanding speech, or both (aphasia). ? Vision changes in one or both eyes. This may be double vision, blurred vision, or loss of vision. ? Severe headache with no known cause. The headache is often described as the worst headache ever experienced. ? PAD, which may cause pain, numbness, or nonhealing wounds, often in your legs and hips. ? Renal failure. This may cause tiredness, problems with urination, swelling, and itchy skin. How is this diagnosed? This condition is diagnosed based on your medical history and a physical exam. During the exam, your health care provider will: ? Check your pulse in different places. ? Listen for a whooshing sound over your arteries (bruit). You may also have tests, such as: ? Blood tests to check your levels of cholesterol, triglycerides, blood sugar, and CRP. ? Ankle-brachial index to compare blood pressure in your arms to blood pressure in your ankles to see how your blood is flowing. ? Heart (cardiac) tests. ? Electrocardiogram (ECG) to check for heart damage. ? Stress test to see how your heart reacts to exercise. ? Ultrasound tests. ? Ultrasound of your peripheral arteries to check blood flow. ? Echocardiogram to get images of your heart's chambers and valves. ? X-ray tests. ? Chest X-ray to see if you have an enlarged heart, which is a sign of heart failure. ? CT scan to check for damage to your heart, brain, or arteries. ? Angiogram. This is a test where dye is injected and X-rays are used to see the blood flow in the arteries. How is this treated? This condition is treated with lifestyle changes as the first step. These may include: ? Changing your diet. ? Losing weight. ? Reducing stress. ? Exercising and being physically active more regularly. ? Quitting smoking. You may also need medicine to: ? Lower triglycerides and cholesterol. ? Control blood pressure. ? Prevent blood clots. ? Lower inflammation in your body. ? Control your blood sugar. Sometimes, surgery is needed to: ? Remove plaque from an artery (endarterectomy). ? Open or widen a narrowed heart artery or per (more content not included)... [facility] 12-27-2023 Note HNO ID: [id number] Author: KATINA MERCHANT DO Service: ? Author Type: Physician Type: Progress Notes Filed: 12/27/2023 15:51 Note Text: Ortho Knee Follow Up Note Narrative Referring Provider: No referring provider defined for this encounter. PCP: Clive Raymond DO, DO Patinet is improving following his L total knee revision surgery. He has been compliant with his antibiotic therapy. Compliant with his WB restrictions - currently at 110 of flexion in his HKB and 75% WB with walker. Progress to 100% WB today. ROMAT. OK to drive today while not taking any pain medications. Continue Doxycycline until prescription is finished. Follow up as needed IMPRESSION/PLAN: 68 year old s/p revision Left Total Knee Replacement completed on 10/14/2023. Recent Surgeries this specialty 10/14/2023 (10w, 4d) REVISION JOINT TOTAL KNEE FEMORAL AND ENTIRE TIBIAL COMPONENT; RADICAL RESECTION DISTAL FEMUR (Left; Left) Katina Merchant DO; Sam Presley MD; Pako Gonsalez DO - Posted PAIN EVALUATION No data found in the last 1 encounters. IMPRESSION: Excellent early outcome PLAN: No new treatment indicated: Routine follow-up and Continue physical therapy. Continue current conservative treatment. Patient Reassurance: Normal post-operative course discussed with patient. Progress appears to be with the normal speed of recovery. Follow up as needed Marck Hameed presents today for a an intermediate post-op visit ACTIVE PROBLEM LIST Abnormal Gait Acquired Buried Penis Acute Serous Otitis Media Anemia Anemia of Chronic Disease Atherosclerosis of Aorta (Former[facility]) Carpal Tunnel Syndrome Postoperative Pain Disorder of Male Genital Organ Elevated Hemoglobin A1c Encounter for Orthopedic Follow-Up Care Familial Hypercholesteremia H/O Hydrocele History of Testicular Disorder History of Carpal Tunnel Release History of Bilateral Knee Replacement Hyperglycemia Hyperlipidemia Hypertension Essential (Primary) Hypertension Correction Current Use of Therapeutic Drug Low Vitamin D Level Obesity, Class II, Bmi 35-39.9, Isolated (See Actual Bmi) Simple Obesity Osteoarthritis of Hip Osteoarthritis of Right Hip Otalgia of Right Ear Preoperative State Presence of Hip Joint Prosthesis Hip Pain Pain of Right Hip Joint Presence of Right Artificial Ankle Joint Primary Osteoarthritis, Right Ankle and Foot Spermatocele Suspected Sleep Apnea Alcohol Use Failed Orthopedic Implant, Initial Encounter (Formerly [facility]) Status post op: BMI: There is no height or weight on file to calculate BMI. Post-operative recovery was complicated by uneventful/none. Readmission(s) since surgery (90 days post)? No ED Visits AND Hospitalizations - Last 180 days 10/14/23 Katina Merchant DO, [id number] S/P revision of total knee, left ..., Admission (Discharged) Patient rates their condition as improving. Does the patient still experience pain? No Post Op discharge patient location: in home. Functional Assessment is as follows: has already started outpatient PT as of this visit. Functional difficulties: None. Pain Medication: None Currently Ambulating with: a walker EXAM: POST OP KNEE Left Post-Operative Knee Ambulates with a: normal gait. In his hinged knee brace with his walker at 75% WB SKIN: Appropriate postop appearance, No evidence of erythema, warmth, discharge or drainage, and No evidence of warmth or erythema. Range of motion is 0 degrees in extension and 100 degrees of flexion. Extension La degrees Pain with ROM:No There is Mild effusion. Mal-alignment: No Tender to the palpation of None Neurovascular Status: Sensation Intact, Moves foot and ankle up AND down, and 2+ posterial tibial Stability:Anterior/Posterior- Yes, stable and Varus/Valgus- Yes, stable Quad strength: normal Imagin. Implants are well aligned. Implants are well fixed. There is no evidence of loosening. Provider: Katina Merchant DO Completed by: Brock Guerrero DO [facility] 12-27-2023 Note HNO ID: [id number] Author: SHANTE BERNARDO RT(R) Service: ? Author Type: Technologist Type: Progress Notes Filed: 12/27/2023 14:13 Note Text: Radiology Service Progress Note PATIENT NAME: Marck Hameed DATE OF SERVICE: December 27, 2023 TIME: 2:12 PM PATIENT IDENTITY VERIFICATION COMPLETED USING TWO (2) IDENTIFIERS: Name and Date of confirmed by patient verbally. FALL SCREENING: Has the patient had 2 falls in the last year or 1 fall with injury or currently using an Ambulatory Assistive Device (Walker, Cane, Wheelchair, Crutches, etc.)? No PATIENT GENDER DATA: Male PATIENT RELEVANT IMPLANT DATA REVIEWED: Not Applicable PATIENT PRESENTS WITH AN IMPLANTABLE OR ATTACHED WORK MANAGER: No RADIOLOGY DEPARTMENT: General X-ray: Exam(s) Completed: Lower Extremity X-Ray(s): Knee, AP / Lat / Merchant Left and Wt. Bearing PERIPHERAL IV DATA: Not applicable SIGNED BY: RT Lor(R) December 27, 2023 2:12 PM [facility] 12-27-2023 History of Present illness Narrative Ortho Knee Follow Up Note Narrative Referring Provider: No referring provider defined for this encounter. PCP: Clive Raymond DO, DO Lan is improving following his L total knee revision surgery. He has been compliant with his antibiotic therapy. Compliant with his WB restrictions - currently at 110 of flexion in his HKB and 75% WB with walker. Progress to 100% WB today. ROMAT. OK to drive today while not taking any pain medications. Continue Doxycycline until prescription is finished. Follow up as needed IMPRESSION/PLAN: 68 year old s/p revision Left Total Knee Replacement completed on 10/14/2023. Recent Surgeries this specialty 10/14/2023 (10w, 4d) REVISION JOINT TOTAL KNEE FEMORAL AND ENTIRE TIBIAL COMPONENT; RADICAL RESECTION DISTAL FEMUR (Left; Left) Katina Merchant DO; Sam Presley MD; Pako Gonsalez DO - Posted PAIN EVALUATION No data found in the last 1 encounters. IMPRESSION: Excellent early outcome PLAN: No new treatment indicated: Routine follow-up and Continue physical therapy. Continue current conservative treatment. Patient Reassurance: Normal post-operative course discussed with patient. Progress appears to be with the normal speed of recovery. 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 Post-operative recovery was complicated by uneventful/none. Readmission(s) since surgery (90 days post)? No ED Visits & Hospitalizations - Last 180 days 10/14/23 Katina Merchant DO, [id number] S/P revision of total knee, left ..., Admission (Discharged) Patient rates their condition as improving. Does the patient still experience pain? No Post Op discharge patient location: in home. Functional Assessment is as follows: has already started outpatient PT as of this visit. Functional difficulties: None. Pain Medication: None Currently Ambulating with: a walker EXAM: POST OP KNEE Left Post-Operative Knee Ambulates with a: normal gait. In his hinged knee brace with his walker at 75% WB SKIN: Appropriate postop appearance, No evidence of erythema, warmth, discharge or drainage, and No evidence of warmth or erythema. Range of motion is 0 degrees in extension and 100 degrees of flexion. Extension La degrees Pain with ROM:No There is Mild effusion. Mal-alignment: No Tender to the palpation of None Neurovascular Status: Sensation Intact, Moves foot and ankle up & down, and 2+ posterial tibial Stability:Anterior/Posterior- Yes, stable and Varus/Valgus- Yes, stable Quad strength: normal Imagin. Implants are well aligned. Implants are well fixed. There is no evidence of loosening. Provider: Katina Merchant DO Completed by: Brock Guerrero DO documented in this encounter [facility] 12-27-2023 History of Present illness Narrative Radiology Service Progress Note PATIENT NAME: Marck Hameed DATE OF SERVICE: December 27, 2023 TIME: 2:12 PM PATIENT IDENTITY VERIFICATION COMPLETED USING TWO (2) IDENTIFIERS: Name and Date of confirmed by patient verbally. FALL SCREENING: Has the patient had 2 falls in the last year or 1 fall with injury or currently using an Ambulatory Assistive Device (Walker, Cane, Wheelchair, Crutches, etc.)? No PATIENT GENDER DATA: Male PATIENT RELEVANT IMPLANT DATA REVIEWED: Not Applicable PATIENT PRESENTS WITH AN IMPLANTABLE OR ATTACHED WORK MANAGER: No RADIOLOGY DEPARTMENT: General X-ray: Exam(s) Completed: Lower Extremity X-Ray(s): Knee, AP / Lat / Merchant Left and Wt. Bearing PERIPHERAL IV DATA: Not applicable SIGNED BY: RT Lor(R) December 27, 2023 2:12 PM documented in this encounter [facility] 11-08-2023 Miscellaneous Notes Office will fax over PT order and notes from yesterday office visit. Romana is calling Katina Merchant DO today with concern regarding Orders. Romana is calling She needs his PT orders fax to [facility]. [phone] Patient has been identified by name and birthdate. Duration of symptoms: N/A Person calling: self Call patient at: at home [phone] (home) [phone] (cell) Was an appointment scheduled: No Estelita Monroy documented in this encounter [facility] 11-07-2023 Note HNO ID: [id number] Author: RICHELLE ESCALERA RT(R) Service: Radiology Author Type: Technologist Type: Progress Notes Filed: 11/07/2023 14:24 Note Text: Radiology Service Progress Note PATIENT NAME: Marck Hameed DATE OF SERVICE: November 07, 2023 TIME: 2:23 PM PATIENT IDENTITY VERIFICATION COMPLETED USING TWO (2) IDENTIFIERS: Name and Date of confirmed by patient verbally. FALL SCREENING: Has the patient had 2 falls in the last year or 1 fall with injury or currently using an Ambulatory Assistive Device (Walker, Cane, Wheelchair, Crutches, etc.)? Yes, Patient High Risk for Falls What interventions were put in place to prevent falls during this visit? Offered Assistance with Transfers/Clothing and Increased Observations by Caregivers PATIENT GENDER DATA: Male PATIENT RELEVANT IMPLANT DATA REVIEWED: Yes PATIENT PRESENTS WITH AN IMPLANTABLE OR ATTACHED WORK MANAGER: No RADIOLOGY DEPARTMENT: General X-ray: Exam(s) Completed: Lower Extremity X-Ray(s): Knee, AP / LAT Left PERIPHERAL IV DATA: Not applicable SIGNED BY: RT Viraj(R) November 07, 2023 2:23 PM [facility] 11-07-2023 Note HNO ID: [id number] Author: CHELY YOUNG PA-C Service: ? Author Type: Physician Alum Plant Operator Type: Progress Notes Filed: 11/07/2023 15:21 Note Text: Ortho Knee Follow Up Note Narrative Referring Provider: No referring provider defined for this encounter. PCP: Clive Raymond DO, DO IMPRESSION/PLAN: 68 year old s/p revision Left Total Knee Replacement completed on 10/14/2023. Recent Surgeries this specialty 10/14/2023 (3w, 3d) REVISION JOINT TOTAL KNEE FEMORAL AND ENTIRE TIBIAL COMPONENT; RADICAL RESECTION DISTAL FEMUR (Left; Left) Katina Merchant DO; Sam Presley MD; Pako Gonsalez DO - Posted PAIN EVALUATION No data found in the last 1 encounters. IMPRESSION: At normal post-operative stage of recovery. PLAN: Continue current conservative treatment. Rest, Ice, Compression, Elevation PRN. Touch toe weightbearing for a total of 6 weeks, then proceed to 25% for 2 weeks, 50% for 2 weeks, 75% for 2 weeks, then full weightbearing as tolerated Will place patient in IROM brace to protect extensor mechanism. Can start actively flexing the left knee to only 40 degrees for 2 weeks. Progress flexion by 20 degrees every 2 weeks No application of creams, ointments, or lotions directly onto surgical incision first 3 months after surgery. No soaking in pools, hot tubs, or baths first 3 months after surgery. Aggressive elevation of the left lower extremity on multiple pillows Patient Reassurance: Normal post-operative course discussed with patient. Progress appears to be with the normal speed of recovery. Patient reassured and supported. All questions answered. Follow up 3 months X-Rays Needed Marck Hameed presents today for a a routine 1st post-op visit ACTIVE PROBLEM LIST Abnormal Gait Acquired Buried Penis Acute Serous Otitis Media Anemia Anemia of Chronic Disease Atherosclerosis of Aorta (Former[facility]) Carpal Tunnel Syndrome Postoperative Pain Disorder of Male Genital Organ Elevated Hemoglobin A1c Encounter for Orthopedic Follow-Up Care Familial Hypercholesteremia H/O Hydrocele History of Testicular Disorder History of Carpal Tunnel Release History of Bilateral Knee Replacement Hyperglycemia Hyperlipidemia Hypertension Essential (Primary) Hypertension 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 Post-operative recovery was complicated by uneventful/none. Readmission(s) since surgery (90 days post)? No ED Visits AND Hospitalizations - Last 180 days 10/14/23 Katina Merchant, , [id number] S/P revision of total knee, left ..., Admission (Discharged) Patient rates their condition as improving. Does the patient still experience pain? see MIDAS Form Post Op discharge patient location: in home. Functional Assessment is as follows: is ready to begin outpatient PT. Functional difficulties: Stair climbing and Walking. Pain Medication: Non-narcotic Currently Ambulating with: a walker and a wheelchair EXAM: POST OP KNEE Left Post-Operative Knee Ambulates with a: requiring assistive device: Wheelchair and walker. SKIN: Appropriate postop appearance, No evidence of erythema, warmth, discharge or drainage, and Incision clean/dry/intact. Range of motion is 0 degrees in extension and no flexion at this time Extension La degrees Pain with ROM:No There is Mild effusion. Mal-alignment: No Tender to the palpation of Patellar tendon Neurovascular Status: Sensation Intact, Moves foot and ankle up AND down, Moves toes up and down, 2+ dorsalis pedis, and 2+ posterial tibial Stability:Anterior/Posterior- Yes, stable and Varus/Valgus- Yes, stable Quad strength: Extensor mechanism intact, able to perform straight leg raise Imagin. Implants are well aligned. Implants are well fixed. Patella is well positioned. Provider: Chely Young PA-C Completed by: Chely Young PA-C [facility] 11-07-2023 Instructions Chely Young PA-C - 11/07/2023 2:57 PM EDT Touch toe weightbearing for a total of 6 weeks, then proceed to 25% for 2 weeks, 50% for 2 weeks, 75% for 2 weeks, then full weightbearing as tolerated Will place you in an range of motion brace. Can start actively flexing the left knee to 40 degrees for 2 weeks. Progress flexion by 20 degrees every 2 weeks No application of creams, ointments, or lotions directly onto surgical incision first 3 months after surgery. No soaking in pools, hot tubs, or baths first 3 months after surgery. Aggressive elevation of the left lower extremity on multiple pillows documented in this encounter [facility] 11-07-2023 History of Present illness Narrative Radiology Service Progress Note PATIENT NAME: Marck Hameed DATE OF SERVICE: November 07, 2023 TIME: 2:23 PM PATIENT IDENTITY VERIFICATION COMPLETED USING TWO (2) IDENTIFIERS: Name and Date of confirmed by patient verbally. FALL SCREENING: Has the patient had 2 falls in the last year or 1 fall with injury or currently using an Ambulatory Assistive Device (Walker, Cane, Wheelchair, Crutches, etc.)? Yes, Patient High Risk for Falls What interventions were put in place to prevent falls during this visit? Offered Assistance with Transfers/Clothing and Increased Observations by Caregivers PATIENT GENDER DATA: Male PATIENT RELEVANT IMPLANT DATA REVIEWED: Yes PATIENT PRESENTS WITH AN IMPLANTABLE OR ATTACHED WORK MANAGER: No RADIOLOGY DEPARTMENT: General X-ray: Exam(s) Completed: Lower Extremity X-Ray(s): Knee, AP / LAT Left PERIPHERAL IV DATA: Not applicable SIGNED BY: RT Viraj(R) November 07, 2023 2:23 PM documented in this encounter [facility] 11-07-2023 History of Present illness Narrative Ortho Knee Follow Up Note Narrative Referring Provider: No referring provider defined for this encounter. PCP: Clive Raymond DO, DO IMPRESSION/PLAN: 68 year old s/p revision Left Total Knee Replacement completed on 10/14/2023. Recent Surgeries this specialty 10/14/2023 (3w, 3d) REVISION JOINT TOTAL KNEE FEMORAL AND ENTIRE TIBIAL COMPONENT; RADICAL RESECTION DISTAL FEMUR (Left; Left) Katina Merchant DO; Sam Presley MD; Pako Gonsalez DO - Posted PAIN EVALUATION No data found in the last 1 encounters. IMPRESSION: At normal post-operative stage of recovery. PLAN: Continue current conservative treatment. Rest, Ice, Compression, Elevation PRN. Touch toe weightbearing for a total of 6 weeks, then proceed to 25% for 2 weeks, 50% for 2 weeks, 75% for 2 weeks, then full weightbearing as tolerated Will place patient in IROM brace to protect extensor mechanism. Can start actively flexing the left knee to only 40 degrees for 2 weeks. Progress flexion by 20 degrees every 2 weeks No application of creams, ointments, or lotions directly onto surgical incision first 3 months after surgery. No soaking in pools, hot tubs, or baths first 3 months after surgery. Aggressive elevation of the left lower extremity on multiple pillows Patient Reassurance: Normal post-operative course discussed with patient. Progress appears to be with the normal speed of recovery. Patient reassured and supported. All questions answered. Follow up 3 months X-Rays Needed Marck Hameed presents today for a a routine 1st post-op visit ACTIVE PROBLEM LIST Abnormal Gait Acquired Buried Penis Acute Serous Otitis Media Anemia Anemia of Chronic Disease Atherosclerosis of Aorta ([facility]) Carpal Tunnel Syndrome Postoperative Pain Disorder of Male Genital Organ Elevated Hemoglobin A1c Encounter for Orthopedic Follow-Up Care Familial Hypercholesteremia H/O Hydrocele History of Testicular Disorder History of Carpal Tunnel Release History of Bilateral Knee Replacement Hyperglycemia Hyperlipidemia Hypertension Essential (Primary) Hypertension 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 Post-operative recovery was complicated by uneventful/none. Readmission(s) since surgery (90 days post)? No ED Visits & Hospitalizations - Last 180 days 10/14/23 Katina Merchant P, DO, [id number] S/P revision of total knee, left ..., Admission (Discharged) Patient rates their condition as improving. Does the patient still experience pain? see MIDAS Form Post Op discharge patient location: in home. Functional Assessment is as follows: is ready to begin outpatient PT. Functional difficulties: Stair climbing and Walking. Pain Medication: Non-narcotic Currently Ambulating with: a walker and a wheelchair EXAM: POST OP KNEE Left Post-Operative Knee Ambulates with a: requiring assistive device: Wheelchair and walker. SKIN: Appropriate postop appearance, No evidence of erythema, warmth, discharge or drainage, and Incision clean/dry/intact. Range of motion is 0 degrees in extension and no flexion at this time Extension La degrees Pain with ROM:No There is Mild effusion. Mal-alignment: No Tender to the palpation of Patellar tendon Neurovascular Status: Sensation Intact, Moves foot and ankle up & down, Moves toes up and down, 2+ dorsalis pedis, and 2+ posterial tibial Stability:Anterior/Posterior- Yes, stable and Varus/Valgus- Yes, stable Quad strength: Extensor mechanism intact, able to perform straight leg raise Imagin. Implants are well aligned. Implants are well fixed. Patella is well positioned. Provider: Chely Young PA-C Completed by: Chely Young PA-C documented in this encounter [facility] 10-18-2023 Miscellaneous Notes PATIENT INFORMATION Record ID: [id number] [facility]: [facility] [place]: Orthopaedic & Rheumatologic [place] Attending: Katina Merchant Center: Orthopaedic Surgery INSTRUCTIONS SN to remind patient of next upcoming appointment date, time, location All Clear All Clear All Clear All Clear SURVEY INFORMATION Medical/Nurse Alum Plant Operator: Aria Mena 1. Your discharge instructions are important in guiding you through the recovery process. Is there anything I could help you clarify on your discharge instructions? (Standard Question) No 2. Do you have a follow up appointment related to your hospital stay scheduled within the next 30 days? (Standard Question) Yes MA/SN Notes: October F/U Appt 3. Is your pain controlled with your current medication? (Red Flag Question) I have no pain or minimal pain 3b. If patient says No to pain not being managed: Are you taking your pain medication as directed by your physician? N/A, pain is managed 4. If you are able to see your incision, is there any increased drainage, redness or swelling since discharge? (Red Flag Question) No 5. Many patients have concerns about their medications once they are home. Do you have any questions about getting or taking your medications? (Standard Question) No 6. Do you have any new or worsening symptoms? (Standard Question) No documented in this encounter [facility] 10-16-2023 Note HNO ID: [id number] Author: LORRAINE DUBON APRN.WATCH ENGINEER Service: Pain Management Author Type: Nurse Practitioner Type: Plan of Care Filed: 10/16/2023 11:57 Note Text: APMS Plan of Care Marck Hameed is a 68 year old male who is POD #2, S/P Procedure(s) (LRB): REVISION JOINT TOTAL KNEE FEMORAL AND ENTIRE TIBIAL COMPONENT (Left) with Peripheral Nerve Catheter placed on day of surgery for post-operative pain control infusing ropivacaine 0.1% at 8/0/0/0. Nerve block on hold at 0600 today, 10/16/23. Past medical history includes HTN, HLD, obesity, suspected sleep apnea, and ETOH use (2-3 beers a day). Patient reports pain well-controlled, since PNC placed on hold this AM Patient currently rating pain score 2/10. Left adductor PNC removed by APMS, catheter tip intact. Left adductor PNC without s/s of infection, no tenderness, drainage, erythema or warmth. Patient encouraged to utilize oral pain regimen to optimize pain control. The plan was discussed in detail with patient +/- family, bedside RN, APMS staff and primary service, who expressed agreement, understanding and comfort with the plan. APMS will sign off and defer further management to primary team. If pain worsens or difficulties arise please reconsult APMS. Thank you for including us in his care. Lorraine Dubon APRN.ISAI Acute Pain Management Service [facility] 10-16-2023 Note HNO ID: [id number] Author: MARCIO WANG PA-C Service: Orthopaedic Surgery Author Type: Physician Alum Plant Operator Type: Plan of Care Filed: 10/16/2023 14:29 Note Text: Orthopedic Plan of Care Visit SERVICE DATE: October 16, 2023 SERVICE TIME: 904 Type of Surgery/Reason for Admission: s/p Left * REVISION JOINT TOTAL KNEE FEMORAL AND ENTIRE TIBIAL COMPONENT - General w/ Dr. Merchant on 10/14/2023) INTERVAL: Patient is observed in NAD, AANDO sitting up-right in bedside chair after eating breakfast. Patient with PNC paused and pain is managed well at this time. Patient is tolerating PO and w/o c/o output at this time, BM this morning. He has passed necessary therapy benchmarks for a safe discharge home. He has no other questions or concerns at this time. Most recent labs, I/Os, VS, and notes reviewed for this visit. Na- 132 Principal Problem: Failed orthopedic implant, initial encounter ([facility]) Active Problems: Postoperative pain Obesity w/ BMI 35.0 - 39.9 (adult) (wt in last 30 days) POA: Yes Other present diagnoses: Sleep apnea Hospital AND Post-op Plan: - FFWB LLE in KI and No Range of motion until follow-up appointment - Diet, Reg - DVT Prophylaxis- ASA 81 mg BID - Antibiotics- Leslie-op Ancef then Doxy BID 3 mos. - Pain Regimen- IV/PO multimodal with APMS for PNC (held this a.m.) - Dressing- Sterile Prevena 7 d --> 14 inch Aq provided - Amaya out POD 1 and/or per nursing protocol - Consults- PT/OT/CM - Med Rec completed, DC Instructions reviewed, DC order placed Disposition- Discharge Home MIDDAY with [facility] Plan of care was completed with provider, patient and RN. All questions and concerns regarding the plan were addressed to the satisfaction of all participants. Thank you for the opportunity to participate in this patient's care. Marcio Wang PA-C I Orthopedic Surgery [facility] [place] [phone] For [place] floor related issues or questions Saturday[place] [phone] At all other times, or if urgent, please page the orthopaedic on-call resident at: [phone]) for [place] patients [facility] 10-16-2023 Note HNO ID: [id number] Author: SAM PRESLEY MD Service: Orthopaedic Surgery Author Type: Physician Type: Progress Notes Filed: 10/16/2023 08:18 Note Text: Inpatient Progress Note Orthopaedic Surgery If urgent AND unable to reach myself OR if 5p-7a/Wknd: page 2BONE Assessment Marck Hameed underwent Procedure(s) (LRB): REVISION JOINT TOTAL KNEE FEMORAL AND ENTIRE TIBIAL COMPONENT (Left) by Katina Lane DO on 10/14/2023 Post Op Plan Staff: Mayur Surgery: Left Revision TKA to hinge DOS: 10/14/2023 WB: Flat foot in knee immobilzer DVT ppx: ASA 81 BID Dressing: Prevena x 7day Amaya: per RN protocol Abx: periop ancef plus 3 mo doxy Postop Plan: Doxy 3 months Home if medically stable and clears PT/OT - Consults: APS, PT/OT, care management, appreciate recs Dispo: Pending PT/OT recs, anticipated discharge POD1-3 Rounding Subjective No o/n issues. Pain well controlled. Denies nausea, vomiting, chest pain, shortness of breath. Tolerating diet, voiding without difficulty. Block working well + APS consulting, appreciate recs. Hopeful for DC to home with HH today. Objective Blood pressure 127/75, pulse 87, temperature 36.9 ?C (98.4 ?F), temperature source Oral, resp. rate 17, height 160 cm (5' 2.99 ), weight 91 kg (200 lb 9.9 oz), SpO2 99%. Physical Exam AAOx3, NAD Breathing comfortably at rest RRR to peripheral palpation Left Lower Extremity Inspection: Dressing c/d/I, prevena with good seal Sensory: SILT to SP/DP/T/S/S distributions Motor: Intact DF/PF/EHL Vascular: DP 2+ to palp; CR < 2 sec; foot warm AND well-perfused Lab Review Creatinine (mg/dL) Date Value 10/15/2023 0.74 10/10/2023 0.78 Sodium (mmol/L) Date Value 10/15/2023 132 (L) 10/10/2023 134 (L) Potassium (mmol/L) Date Value 10/15/2023 4.4 10/10/2023 5.1 Hemoglobin (g/dL) Date Value 10/15/2023 10.1 (L) 10/10/2023 13.9 Hematocrit (%) Date Value 10/15/2023 29.5 (L) 10/10/2023 42.0 WBC (k/uL) Date Value 10/15/2023 11.74 (H) 10/10/2023 7.63 No results found for: INR No results found for: PCGLUCOSE Please scroll above for Assessment AND Plan. Jovon Presley MD Adult Reconstruction Fellow Orthopaedic Surgery Please page [phone] [phone]) from 5p-6a and on weekends for any issues. Plan of care discussed with: Patient. [facility] 10-15-2023 Note HNO ID: [id number] Author: ?, ?, ? Service: Care Management Author Type: ? Type: Care Mgt Progress Note Filed: 10/15/2023 11:53 Note Text: CARE MANAGEMENT PROGRESS NOTE SERVICE DATE: 10/15/2023 SERVICE TIME: 11:53 AM LOS: 1 day IMM Follow Up Copy Given: Yes Copy given to:: Patient Method: In Person SIGNATURE: Maria Antonia Isael PATIENT NAME: Marck Hameed DATE: October 15, 2023 TIME: 11:53 AM PAGER/CONTACT #: [phone] [facility] 10-15-2023 Note HNO ID: [id number] Author: MEGAN JONAS MD Service: Orthopaedic Surgery Author Type: Physician Type: Progress Notes Filed: 10/15/2023 10:18 Note Text: Inpatient Progress Note Orthopaedic Surgery If urgent AND unable to reach myself OR if 5p-7a/Wknd: page 2BONE Assessment Marck Hameed underwent Procedure(s) (LRB): REVISION JOINT TOTAL KNEE FEMORAL AND ENTIRE TIBIAL COMPONENT (Left) by Katina Lane DO on 10/14/2023 Post Op Plan Staff: Mayur Surgery: Left Revision TKA to hinge DOS: 10/14/2023 WB: Flat foot in knee immobilzer DVT ppx: ASA 81 BID Dressing: Prevena x 7day Amaya: per RN protocol Abx: periop ancef plus 3 mo doxy Postop Plan: Doxy 3 months Home if medically stable and clears PT/OT - Consults: APS, PT/OT, care management, appreciate recs Dispo: Pending PT/OT recs, anticipated discharge POD1-3 Rounding Subjective No o/n issues. Pain well controlled. Denies nausea, vomiting, chest pain, shortness of breath. Tolerating diet, voiding without difficulty. Block working well + APS consulting, appreciate recs. Hopeful for DC to home with HH at some point. Objective Blood pressure 145/89, pulse 107, temperature 37 ?C (98.6 ?F), temperature source Oral, resp. rate 20, height 160 cm (5' 2.99 ), weight 91 kg (200 lb 9.9 oz), SpO2 95%. Physical Exam AAOx3, NAD Breathing comfortably at rest RRR to peripheral palpation Left Lower Extremity Inspection: Dressing c/d/I, prevena with good seal Sensory: SILT to SP/DP/T/S/S distributions Motor: Intact DF/PF/EHL Vascular: DP 2+ to palp; CR < 2 sec; foot warm AND well-perfused Lab Review Creatinine (mg/dL) Date Value 10/15/2023 0.74 10/10/2023 0.78 Sodium (mmol/L) Date Value 10/15/2023 132 (L) 10/10/2023 134 (L) Potassium (mmol/L) Date Value 10/15/2023 4.4 10/10/2023 5.1 Hemoglobin (g/dL) Date Value 10/15/2023 10.1 (L) 10/10/2023 13.9 Hematocrit (%) Date Value 10/15/2023 29.5 (L) 10/10/2023 42.0 WBC (k/uL) Date Value 10/15/2023 11.74 (H) 10/10/2023 7.63 No results found for: INR No results found for: PCGLUCOSE Please scroll above for Assessment AND Plan. Megan Jonas MD Adult Reconstruction Fellow Orthopaedic Surgery Please page [phone] [phone]) from 5p-6a and on weekends for any issues. Plan of care discussed with: Patient. [facility] 10-15-2023 Note HNO ID: [id number] Author: MARCIO WANG PA-C Service: Orthopaedic Surgery Author Type: Physician Alum Plant Operator Type: Plan of Care Filed: 10/15/2023 12:12 Note Text: Orthopedic Plan of Care Visit SERVICE DATE: October 15, 2023 SERVICE TIME: 1033 Type of Surgery/Reason for Admission: s/p Left * REVISION JOINT TOTAL KNEE FEMORAL AND ENTIRE TIBIAL COMPONENT - General w/ Dr. Merchant on 10/14/2023) INTERVAL: Patient is observed in NAD, AANDO sitting up-right in bedside chair after having worked with therapy. Patient with PNC running and managing his pain well. Plan to hold PNC tomorrow morning per discussion with APMS. Patient is tolerating PO and w/o c/o output at this time. He has not other questions or concerns at this time. Most recent labs, I/Os, VS, and notes reviewed for this visit. Principal Problem: Failed orthopedic implant, initial encounter ([facility]) Active Problems: Postoperative pain Obesity w/ BMI 35.0 - 39.9 (adult) (wt in last 30 days) POA: Yes Other present diagnoses: Sleep apnea Hospital AND Post-op Plan: - FFWB LLE - Diet, Reg - DVT Prophylaxis- ASA 81 mg BID - Antibiotics- Leslie-op Ancef then Doxy BID 3 mos. - Pain Regimen- IV/PO multimodal with APMS for PNC (will hold in a.m.) - Dressing- Sterile Prevena 7 d - Amaya out POD 1 and/or per nursing protocol - Consults- PT/OT/CM - Med Rec to be completed, DC Instructions reviewed, DC order pending Disposition- Anticipated discharge Home TOMORROW with [facility] Plan of care was completed with provider, patient and RN. All questions and concerns regarding the plan were addressed to the satisfaction of all participants. Thank you for the opportunity to participate in this patient's care. Marcio Wang PA-C I Orthopedic Surgery [facility] [place] [phone] For [place] floor related issues or questions Saturday[place] [phone] At all other times, or if urgent, please page the orthopaedic on-call resident at: [phone] for [place] patients [facility] 10-14-2023 Note HNO ID: [id number] Author: NARCISO BOBO MD Service: ? Author Type: Resident Type: Anesthesia Procedure Notes Filed: 10/14/2023 12:10 Note Text: ANESTHESIOLOGY PROCEDURE NOTE Airway General Information Procedure Start Time/Medication Administration: 10/14/2023 11:35 AM Patient location during procedure: OR Timeout Performed Pre-procedure: timeout performed Consent Obtained: Yes Patient identity confirmed: arm band, care steam tank operator and patient Staffing Anesthesiologist: Catherine Blunt MD Resident: Narciso Bobo MD Performed by: resident Indications and Patient Condition Indications for airway management: anesthesia Preoxygenated: yes anesthesia circuit Patient position: sniffing Method: asleep Cricoid Pressure: Yes Difficult Mask: Yes Airway Accessory: oral airway Final Airway Details Final airway type: endotracheal airway Final Endotracheal Airway: ETT Cuffed: yes Successful intubation technique: video laryngoscopy Devices used: Hinojosa and intubating stylet Endotracheal tube insertion site: oral Blade: [place] Blade size: #4 ETT size (mm): 7.5 Measured from: lips Measurement (cm): 22 Placement verified by: capnometry Cormack-Lehane Classification: grade I - full view of glottis Number of attempts at approach: 1 Failed airway: no Unrecognized esophageal intubation: no Airway not difficult SIGNATURE: Narciso Bobo MD PATIENT NAME: Marck Hameed DATE: October 14, 2023 TIME: 12:09 PM CSN: [id number] [facility] 10-14-2023 Note HNO ID: [id number] Author: CABRERA DACOSTA MD Service: ? Author Type: Anesthesiologist Type: Anesthesia Procedure Notes Filed: 10/15/2023 12:41 Note Text: Attestation signed by Cabrera Dacosta MD at 10/15/2023 12:41 PM Attending Note I evaluated the patient and personally participated in the aguilar components. Time out was done before the procedure US was used for the block No complications noted Signature: Cabrera Dacosta MD Date: 10/15/2023 Time: 12:41 PM ANESTHESIOLOGY PROCEDURE NOTE Peripheral Nerve Block General Information Procedure Start Time/Medication Administration: 10/14/2023 10:40 AM Procedure End time: 10/14/2023 10:55 AM Patient location during procedure: induction room Timeout Performed Pre-procedure: timeout performed Consent Obtained: Yes Patient identity confirmed: arm band, care steam tank operator and patient Reason for block: post-op pain management/at surgeon's request Staffing Anesthesiologist: Cabrera Dacosta MD Fellow: Lior Kiran MD Performed by: anesthesiologist and fellow Preparation Sterility Preparation: hand hygiene performed prior to procedure, sterile gloves, drapes, and procedure tray, surgical cap used, mask used, sterile drape used during line insertion, skin prep agent completely dried prior to procedure Site Prep: Chloraprep Pre-Procedure Neuro Exam Location: LLE Sensory: intact Motor: intact Procedure Details Patient Position: supine Monitoring: Pulse OX, EKG and NIBP Block Type Lower Extremity: distal femoral (adductor canal) Laterality: left Injection Technique: catheter Ultrasound Guided: Yes Image in Chart: yes Moderate Sedation: Yes Local Infiltration: Yes Needle Needle Type: Tuohy Needle Gauge: 17 G Needle Length: 110 mm Needle Localization: ultrasound Catheter Type: open end Catheter Size: 19 G Assessment Injection assessment: negative aspiration, no paresthesia on injection, local visualized surrounding nerve on ultrasound and incremental injection Medications Administered ropivacaine (PF) 5 mg/mL (0.5 %) injection (NAROPIN) - peripheral nerve block 20 mL - 10/14/2023 10:40:00 AM SIGNATURE: Lior Kiran MD PATIENT NAME: Marck Hameed DATE: October 14, 2023 TIME: 11:11 AM CSN: [id number] [facility] 10-14-2023 Note HNO ID: [id number] Author: SHERRY HYDE RN Service: Nursing Author Type: Registered Nurse Type: Progress Notes Filed: 10/14/2023 11:01 Note Text: Acute Pain Post Moderate Sedation PATIENT NAME: Marck Hameed PATIENT LOCATION: Main - Periop OR/Main - Periop OR Block procedure complete. Patient is fully awake. SGBP: Systolic blood pressure +/- < or equal to 20% of preanesthetic level. Heart rate SGHR: 60-100 BPM or < or equal to 10% change from baseline.SGO2: Oxygen saturation >/equal to 92% on room air , or pre-procedural saturation. Bed in low position, side rails up, wheels locked. Call light within reach. Hand-off report given to Nurse: Harsh Lerner [facility] 10-10-2023 Note HNO ID: [id number] Author: KENDRA CHUN RT(R) Service: Radiology Author Type: Technologist Type: Progress Notes Filed: 10/10/2023 11:38 Note Text: Radiology Service Progress Note PATIENT NAME: Marck Hameed DATE OF SERVICE: October 10, 2023 TIME: 11:37 AM PATIENT IDENTITY VERIFICATION COMPLETED USING TWO (2) IDENTIFIERS: Name and Date of confirmed by patient verbally. FALL SCREENING: Has the patient had 2 falls in the last year or 1 fall with injury or currently using an Ambulatory Assistive Device (Walker, Cane, Wheelchair, Crutches, etc.)? No PATIENT GENDER DATA: Male PATIENT RELEVANT IMPLANT DATA REVIEWED: Not Applicable PATIENT PRESENTS WITH AN IMPLANTABLE OR ATTACHED WORK MANAGER: No RADIOLOGY DEPARTMENT: General X-ray: Exam(s) Completed: ASPIRATION LEFT KNEE PERIPHERAL IV DATA: Not applicable SIGNED BY: RT Francis(R) October 10, 2023 11:37 AM [facility] 10-10-2023 History and physical note HISTORY AND PHYSICAL EXAMINATION SERVICE DATE: 10/10/2023 SERVICE TIME: 11:52 AM PRIMARY CARE PHYSICIAN: Clive Raymond DO, DO Assessment Patient has the following medical conditions which may affect leslie-operative course: Essential (primary) hypertension Assessment: Stable, complaint on medication. Follows with PCP. Denies lightheaded or dizziness. Last 3 Encounter BP Readings: Date: BP: 10/10/2023 90/55 Hyperlipidemia Assessment: Complaint on statin therapy. Encouraged lifestyle modifications. Body mass index is 35.78 kg/m . Obesity, Class II, BMI 35-39.9, isolated (see actual BMI) Assessment: Body mass index is 35.78 kg/m . Suspected sleep apnea Assessment: STOP Bang 6. BMP ordered. Pt reports loud snoring. Alcohol use Assessment: Reports drinking 2-3 beers/day. Advised to decrease intake. Labs ordered. Denies withdrawal or DTs. Cote Activity Status Index: METS: Climb a flight of stairs or walk up a hill (5.50 METs) DASI Score: 5.5 (+ ambulates with walker or cane) Patient denies any chest pain or undue shortness of breath with the above physical activity. Clinical Frailty Scale: 3. Well, with treated comorbid disease STOP-Bang Score: Snores loudly Has or is being treated for high blood pressure BMI greater than 35 kg/m^2 Patient over 50 years old Has a large neck Male patient Denies feeling tired, fatigued, or sleepy during the daytime Has not been observed to stop breathing or choking/gasping during sleep STOP-Bang Score: 6 [id number] Score: Age: 65-74 Sex: male CHF history: No Hypertension history: Yes Stroke/TIA/thromboembolism history: No Vascular disease history: No Diabetes history: No [id number] Score: 2 ARISCAT Score: Age: 51-80 Preoperative SpO2: 91-95% Respiratory infection in the last month: No Preoperative anemia: Yes Surgical incision: peripheral Duration of surgery: >3 hrs Emergency procedure: No ARISCAT Score: 45 ANESTHESIA FINDINGS: Intubation History: No history of difficult intubation. No abnormal airway history Significant Anesthesia Considerations: none Airway History: No history of difficult airway No abnormal airway history I - PHYSICAL EVALUATION AIRWAY Patient intubated: No. Tracheostomy tube not present Mallampati: II. TM distance: >3 FB. Neck ROM: full ROM without neurological symptoms. Mouth opening: adequate. Short neck: yes. Thick neck: yes Padilla present: yes Microretrognathia/Micronagthia/Re cessed Chin: No DENTAL Dental findings: teeth intact. Additional comments: + permanent crowns. II - ANESTHESIA PLAN Anesthetic plan additional comments: *PACC/TCI - anesthesia choice. Beta Je Monitoring Plan Post Procedure Analgesic Plan Prepared for Surgery: optimally prepared for surgery, pending [see comment]. EKG and Labs Mupirocin ordered and instruction CONSULTS: Patient does not require consults for optimization at this time Planned Anesthetic: anesthesia choice The Following Tests/Procedures Have Been Initiated: Orders Placed This Encounter amLODIPine (NORVASC) 5 mg tablet Sig: Take 5 mg by mouth. aspirin, enteric coated (ASPIRIN, ENTERIC COATED) 325 mg EC tablet Sig: Take 325 mg by mouth. hydroCHLOROthiazide 25 mg tablet Sig: Take 25 mg by mouth. lisinopril (ZESTRIL) 10 mg tablet Sig: Take 10 mg by mouth. DISCONTD: losartan-hydroCHLOROthiazide (HYZAAR) 100-25 mg per tablet Sig: Take 1 tablet by mouth every morning. meloxicam (MOBIC) 7.5 mg tablet Sig: Take by mouth. pravastatin (PRAVACHOL) 80 mg tablet Sig: Take 80 mg by mouth. pyridoxine, vitamin B6, (VITAMIN B6) 100 mg tablet Sig: Take 100 mg by mouth. cephALEXin (KEFLEX) 500 mg capsule Sig: TAKE ALL 4 CAPSULES ONE HOUR BEFORE THE PROCEDURE. mupirocin (BACTROBAN) 2 % ointment Sig: two times a day for 5 days. Apply 0.5 inch with cotton swab (Q-tip) to each nostril in the morning and evening for 5 days prior to and including day of surgery. Dispense: 22 g Refill: 0 REASON FOR VISIT: Marck Hameed is a 68 year old male who is scheduled for Procedure(s): REVISION JOINT TOTAL KNEE FEMORAL AND ENTIRE TIBIAL COMPONENT (Left) at the request of Dr. Katina Merchant for consultation. My final recommendation will be communicated back to the requesting physician by way of shared medical record or letter. Subjective The patient has the following: ACTIVE PROBLEM LIST Abnormal Gait Acquired Buried Penis Acute Serous Otitis Media Anemia Anemia of Chronic Disease Atherosclerosis of Aorta (Hcc) Carpal Tunnel Syndrome Chronic Postoperative Pain Disorder of Male Genital Organ Elevated Hemoglobin A1c Encounter for Orthopedic Follow-Up Care Familial Hypercholesteremia H/O Hydrocele History of Testicular Disorder History of Carpal Tunnel Release History of Bilateral Knee Replacement Hyperglycemia Hyperlipidemia Hypertension Essential (Primary) Hypertension Correction Current Use of Therapeutic Drug Low Vitamin D Level Obesity, Class II, Bmi 35-39.9, Isolated (See Actual Bmi) Simple Obesity Osteoarthritis of Hip Osteoarthritis of Right Hip Otalgia of Right Ear Preoperative State Presence of Hip Joint Prosthesis Hip Pain Pain of Right Hip Joint Presence of Right Artificial Ankle Joint Primary Osteoarthritis, Right Ankle and Foot Spermatocele Suspected Sleep Apnea Alcohol Use COVID-19 Immunization Status Overdue - Covid-19 Vaccine ( season) Overdue since 04/19/2023 12/13/2020 Imm Admin: COVID-19 original vaccine, full dose, monovalent (MODERNA) 11/15/2020 Imm Admin: COVID-19 original vaccine, full dose, monovalent (MODERNA) CHIEF COMPLAINT: pre-operative evaluation HPI: Patient is a 68 year old male presenting with knee pain. Denies specific injury. Reports pain today of 3/10, described as aching, worsens with prolonged activity. Reports minimal swelling. Denies numbness or tingling. Has tried conservative methods with little relief. Patient denies other specific radiating, alleviating, or aggravating factors. REVIEW OF SYSTEMS: General: Negative for: unintentional weight change and fever. Neurological: Negative for: headaches, multiple sclerosis, Parkinson's disease, peripheral neuropathy, seizures, TIA and strokes. Respiratory: Negative for: asthma, COPD, current cough, dyspnea, home oxygen, pneumonia within 6 weeks, URI < 2 weeks and obstructive sleep apnea. Cardiovascular: Positive for: hyperlipidemia and hypertension Negative for: AICD/PPM, arrhythmia, atrial fibrillation, CAD, chest pain, CHF, DVT/PE, murmur/valvular heart disease and open heart surgery. GI: Negative for: abdominal pain, diverticulitis, GERD, GI bleed <30 days, inflammatory bowel disease, liver disease, nausea and vomiting. : Negative for: dysuria, frequent urination, hematuria, urgency and urinary tract infection. Endocrine: Negative for: diabetes mellitus, hyperthyroidism and hypothyroidism. Hematology: Negative for: anemia, bruises/bleeds easily, factor V Leiden, hemophilia, thrombocytopenia and von Willebrand disease. Oncology: No history of CA metastasis, chemo within 30 days, or radiotherapy within 90 days. No history of oncological symptoms or problems. Psych: Negative for: anxiety and depression. Musculoskeletal: See HPI. Positive for: joint pain. Negative for: back pain and swelling. Skin: Negative for lesions, rash and itching. History reviewed. No pertinent past medical history. PAST SURGICAL HISTORY Procedure Laterality Date APPENDECTOMY COLONOSCOPY SCREENING ORTHOPEDIC SURGERY HX 1970 knee arthoscopy ORTHOPEDIC SURGERY HX shoudler -- bicep repair PAST SURGICAL HISTORY OF 2009 total ankle PAST SURGICAL HISTORY OF h/o multiple knee arthoscopy REVISE MEDIAN N/CARPAL TUNNEL SURG Left 2019 TOTAL HIP REPLACEMENT Right 2019 TOTAL KNEE REPLACEMENT Bilateral 2005 TOTAL KNEE REPLACEMENT Right 2016 History reviewed. No pertinent family history. Social History Tobacco Use Smoking status: Never Smokeless tobacco: Never Substance Use Topics Alcohol use: Yes Alcohol/week: 21.0 standard drinks of alcohol Types: 21 Cans of Beer (12oz) per week Comment: 2-3 beers daily. Drug use: Never Prior to Admission medications as of 10/10/23 1205 Medication Sig Last Dose Taking amLODIPine (NORVASC) 5 mg tablet Take 5 mg by mouth. Taking Yes aspirin, enteric coated (ASPIRIN, ENTERIC COATED) 325 mg EC tablet Take 325 mg by mouth. Taking Yes hydroCHLOROthiazide 25 mg tablet Take 25 mg by mouth. Taking Yes lisinopril (ZESTRIL) 10 mg tablet Take 10 mg by mouth. Taking Yes meloxicam (MOBIC) 7.5 mg tablet Take by mouth. Taking Yes pravastatin (PRAVACHOL) 80 mg tablet Take 80 mg by mouth. Taking Yes pyridoxine, vitamin B6, (VITAMIN B6) 100 mg tablet Take 100 mg by mouth. Taking Yes mupirocin (BACTROBAN) 2 % ointment two times a day for 5 days. Apply 0.5 inch with cotton swab (Q-tip) to each nostril in the morning and evening for 5 days prior to and including day of surgery. cephALEXin (KEFLEX) 500 mg capsule TAKE ALL 4 CAPSULES ONE HOUR BEFORE THE PROCEDURE. Patient not taking: Reported on 10/10/2023 Not Taking No medication comments found. ALLERGIES No Known Allergies Objective PHYSICAL EXAM: General: alert and oriented, healthy appearance and obese. Pertinent negatives noted - not distressed and not confused. Skin: normal color, no rash or lesions. HEENT: pupils equal round and pupils reactive to light. Cardiovascular: regular rate and rhythm, normal S1 and S2, no rub, murmurs, or gallop. Respiratory: normal breath sounds, no wheezes or crackles. No chest wall deformity or tenderness. Abdomen: bowel sounds present and soft. Pertinent negatives noted - not tender. Extremities: no deformity, no edema or tenderness, no joint swelling or clubbing. Neurological: Positive for abnormal gait. Pertinent negatives noted - no confusion. PAIN ASSESSMENT: Pain Pain Level: 3 Pain Location: Knee-Left Description: Aching Duration Units: Months Frequency: Continuous Intervention/Comfort measure: Reposition, Relaxation, Medication VITALS: BP 90/55 Pulse 69 Temp 98.3 Ht 5' 3 (1.60m) Wt 202 lb (91.6kg) SpO2 95% BMI 35.79 kg/(m^2). Diagnostic tests reviewed for today's visit: Lab Value Units Date High Low HB 13.9 g/dL 10/10/2023 17.0 13.0 HCT 42.0 % 10/10/2023 51.0 39.0 WBC 7.63 k/uL 10/10/2023 11.00 3.70 PLT 401 k/uL 10/10/2023 400 150 NA No results within date range. K No results within date range. GLUC No results within date range. BUN No results within date range. CREAT No results within date range. PTSEC No results within date range. INR No results within date range. APTT No results within date range. ALT No results within date range. AST No results within date range. TBILI No results within date range. TSH No results within date range. Lab Value Units Date High Low HCGQT No results within date range. UHCG No results within date range. HCG, BODY* No results within date range. Lab Value Units Date High Low ABORHD No results within date range. ABSCREEN No results within date range. No results found for: HBA1C Recent Results (from the past 8760 hour(s)) ECG COMPLETE Collection Time: 10/10/23 11:45 AM Result Value Ventricular Rate 67 Atrial Rate 67 P-R Interval 170 QRS Duration 132 QT Interval 396 QTC Calculation (Bazett) 418 Calculated P [place] 15 Calculated R [place] -17 Calculated T [place] 12 Impression NORMAL SINUS RHYTHM COMPLETE RIGHT BUNDLE BRANCH BLOCK MINIMAL VOLTAGE CRITERIA FOR LVH, MAY BE NORMAL VARIANT ABNORMAL ECG No results found for this or any previous visit (from the past 04525 hour(s)). Instructions Given to Patient: Instructions located in the after visit summary. Patient given verbal and written preop instructions and voices comprehension and compliance. SIGNATURE: Tricia Phan APRN.CNP PATIENT NAME: Marck Hameed DATE: October 10, 2023 TIME: 11:52 AM PAGER/CONTACT #: documented in this encounter [facility] 10-10-2023 History of Present illness Narrative Radiology Service Progress Note PATIENT NAME: Marck Hameed DATE OF SERVICE: October 10, 2023 TIME: 11:37 AM PATIENT IDENTITY VERIFICATION COMPLETED USING TWO (2) IDENTIFIERS: Name and Date of confirmed by patient verbally. FALL SCREENING: Has the patient had 2 falls in the last year or 1 fall with injury or currently using an Ambulatory Assistive Device (Walker, Cane, Wheelchair, Crutches, etc.)? No PATIENT GENDER DATA: Male PATIENT RELEVANT IMPLANT DATA REVIEWED: Not Applicable PATIENT PRESENTS WITH AN IMPLANTABLE OR ATTACHED WORK MANAGER: No RADIOLOGY DEPARTMENT: General X-ray: Exam(s) Completed: ASPIRATION LEFT KNEE PERIPHERAL IV DATA: Not applicable SIGNED BY: RT Francis(R) October 10, 2023 11:37 AM documented in this encounter [facility] 10-03-2023 Miscellaneous Notes ORTHOPAEDIC COORDINATION OF CARE Pre-Op Assessment Discharge Disposition (Planned): Home with Home Health Discharge Transportation: Car PRIMARY CARE PHYSICIAN: No primary care provider on file. 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 Have you had joint replacement surgery before?: Yes: Bilateral knees and Right hip Date: Patient reported knees done in August of 2004 and Right hip done in 2021 Social: Pre-Hospital Baseline Mental Status: Alert & Oriented Informant: Self Living Arrangement: Home Who able to assist you at home once you discharge? Daughters Are they available for at least 2 weeks? Yes Stairs: One story home 1 stairs to enter home Bedroom Location: First Bathroom Location: First Do you have problems that affect your ability to perform normal activities of daily living such as bathing, dressing, or toileting yourself? No = 0 What is your current functional status?: Perform ADLs independently Are you able to afford your medications/Food? Yes Social Determinants of Health Tobacco Use: Low Risk (10/03/2023) Patient History Smoking Tobacco Use: Never Smokeless Tobacco Use: Never Passive Exposure: Not on file Alcohol Use: Not At Risk (10/03/2023) AUDIT-C Frequency of Alcohol Consumption: 4 or more times a week Average Number of Drinks: 1 or 2 Frequency of Binge Drinking: Never Financial Resource Strain: Low Risk (10/03/2023) Overall Financial Resource Strain (CARDIA) Difficulty of Paying Living Expenses: Not very hard Food Insecurity: No Food Insecurity (10/03/2023) Hunger Vital Sign Worried About Running Out of Food in the Last Year: Never true Ran Out of Food in the Last Year: Never true Transportation Needs: No Transportation Needs (10/03/2023) PRAPARE - Transportation Lack of Transportation (Medical): No Lack of Transportation (Non-Medical): No Physical Activity: Inactive (10/03/2023) Exercise Vital Sign Days of Exercise per Week: 0 days Minutes of Exercise per Session: 0 min Stress: No Stress Concern Present (10/03/2023) [place] [employer] - Occupational Stress Questionnaire Feeling of Stress : Not at all Social Connections: Moderately Integrated (10/03/2023) Social Connection and Isolation Panel [NHANES] Frequency of Communication with Friends and Family: More than three times a week Frequency of Social Gatherings with Friends and Family: More than three times a week Attends Yarsani Services: 1 to 4 times per year Active Member of Clubs or Organizations: Yes Attends Club or Organization Meetings: More than 4 times per year Marital Status: Intimate Partner Violence: Not At Risk (10/03/2023) Humiliation, Afraid, Rape, and Kick questionnaire Fear of Current or Ex-Partner: No Emotionally Abused: No Physically Abused: No Sexually Abused: No Depression: Not at risk (10/03/2023) PHQ-2 PHQ-2 Score: 0 Housing Stability: Low Risk (10/03/2023) Housing Stability Vital Sign Unable to Pay for Housing in the Last Year: No Number of Places Lived in the Last Year: 1 Unstable Housing in the Last Year: No Utilities: Not At Risk (10/03/2023) [place] Utilities Threatened with loss of utilities: No Area Deprivation Index: Medium Risk (09/20/2023) Area Deprivation Index National Score (1-100), lower number is lower risk: 65 State Score (1-10), lower number is lower risk: 4 Data from: https://www.neighborhoodatlas.[facility]/. Last address used for calculation: [address] Equipment: Do you currently use any equipment at home for your medical condition or to help you get around? Cane - Straight Patient also has walkers, crutches and elevated toilet seats at home for after surgery Active Services/Needs: None Transportation: Do you have reliable transportation to and from surgery/appointments?: Yes Who will provide discharge transportation: Daughters Contact information for patient's ride: Will your ride be available for 1200 discharge time? Yes Office Visit Follow Up Did you receive the antiseptic wipes from your surgeon s office? Yes Did you receive a prescription for an assistive device (walker or crutches) from your surgeon s office and fill it or do you already have one at home? Yes Did you attend a joint education class/Watched video? No Did you read the education book provided to you? Yes Have you let your PCP know you are having a joint replacement surgery? Yes Patient stated he does have an active PCP at this time and PCP is aware of upcoming surgery If you are currently being seen by pain management, are they aware you are having a joint replacement surgery? N/A Have you informed any specialty care providers of your upcoming joint replacement surgery? Yes Have you made arrangements for your pets? Yes Is your house ready for your recovery? Yes FREEDOM OF CHOICE: Level of Care Discussed: Home Care Provider List: Home Care Provider list within the patient's requested geographic area offered to the patient/family: Yes - Within [place] miles of [facility] zip[place]t Total Joint Arthroplasty (TJA) Surgical Risk Procedure: Primary total Knee replacement Date assessed: risk assessed on 09/20/2023 TJA Risk 09/20/2023 Procedure Primary total Knee replacement Estimated Length of Stay (# of days) 2 Chance of NOT Returning Home at Discharge 12.94% 30 Day Chance of Readmission 7.00% Patient lives outside of [facility] service area. Patient stated agency of choice for [facility] services is [facility]. Plan for patient's daughters to provide D/C transport home following surgery. Plan for patient to remain in the hospital overnight following surgery, no plan for same day D/C at this time SIGNATURE: TATE [place] DATE: October 03, 2023 TIME: 10:18 AM documented in this encounter [facility] 10-01-2023 Instructions Tricia Phan APRN.WATCH ENGINEER - 10/01/2023 2:36 PM EST PATIENT PREOPERATIVE INSTRUCTIONS Katina Merchant DO has scheduled you for your procedure at this surgery center: [facility] [place] Scheduling Office: [phone] --[address] [place] [address]. Please read below carefully for your personalized instructions. Arrival Time for Surgery: - To obtain your arrival time for surgery, call your physician's office the day before your surgery. - If your surgery is scheduled for Saturday, call the Saturday before. Your surgeon s commercial administrator will tell you what time to call the office. - If you have not reached the departmental commercial administrator by 5 P.M., call [phone] after 5 P.M. the day before your surgery. Dietary Restrictions: - No solid food after midnight. - You may have 12 ounces of clear liquids (water, clear juices such as apple juice or gatorade, carbonated beverages, clear tea, black coffee, jello) until 2 hours before scheduled arrival at facility. - no milk / coffee creamer - no pulp juices - Do not drink any alcohol after midnight the night before your surgery. Medications: Unless instructed differently below, stay on all of your medications until your surgery. If you start any new medications after today's visit, please contact your surgeon. Pre-Surgery Med Instructions Medication Instructions amLODIPine (NORVASC) 5 mg tablet Take the day of surgery with a small sip of water aspirin, enteric coated (ASPIRIN, ENTERIC COATED) 325 mg EC tablet Stop 7 days before surgery hydroCHLOROthiazide 25 mg tablet Do not take the day of surgery lisinopril (ZESTRIL) 10 mg tablet Do not take for 24 hours prior to surgery meloxicam (MOBIC) 7.5 mg tablet Stop 7 days before surgery pravastatin (PRAVACHOL) 80 mg tablet Take the day of surgery with a small sip of water pyridoxine, vitamin B6, (VITAMIN B6) 100 mg tablet Stop 14 days before surgery Mupirocin Instructions: Apply 1/2 inch of the mupirocin ointment with a Q-tip to both nostrils in the morning and afternoon for 5 consecutive days before surgery. If you are scheduled for a pre-op Covid-19 test, please do not apply mupirocin the morning of your test. You may apply it right after the test instead. If you start any new medications after today's visit, please contact the surgeon's office. Blood Thinning Medications: - Stop NSAIDS (Ibuprofen, Advil, Aleve, Motrin, Celebrex, Mobic, etc.) 7 days before surgery, as directed by your surgeon. - Stop Aspirin 7 days before surgery, as directed by your surgeon. - Stop Vitamin E, ALL multi-vitamins, herbals and dietary supplements 14 days before surgery. - You may take Tylenol (Acetaminophen) or any of your pain medications that do not contain aspirin or NSAIDS as needed. Important Reminders: -Please be sure to brush your teeth and you can use mouth wash or rinse your mouth if dry. - Candy, mints, and tobacco products are NOT permitted the morning of surgery. - Hearing aids, dentures and glasses may be worn the morning of surgery. - NO jewelry, body piercings, makeup, hairpins or contacts are to be worn the day of surgery. If you develop symptoms such as a fever, cold, or flu, or have other changes to your health within TWO DAYS of scheduled surgery or the morning of surgery, please contact the surgery center above. Personal Belongings: -Please have photo ID and insurance cards. -If you do not have a copy of advance directives on file with us, please bring a copy with you on the day of surgery. - Leave ALL valuables and money at home or with family members. For Outpatient Procedures: - YOU MUST HAVE A RESPONSIBLE MANAGER RETIREMENT TAKE YOU HOME. A FICTION WRITER OR PLUMBING MANAGER CANNOT BE MADE A RESPONSIBLE MANAGER RETIREMENT. - We recommend that a responsible person stays with you overnight to take care of you. - You cannot stay in a hotel alone after outpatient surgery. You will not be permitted to have your surgery, if you do not have someone to take care of you. Please be aware that emergency situations arise, which may delay or change your surgical time. If this happens, we will notify you as soon as possible and regret any inconvenience. If you already have an Advance Directive, please fax a copy to [phone] or email to for it to be added to your chart. If you do not have an Advance Directive, you can find the appropriate form and more information at [email or web address]. We recommend that you complete the Advance Directive form found on the website and bring it with you the day of your surgery. It can be witnessed and scanned into your chart that day. Tricia Phan APRN.ISAI documented in this encounter [facility] 09-26-2023 Hospital Discharge instructions Patient Education 09/26/2023 08:54:43 Hypertension, Adult, [id number] Hypertension, Adult Hypertension is another name for high blood pressure. High blood pressure forces your heart to work harder to pump blood. This can cause problems over time. There are two numbers in a blood pressure reading. There is a top number (systolic) over a bottom number (diastolic). It is best to have a blood pressure that is below 120/80. What are the causes? The cause of this condition is not known. Some other conditions can lead to high blood pressure. What increases the risk? Some lifestyle factors can make you more likely to develop high blood pressure: Smoking. Not getting enough exercise or physical activity. Being overweight. Having too much fat, sugar, calories, or salt (sodium) in your diet. Drinking too much alcohol. Other risk factors include: Having any of these conditions: ?Heart disease. ?Diabetes. ? High cholesterol. ?Kidney disease. ?Obstructive sleep apnea. Having a family history of high blood pressure and high cholesterol. Age. The risk increases with age. Stress. What are the signs or symptoms? High blood pressure may not cause symptoms. Very high blood pressure (hypertensive crisis) may cause: Headache. Fast or uneven heartbeats (palpitations). Shortness of breath. Nosebleed. Vomiting or feeling like you may vomit (nauseous). Changes in how you see. Very bad chest pain. Feeling dizzy. Seizures. How is this treated? This condition is treated by making healthy lifestyle changes, such as: ?Eating healthy foods. ?Exercising more. ?Drinking less alcohol. Your doctor may prescribe medicine if lifestyle changes do not help enough and if: ?Your top number is above 130. ?Your bottom number is above 80. Your personal target blood pressure may vary. Follow these instructions at home: Eating and drinking If told, follow the DASH eating plan. To follow this plan: ?Fill one half of your plate at each meal with fruits and vegetables. ?Fill one fourth of your plate at each meal with whole grains. Whole grains include whole-wheat pasta, brown rice, and whole-grain bread. ?Eat or drink low-fat dairy products, such as skim milk or low-fat yogurt. ?Fill one fourth of your plate at each meal with low-fat (lean) proteins. Low-fat proteins include fish, chicken without skin, eggs, beans, and tofu. ?Avoid fatty meat, cured and processed meat, or chicken with skin. ?Avoid pre-made or processed food. Limit the amount of salt in your diet to less than 1,500 mg each day. Do not drink alcohol if: ?Your doctor tells you not to drink. ?You are , may be , or are planning to become . If you drink alcohol: ?Limit how much you have to: ?0 1 drink a day for women. ?0 2 drinks a day for men. ?Know how much alcohol is in your drink. In the [place] one drink equals one 12 oz bottle of beer (355 mL), one 5 oz glass of wine (148 mL), or one 1 oz glass of hard liquor (44 mL). Lifestyle Work with your doctor to stay at a healthy weight or to lose weight. Ask your doctor what the best weight is for you. Get at least 30 minutes of exercise that causes your heart to beat faster (aerobic exercise) most days of the week. This may include walking, swimming, or biking. Get at least 30 minutes of exercise that strengthens your muscles (resistance exercise) at least 3 days a week. This may include lifting weights or doing Pilates. Do not smoke or use any products that contain nicotine or tobacco. If you need help quitting, ask your doctor. Check your blood pressure at home as told by your doctor. Keep all follow-up visits. Medicines Take [id number]-[id number] and prescription medicines only as told by your doctor. Follow directions carefully. Do not skip doses of blood pressure medicine. The medicine does not work as well if you skip doses. Skipping doses also puts you at risk for problems. Ask your doctor about side effects or reactions to medicines that you should watch for. Contact a doctor if: You think you are having a reaction to the medicine you are taking. You have headaches that keep coming back. You feel dizzy. You have swelling in your ankles. You have trouble with your vision. Get help right away if: You get a very bad headache. You start to feel mixed up (confused). You feel weak or numb. You feel faint. You have very bad pain in your: ?Chest. ?Belly (abdomen). You vomit more than once. You have trouble breathing. These symptoms may be an emergency. Get help right away. Call 911. Do not wait to see if the symptoms will go away. Do not drive yourself to the hospital. Summary Hypertension is another name for high blood pressure. High blood pressure forces your heart to work harder to pump blood. For most people, a normal blood pressure is less than 120/80. Making healthy choices can help lower blood pressure. If your blood pressure does not get lower with healthy choices, you may need to take medicine. This information is not intended to replace advice given to you by your health care provider. Make sure you discuss any questions you have with your health care provider. Document Revised: 05/24/2022 Document Reviewed: 05/24/2022 [employer] Patient Education 2022 [employer]. Follow Up Care 04/15/2023 12:06:17 With:HCEMO PERES FAAFP, BIPIN Aguilar, PED Address: [address] [place] [address] [place] [address]- When:Within 6 Month(s) [facility] 09-20-2023 Note HNO ID: [id number] Author: KATINA MERCHANT DO Service: ? Author Type: Physician Type: Progress Notes Filed: 09/20/2023 10:48 Note Text: CONSULT ORTHOPAEDIC: KNEE PRIMARY CARE PHYSICIAN: No primary care provider on file. REFERRING PROVIDER: SELF ASSESSMENT AND PLAN Subjective: Marck Hameed is a 68 year old patient . Significant past surgical history of right EVIN, right TKA, right total ankle arthroplasty, left TKA. He is presenting for second evaluation of left knee pain. Has been followed by Dr. Deluna who recommended our office for evaluation. Patient had primary left total [place] [address] Call with uneventful recovery and course up until this past May. Patient reports progressive symptoms including pain with prolonged use and range of motion limitations. Denies any recent known injury or illness. No history of prosthetic joint infection. Exam: NVI, 5-90 ROM actively with 5 degree extensor lag. Stable AP stress with laxity medial lateral with firm endpoints. Tenderness to palpation about medial femoral condyle. Imaging: Left knee X-Ray: Prior total knee arthroplasty with stemmed tibial component and medial wedge augment. Compared to prior imaging femoral component appears to be loose with medial femoral condyle loose and medialized. There is joint line elevation there is a CT in pain from June or anything anything in particular concern for tibial loosening with lytic areas around the lateral baseplate. Implants: Persona revision with CCK vs RHK vs OSS distal femur(3cm), Reena tibial and femoral cones, femoral revision with cemented stem, assessment of the tibial component with possible revision for both loosening and stability, ESR CRP, aspiration, aspirin, Doxy 3 months Impression: Left failed total knee arthroplasty Diagnoses: (M25.562) Left knee pain, unspecified chronicity (primary encounter diagnosis) Based upon the evaluation today and after discussions with Marck Hameed, Marck Hameed has significant, worsening pain at the knee. This pain is increased with activity and weight bearing, and interferes with activities of daily living. These symptoms have continued despite a number of non-surgical measures, including a trial of oral pain medication and attempted physical therapy/ structured exercise program and/or use of an assistive device/ bracing (for at least 12 weeks unless the patient was unable to tolerate these measures as discussed above). At this point, the patient will not benefit from further PT due to the severity of their condition. The patient's physical examination is consistent with limitations in range of motion, pain with passive range of motion, crepitus, and effusion/ synovitis. These examination findings are corroborated by imaging findings of joint space narrowing, periarticular osteophyte formation, and subchondral sclerosis. The patient has been treated by the practice and all reasonable treatments have failed to control the disease, which causes significant pain and limits activities of daily living. The patient has failed conservative treatment and joint replacement surgery was discussed and agreed upon by both provider and patient. We will proceed with surgical management to improve function and relieve pain refractory to non-surgical measures. Left revision total Knee Arthroplasty as evidenced by progressive symptoms. Progressive Symptoms Include: Pain impacting sleep or causing fatigue Pain impacting work Pain worsened by weight bearing Pain effecting living situation Further details and HPI . Surgery Details Date and Location: At [facility]. Implants: Edd Robotic: No Predicted LOS: 2 days (Inpatient candidate) Informed consent obtained in the office today. The risks and benefits of surgery were discussed at length including but not limited to the risks of infection, bleeding, nerve or blood vessel injury, deep venous thrombosis, pulmonary embolism, arthrofibrosis, reflex sympathetic dystrophy, , paralysis, knee or patellar dislocation, extensor mechanism injury, bone fracture, component loosening or failure requiring re-operation or amputation. Informed consent was obtained and the patient was scheduled for surgery. We also discussed fixation strategies including cement and cementless fixation and advantages and disadvantages of each. We discussed the details of the surgery as well as rehabilitation. All questions were answered, and the patient wishes to proceed with surgery.. The patient has been ordered: Appointment on 09/20/23 XR LEG FRONTAL HIP TO ANKLE MECHANICAL AXIS ESR CRP Aspiration CONSULTS: Internal Medicine Consult for preoperative clearance. Total Joint Arthroplasty: Risk Calculator Marck Hameed has a 12.94% chance of NOT returning home at discharge for a Primary total Knee replacement. Marck's estimated Length of Stay is 2 days (more content not included)... [facility] 09-20-2023 Note HNO ID: [id number] Author: EDITA GUZMAN RT(R) Service: ? Author Type: Technologist Type: Progress Notes Filed: 09/20/2023 09:06 Note Text: Radiology Service Progress Note PATIENT NAME: Marck Hameed DATE OF SERVICE: September 20, 2023 TIME: 9:00 AM PATIENT IDENTITY VERIFICATION COMPLETED USING TWO (2) IDENTIFIERS: Name and Date of confirmed by patient verbally. FALL SCREENING: Has the patient had 2 falls in the last year or 1 fall with injury or currently using an Ambulatory Assistive Device (Walker, Cane, Wheelchair, Crutches, etc.)? Yes, Patient High Risk for Falls What interventions were put in place to prevent falls during this visit? Instructed Patient to Call for Help if Needed, Offered Assistance with Transfers/Clothing, Instructed Patient to Remain Seated (Not on Exam Table) Until Exam, and Increased Observations by Caregivers PATIENT GENDER DATA: Male PATIENT RELEVANT IMPLANT DATA REVIEWED: Not Applicable PATIENT PRESENTS WITH AN IMPLANTABLE OR ATTACHED WORK MANAGER: No RADIOLOGY DEPARTMENT: General X-ray: Exam(s) Completed: Lower Extremity X-Ray(s): Knee, AP / Lat / Tunne / Merchant Left and Wt. Bearing and FLEA (Full Length Lower Extremity) PERIPHERAL IV DATA: Not applicable SIGNED BY: Edita Guzman RT(R) September 20, 2023 9:00 AM [facility] 09-20-2023 Instructions Katina Merchant DO - 09/20/2023 9:40 AM EST DATE OF SURGERY 10/14/2023 AT [facility] PRE-ADMISSION TESTING TO CONTACT YOU FOR BLOODWORK, KNEE ASPIRATION, MEDICAL AND ANESTHESIA CLEARANCE WITHIN 30 DAYS OF YOUR SURGERY documented in this encounter [facility] 09-20-2023 History of Present illness Narrative CONSULT ORTHOPAEDIC: KNEE PRIMARY CARE PHYSICIAN: No primary care provider on file. REFERRING PROVIDER: SELF ASSESSMENT & PLAN Subjective: Marck Hameed is a 68 year old patient . Significant past surgical history of right EVIN, right TKA, right total ankle arthroplasty, left TKA. He is presenting for second evaluation of left knee pain. Has been followed by Dr. Deluna who recommended our office for evaluation. Patient had primary left total knee [place] [address] Call with uneventful recovery and course up until this past May. Patient reports progressive symptoms including pain with prolonged use and range of motion limitations. Denies any recent known injury or illness. No history of prosthetic joint infection. Exam: NVI, 5-90 ROM actively with 5 degree extensor lag. Stable AP stress with laxity medial lateral with firm endpoints. Tenderness to palpation about medial femoral condyle. Imaging: Left knee X-Ray: Prior total knee arthroplasty with stemmed tibial component and medial wedge augment. Compared to prior imaging femoral component appears to be loose with medial femoral condyle loose and medialized. There is joint line elevation there is a CT in pain from June or anything anything in particular concern for tibial loosening with lytic areas around the lateral baseplate. Implants: Persona revision with CCK vs RHK vs OSS distal femur(3cm), Vanduser tibial and femoral cones, femoral revision with cemented stem, assessment of the tibial component with possible revision for both loosening and stability, ESR CRP, aspiration, aspirin, Doxy 3 months Impression: Left failed total knee arthroplasty Diagnoses: (M25.562) Left knee pain, unspecified chronicity (primary encounter diagnosis) Based upon the evaluation today and after discussions with Marck Hameed, Marck Hameed has significant, worsening pain at the knee. This pain is increased with activity and weight bearing, and interferes with activities of daily living. These symptoms have continued despite a number of non-surgical measures, including a trial of oral pain medication and attempted physical therapy/ structured exercise program and/or use of an assistive device/ bracing (for at least 12 weeks unless the patient was unable to tolerate these measures as discussed above). At this point, the patient will not benefit from further PT due to the severity of their condition. The patient's physical examination is consistent with limitations in range of motion, pain with passive range of motion, crepitus, and effusion/ synovitis. These examination findings are corroborated by imaging findings of joint space narrowing, periarticular osteophyte formation, and subchondral sclerosis. The patient has been treated by the practice and all reasonable treatments have failed to control the disease, which causes significant pain and limits activities of daily living. The patient has failed conservative treatment and joint replacement surgery was discussed and agreed upon by both provider and patient. We will proceed with surgical management to improve function and relieve pain refractory to non-surgical measures. Left revision total Knee Arthroplasty as evidenced by progressive symptoms. Progressive Symptoms Include: Pain impacting sleep or causing fatigue Pain impacting work Pain worsened by weight bearing Pain effecting living situation Further details and HPI . Surgery Details Date and Location: At [facility]. Implants: Edd Robotic: No Predicted LOS: 2 days (Inpatient candidate) Informed consent obtained in the office today. The risks and benefits of surgery were discussed at length including but not limited to the risks of infection, bleeding, nerve or blood vessel injury, deep venous thrombosis, pulmonary embolism, arthrofibrosis, reflex sympathetic dystrophy, , paralysis, knee or patellar dislocation, extensor mechanism injury, bone fracture, component loosening or failure requiring re-operation or amputation. Informed consent was obtained and the patient was scheduled for surgery. We also discussed fixation strategies including cement and cementless fixation and advantages and disadvantages of each. We discussed the details of the surgery as well as rehabilitation. All questions were answered, and the patient wishes to proceed with surgery.. The patient has been ordered: Appointment on 09/20/23 XR LEG FRONTAL HIP TO ANKLE MECHANICAL AXIS ESR CRP Aspiration CONSULTS: Internal Medicine Consult for preoperative clearance. Total Joint Arthroplasty: Risk Calculator Marck Hameed has a 12.94% chance of NOT returning home at discharge for a Primary total Knee replacement. Marck's estimated Length of Stay is 2 days (Inpatient candidate). Marck's 30 day chance of readmission is 7%. Readmission Probability 7 % (within 30 days following surgery) Estimated LOS 2 days Discharge Disposition Probability D/C to Home 87.06 % D/C to SNF 12.94 % These calculations are based on the following factors: - 68 years of age - sex is male - BMI of 36 kg/m2 - NarxCare score of 50 - 0 hospitalizations in the last 12 months - no history of heart disease - no history of diabetes - no history of COPD - history of anemia - preoperative ambulation: impaired home distances - 5 step(s) to enter home - bed location is on the first floor - bath location is on the first floor - caregiver is consistent - home is more than 150 miles away - PROMIS-10 Mental Health T score not available - Marital status: Risk Factors for Total Knee Arthroplasty (TKA) Major Risk Factors Obesity Unknown Risk High: BMI > 40 Moderate: BMI 30-40 Normal: BMI < 30 Diabetes normal High: A1C > 8 Moderate: A1C 7-8 Normal: A1C < 7 Hx of DVT / PE normal High: dx of DVT / PE Normal: no dx of DVT / PE Smoking normal High: Current smoker Normal: Non smoker Narcotics Use normal High:NarxCare >=300 Moderate: 100-299 Normal: 0-99 Depression Unknown Risk High: PHQ-9 >14 Moderate: PHQ-9 5-14 Normal: PHQ-9 < 5 Area Deprivation Index (NOAH) Moderate Risk High: NOAH Score > 75 Moderate: NOAH 50-75 Normal: NOAH < 50 Obesity: height and/or weight are out of date (There is no height and/or weight reading in the past 365 days, so the below BMI readings may be inaccurate) BMI Readings from Last 3 Encounters: No data found for BMI Area Deprivation Index (NOAH) NOAH Score 09/20/2023 National Score 65 Patient Health Questionnaire (PHQ-9) No flowsheet data found.(0-4) minimal depression, (5-9) mild depression, (10-14) moderate depression, (15-19) moderately severe depression, (20-27) severe depression Bone Density Risk Screen Marck Hameed is low risk for bone loss based on his age and having no previous diagnoses of osteopenia, osteoporosis, Paget's disease of bone, or cancer of bone. Other risk factors are listed below to determine if they pose a significant risk for bone loss, and if so, recommend ordering a bone densitometry and, upon receiving a result, as needed, order a consult to a bone health specialist (Rheumatology, Endocrinology, or Women's Health) for bone assessment. Risk Factors: Additional Risk Factors Malnutrition: No Malnutrition Screening Tool (MST) score on file- please complete the MST screening tool (click here to open) and refresh the note. There is no problem list on file for this patient. SUBJECTIVE CHIEF COMPLAINT: Knee Pain HPI: Marck Hameed is a 68 year old patient . Marck Hameed has significant past surgical history of right EVIN, right TKA, right total ankle arthroplasty, left TKA. He is presenting for second evaluation of left knee pain. Has been followed by Dr. Deluna who recommended our office for evaluation. Patient had primary left total knee [place] [address] Call with uneventful recovery and course up until this past May. Patient reports progressive symptoms including pain with prolonged use and range of motion limitations. Denies any recent known injury or illness. No history of prosthetic joint infection. PROMIS Physical Function Score No flowsheet data found. FUNCTIONAL STATUS: Walk indoors, such as around the house (1.75 METs) Do light work around the house, such as dusting or washing dishes (2.70 METs) Take care of self, that is eating, dressing, bathing, using the toilet (2.75 METs) Walk a block or two on level ground (2.75 METs) Do moderate work around the house such as vacuuming, sweeping floors, or carrying in groceries (3.50 METs) Do yardwork, such as raking leaves, weeding,or pushing a power mower (4.50 METs) Climb a flight of stairs or walk up a hill (5.50 METs) PREVIOUS TREATMENTS: Previous Surgery: As detailed in HPI REVIEW OF SYSTEMS: PAIN ASSESSMENT: See HPI. MUSCULOSKELETAL: See HPI. No flowsheet data found. No past medical history on file. No past surgical history on file. No family history on file. ALLERGIES: Patient has no allergy information on record. MEDICATIONS: No prescriptions on file. OBJECTIVE PHYSICAL EXAM: There were no vitals taken for this visit. All other systems deferred. GENERAL: Appears healthy, well-nourished, no deformities. HABITUS: Normal GAIT: Antalgic to the left KNEE EXAM: Left: Alignment: Neutral Range of motion is 5 degrees in extension and 90 degrees of flexion. Extension La degrees Pain with ROM: No Effusion: None Tender to the palpation of None Pain with patellar compression: No Stability: Anterior/Posterior stable and Varus/Valgus laxity both medial and lateral with solid endpoints Hip Exam: flexion to 100+ degrees, full extension, internal/external rotation adequate and no pain with log roll Neurovascular Status: Sensation Intact and Moves foot and ankle up & down DATA: Diagnostic tests reviewed for today's visit: Left knee X-Ray: Prior total knee arthroplasty with stemmed tibial component and medial wedge augment. Compared to prior imaging femoral component appears to be loose with medial femoral condyle loose and medialized. There is joint line elevation there is a CT in pain from June or anything anything in particular concern for tibial loosening with lytic areas around the lateral baseplate. The following conditions were addressed during the office visit today: N/a SIGNATURE: Katina Merchant DO PATIENT NAME: Marck Hameed DATE: September 20, 2023 TIME: 9:04 AM documented in this encounter [facility] 09-20-2023 History of Present illness Narrative Radiology Service Progress Note PATIENT NAME: Marck Hameed DATE OF SERVICE: September 20, 2023 TIME: 9:00 AM PATIENT IDENTITY VERIFICATION COMPLETED USING TWO (2) IDENTIFIERS: Name and Date of confirmed by patient verbally. FALL SCREENING: Has the patient had 2 falls in the last year or 1 fall with injury or currently using an Ambulatory Assistive Device (Walker, Cane, Wheelchair, Crutches, etc.)? Yes, Patient High Risk for Falls What interventions were put in place to prevent falls during this visit? Instructed Patient to Call for Help if Needed, Offered Assistance with Transfers/Clothing, Instructed Patient to Remain Seated (Not on Exam Table) Until Exam, and Increased Observations by Caregivers PATIENT GENDER DATA: Male PATIENT RELEVANT IMPLANT DATA REVIEWED: Not Applicable PATIENT PRESENTS WITH AN IMPLANTABLE OR ATTACHED WORK MANAGER: No RADIOLOGY DEPARTMENT: General X-ray: Exam(s) Completed: Lower Extremity X-Ray(s): Knee, AP / Lat / Tunne / Merchant Left and Wt. Bearing and FLEA (Full Length Lower Extremity) PERIPHERAL IV DATA: Not applicable SIGNED BY: RT Elly(R) September 20, 2023 9:00 AM documented in this encounter [facility] 07-23-2023 Note HNO ID: [id number] Author: Mabel Murphy Service: ? Author Type: ? Type: Progress Notes Filed: 07/23/2023 2:06 PM Note Text: Patient has been identified by name and Date of : Yes Patient: Marck Hameed Date of : 1955 Provider for this encounter : PCP No primary care provider on file. Reason for call: Request for a sooner appointment Was an appointment scheduled: Yes: Date/Time: 09/20/2023 @ 9am Reason for requesting visit (RFV/signs and symptoms/diagnosis) : left knee Person calling: caregiver: mabel Return call to: self Call patient at: at home [phone] (home) [phone] (cell) Payor: [employer] [place] / Plan: [employer] [place] MEDICARE SUPPLEMENT / Product Type: Indemrocael / Mabel Murphy [facility] 07-23-2023 History of Present illness Narrative Patient has been identified by name and Date of : Yes Patient: Marck Hameed Date of : 1955 Provider for this encounter : PCP No primary care provider on file. Reason for call: Request for a sooner appointment Was an appointment scheduled: Yes: Date/Time: 09/20/2023 @ 9am Reason for requesting visit (RFV/signs and symptoms/diagnosis) : left knee Person calling: caregiver: mabel Return call to: self Call patient at: at home [phone] (home) [phone] (cell) Payor: [employer] / Plan: [employer] [place] MEDICARE SUPPLEMENT / Product Type: Deirdre / Mabel Murphy documented in this encounter [facility] 04-15-2023 Hospital Discharge instructions Patient Education 04/15/2023 11:53:49 Hypertension, Adult, Tgro-ww-Icho Hypertension, Adult Hypertension is another name for high blood pressure. High blood pressure forces your heart to work harder to pump blood. This can cause problems over time. There are two numbers in a blood pressure reading. There is a top number (systolic) over a bottom number (diastolic). It is best to have a blood pressure that is below 120/80. What are the causes? The cause of this condition is not known. Some other conditions can lead to high blood pressure. What increases the risk? Some lifestyle factors can make you more likely to develop high blood pressure: Smoking. Not getting enough exercise or physical activity. Being overweight. Having too much fat, sugar, calories, or salt (sodium) in your diet. Drinking too much alcohol. Other risk factors include: Having any of these conditions: ?Heart disease. ?Diabetes. ? High cholesterol. ?Kidney disease. ?Obstructive sleep apnea. Having a family history of high blood pressure and high cholesterol. Age. The risk increases with age. Stress. What are the signs or symptoms? High blood pressure may not cause symptoms. Very high blood pressure (hypertensive crisis) may cause: Headache. Fast or uneven heartbeats (palpitations). Shortness of breath. Nosebleed. Vomiting or feeling like you may vomit (nauseous). Changes in how you see. Very bad chest pain. Feeling dizzy. Seizures. How is this treated? This condition is treated by making healthy lifestyle changes, such as: ?Eating healthy foods. ?Exercising more. ?Drinking less alcohol. Your doctor may prescribe medicine if lifestyle changes do not help enough and if: ?Your top number is above 130. ?Your bottom number is above 80. Your personal target blood pressure may vary. Follow these instructions at home: Eating and drinking If told, follow the DASH eating plan. To follow this plan: ?Fill one half of your plate at each meal with fruits and vegetables. ?Fill one fourth of your plate at each meal with whole grains. Whole grains include whole-wheat pasta, brown rice, and whole-grain bread. ?Eat or drink low-fat dairy products, such as skim milk or low-fat yogurt. ?Fill one fourth of your plate at each meal with low-fat (lean) proteins. Low-fat proteins include fish, chicken without skin, eggs, beans, and tofu. ?Avoid fatty meat, cured and processed meat, or chicken with skin. ?Avoid pre-made or processed food. Limit the amount of salt in your diet to less than 1,500 mg each day. Do not drink alcohol if: ?Your doctor tells you not to drink. ?You are , may be , or are planning to become . If you drink alcohol: ?Limit how much you have to: ?0 1 drink a day for women. ?0 2 drinks a day for men. ?Know how much alcohol is in your drink. In the [place] one drink equals one 12 oz bottle of beer (355 mL), one 5 oz glass of wine (148 mL), or one 1 oz glass of hard liquor (44 mL). Lifestyle Work with your doctor to stay at a healthy weight or to lose weight. Ask your doctor what the best weight is for you. Get at least 30 minutes of exercise that causes your heart to beat faster (aerobic exercise) most days of the week. This may include walking, swimming, or biking. Get at least 30 minutes of exercise that strengthens your muscles (resistance exercise) at least 3 days a week. This may include lifting weights or doing Pilates. Do not smoke or use any products that contain nicotine or tobacco. If you need help quitting, ask your doctor. Check your blood pressure at home as told by your doctor. Keep all follow-up visits. Medicines Take nuki-wbb-mmkakwl and prescription medicines only as told by your doctor. Follow directions carefully. Do not skip doses of blood pressure medicine. The medicine does not work as well if you skip doses. Skipping doses also puts you at risk for problems. Ask your doctor about side effects or reactions to medicines that you should watch for. Contact a doctor if: You think you are having a reaction to the medicine you are taking. You have headaches that keep coming back. You feel dizzy. You have swelling in your ankles. You have trouble with your vision. Get help right away if: You get a very bad headache. You start to feel mixed up (confused). You feel weak or numb. You feel faint. You have very bad pain in your: ?Chest. ?Belly (abdomen). You vomit more than once. You have trouble breathing. These symptoms may be an emergency. Get help right away. Call 911. Do not wait to see if the symptoms will go away. Do not drive yourself to the hospital. Summary Hypertension is another name for high blood pressure. High blood pressure forces your heart to work harder to pump blood. For most people, a normal blood pressure is less than 120/80. Making healthy choices can help lower blood pressure. If your blood pressure does not get lower with healthy choices, you may need to take medicine. This information is not intended to replace advice given to you by your health care provider. Make sure you discuss any questions you have with your health care provider. Document Revised: 05/24/2022 Document Reviewed: 05/24/2022 [employer] Patient Education 2022 [employer]. Follow Up Care 02/28/2023 10:19:16 With:CHEMO PERES FAAFP, Clive Amezquita, BIPIN, PED Address: [place] [address]- When:Within 6 Month(s) [facility] 02-28-2023 Hospital Discharge instructions Patient Education 02/28/2023 10:46:58 Fall Prevention in the Home, Adult, Qzly-xz-Dlwr Fall Prevention in the Home, Adult Falls can cause injuries and can happen to people of all ages. There are many things you can do to make your home safe and to help prevent falls. Ask for help when making these changes. What actions can I take to prevent falls? General Instructions Use good lighting in all rooms. Replace any light bulbs that burn out. Turn on the lights in dark areas. Use night-lights. Keep items that you use often in nyhc-zz-rjiit places. Lower the shelves around your home if needed. Set up your furniture so you have a clear path. Avoid moving your furniture around. Do not have throw rugs or other things on the floor that can make you trip. Avoid walking on wet floors. If any of your floors are uneven, fix them. Add color or contrast paint or tape to clearly lyudmila and help you see: ?Grab bars or handrails. ?First and last steps of staircases. ?Where the edge of each step is. If you use a stepladder: ?Make sure that it is fully opened. Do not climb a closed stepladder. ?Make sure the sides of the stepladder are locked in place. ?Ask someone to hold the stepladder while you use it. Know where your pets are when moving through your home. What can I do in the bathroom? Keep the floor dry. Clean up any water on the floor right away. Remove soap buildup in the tub or shower. Use nonskid mats or decals on the floor of the tub or shower. Attach bath mats securely with double-sided, nonslip rug tape. If you need to sit down in the shower, use a plastic, nonslip stool. Install grab bars by the toilet and in the tub and shower. Do not use towel bars as grab bars. What can I do in the bedroom? Make sure that you have a light by your bed that is easy to reach. Do not use any sheets or blankets for your bed that hang to the floor. Have a firm chair with side arms that you can use for support when you get dressed. What can I do in the kitchen? Clean up any spills right away. If you need to reach something above you, use a step stool with a grab bar. Keep electrical cords out of the way. Do not use floor martiniquais or wax that makes floors slippery. What can I do with my stairs? Do not leave any items on the stairs. Make sure that you have a light switch at the top and the bottom of the stairs. Make sure that there are handrails on both sides of the stairs. Fix handrails that are broken or loose. Install nonslip stair treads on all your stairs. Avoid having throw rugs at the top or bottom of the stairs. Choose a carpet that does not hide the edge of the steps on the stairs. Check carpeting to make sure that it is firmly attached to the stairs. Fix carpet that is loose or worn. What can I do on the outside of my home? Use bright outdoor lighting. Fix the edges of walkways and driveways and fix any cracks. Remove anything that might make you trip as you walk through a door, such as a raised step or threshold. Trim any bushes or trees on paths to your home. Check to see if handrails are loose or broken and that both sides of all steps have handrails. Install guardrails along the edges of any raised decks and porches. Clear paths of anything that can make you trip, such as tools or rocks. Have leaves, snow, or ice cleared regularly. Use sand or salt on paths during winter. Clean up any spills in your garage right away. This includes grease or oil spills. What other actions can I take? Wear shoes that: ?Have a low heel. Do not wear high heels. ?Have rubber bottoms. ?Feel good on your feet and fit well. ?Are closed at the toe. Do not wear open-toe sandals. Use tools that help you move around if needed. These include: ?Canes. ?Walkers. ?Scooters. ?Crutches. Review your medicines with your doctor. Some medicines can make you feel dizzy. This can increase your chance of falling. Ask your doctor what else you can do to help prevent falls. Where to find more information Centers for Disease Control and Prevention, [place]: www.cdc.gov National [place] on Aging: www.paula.nih.gov Contact a doctor if: You are afraid of falling at home. You feel weak, drowsy, or dizzy at home. You fall at home. Summary There are many simple things that you can do to make your home safe and to help prevent falls. Ways to make your home safe include removing things that can make you trip and installing grab bars in the bathroom. Ask for help when making these changes in your home. This information is not intended to replace advice given to you by your health care provider. Make sure you discuss any questions you have with your health care provider. Document Revised: 05/07/2022 Document Reviewed: 03/08/2021 [employer] Patient Education 2022 [employer]. 02/28/2023 10:46:43 Exercising to Lose Weight Exercising to Lose Weight Getting regular exercise is important for everyone. It is especially important if you are overweight. Being overweight increases your risk of heart disease, stroke, diabetes, high blood pressure, and several types of cancer. Exercising, and reducing the calories you consume, can help you lose weight and improve fitness and health. Exercise can be moderate or vigorous intensity. To lose weight, most people need to do a certain amount of moderate or vigorous-intensity exercise each week. How can exercise affect me? You lose weight when you exercise enough to burn more calories than you eat. Exercise also reduces body fat and builds muscle. The more muscle you have, the more calories you burn. Exercise also: Improves mood. Reduces stress and tension. Improves your overall fitness, flexibility, and endurance. Increases bone strength. Moderate-intensity exercise Moderate-intensity exercise is any activity that gets you moving enough to burn at least three times more energy (calories) than if you were sitting. Examples of moderate exercise include: Walking a mile in 15 minutes. Doing light yard work. Biking at an easy pace. Most people should get at least 150 minutes of moderate-intensity exercise a week to maintain their body weight. Vigorous-intensity exercise Vigorous-intensity exercise is any activity that gets you moving enough to burn at least six times more calories than if you were sitting. When you exercise at this intensity, you should be working hard enough that you are not able to carry on a conversation. Examples of vigorous exercise include: Running. Playing a team sport, such as football, basketball, and soccer. Jumping rope. Most people should get at least 75 minutes a week of vigorous exercise to maintain their body weight. What actions can I take to lose weight? The amount of exercise you need to lose weight depends on: Your age. The type of exercise. Any health conditions you have. Your overall physical ability. Talk to your health care provider about how much exercise you need and what types of activities are safe for you. Nutrition Make changes to your diet as told by your health care provider or diet and nutrition manager (dietitian). This may include: ?Eating fewer calories. ?Eating more protein. ?Eating less unhealthy fats. ?Eating a diet that includes fresh fruits and vegetables, whole grains, low-fat dairy products, and lean protein. ?Avoiding foods with added fat, salt, and sugar. Drink plenty of water while you exercise to prevent dehydration or heat stroke. Activity Choose an activity that you enjoy and set realistic goals. Your health care provider can help you make an exercise plan that works for you. Exercise at a moderate or vigorous intensity most days of the week. ?The intensity of exercise may vary from person to person. You can tell how intense a workout is for you by paying attention to your breathing and heartbeat. Most people will notice their breathing and heartbeat get faster with more intense exercise. Do resistance training twice each week, such as: ?Push-ups. ?Sit-ups. ?Lifting weights. ?Using resistance bands. Getting short amounts of exercise can be just as helpful as long, structured periods of exercise. If you have trouble finding time to exercise, try doing these things as part of your daily routine: ?Get up, stretch, and walk around every 30 minutes throughout the day. ?Go for a walk during your lunch break. ?Park your car farther away from your destination. ?If you take public transportation, get off one stop early and walk the rest of the way. ?Make phone calls while standing up and walking around. ?Take the stairs instead of elevators or escalators. Wear comfortable clothes and shoes with good support. Do not exercise so much that you hurt yourself, feel dizzy, or get very short of breath. Where to find more information [place] Department of Health and Human Services: www.hhs.gov Centers for Disease Control and Prevention: www.cdc.gov Contact a health care provider: Before starting a new exercise program. If you have questions or concerns about your weight. If you have a medical problem that keeps you from exercising. Get help right away if: You have any of the following while exercising: ?Injury. ?Dizziness. ?Difficulty breathing or shortness of breath that does not go away when you stop exercising. ?Chest pain. ?Rapid heartbeat. These symptoms may represent a serious problem that is an emergency. Do not wait to see if the symptoms will go away. Get medical help right away. Call your local emergency services (911 in the [place] Do not drive yourself to the hospital. Summary Getting regular exercise is especially important if you are overweight. Being overweight increases your risk of heart disease, stroke, diabetes, high blood pressure, and several types of cancer. Losing weight happens when you burn more calories than you eat. Reducing the amount of calories you eat, and getting regular moderate or vigorous exercise each week, helps you lose weight. This information is not intended to replace advice given to you by your health care provider. Make sure you discuss any questions you have with your health care provider. Document Revised: 10/01/2021 Document Reviewed: 10/01/2021 [employer] Patient Education 2022 [employer]. 02/28/2023 10:46:39 DASH Eating Plan DASH Eating Plan DASH stands for Dietary Approaches to Stop Hypertension. The DASH eating plan is a healthy eating plan that has been shown to: Reduce high blood pressure (hypertension). Reduce your risk for type 2 diabetes, heart disease, and stroke. Help with weight loss. What are tips for following this plan? Reading food labels Check food labels for the amount of salt (sodium) per serving. Choose foods with less than 5 percent of the Daily Value of sodium. Generally, foods with less than 300 milligrams (mg) of sodium per serving fit into this eating plan. To find whole grains, look for the word whole as the first word in the ingredient list. Shopping Buy products labeled as low-sodium or no salt added. Buy fresh foods. Avoid canned foods and pre-made or frozen meals. Cooking Avoid adding salt when cooking. Use salt-free seasonings or herbs instead of table salt or sea salt. Check with your health care provider or pharmacist before using salt substitutes. Do not reddy foods. Cook foods using healthy methods such as baking, boiling, grilling, roasting, and broiling instead. Cook with heart-healthy oils, such as olive, canola, avocado, soybean, or sunflower oil. Meal planning Eat a balanced diet that includes: ?4 or more servings of fruits and 4 or more servings of vegetables each day. Try to fill one-half of your plate with fruits and vegetables. ?6 8 servings of whole grains each day. ?Less than 6 oz (170 g) of lean meat, poultry, or fish each day. A 3-oz (85-g) serving of meat is about the same size as a deck of cards. One egg equals 1 oz (28 g). ?2 3 servings of low-fat dairy each day. One serving is 1 cup (237 mL). ?1 serving of nuts, seeds, or beans 5 times each week. ?2 3 servings of heart-healthy fats. Healthy fats called omega-3 fatty acids are found in foods such as walnuts, flaxseeds, fortified milks, and eggs. These fats are also found in cold-water fish, such as sardines, salmon, and mackerel. Limit how much you eat of: ?Canned or prepackaged foods. ?Food that is high in trans fat, such as some fried foods. ?Food that is high in saturated fat, such as fatty meat. ?Desserts and other sweets, sugary drinks, and other foods with added sugar. ?Full-fat dairy products. Do not salt foods before eating. Do not eat more than 4 egg yolks a week. Try to eat at least 2 vegetarian meals a week. Eat more home-cooked food and less restaurant, buffet, and fast food. Lifestyle When eating at a restaurant, ask that your food be prepared with less salt or no salt, if possible. If you drink alcohol: ?Limit how much you use to: ?0 1 drink a day for women who are not . ?0 2 drinks a day for men. ?Be aware of how much alcohol is in your drink. In the [place] one drink equals one 12 oz bottle of beer (355 mL), one 5 oz glass of wine (148 mL), or one 1 oz glass of hard liquor (44 mL). General information Avoid eating more than 2,300 mg of salt a day. If you have hypertension, you may need to reduce your sodium intake to 1,500 mg a day. Work with your health care provider to maintain a healthy body weight or to lose weight. Ask what an ideal weight is for you. Get at least 30 minutes of exercise that causes your heart to beat faster (aerobic exercise) most days of the week. Activities may include walking, swimming, or biking. Work with your health care provider or dietitian to adjust your eating plan to your individual calorie needs. What foods should I eat? Fruits All fresh, dried, or frozen fruit. Canned fruit in natural juice (without added sugar). Vegetables Fresh or frozen vegetables (raw, steamed, roasted, or grilled). Low-sodium or reduced-sodium tomato and vegetable juice. Low-sodium or reduced-sodium tomato sauce and tomato paste. Low-sodium or reduced-sodium canned vegetables. Grains Whole-grain or whole-wheat bread. Whole-grain or whole-wheat pasta. Brown rice. Oatmeal. Quinoa. Bulgur. Whole-grain and low-sodium cereals. Xuan bread. Low-fat, low-sodium crackers. Whole-wheat flour tortillas. Meats and other proteins Skinless chicken or turkey. Ground chicken or turkey. Pork with fat trimmed off. Fish and seafood. Egg whites. Dried beans, peas, or lentils. Unsalted nuts, nut butters, and seeds. Unsalted canned beans. Lean cuts of beef with fat trimmed off. Low-sodium, lean precooked or cured meat, such as sausages or meat loaves. Dairy Low-fat (1%) or fat-free (skim) milk. Reduced-fat, low-fat, or fat-free cheeses. Nonfat, low-sodium ricotta or cottage cheese. Low-fat or nonfat yogurt. Low-fat, low-sodium cheese. Fats and oils Soft margarine without trans fats. Vegetable oil. Reduced-fat, low-fat, or light mayonnaise and salad dressings (reduced-sodium). Canola, safflower, olive, avocado, soybean, and sunflower oils. Avocado. Seasonings and condiments Herbs. Spices. Seasoning mixes without salt. Other foods Unsalted popcorn and pretzels. Fat-free sweets. The items listed above may not be a complete list of foods and beverages you can eat. Contact a dietitian for more information. What foods should I avoid? Fruits Canned fruit in a light or heavy syrup. Fried fruit. Fruit in cream or butter sauce. Vegetables Creamed or fried vegetables. Vegetables in a cheese sauce. Regular canned vegetables (not low-sodium or reduced-sodium). Regular canned tomato sauce and paste (not low-sodium or reduced-sodium). Regular tomato and vegetable juice (not low-sodium or reduced-sodium). Pickles. Olives. Grains Baked goods made with fat, such as croissants, muffins, or some breads. Dry pasta or rice meal packs. Meats and other proteins Fatty cuts of meat. Ribs. Fried meat. Mccartney. Bologna, salami, and other precooked or cured meats, such as sausages or meat loaves. Fat from the back of a pig (fatback). Bratwurst. Salted nuts and seeds. Canned beans with added salt. Canned or smoked fish. Whole eggs or egg yolks. Chicken or turkey with skin. Dairy Whole or 2% milk, cream, and nfkk-sci-rqdy. Whole or full-fat cream cheese. Whole-fat or sweetened yogurt. Full-fat cheese. Nondairy creamers. Whipped toppings. Processed cheese and cheese spreads. Fats and oils Butter. Stick margarine. Lard. Shortening. Ghee. Mccartney fat. Tropical oils, such as coconut, palm kernel, or palm oil. Seasonings and condiments Onion salt, garlic salt, seasoned salt, table salt, and sea salt. Worcestershire sauce. Tartar sauce. Barbecue sauce. Teriyaki sauce. Soy sauce, including reduced-sodium. Steak sauce. Canned and packaged gravies. Fish sauce. Oyster sauce. Cocktail sauce. Store-bought horseradish. Ketchup. Mustard. Meat flavorings and tenderizers. Bouillon cubes. Hot sauces. Pre-made or packaged marinades. Pre-made or packaged taco seasonings. Relishes. Regular salad dressings. Other foods Salted popcorn and pretzels. The items listed above may not be a complete list of foods and beverages you should avoid. Contact a dietitian for more information. Where to find more information National Heart, Lung, and Blood [place]: www.nhlbi.nih.gov [place] [employer] Association: www.heart.org Academy of Nutrition and Dietetics: www.eatright.org National Kidney Foundation: www.kidney.org Summary The DASH eating plan is a healthy eating plan that has been shown to reduce high blood pressure (hypertension). It may also reduce your risk for type 2 diabetes, heart disease, and stroke. When on the DASH eating plan, aim to eat more fresh fruits and vegetables, whole grains, lean proteins, low-fat dairy, and heart-healthy fats. With the DASH eating plan, you should limit salt (sodium) intake to 2,300 mg a day. If you have hypertension, you may need to reduce your sodium intake to 1,500 mg a day. Work with your health care provider or dietitian to adjust your eating plan to your individual calorie needs. This information is not intended to replace advice given to you by your health care provider. Make sure you discuss any questions you have with your health care provider. Document Revised: 07/08/2020 Document Reviewed: 07/08/2020 [employer] Patient Education 2022 [employer]. 02/28/2023 10:46:09 Prediabetes Prediabetes Prediabetes is when your blood sugar (blood glucose) level is higher than normal but not high enough for you to be diagnosed with type 2 diabetes. Having prediabetes puts you at risk for developing type 2 diabetes (type 2 diabetes mellitus). With certain lifestyle changes, you may be able to prevent or delay the onset of type 2 diabetes. This is important because type 2 diabetes can lead to serious complications, such as: Heart disease. Stroke. Blindness. Kidney disease. Depression. Poor circulation in the feet and legs. In severe cases, this could lead to surgical removal of a leg (amputation). What are the causes? The exact cause of prediabetes is not known. It may result from insulin resistance. Insulin resistance develops when cells in the body do not respond properly to insulin that the body makes. This can cause excess glucose to build up in the blood. High blood glucose (hyperglycemia) can develop. What increases the risk? The following factors may make you more likely to develop this condition: You have a family member with type 2 diabetes. You are older than 45 years. You had a temporary form of diabetes during a (gestational diabetes). You had polycystic ovary syndrome (PCOS). You are overweight or obese. You are inactive (sedentary). You have a history of heart disease, including problems with cholesterol levels, high levels of blood fats, or high blood pressure. What are the signs or symptoms? You may have no symptoms. If you do have symptoms, they may include: Increased hunger. Increased thirst. Increased urination. Vision changes, such as blurry vision. Tiredness (fatigue). How is this diagnosed? This condition can be diagnosed with blood tests. Your blood glucose may be checked with one or more of the following tests: A fasting blood glucose (FBG) test. You will not be allowed to eat (you will fast) for at least 8 hours before a blood sample is taken. An A1C blood test (hemoglobin A1C). This test provides information about blood glucose levels over the previous 2?3 months. An oral glucose tolerance test (OGTT). This test measures your blood glucose at two points in time: ?After fasting. This is your baseline level. ?Two hours after you drink a beverage that contains glucose. You may be diagnosed with prediabetes if: Your FBG is 100?125 mg/dL (5.6 6.9 mmol/L). Your A1C level is 5.7?6.4% (39 46 mmol/mol). Your OGTT result is 140?199 mg/dL (7.8 11 mmol/L). These blood tests may be repeated to confirm your diagnosis. How is this treated? Treatment may include dietary and lifestyle changes to help lower your blood glucose and prevent type 2 diabetes from developing. In some cases, medicine may be prescribed to help lower the risk of type 2 diabetes. Follow these instructions at home: Nutrition Follow a healthy meal plan. This includes eating lean proteins, whole grains, legumes, fresh fruits and vegetables, low-fat dairy products, and healthy fats. Follow instructions from your health care provider about eating or drinking restrictions. Meet with a dietitian to create a healthy eating plan that is right for you. Lifestyle Do moderate-intensity exercise for at least 30 minutes a day on 5 or more days each week, or as told by your health care provider. A mix of activities may be best, such as: ?Brisk walking, swimming, biking, and weight lifting. Lose weight as told by your health care provider. Losing 5 7% of your body weight can reverse insulin resistance. Do not drink alcohol if: ?Your health care provider tells you not to drink. ?You are , may be , or are planning to become . If you drink alcohol: ?Limit how much you use to: ?0 1 drink a day for women. ?0 2 drinks a day for men. ?Be aware of how much alcohol is in your drink. In the [place] one drink equals one 12 oz bottle of beer (355 mL), one 5 oz glass of wine (148 mL), or one 1 oz glass of hard liquor (44 mL). General instructions Take vjwv-omg-vmcrtsb and prescription medicines only as told by your health care provider. You may be prescribed medicines that help lower the risk of type 2 diabetes. Do not use any products that contain nicotine or tobacco, such as cigarettes, e-cigarettes, and chewing tobacco. If you need help quitting, ask your health care provider. Keep all follow-up visits. This is important. Where to find more information [place] [employer]: www.diabetes.org Academy of Nutrition and Dietetics: www.eatright.org [place] [employer] Association: www.heart.org Contact a health care provider if: You have any of these symptoms: ?Increased hunger. ?Increased urination. ?Increased thirst. ?Fatigue. ?Vision changes, such as blurry vision. Get help right away if you: Have shortness of breath. Feel confused. Vomit or feel like you may vomit. Summary Prediabetes is when your blood sugar (blood glucose)level is higher than normal but not high enough for you to be diagnosed with type 2 diabetes. Having prediabetes puts you at risk for developing type 2 diabetes (type 2 diabetes mellitus). Make lifestyle changes such as eating a healthy diet and exercising regularly to help prevent diabetes. Lose weight as told by your health care provider. This information is not intended to replace advice given to you by your health care provider. Make sure you discuss any questions you have with your health care provider. Document Revised: 11/03/2020 Document Reviewed: 11/03/2020 [employer] Patient Education 2022 [employer]am[employer]. 02/28/2023 10:46:04 BMI for Adults BMI for Adults What is BMI? Body mass index (BMI) is a number that is calculated from a person's weight and height. BMI can help estimate how much of a person's weight is composed of fat. BMI does not measure body fat directly. Rather, it is an alternative to procedures that directly measure body fat, which can be difficult and expensive. BMI can help identify people who may be at higher risk for certain medical problems. What are BMI measurements used for? BMI is used as a screening tool to identify possible weight problems. It helps determine whether a person is obese, overweight, a healthy weight, or underweight. BMI is useful for: Identifying a weight problem that may be related to a medical condition or may increase the risk for medical problems. Promoting changes, such as changes in diet and exercise, to help reach a healthy weight. BMI screening can be repeated to see if these changes are working. How is BMI calculated? BMI involves measuring your weight in relation to your height. Both height and weight are measured, and the BMI is calculated from those numbers. This can be done either in [place] ([place] or metric measurements. Note that charts and online BMI calculators are available to help you find your BMI quickly and easily without having to do these calculations yourself. To calculate your BMI in [place] measurements: 1.Measure your weight in pounds (lb). 2.Multiply the number of pounds by 703. For example, for a person who weighs 180 lb, multiply that number by 703, which equals 126,540. 3.Measure your height in inches. Then multiply that number by itself to get a measurement called inches squared. For example, for a person who is 70 inches tall, the inches squared measurement is 70 inches x 70 inches, which equals 4,900 inches squared. 4.Divide the total from step 2 (number of lb x 703) by the total from step 3 (inches squared): 126,540 4,900 = 25.8. This is your BMI. To calculate your BMI in metric measurements: 1.Measure your weight in kilograms (kg). 2.Measure your height in meters (m). Then multiply that number by itself to get a measurement called meters squared. For example, for a person who is 1.75 m tall, the meters squared measurement is 1.75 m x 1.75 m, which is equal to 3.1 meters squared. 3.Divide the number of kilograms (your weight) by the meters squared number. In this example: 70 3.1 = 22.6. This is your BMI. What do the results mean? BMI charts are used to identify whether you are underweight, normal weight, overweight, or obese. The following guidelines will be used: Underweight: BMI less than 18.5. Normal weight: BMI between 18.5 and 24.9. Overweight: BMI between 25 and 29.9. Obese: BMI of 30 or above. Keep these notes in mind: Weight includes both fat and muscle, so someone with a muscular build, such as an athlete, may have a BMI that is higher than 24.9. In cases like these, BMI is not an accurate measure of body fat. To determine if excess body fat is the cause of a BMI of 25 or higher, further assessments may need to be done by a health care provider. BMI is usually interpreted in the same way for men and women. Where to find more information For more information about BMI, including tools to quickly calculate your BMI, go to these websites: Centers for Disease Control and Prevention: www.cdc.gov [place] Heart Association: www.heart.org National Heart, Lung, and Blood [place]: www.nhlbi.nih.gov Summary Body mass index (BMI) is a number that is calculated from a person's weight and height. BMI may help estimate how much of a person's weight is composed of fat. BMI can help identify those who may be at higher risk for certain medical problems. BMI can be measured using [place] measurements or metric measurements. BMI charts are used to identify whether you are underweight, normal weight, overweight, or obese. This information is not intended to replace advice given to you by your health care provider. Make sure you discuss any questions you have with your health care provider. Document Revised: 04/27/2020 Document Reviewed: 03/04/2020 [employer] Patient Education 2022 [employer]. [facility] 07-10-2022 Evaluation + Plan note Extrac neelima from: Title:Post-anesthesia - General Author:Nicanor Monique DO Date:07/10/22 Plan Transfer/ Discharge: Condition stable. Extracted from: Title:Pre-anesthesia - Adult Author:Nicanor Quiñones Jr., DO Date:07/10/22 Plan [place] [employer] Anesthesiologists (ASA) physical status classification: Class III. Anesthetic Preoperative Plan Anesthesia: Regional (Spinal, Fascia-Iliaca block.). Anesthetic plan, risks, benefits, and alternatives discussed with the patient and/or family. Patient verbalized understanding. Adverse reactions, complications, and alternatives discujssed. Consent signed and on chart.. Future Appointments Appointment Date:02/28/2023 09:30:00 AM Scheduled Provider: Location:[facility] Appointment Type:FM Medicare Wellness Subsequent [facility]11-22-2022 Hospital Discharge instructions Patient Education 07/10/2022 09:24:08 How to Use an Incentive Spirometer How To Use an Incentive Spirometer An incentive spirometer is a tool that measures how well you are filling your lungs with each breath. Learning to take long, deep breaths using this tool can help you keep your lungs clear and active. This may help to reverse or lessen your chance of developing breathing (pulmonary) problems, especially infection. You may be asked to use a spirometer: After a surgery. If you have a lung problem or a history of smoking. After a long period of time when you have been unable to move or be active. If the spirometer includes an indicator to show the highest number that you have reached, your health care provider or respiratory therapist will help you set a goal. Keep a list (log) of your progress as told by your health care provider. What are the risks? Breathing too quickly may cause dizziness or cause you to pass out. Take your time so you do not get dizzy or light-headed. If you are in pain, you may need to take pain medicine before doing incentive spirometry. It is harder to take a deep breath if you are having pain. How to use your incentive spirometer 1.Sit up on the edge of your bed or on a chair. 2.Hold the incentive spirometer so that it is in an upright position. 3.Before you use the spirometer, breathe out normally. 4.Place the mouthpiece in your mouth. Make sure your lips are closed tightly around it. 5.Breathe in slowly and as deeply as you can through your mouth, causing the piston or the ball to rise toward the top of the chamber. 6.Hold your breath for 3 5 seconds, or for as long as possible. If the spirometer includes a hitting coach indicator, use this to guide you in breathing. Slow down your breathing if the indicator goes above the marked areas. 7.Remove the mouthpiece from your mouth and breathe out normally. The piston or ball will return tothe bottom of the chamber. 8.Rest for a few seconds, then repeat the steps 10 or more times. Take your time and take a few normal breaths between deep breaths so that you do not get dizzy or light-headed. Do this every 1 2 hours when you are awake. 9.If the spirometer includes a goal marker to show the highest number you have reached (best effort), use this as a goal to work toward during each repetition. 10.After each set of 10 deep breaths, cough a few times. This will help to make sure that your lungs are clear. If you have an incision on your chest or abdomen from surgery, place a pillow or a rolled-up towel firmly against the incision when you cough. This can help to reduce pain from coughing. General tips When you become able to get out of bed, walk around often and continue to cough to help clear your lungs. Keep using the incentive spirometer until your health care provider says it is okay to stop using it. If you have been in the hospital, you may be told to keep using the spirometer at home. Contact a health care provider if: You are having difficulty using the spirometer. You have trouble using the spirometer as often as instructed. Your pain medicine is not giving enough relief for you to use the spirometer as told. You have a fever. You develop shortness of breath. Get help right away if: You develop a cough with bloody mucus from the lungs (bloody sputum). You have fluid or blood coming from an incision site after you cough. Summary An incentive spirometer is a tool that can help you learn to take long, deep breaths to keep your lungs clear and active. You may be asked to use a spirometer after a surgery, if you have a lung problem or a history of smoking, or if you have been inactive for a long period of time. Use your incentive spirometer as instructed every 1 2 hours while you are awake. If you have an incision on your chest or abdomen, place a pillow or a rolled-up towel firmly against your incision when you cough. This will help to reduce pain. This information is not intended to replace advice given to you by your health care provider. Make sure you discuss any questions you have with your health care provider. Document Released: 12/16/2007 Document Revised: 08/28/2018 Document Reviewed: 06/18/2018 [employer] Patient Education 2020 [employer]. 07/10/2022 09:24:08 Post Op Patient Instructions - FT (CUSTOM) 07/03/2022 08:49:22 [place] - Hip Replacement Arthroplasty, Revised 10/10/11. (Custom) [place] [facility] DISCHARGE INSTRUCTIONS HIP REPLACEMENT ARTHROPLASTY INCISION CARE: Continue the daily dressing care to the hip as instructed in the hospital for 7 days postoperatively. The dressing will then be changed and worn an additional 7 days. You may then discontinue the dressing changes. The dressing over the upper pelvis area may be reoved postoperative day #3 and left open to the air. Please notify the office if any increase in redness, tenderness, drainage, fever, orwound separation is noted. DISLOCATION PRECAUTIONS: Continue to use the abduction pillow between the knees at all times, both while in bed and up in chair. This abduction pillow should be removed only while walking and performing physical therapy exercises; otherwise, to be used while sitting and while in bed. This will maintained for six weeks postoperatively. At that time you may begin using a regular bed pillow between your knees at night. You should continue to avoid crossing the knees or crossing the legs for six months postoperatively. Sitting in a chair should always be such that the knees are kept below the level of the hips to avoid increased flexion of the hip, possibly causing dislocation. MEDICATIONS: You may resume your home medications at the time of discharge. Cefadroxil (Duricef) for 4 doses as prescribed. Take 1 Ecotrin aspirin (81mg) twice daily with food for the next month. Start with morning dose 06/27/2022. [facility] Discharge Instructions for Hip Replace.Page 2 Medications Cont... Pain medication has been prescribed as well. You may continue to use the pain medication every fourhours as needed. Any narcotic pain medication can cause side effects including stomach upset, constipation, or light-headedness. You should not drive or operate machinery, or use alcohol while using the narcotic pain medication. You should not use other pain medications with this prescription pain medication unless further directed by your physician. PHYSICAL THERAPY DISLOCATION PRECAUTIONS: Continue the weightbearing as tolerated. Continue the range of motion and strengthening exercises initiated in Physical Therapy in the hospital. Again, do not cross legs, internally rotate the legs, or flex the hip above 90 degrees for six months postoperatively. Continue weight bearing, as ordered, to the operated hip for four to six weeks as directed in Physical Therapy. This will be with the use of a walker or crutches. After four or six weeks you may thenprogress to the use of one crutch, or a cane. A quad-cane is preferred as this is more stable. Physical therapy as begun in the hospital will continue at home, possible with the scheduling assistant of Home Health Physical Therapy or in the hospital as an outpatient. When you have become independent withthe physical therapy program, this will then be discontinued as a supervised program and you will be instructed to continue the physical therapy exercises at home. DRIVING: Do NOT Drive FOLLOW-UP OFFICE VISIT: 4 weeks Postop Carol Deluna, [facility] [address] [place], [place] [id number] Reviewed: 11-24 Revised: 08/30 Follow Up Care 05/18/2022 15:13:44 With:Carol Deluna Address: [address] [place] [address] Business (1) When: Unknown Comments:Call for any problems. [facility]09-14-2022 NotePROCEDURE: XR ANKLE RT MIN 3 VIEWS COMPARISON: 05/08/2020 HISTORY: Pain of right ankle joint FINDINGS: BONES:Stable tibiotalar arthroplasty in anatomic alignment. Stable anterior calcaneal osteotomy with placement of a wedge spacer. Degenerative changes of the midfoot with joint space narrowing and marginal osteophyte formation SOFT TISSUES:Negative. No visible soft tissue swelling. EFFUSION:None visible. OTHER: Negative. IMPRESSION: Stable tibiotalar arthroplasty Electronically authenticated by: CAROL ALVAREZ Date: 2022-05-02 15:43[id number] Discharge instructions Follow Up Care 03/26/2022 08:22:03 With:Clive RAYMOND DO, FAAFP, FAM, PED Address: [place] [address]- When:Within 6 Week(s) With:Clive RAYMOND DO, FAAFP, BIPIN, PED Address: [place] [address]- When:Within 6 Month(s) [facility] 08-08-2022 Hospital Discharge instructions Patient Education 03/26/2022 08:21:08 Hypertension, Adult, Gqxo-vm-Zlbs Hypertension, Adult Hypertension is another name for high blood pressure. High blood pressure forces your heart to workharder to pump blood. This can cause problems over time. There are two numbers in a blood pressure reading. There is a top number (systolic) over a bottom number (diastolic). It is best to have a blood pressure that is below 120/80. Healthy choices can help lower your blood pressure, or you may need medicine to help lower it. What are the causes? The cause of this condition is not known. Some conditions may be related to high blood pressure. What increases the risk? Smoking. Having type 2 diabetes mellitus, high cholesterol, or both. Not getting enough exercise or physical activity. Being overweight. Having too much fat, sugar, calories, or salt (sodium) in your diet. Drinking too much alcohol. Having long-term (chronic) kidney disease. Having a family history of high blood pressure. Age. Risk increases with age. Race. You may be at higher risk if you are . Gender. Men are at higher risk than women before age 45. After age 65, women are at higher risk than men. Having obstructive sleep apnea. Stress. What are the signs or symptoms? High blood pressure may not cause symptoms. Very high blood pressure (hypertensive crisis) may cause: ?Headache. ?Feelings of worry or nervousness (anxiety). ?Shortness of breath. ?Nosebleed. ?A feeling of being sick to your stomach (nausea). ?Throwing up (vomiting). ?Changes in how you see. ?Very bad chest pain. ?Seizures. How is this treated? This condition is treated by making healthy lifestyle changes, such as: ?Eating healthy foods. ?Exercising more. ?Drinking less alcohol. Your health care provider may prescribe medicine if lifestyle changes are not enough to get your blood pressure under control, and if: ?Your top number is above 130. ?Your bottom number is above 80. Your personal target blood pressure may vary. Follow these instructions at home: Eating and drinking If told, follow the DASH eating plan. To follow this plan: ?Fill one half of your plate at each meal with fruits and vegetables. ?Fill one fourth of your plate at each meal with whole grains. Whole grains include whole-wheat pasta, brown rice, and whole-grain bread. ?Eat or drink low-fat dairy products, such as skim milk or low-fat yogurt. ?Fill one fourth of your plate at each meal with low-fat (lean) proteins. Low- fat proteins include fish, chicken without skin, eggs, beans, and tofu. ?Avoid fatty meat, cured and processed meat, or chicken with skin. ?Avoid pre-made or processed food. Eat less than 1,500 mg of salt each day. Do not drink alcohol if: ?Your doctor tells you not to drink. ?You are , may be , or are planning to become . If you drink alcohol: ?Limit how much you use to: ?0 1 drink a day for women. ?0 2 drinks a day for men. ?Be aware of how much alcohol is in your drink. In the [place] one drink equals one 12 oz bottle of beer (355 mL), one 5 oz glass of wine (148 mL), or one 1 oz glass of hard liquor (44 mL). Lifestyle Work with your doctor to stay at a healthy weight or to lose weight. Ask your doctor what the best weight is for you. Get at least 30 minutes of exercise most days of the week. This may include walking, swimming, or biking. Get at least 30 minutes of exercise that strengthens your muscles (resistance exercise) at least 3 days a week. This may include lifting weights or doing Pilates. Do not use any products that contain nicotine or tobacco, such as cigarettes, e- cigarettes, and chewing tobacco. If you need help quitting, ask your doctor. Check your blood pressure at home as told by your doctor. Keep all follow-up visits as told by your doctor. This is important. Medicines Take xphq-myc-niurzgp and prescription medicines only as told by your doctor. Follow directions carefully. Do not skip doses of blood pressure medicine. The medicine does not work as well if you skip doses.Skipping doses also puts you at risk for problems. Ask your doctor about side effects or reactions to medicines that you should watch for. Contact a doctor if you: Think you are having a reaction to the medicine you are taking. Have headaches that keep coming back (recurring). Feel dizzy. Have swelling in your ankles. Have trouble with your vision. Get help right away if you: Get a very bad headache. Start to feel mixed up (confused). Feel weak or numb. Feel faint. Have very bad pain in your: ?Chest. ?Belly (abdomen). Throw up more than once. Have trouble breathing. Summary Hypertension is another name for high blood pressure. High blood pressure forces your heart to work harder to pump blood. For most people, a normal blood pressure is less than 120/80. Making healthy choices can help lower blood pressure. If your blood pressure does not get lower with healthy choices, you may need to take medicine. This information is not intended to replace advice given to you by your health care provider. Make sure you discuss any questions you have with your health care provider. Document Released: 01/21/2009 Document Revised: 04/15/2019 Document Reviewed: 04/15/2019 [employer] Patient Education 2020 [employer]. Follow Up Care 09/25/2021 10:28:31 With:CHEMO PERES FAAFP, Clive Amezquita, BIPIN, PED Address: [address] [place] [id number]- When:Within 3 Month(s) [facility] 07-22-2022 History of Past illness Narrative* Problem Noted Date Diagnosed Date Resolved Date Morbid obesity 03/09/2022 09/20/2023 10/10/2023 Overview: Comment on above: added per 04/12/2023 query response. Class 2 obesity 03/06/2022 09/20/2023 10/10/2023 documented as of this encounter (statuses as of 10/10/2023) [facility]07-22-2022 History of Past illness Narrative* Problem Noted Date Diagnosed Date Resolved Date Morbid obesity 03/09/2022 09/20/2023 10/10/2023 Overview: Comment on above: added per 04/12/2023 query response. Class 2 obesity 03/06/2022 09/20/2023 10/10/2023 documented as of this encounter (statuses as of 10/18/2023) [facility]07-22-2022 History of Past illness Narrative* Problem Noted Date Diagnosed Date Resolved Date Morbid obesity 03/09/2022 09/20/2023 10/10/2023 Overview: Comment on above: added per 04/12/2023 query response. Class 2 obesity 03/06/2022 09/20/2023 10/10/2023 documented as of this encounter (statuses as of 11/08/2023) [facility]07-22-2022 History of Past illness Narrative* Problem Noted Date Diagnosed Date Resolved Date Morbid obesity 03/09/2022 09/20/2023 10/10/2023 Overview: Comment on above: added per 04/12/2023 query response. Class 2 obesity 03/06/2022 09/20/2023 10/10/2023 documented as of this encounter (statuses as of 11/08/2023) [facility]07-22-2022 History of Past illness Narrative* Problem Noted Date Diagnosed Date Resolved Date Morbid obesity 03/09/2022 09/20/2023 10/10/2023 Overview: Comment on above: added per 04/12/2023 query response. Class 2 obesity 03/06/2022 09/20/2023 10/10/2023 documented as of this encounter (statuses as of 11/08/2023) [address]22-2022 Hospital Discharge instructions Patient Education 03/09/2022 11:24:55 High Triglycerides Eating Plan High Triglycerides Eating Plan Triglycerides are a type of fat in the blood. High levels of triglycerides can increase your risk of heart disease and stroke. If your triglyceride levels are high, choosing the right foods can help lower your triglycerides and keep your heart healthy. Work with your health care provider or a diet and nutrition manager (dietitian) to develop an eating plan that is right for you. What are tips for following this plan? General guidelines Lose weight, if you are overweight. For most people, losing 5 10 lbs (2 5 kg) helps lower triglyceride levels. A weight-loss plan may include. ?30 minutes of exercise at least 5 days a week. ?Reducing the amount of calories, sugar, and fat you eat. Eat a wide variety of fresh fruits, vegetables, and whole grains. These foods are high in fiber. Eat foods that contain healthy fats, such as fatty fish, nuts, seeds, and olive oil. Avoid foods that are high in added sugar, added salt (sodium), saturated fat, and trans fat. Avoid low-fiber, refined carbohydrates such as white bread, crackers, noodles, and white rice. Avoid foods with partially hydrogenated oils (trans fats), such as fried foods or stick margarine. Limit alcohol intake to no more than 1 drink a day for non women and 2 drinks a day for men. One drink equals 12 oz of beer, 5 oz of wine, or 1 oz of hard liquor. Your health care provider may recommend that you drink less depending on your overall health. Reading food labels Check food labels for the amount of saturated fat. Choose foods with no or very little saturated fat. Check food labels for the amount of trans fat. Choose foods with no trans fat. Check food labels for the amount of cholesterol. Choose foods low in cholesterol. Ask your dietitian how much cholesterol you should have each day. Check food labels for the amount of sodium. Choose foods with less than 140 milligrams (mg) per serving. Shopping Buy dairy products labeled as nonfat (skim) or low-fat (1%). Avoid buying processed or prepackaged foods. These are often high in added sugar, sodium, and fat. Cooking Choose healthy fats when cooking, such as olive oil or canola oil. Cook foods using lower fat methods, such as baking, broiling, boiling, or grilling. Make your own sauces, dressings, and marinades when possible, instead of buying them. Store-bought sauces, dressings, and marinades are often high in sodium and sugar. Meal planning Eat more home-cooked food and less restaurant, buffet, and fast food. Eat fatty fish at least 2 times each week. Examples of fatty fish include salmon, trout, mackerel, tuna, and dawson. If you eat whole eggs, do not eat more than 3 egg yolks per week. What foods are recommended? The items listed may not be a complete list. Talk with your dietitian about what dietary choices are best for you. Grains Whole wheat or whole grain breads, crackers, cereals, and pasta. Unsweetened oatmeal. Bulgur. Barley. Quinoa. Brown rice. Whole wheat flour tortillas. Vegetables Fresh or frozen vegetables. Low-sodium canned vegetables. Fruits All fresh, canned (in natural juice), or frozen fruits. Meats and other protein foods Skinless chicken or turkey. Ground chicken or turkey. Lean cuts of pork, trimmed of fat. Fish and seafood, especially salmon, trout, and dawson. Egg whites. Dried beans, peas, or lentils. Unsalted nuts or seeds. Unsalted canned beans. Natural peanut or almond butter. Dairy Low-fat dairy products. Skim or low-fat (1%) milk. Reduced fat (2%) and low- sodium cheese. Low-fat ricotta cheese. Low-fat cottage cheese. Plain, low-fat yogurt. Fats and oils Tub margarine without trans fats. Light or reduced-fat mayonnaise. Light or reduced-fat salad dressings. Avocado. Safflower, olive, sunflower, soybean, and canola oils. What foods are not recommended? The items listed may not be a complete list. Talk with your dietitian about what dietary choices are best for you. Grains White bread. White (regular) pasta. White rice. Cornbread. Bagels. Pastries. Crackers that contain trans fat. Vegetables Creamed or fried vegetables. Vegetables in a cheese sauce. Fruits Sweetened dried fruit. Canned fruit in syrup. Fruit juice. Meats and other protein foods Fatty cuts of meat. Ribs. Chicken wings. [place]. Sausage. Bologna. Salami. Chitterlings. Fatback. Hot dogs. Bratwurst. Packaged lunch meats. Dairy Whole or reduced-fat (2%) milk. Kuwx-udw-sayb. Cream cheese. Full-fat or sweetened yogurt. Full-fatcheese. Nondairy creamers. Whipped toppings. Processed cheese or cheese spreads. Cheese curds. Beverages Alcohol. Sweetened drinks, such as soda, lemonade, fruit drinks, or punches. Fats and oils Butter. Stick margarine. Lard. Shortening. Ghee. [place] fat. Tropical oils, such as coconut, palm kernel, or palm oils. Sweets and desserts [place] syrup. Sugars. Honey. Molasses. Candy. Jam and jelly. Syrup. Sweetened cereals. Cookies. Pies.Cakes. Donuts. Muffins. Ice cream. Condiments Store-bought sauces, dressings, and marinades that are high in sugar, such as ketchup and barbecue sauce. Summary High levels of triglycerides can increase the risk of heart disease and stroke. Choosing the right foods can help lower your triglycerides. Eat plenty of fresh fruits, vegetables, and whole grains. Choose low-fat dairy and lean meats. Eat fatty fish at least twice a week. Avoid processed and prepackaged foods with added sugar, sodium, saturated fat, and trans fat. If you need suggestions or have questions about what types of food are good for you, talk with yourhealth care provider or a dietitian. This information is not intended to replace advice given to you by your health care provider. Make sure you discuss any questions you have with your health care provider. Document Released: 05/23/2005 Document Revised: 07/18/2018 Document Reviewed: 10/08/2017 [employer] Patient Education 2020 [employer] 03/09/2022 11:24:13 Hypertension, Adult, Opjw-zc-Ifpm Hypertension, Adult Hypertension is another name for high blood pressure. High blood pressure forces your heart to workharder to pump blood. This can cause problems over time. There are two numbers in a blood pressure reading. There is a top number (systolic) over a bottom number (diastolic). It is best to have a blood pressure that is below 120/80. Healthy choices can help lower your blood pressure, or you may need medicine to help lower it. What are the causes? The cause of this condition is not known. Some conditions may be related to high blood pressure. What increases the risk? Smoking. Having type 2 diabetes mellitus, high cholesterol, or both. Not getting enough exercise or physical activity. Being overweight. Having too much fat, sugar, calories, or salt (sodium) in your diet. Drinking too much alcohol. Having long-term (chronic) kidney disease. Having a family history of high blood pressure. Age. Risk increases with age. Race. You may be at higher risk if you are . Gender. Men are at higher risk than women before age 45. After age 65, women are at higher risk than men. Having obstructive sleep apnea. Stress. What are the signs or symptoms? High blood pressure may not cause symptoms. Very high blood pressure (hypertensive crisis) may cause: ?Headache. ?Feelings of worry or nervousness (anxiety). ?Shortness of breath. ?Nosebleed. ?A feeling of being sick to your stomach (nausea). ?Throwing up (vomiting). ?Changes in how you see. ?Very bad chest pain. ?Seizures. How is this treated? This condition is treated by making healthy lifestyle changes, such as: ?Eating healthy foods. ?Exercising more. ?Drinking less alcohol. Your health care provider may prescribe medicine if lifestyle changes are not enough to get your blood pressure under control, and if: ?Your top number is above 130. ?Your bottom number is above 80. Your personal target blood pressure may vary. Follow these instructions at home: Eating and drinking If told, follow the DASH eating plan. To follow this plan: ?Fill one half of your plate at each meal with fruits and vegetables. ?Fill one fourth of your plate at each meal with whole grains. Whole grains include whole-wheat pasta, brown rice, and whole-grain bread. ?Eat or drink low-fat dairy products, such as skim milk or low-fat yogurt. ?Fill one fourth of your plate at each meal with low-fat (lean) proteins. Low- fat proteins include fish, chicken without skin, eggs, beans, and tofu. ?Avoid fatty meat, cured and processed meat, or chicken with skin. ?Avoid pre-made or processed food. Eat less than 1,500 mg of salt each day. Do not drink alcohol if: ?Your doctor tells you not to drink. ?You are , may be , or are planning to become . If you drink alcohol: ?Limit how much you use to: ?0 1 drink a day for women. ?0 2 drinks a day for men. ?Be aware of how much alcohol is in your drink. In the [place] one drink equals one 12 oz bottle of beer (355 mL), one 5 oz glass of wine (148 mL), or one 1 oz glass of hard liquor (44 mL). Lifestyle Work with your doctor to stay at a healthy weight or to lose weight. Ask your doctor what the best weight is for you. Get at least 30 minutes of exercise most days of the week. This may include walking, swimming, or biking. Get at least 30 minutes of exercise that strengthens your muscles (resistance exercise) at least 3 days a week. This may include lifting weights or doing Pilates. Do not use any products that contain nicotine or tobacco, such as cigarettes, e- cigarettes, and chewing tobacco. If you need help quitting, ask your doctor. Check your blood pressure at home as told by your doctor. Keep all follow-up visits as told by your doctor. This is important. Medicines Take hxit-ols-nehmkff and prescription medicines only as told by your doctor. Follow directions carefully. Do not skip doses of blood pressure medicine. The medicine does not work as well if you skip doses.Skipping doses also puts you at risk for problems. Ask your doctor about side effects or reactions to medicines that you should watch for. Contact a doctor if you: Think you are having a reaction to the medicine you are taking. Have headaches that keep coming back (recurring). Feel dizzy. Have swelling in your ankles. Have trouble with your vision. Get help right away if you: Get a very bad headache. Start to feel mixed up (confused). Feel weak or numb. Feel faint. Have very bad pain in your: ?Chest. ?Belly (abdomen). Throw up more than once. Have trouble breathing. Summary Hypertension is another name for high blood pressure. High blood pressure forces your heart to work harder to pump blood. For most people, a normal blood pressure is less than 120/80. Making healthy choices can help lower blood pressure. If your blood pressure does not get lower with healthy choices, you may need to take medicine. This information is not intended to replace advice given to you by your health care provider. Make sure you discuss any questions you have with your health care provider. Document Released: 01/21/2009 Document Revised: 04/15/2019 Document Reviewed: 04/15/2019 [employer] Patient Education 2020 [employer]. 03/09/2022 11:24:01 Atherosclerosis Atherosclerosis Atherosclerosis is narrowing and hardening of the arteries. Arteries are blood vessels that carry blood from the heart to all parts of the body. This blood contains oxygen. Arteries can become narrowor clogged with a buildup of fat, cholesterol, calcium, and other substances (plaque). Plaque decreases the amount of blood that can flow through the artery. Atherosclerosis can affect any artery in the body, including: Heart arteries (coronary artery disease). This may cause a heart attack. Brain arteries. This may cause a stroke (cerebrovascular accident). Leg, arm, and pelvis arteries (peripheral artery disease). This may cause pain and numbness. Kidney arteries. This may cause kidney (renal) failure. Treatment may slow the disease and prevent further damage to the heart, brain, peripheral arteries,and kidneys. What are the causes? Atherosclerosis develops slowly over many years. The inner layers of your arteries become damaged and allow the gradual buildup of plaque. The exact cause of atherosclerosis is not fully understood. Symptoms of atherosclerosis do not occur until the artery becomes narrow or blocked. What increases the risk? The following factors may make you more likely to develop this condition: High blood pressure. High cholesterol. Being middle-aged or older. Having a family history of atherosclerosis. Having high blood fats (triglycerides). Diabetes. Being overweight. Smoking tobacco. Not exercising enough (sedentary lifestyle). Having a substance in the blood called C-reactive protein (CRP). This is a sign of increased levelsof inflammation in the body. Sleep apnea. Being stressed. Drinking too much alcohol. What are the signs or symptoms? This condition may not cause any symptoms. If you have symptoms, they are caused by damage to an area of your body that is not getting enough blood. Coronary artery disease may cause chest pain and shortness of breath. Decreased blood supply to your brain may cause a stroke. Signs of a stroke may include sudden: ?Weakness on one side of the body. ?Confusion. ?Changes in vision. ?Inability to speak or understand speech. ?Loss of balance, coordination, or the ability to walk. ?Severe headache. ?Loss of consciousness. Peripheral arterial disease may cause pain and numbness, often in the legs and hips. Renal failure may cause fatigue, nausea, swelling, and itchy skin. How is this diagnosed? This condition is diagnosed based on your medical history and a physical exam. During the exam: Your health care provider will: ?Check your pulse in different places. ?Listen for a whooshing sound over your arteries (bruit). You may have tests, such as: ?Blood tests to check your levels of cholesterol, triglycerides, and CRP. ?Electrocardiogram (ECG) to check for heart damage. ?Chest X-ray to see if you have an enlarged heart, which is a sign of heart failure. ?Stress test to see how your heart reacts to exercise. ?Echocardiogram to get images of the inside of your heart. ?Ankle-brachial index to compare blood pressure in your arms to blood pressure in your ankles. ?Ultrasound of your peripheral arteries to check blood flow. ?CT scan to check for damage to your heart or brain. ?X-rays of blood vessels after dye has been injected (angiogram) to check blood flow. How is this treated? Treatment starts with lifestyle changes, which may include: Changing your diet. Losing weight. Reducing stress. Exercising and being physically active more regularly. Not smoking. You may also need medicine to: Lower triglycerides and cholesterol. Control blood pressure. Prevent blood clots. Lower inflammation in your body. Control your blood sugar. Sometimes, surgery is needed to: Remove plaque from an artery (endarterectomy). Open or widen a narrowed heart artery (angioplasty). Create a new path for your blood with one of these procedures: ?Heart (coronary) artery bypass graft surgery. ?Peripheral artery bypass graft surgery. Follow these instructions at home: Eating and drinking Eat a heart-healthy diet. Talk with your health care provider or a diet and nutrition manager (dietitian) if you need help. A heart-healthy diet involves: ?Limiting unhealthy fats and increasing healthy fats. Some examples of healthy fats are olive oil and canola oil. ?Eating plant-based foods, such as fruits, vegetables, nuts, whole grains, and legumes (such as peas and lentils). Limit alcohol intake to no more than 1 drink a day for non women and 2 drinks a day for men. One drink equals 12 oz of beer, 5 oz of wine, or 1 oz of hard liquor. Lifestyle Follow an exercise program as told by your health care provider. Maintain a healthy weight. Lose weight if your health care provider says that you need to do that. Rest when you are tired. Learn to manage your stress. Do not use any products that contain nicotine or tobacco, such as cigarettes and e-cigarettes. If you need help quitting, ask your health care provider. Do not abuse drugs. General instructions Take elap-mvv-ybytsrl and prescription medicines only as told by your health care provider. Manage other health conditions as told by your health care provider. Keep all follow-up visits as told by your health care provider. This is important. Contact a health care provider if: You have chest pain or discomfort. This includes squeezing chest pain that may feel like indigestion (angina). You have shortness of breath. You have an irregular heartbeat. You have unexplained fatigue. You have unexplained pain or numbness in an arm, leg, or hip. You have nausea, swelling of your hands or feet, and itchy skin. Get help right away if: You have any symptoms of a heart attack, such as: ?Chest pain. ?Shortness of breath. ?Pain in your neck, jaw, arms, back, or stomach. ?Cold sweat. ?Nausea. ?Light-headedness. You have any symptoms of a stroke. BE FAST is an easy way to remember the main warning signs of astroke: ?B - Balance. Signs are dizziness, sudden trouble walking, or loss of balance. ?E - Eyes. Signs are trouble seeing or a sudden change in vision. ?F - Face. Signs are sudden weakness or numbness of the face, or the face or eyelid drooping on oneside. ?A - Arms. Signs are weakness or numbness in an arm. This happens suddenly and usually on one side of the body. ?S - Speech. Signs are sudden trouble speaking, slurred speech, or trouble understanding what people say. ?T - Time. Time to call emergency services. Write down what time symptoms started. You have other signs of a stroke, such as: ?A sudden, severe headache with no known cause. ?Nausea or vomiting. ?Seizure. These symptoms may represent a serious problem that is an emergency. Do not wait to see if the symptoms will go away. Get medical help right away. Call your local emergency services (911 in the [place] Do not drive yourself to the hospital. Summary Atherosclerosis is narrowing and hardening of the arteries. Arteries can become narrow or clogged with a buildup of fat, cholesterol, calcium, and other substances (plaque). This condition may not cause any symptoms. If you do have symptoms, they are caused by damage to anarea of your body that is not getting enough blood. Treatment may include lifestyle changes and medicines. In some cases, surgery is needed. This information is not intended to replace advice given to you by your health care provider. Make sure you discuss any questions you have with your health care provider. Document Released: 10/25/2004 Document Revised: 11/14/2018 Document Reviewed: 04/10/2018 [employer] Patient Education 2020 [employer]. 03/09/2022 11:23:55 BMI for Adults BMI for Adults Body mass index (BMI) is a number that is calculated from a person's weight and height. BMI may help to estimate how much of a person's weight is composed of fat. BMI can help identify those who may be at higher risk for certain medical problems. How is BMI used with adults? BMI is used as a screening tool to identify possible weight problems. It is used to check whether aperson is obese, overweight, healthy weight, or underweight. How is BMI calculated? BMI measures your weight and compares it to your height. This can be done either in [place] or metric measurements. Note that charts are available to help you find your BMI quickly and easily without having to do these calculations yourself. To calculate your BMI in [place] measurements, your health care provider will: 1.Measure your weight in pounds (lb). 2.Multiply the number of pounds by 703. For example, for a person who weighs 180 lb, multiply that number by 703, which equals [phone]. 3.Measure your height in inches (in). Then multiply that number by itself to get a measurement called inches squared. For example, for a person who is 70 in tall, the inches squared measurement is 70 in x 70 in, which equals 4900 inches squared. 4.Divide the total from Step 2 (number of lb x 703) by the total from Step 3 (inches squared): 126,540 4900 = 25.8. This is your BMI. To calculate your BMI in metric measurements, your health care provider will: 1.Measure your weight in kilograms (kg). 2.Measure your height in meters (m). Then multiply that number by itself to get a measurement called meters squared. For example, for a person who is 1.75 m tall, the meters squared measurement is 1.75 m x 1.75 m, which is equal to 3.1 meters squared. 3.Divide the number of kilograms (your weight) by the meters squared number. In this example: 70 3.1 = 22.6. This is your BMI. How is BMI interpreted? To interpret your results, your health care provider will use BMI charts to identify whether you are underweight, normal weight, overweight, or obese. The following guidelines will be used: Underweight: BMI less than 18.5. Normal weight: BMI between 18.5 and 24.9. Overweight: BMI between 25 and 29.9. Obese: BMI of 30 and above. Please note: Weight includes both fat and muscle, so someone with a muscular build, such as an athlete, may havea BMI that is higher than 24.9. In cases like these, BMI is not an accurate measure of body fat. To determine if excess body fat is the cause of a BMI of 25 or higher, further assessments may needto be done by a health care provider. BMI is usually interpreted in the same way for men and women. Why is BMI a useful tool? BMI is useful in two ways: Identifying a weight problem that may be related to a medical condition, or that may increase the risk for medical problems. Promoting lifestyle and diet changes in order to reach a healthy weight. Summary Body mass index (BMI) is a number that is calculated from a person's weight and height. BMI may help to estimate how much of a person's weight is composed of fat. BMI can help identify those who may be at higher risk for certain medical problems. BMI can be measured using [place] measurements or metric measurements. To interpret your results, your health care provider will use BMI charts to identify whether you are underweight, normal weight, overweight, or obese. This information is not intended to replace advice given to you by your health care provider. Make sure you discuss any questions you have with your health care provider. Document Released: 04/16/2005 Document Revised: 07/18/2018 Document Reviewed: 06/18/2018 [employer] Patient Education 2020 [employer] [facility] Primary Care Evaluation + Plan note Future Appointments Appointment Date:03/09/2022 09:30:00 AM Scheduled Provider: Location:[facility] Appointment Type: Medicare Wellness Subsequent Appointment Date:03/26/2022 07:40:00 AM Scheduled Provider:Clive RAYMOND DO, FAAFP Location:[facility] Appointment Type: Open Future Scheduled Tests Laboratory* HgbA1c 03/06/22 * PSA Screen, Total 03/06/22 * TSH With T4fr Reflex 03/06/22 * Comprehensive Metabolic Panel 03/06/22 * Lipid Panel 03/06/22 [facility] Primary Care evaluation + Plan note Future Appointments Appointment Date:03/26/2022 07:40:00 AM Scheduled Provider:Clive RAYMOND DO, FAAFP Location:[facility] Appointment Type: Open Appointment Date:02/28/2023 09:30:00 AM Scheduled Provider: Location:[facility] Appointment Type:FM Medicare Wellness Subsequent Future Scheduled Tests Laboratory* HgbA1c 03/06/22 * PSA Screen, Total 03/06/22 * TSH With T4fr Reflex 03/06/22 * HCV Antibody RFX to Quant PCR 03/09/22 * Comprehensive Metabolic Panel 03/06/22 * Lipid Panel 03/06/22 [facility] Primary Care evaluation + Plan note Future Appointments Appointment Date:03/26/2022 07:40:00 AM Scheduled Provider:Clive RAYMOND DO, FAAFP Location:[facility] Appointment Type: Open Appointment Date:02/28/2023 09:30:00 AM Scheduled Provider: Location:[facility] Appointment Type:FM Medicare Wellness Subsequent Diagnostic Tests Pending * HCV Antibody [facility]X to Quant [facility] Appointment Date:04/26/2022 08:00:00 AM Scheduled Provider: Location[facility] Appointment Type:CV EKG () Appointment Date:04/26/2022 08:30:00 AM Scheduled Provider: Location:FT.XRAY Appointment Type:XR Chest (FT) Appointment Date:06/26/2022 08:00:00 AM Scheduled Provider:Clive RAYMOND DO, FAAFP [facility] Type:FM Open Appointment Date:02/28/2023 09:30:00 AM Scheduled Provider: Location:[facility] Appointment Type:FM Medicare Wellness Subsequent Future Scheduled Tests Radiology* XR Chest 2 Views 04/26/22 [facility] Primary Care Evaluation + Plan note Future Appointments Appointment Date:06/26/2022 08:00:00 AM Scheduled Provider:Clive RAYMOND DO, FAAFP [facility] Type:FM Open Appointment Date:02/28/2023 09:30:00 AM Scheduled Provider: [facility] Type:FM Medicare Wellness [facility] App[facility]ments Appointment Date:06/26/2022 09:20:00 AM Scheduled Provider:Clive RAYMOND DO, FAAFP [facility] App[facility] Type:FM Open Appointment Date:07/10/2022 08:00:00 AM Scheduled Provider: Location:[facility] Appointment Type:Surgery FT Appointment Date:02/28/2023 09:30:00 AM Scheduled Provider: [facility] Type:FM Medicare Wellness [facility] Future App[facility]ments Appointment Date:07/10/2022 08:00:00 AM Scheduled Provider: [facility] Appointment Type:Surgery FT Appointment Date:02/28/2023 09:30:00 AM Scheduled Provider: Location:[facility] Appointment Type:FM Medicare Wellness Subsequent [facility] Primary Care Evaluation + Plan note Future Appointments Appointment Date:02/28/2023 09:30:00 AM Scheduled Provider: [facility] Type:FM Medicare Wellness [facility] Future App[facility]ments Appointment Date:04/15/2023 11:20:00 AM Scheduled Provider:Clive RAYMOND DO, FAAFP Location:[facility] Appointment Type:FM Open Appointment Date:02/27/2024 09:30:00 AM Scheduled Provider: Location:[facility] Appointment Type: Medicare Wellness Subsequent [facility] Primary Care evaluation + Plan note Future Appointments Appointment Date:10/17/2023 09:00:00 AM Scheduled Provider:Clive RAYMOND DO, FAAFP Location:[facility] Appointment Type: Open Appointment Date:02/27/2024 09:30:00 AM Scheduled Provider: Location:[facility] Appointment Type: Medicare Wellness Subsequent [facility] Primary Care evaluation + Plan note Future Appointments Appointment Date:02/27/2024 09:30:00 AM Scheduled Provider: [facility] Type: Medicare Wellness Subsequent Appointment Date:03/24/2024 08:00:00 AM Scheduled Provider:Clive RAYMOND DO, FAAFP Location:[facility] Appointment Type: Open Future Scheduled Tests Laboratory* HgbA1c 09/26/23 * PSA Screen, Total 09/26/23 * Basic Metabolic Panel 09/26/23 * CBC w/ Auto Diff 09/26/23 * Hepatic Function Panel 09/26/23 * Lipid Panel 09/26/23 [facility] Primary Care evaluation + Plan note Future Appointments Appointment Date:02/27/2024 09:30:00 AM Scheduled Provider: Location:[facility] Appointment Type: Medicare Wellness Subsequent Appointment Date:03/24/2024 08:00:00 AM Scheduled Provider:Clive RAYMOND DO, FAAFP Location:[facility] Type: [facility] Future App[facility]ments Appointment Date:03/24/2024 08:00:00 AM Scheduled Provider:Clive RAYMOND DO, FAAFP Location:[facility] Appointment Type: Open Appointment Date:03/23/2025 08:00:00 AM Scheduled Provider: [facility] Type: Medicare Wellness Subsequent [facility] Primary Care Evaluation + Plan note Future Appointments Appointment Date:09/25/2024 07:40:00 AM Scheduled Provider:Clive RAYMOND DO, FAAFP [facility] Appointment Type: Open Appointment Date:03/23/2025 08:00:00 AM Scheduled Provider: [facility] Type: Medicare Wellness Subsequent Future Scheduled Tests Laboratory* HgbA1c 03/24/24 * PSA Screen, Total 03/24/24 * Basic Metabolic Panel 03/24/24 * CBC w/ Auto Diff 03/24/24 * Hepatic Function Panel 03/24/24 * Lipid Panel 03/24/24 [facility] Primary Care evaluation + Plan note Future Appointments Appointment Date:09/25/2024 07:40:00 AM Scheduled Provider:Clive RAYMOND DO, FAAFP [facility] Type: Open Appointment Date:03/23/2025 08:00:00 AM Scheduled Provider: Location:[facility] Appointment Type: Medicare Wellness Subsequent [facility] + Plan note Future Appointments Appointment Date:03/19/2025 07:40:00 AM Scheduled Provider:Clive RAYMOND DO, FAAFP Location:[facility] Appointment Type: Open Appointment Date:03/19/2025 09:00:00 AM Scheduled Provider: [facility] App[facility] Type: Medicare Wellness Subsequent Future Scheduled Tests Laboratory* HgbA1c 09/25/24 [facility] Primary Care evaluation + Plan note Future Appointments Appointment Date:06/21/2025 11:20:00 AM Scheduled Provider:Clive RAYMOND DO, FAAFP [facility] App[facility] Type: Open Appointment Date:03/21/2026 08:00:00 AM Scheduled Provider: [facility] App[facility] Type: Medicare Wellness Subsequent Future Scheduled Tests Laboratory* HgbA1c 09/25/24 * HgbA1c 03/19/25 * Urine Microalbumin/Creatinine Ratio 03/19/25 [facility] Diagnosis Pain- Primary Generalized pain documented in this encounter [facility] note* Diagnosis Left knee pain, unspecified chronicity- Primary Failure of total knee replacement, initial encounter ([facility]) ([facility]) documented in this encounter [facility] note* Diagnosis Anemia, unspecified type- Primary Failure of total knee replacement, initial encounter ([facility]) ([facility]) Vitamin D deficiency, unspecified documented in this encounter [facility] note* Diagnosis Pre-op evaluation- Primary Preoperative examination, unspecified Essential (primary) hypertension Unspecified essential hypertension Obesity, Class II, BMI 35-39.9, isolated (see actual BMI) Obesity, unspecified Suspected sleep apnea Alcohol use Failure of total knee replacement, initial encounter ([facility]) ([facility]) documented in this encounter [facility] note* Diagnosis S/P revision of total knee, left- Primary documented in this encounter [facility] note* Diagnosis Failure of total knee replacement, initial encounter ([facility]) ([facility]) documented in this encounter [facility] note* Diagnosis Chronic pain of left knee [M25.562, G89.29]- Primary Pain in joint, lower leg documented in this encounter [facility] note* Diagnosis Pre-op evaluation- Primary Preoperative examination, unspecified Essential (primary) hypertension Unspecified essential hypertension Obesity, Class II, BMI 35-39.9, isolated (see actual BMI) Obesity, unspecified Suspected sleep apnea Alcohol use Failure of total knee replacement, initial encounter ([facility]) ([facility]) documented in this encounter [facility] note* Diagnosis Failure of total knee replacement, initial encounter ([facility]) ([facility]) Pre-op evaluation- Primary Preoperative examination, unspecified Essential (primary) hypertension Unspecified essential hypertension Obesity, Class II, BMI 35-39.9, isolated (see actual BMI) Obesity, unspecified Suspected sleep apnea Alcohol use documented in this encounter [facility] note* Diagnosis Pain Generalized pain Left knee pain, unspecified chronicity Pre-op evaluation- Primary Preoperative examination, unspecified Essential (primary) hypertension Unspecified essential hypertension Obesity, Class II, BMI 35-39.9, isolated (see actual BMI) Obesity, unspecified Suspected sleep apnea Alcohol use documented in this encounter [facility] note* Diagnosis Actinic keratosis Lentigines Inflamed seborrheic keratosis Seborrheic keratosis documented in this encounter [facility]* Diagnosis Seborrheic keratosis Lentigines Melanocytic nevus of trunk Benign neoplasm of skin of trunk, except scrotum Actinic keratosis documented in this encounter [facility] HealthcareHospital course Narrative No data available for this section [facility] Hospital Discharge instructions No data available for this section [facility] Progress note No data available for this section [facility] Primary Care Reason for referral (narrative)* Diagnostic Procedure Only (Routine) - Pending Review Specialty Diagnoses / Procedures Referred By Contac t Referred To Contact XR IMAGING Diagnoses Pain Procedures XR KNEE GENERAL 4V AP BOTH/PA BOTH/LAT/MERC LEFT RADIOLOGIC EXAM KNEE COMPLETE 4/MORE VIEWS Katina Merchant, DO [address] [place] [address] [place] [address] Referral ID Status Reason Start Date Expiration Date Visits Requested Visits Authorized [id number] Pending Review Auto-Generat ed Referral 07/23/2023 08/21/2024 1 1 [facility] for referral (narrative)* Diagnostic Procedure Only (Routine) - Closed Specialty Diagnoses / Procedures Referred By Contac t Referred To Contact XR IMAGING Diagnoses Left knee pain, unspecified chronicity Procedures XR LEG FRONTAL HIP TO ANKLE MECHANICAL AXIS BONE LENGTH STUDIES Katina Merchant DO [address] [place] [address] [place] [address] Referral ID Status Reason Start Date Expiration Date V isits Requested Visits Authorized [id number] Closed Auto-Generate d Referral 08/28/2023 09/26/2024 1 1 [facility] for referral (narrative)* Diagnostic Procedure Only (Routine) - Pending Review Specialty Diagnoses / Procedures Referred By Contac t Referred To Contact XR IMAGING Diagnoses Failure of total knee replacement, initial encounter (HCC) ([facility]) Procedures XR KNEE POST OP 3V AP/LAT/MERCHANT LEFT RADIOLOGIC EXAMINATION KNEE 3 VIEWS Katina Merchant DO [address] [place] [address] [place] [address] Referral ID Status Reason Start Date Expiration Date Visits Requested Visits Authorized [id number] Pending Review Auto-Generat ed Referral 09/20/2023 10/19/2024 1 1 * Physical Therapy (Routine) - Pending Review Specialty Diagnoses / Procedures Referred By Contac t Referred To Contact [facility] Diagnoses Failure of total knee replacement, initial encounter (HCC) ([facility]) Procedures CONSULT TO PHYSICAL THERAPY PHYSICAL THERAPY EVALUATION HIGH COMPLEX 45 MINS Katina Merchant DO [address] [place] [address] [facility] [address] [address] Referral ID Status Reason Start Date Expiration Date Visits Requested Visits Authorized [id number] Pending Review Auto-Generat ed Referral 09/20/2023 09/19/2024 1 1 * Transition of Care (Routine) - Ref Not Required Specialty Diagnoses / Procedures Referred By Contac t Referred To Contact Diagnoses Failure of total knee replacement, initial encounter (HCC) ([facility]) Procedures PACC PRE-SURGICAL PLANNING CONSULT Katina Merchant DO [address] [place] [address] Referral ID Status Reason Start Date Expiration Date Visits Requested Visits Authorized [id number] Ref Not Required PCP Requested Referral 09/20/2023 09/19/2024 1 1 * Diagnostic Procedure Only (Routine) - Pending Review Specialty Diagnoses / Procedures Referred By Contac t Referred To Contact XR IMAGING Diagnoses Failure of total knee replacement, initial encounter (HCC) ([facility]) Procedures XR KNEE POST OP 3V AP/LAT/MERCHANT LEFT RADIOLOGIC EXAMINATION KNEE 3 VIEWS Katina Merchant DO [address] [place] [address] [place] [address] Referral ID Status Reason Start Date Expiration Date Visits Requested Visits Authorized [id number] Pending Review Auto-Generat ed Referral 09/20/2023 10/19/2024 1 1 * Consult, Test, Treat (Routine) - Authorized Specialty Diagnoses / Procedures Referred By Contac t Referred To Contact Diagnoses Failure of total knee replacement, initial encounter (HCC) (HCC) Procedures REFER TO PACC - PRE ANESTHESIA CONSULTATION CLINIC OFFICE/OUTPATIENT [facility] 60 MINUTES Katina Merchant DO [address] [place] [address] Referral ID Status Reason Start Date Expiration Date Visits Requested Visits Authorized [id number] Authorized PCP Requested Referral 09/20/2023 09/19/2024 1 1 * Outpatient Procedure (Routine) - Pending Review Specialty Diagnoses / Procedures Referred By Contac t Referred To Contact [facility] Diagnoses Failure of total knee replacement, initial encounter (HCC) (HCC) Procedures ECG COMPLETE ECG ROUTINE ECG W/LEAST 12 LDS W/I&R Katina Merchant DO [address] [place] [address] [facility] [place] [address] [place] [address] Referral ID Status Reason Start Date Expiration Date Visits Requested Visits Authorized [id number] Pending Review Auto-Generat ed Referral 09/20/2023 09/19/2024 1 1 [facility] Diagnostic Procedure Only (Routine) - Closed Specialty Diagnoses / Procedures Referred By Contac t Referred To Contact XR IMAGING Diagnoses Failure of total knee replacement, initial encounter (HCC) (HCC) Procedures XR KNEE POST OP 3V AP/LAT/MERCHANT LEFT RADIOLOGIC EXAMINATION KNEE 3 VIEWS Katina Merchant, DO [address] [place] [address] [place] [address] Referral ID Status Reason Start Date Expiration Date V isits Requested Visits Authorized [id number] Closed Auto-Generate d Referral 09/20/2023 10/19/2024 1 1 [facility] for referral (narrative)* Diagnostic Procedure Only (Routine) - Closed Specialty Diagnoses / Procedures Referred By Contac t Referred To Contact XR IMAGING Diagnoses Left knee pain, unspecified chronicity Procedures XR LEG FRONTAL HIP TO ANKLE MECHANICAL AXIS BONE LENGTH STUDIES Katina Merchant, DO [address] [place] [address] [place] [address] Referral ID Status Reason Start Date Expiration Date V isits Requested Visits Authorized [id number] Closed Auto-Generate d Referral 08/28/2023 09/26/2024 1 1 * Diagnostic Procedure Only (Routine) - Closed Specialty Diagnoses / Procedures Referred By Contac t Referred To Contact XR IMAGING Diagnoses Pain Procedures XR KNEE GENERAL 4V AP BOTH/PA BOTH/LAT/MERC LEFT RADIOLOGIC EXAM KNEE COMPLETE 4/MORE VIEWS Katina Merchant, DO [address] [place] [address] [place] [address] Referral ID Status Reason Start Date Expiration Date V isits Requested Visits Authorized [id number] Closed Auto-Generate d Referral 07/23/2023 08/21/2024 1 1 [facility] for visit Narrative* Diagnostic Procedure Only (Routine) - Closed Specialty Diagnoses / Procedures Referred By Contac t Referred To Contact XR IMAGING Diagnoses Failure of total knee replacement, initial encounter (HCC) (HCC) Procedures XR KNEE POST OP 3V AP/LAT/MERCHANT LEFT RADIOLOGIC EXAMINATION KNEE 3 VIEWS Katina Merchant, DO [address] [place] [address] [place] [address] Referral ID Status Reason Start Date Expiration Date V isits Requested Visits Authorized [id number] Closed Auto-Generate d Referral 09/20/2023 10/19/2024 1 1 [facility] for visit Narrative* Diagnostic Procedure Only (Routine) - Closed Specialty Diagnoses / Procedures Referred By Contac t Referred To Contact XR IMAGING Diagnoses Failure of total knee replacement, initial encounter (HCC) (HCC) Procedures XR KNEE POST OP 3V AP/LAT/MERCHANT LEFT RADIOLOGIC EXAMINATION KNEE 3 VIEWS Katina Merchant, DO [address] [place] [address] [place] [address] Referral ID Status Reason Start Date Expiration Date V isits Requested Visits Authorized [id number] Closed Auto-Generate d Referral 09/20/2023 10/19/2024 1 1 [facility] for visit Narrative* Diagnostic Procedure Only (Routine) - Closed Specialty Diagnoses / Procedures Referred By Contac t Referred To Contact XR IMAGING Diagnoses Pain Procedures XR KNEE GENERAL 4V AP BOTH/PA BOTH/LAT/MERC LEFT RADIOLOGIC EXAM KNEE COMPLETE 4/MORE VIEWS Katina Merchant, DO [address] [place] [address] [place] [address] Referral ID Status Reason Start Date Expiration Date V isits Requested Visits Authorized [id number] Closed Auto-Generate d Referral 07/23/2023 08/21/2024 1 1 [facility] Summary Purpose Family History No Family History Records FoundNo Family History Records Found No data available for this section No data available for this section No data available for this section No Family History Records FoundNo Family History Records Found No data available for this section No data available for this section No Family History Records Found No data available for this section No Family History Records FoundNo Family History Records FoundNo Family History Records FoundNo Family History Records FoundNo Family History Records FoundNo Family History Records Found No data available for this section No Family History Records Found No data available for this section No data available for this section No Family History Records Found Advance Directives No Advanced Directives Records FoundNo Advanced Directives Records FoundNo Advanced Directives Records FoundNo Advanced Directives Records FoundNo Advanced Directives Records FoundNo Advanced Directives Records FoundNo Advanced Directives Records FoundNo Advanced Directives Records FoundNo Advanced Directives Records FoundNo Advanced Directives Records FoundNo Advanced Directives Records FoundNo Advanced Directives Records FoundNo Advanced Directives Records Found Reason for Referral Specialty Diagnoses / Procedures Referred By Contac t Referred To Contact [facility] Diagnoses S/P revision of total knee, left Procedures CONSULT TO PHYSICAL THERAPY PHYSICAL THERAPY EVALUATION HIGH COMPLEX 45 MINS Cheyl Young PA-C [address] [facility] [address] [place] [address] [facility] [place] [address] [place] [address] Referral ID Status Reason Start Date Expiration Date Visits Requested Visits Authorized [id number] Authorized PCP Requested Referral Auto-Generate d Referral 11/07/2023 11/06/2024 99 99 Additional Source Comments Care Team (unrecognized sect ion and content) [employer] Relationship Specialty Start Date End Date Carol Deluna [address] [place] [address] Referring Orthopedics 07/18/23 [employer] Relationship Specialty Start Date End Date Carol Deluna [address] [place] [address] Referring Orthopedics 07/18/23 [employer] Relationship Specialty Start Date End Date Carol Deluna [address] [place] [address] Referring Orthopedics 07/18/23 [employer] Relationship Specialty Start Date End Date Carol Deluna [address] [place] [address] Referring Orthopedics 07/18/23 [employer] Relationship Specialty Start Date End Date Clive Raymond DO [address] [facility] [place] [address] PCP - General Family Medicine 10/07/23 Carol Deluna [address] [place] [phone] Referring Orthopedics 07/18/23 [employer] Relationship Specialty Start Date End Date Clive Raymond DO [address] [facility] [place] [id number] PCP - General Family Medicine 10/07/23 Carol Deluna [address] [place] [phone] Referring Orthopedics 07/18/23 [employer] Relationship Specialty Start Date End Date Clive Raymond DO [address] [place] [address] PCP - General Family Medicine 10/07/23 Carol Deluna [address] [place] [address] Referring Orthopedics 07/18/23 [employer] Relationship Specialty Start Date End Date Clive Raymond DO [address] [facility] [place] [place] [address] PCP - General Family Medicine 10/07/23 Carol Deluna [address] [place] [phone] Referring Orthopedics 07/18/23 [employer] Relationship Specialty Start Date End Date Cilve Raymond DO [address] [facility] [place] [place] [address] PCP - General Family Medicine 10/07/23 Carol Deluna [address] [place] [address] Referring Orthopedics 07/18/23 [employer] Relationship Specialty Start Date End Date Clive Raymond DO [address] [facility] [place] [address] PCP - General Family Medicine 10/07/23 Carol Deluna [address] [place] [phone] Referring Orthopedics 07/18/23 [employer] Relationship Specialty Start Date End Date Clive Raymond DO [address] [place] [address] PCP - General Family Medicine 10/07/23 Carol Deluna [address] [place] [phone] Referring Orthopedics 07/18/23 [employer] Relationship Specialty Start Date End Date Clive Raymond DO [address] [place] [address] PCP - General Family Medicine 10/07/23 Carol Deluna [address] [place] [phone] Referring Orthopedics 07/18/23 [employer] Relationship Specialty Start Date End Date Carol Deluna [address] [place] [phone] Referring Orthopedics 07/18/23 [employer] Relationship Specialty Start Date End Date Clive Raymond MD [address] [place] [address] PCP - General Family Medicine 01/06/23 [employer] Relationship Specialty Start Date End Date Clive Raymond MD [address] [place] [address] PCP - General Family Medicine 01/06/23 [employer] Relationship Specialty Start Date End Date Clive Raymond MD [address] [place] [address] PCP - General Family Medicine 01/06/23 [employer] Relationship Specialty Start Date End Date Clive Raymond MD [address] [place] [address] PCP - General Family Medicine 01/06/23 (unrecognized sect ion and content) No Status Records FoundNo Status Records FoundNo Status Records FoundNo Status Records FoundNo Status Records FoundNo Status Records FoundNo Status Records FoundNo Status Records FoundNo Status Records FoundNo Status Records FoundNo Status Records FoundNo Status Records FoundNo Status Records Found INFORMATION SOURCE (unrecogn ized section and content) DATE CREATED AUTHOR 05/16/2022 [facility] DATE CREATED AUTHOR AUTHOR'S ORGANIZ ATION 11/25/2022 [facility] DATE CREATED AUTHOR AUTHOR'S ORGANIZ ATION 10/18/2023 [facility] DATE CREATED AUTHOR AUTHOR'S ORGANIZ ATION 12/29/2023 [facility] DATE CREATED AUTHOR AUTHOR'S ORGANIZ ATION 07/08/2024 [facility] DATE CREATED AUTHOR AUTHOR'S ORGANIZ ATION 09/17/2024 [facility] DATE CREATED AUTHOR AUTHOR'S ORGANIZ ATION 09/27/2024 [facility] DATE CREATED AUTHOR AUTHOR'S ORGANIZ ATION 03/25/2025 [facility] Source Comments (unrecognize d section and content) In the event this informatio n is protected by the Federal Confidentiality of Alcohol and Drug Abuse Patient Records regulations: The Federal rules restrict any use of the information to criminally investigate or prosecute any alcohol or drug abuse patient.[facility] the event this information is protected by the Federal Confidentiality of Alcohol and Drug Abuse Patient Records regulations: The Federal rules restrict any use of the information to criminally investigate or prosecute any alcohol or drug abuse patient.[facility] the event this information is protected by the Federal Confidentiality of Alcohol and Drug Abuse Patient Records regulations: The Federal rules restrict any use of the information to criminally investigate or prosecute any alcohol or drug abuse patient.[facility] the event this information is protected by the Federal Confidentiality of Alcohol and Drug Abuse Patient Records regulations: The Federal rules restrict any use of the information to criminally investigate or prosecute any alcohol or drug abuse patient.[facility] the event this information is protected by the Federal Confidentiality of Alcohol and Drug Abuse Patient Records regulations: The Federal rules restrict any use of the information to criminally investigate or prosecute any alcohol or drug abuse patient.[facility] the event this information is protected by the Federal Confidentiality of Alcohol and Drug Abuse Patient Records regulations: The Federal rules restrict any use of the information to criminally investigate or prosecute any alcohol or drug abuse patient.[facility] the event this information is protected by the Federal Confidentiality of Alcohol and Drug Abuse Patient Records regulations: The Federal rules restrict any use of the information to criminally investigate or prosecute any alcohol or drug abuse patient.[facility] the event this information is protected by the Federal Confidentiality of Alcohol and Drug Abuse Patient Records regulations: The Federal rules restrict any use of the information to criminally investigate or prosecute any alcohol or drug abuse patient.[facility] the event this information is protected by the Federal Confidentiality of Alcohol and Drug Abuse Patient Records regulations: The Federal rules restrict any use of the information to criminally investigate or prosecute any alcohol or drug abuse patient.[facility] the event this information is protected by the Federal Confidentiality of Alcohol and Drug Abuse Patient Records regulations: The Federal rules restrict any use of the information to criminally investigate or prosecute any alcohol or drug abuse patient.[facility] the event this information is protected by the Federal Confidentiality of Alcohol and Drug Abuse Patient Records regulations: The Federal rules restrict any use of the information to criminally investigate or prosecute any alcohol or drug abuse patient.[facility] Hospital[facility] the event this information is protected by the Federal Confidentiality of Alcohol and Drug Abuse Patient Records regulations: The Federal rules restrict any use of the information to criminally investigate or prosecute any alcohol or drug abuse patient.[facility] Hospital[facility] the event this information is protected by the Federal Confidentiality of Alcohol and Drug Abuse Patient Records regulations: The Federal rules restrict any use of the information to criminally investigate or prosecute any alcohol or drug abuse patient.[facility] Hospital[facility] the event this information is protected by the Federal Confidentiality of Alcohol and Drug Abuse Patient Records regulations: The Federal rules restrict any use of the information to criminally investigate or prosecute any alcohol or drug abuse patient.[facility] Reason for Visit (unrecogniz ed section and content) Reason Comments 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 This clinical summary was aggregated from multiple sources. Caution should be exercised in using it in the provision of clinical care. This summary normalizes information from multiple sources, and as a consequence, information in this document may materially change the coding, format and clinical context of patient data. In addition, data may be omitted in some cases. CLINICAL DECISIONS SHOULD BE BASED ON THE PRIMARY CLINICAL RECORDS. [employer] [facility]. provides no warranty or guarantee of the accuracy or completeness of information in this document.
--- NOTE | 2025-04-29 07:27 | XR_ITS ---
The [address] [address] Patient Name: HERMINIO HAMEED MRN: [id number] date: 1955 Sex: M Assigned Patient Location: [facility] Current Patient Location: [facility] Accession/Order Number: [id number] Exam Date: 04/29/2025 07:44 Report Date: 04/29/2025 08:50 At the request of: LAKISHA DURAN DPM Procedure: XR ankle BRENDA min 3V BILATERAL ANKLES - 3 views each COMPARISON: Right ankle 05/02/2022 CLINICAL DATA: Chronic ankle pain. Previous right ankle replacement. Weightbearing AP, lateral and oblique views were obtained. There is osteopenia. 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 The hardware appears intact and unchanged from the comparison exam. There is also a plate at the right lateral calcaneus that was seen previously. No acute fractures or dislocation are noted. Similar degenerative changes are visualized at the ankle and imaged foot on the right including calcaneal spurs. On the left, the talar dome is intact. There is degenerative change in the tarsal and proximal metatarsal region as well as calcaneal spurs. No significant soft tissue swelling is seen. XR/XR ankle BRENDA min 3V IMPRESSION: OSTEOPENIA AND DEGENERATIVE CHANGES. SIMILAR POSTOPERATIVE CHANGES OF THE RIGHT. NO ACUTE FINDINGS. Impression dictated by: Olivia Suarez M.D. 04/29/2025 8:50 AM Dictation Location: [employer] Electronically authenticated by: [id number] Date: 04/29/2025 08:50
== END 2025-04-29 07:16 | disposition home or self-care (01) ==
LOC: RAD 07:20
PROVIDERS: PCP Family Medicine; Visit Provider Podiatrist Foot & Ankle Surgery
DX: M25.571 Pain in right ankle and joints of right foot (principal); M25.572 Pain in left ankle and joints of left foot; M85.88 Other specified disorders of bone density and structure, other site
CPT/HCPCS: 73610